=== PATIENT | female | born 1940 | race Caucasian/White ===

== ENCOUNTER → 2023-10-16 14:53 | Outpatient (REF) | payer MEDICARE, OTHER, SELFPAY | LOC: RAD 14:53 | PROVIDERS: ATTENDING PHYSICIAN Physician Assistant | DX: M54.2 Cervicalgia (principal); M54.6 Pain in thoracic spine | CPT/HCPCS: 72052; 72072 ==

== ENCOUNTER → 2024-01-09 15:39 | Outpatient (REF) | payer MEDICARE, OTHER, SELFPAY | LOC: RCS 15:39 | PROVIDERS: ATTENDING PHYSICIAN Internal Medicine Cardiovascular Disease; FAMILY PHYSICIAN Physician Assistant | DX: I31.39 Other pericardial effusion (noninflammatory) (principal) | CPT/HCPCS: 93306 ==

== ENCOUNTER → 2024-01-16 13:01 | Outpatient (REF) | payer MEDICARE, OTHER, SELFPAY | LOC: RAD 13:01 | PROVIDERS: ATTENDING PHYSICIAN Nurse Practitioner Family; FAMILY PHYSICIAN Physician Assistant | DX: J84.9 Interstitial pulmonary disease, unspecified (principal) | CPT/HCPCS: 71250 ==

== ENCOUNTER → 2024-04-15 12:44 | Outpatient (REF) | payer MEDICARE, OTHER, SELFPAY | LOC: RAD 12:44 | PROVIDERS: ATTENDING PHYSICIAN Physician Assistant | DX: M54.6 Pain in thoracic spine (principal); M81.0 Age-related osteoporosis without current pathological fracture; J84.9 Interstitial pulmonary disease, unspecified; J44.9 Chronic obstructive pulmonary disease, unspecified | CPT/HCPCS: 71046; 72072 ==

== ENCOUNTER → 2024-08-26 11:00 | Outpatient (REF) | payer MEDICARE, OTHER, SELFPAY ==
[2024-08-26 16:41] LABS: ALT (SGPT) 30 U/L (0-35); AST (SGOT) 35 U/L (14-36); Albumin 3.8 g/dl (3.5-5.0); Alkaline Phosphatase 77 U/L (38-126); Blood Urea Nitrogen 17 mg/dl (7-17); Carbon Dioxide 32 mmol/L (22-30); Chloride 90 mmol/L (98-107); Glucose 90 mg/dl (70-99); Potassium 4.8 mmol/L (3.5-5.1); Sodium 130 mmol/L (135-145); Total Bilirubin 0.6 mg/dl (0.2-1.3); Total Protein 8.1 g/dl (6.3-8.2); eGFR > 60.00
[2024-08-26 16:50] LABS: NT-proBNP 6380 pg/ml
== END ==
LOC: CLAB 11:00
PROVIDERS: ATTENDING PHYSICIAN Physician Assistant
DX: I50.812 Chronic right heart failure (principal)
CPT/HCPCS: 36415; 80053; 83880

== ENCOUNTER 2024-08-27 10:03 | Emergency (ER) | payer MEDICARE, SELFPAY ==
[2024-08-27 10:17] VITALS: BP 124/82
--- NOTE | 2024-08-27 11:17 | EDRN ---
Brant SPARKS currently at the pts bedside
[2024-08-27 11:25] VITALS: BMI 17.6
--- NOTE | 2024-08-27 11:37 | ED.GENMED ---
History of Present Illness
General
Chief Complaint: Abnormal Lab Value
Time Seen by Provider: 08/27/24 11:11
History of Present Illness
History of Present Illness:
84-year-old female with history of interstitial lung disease on chronic supplemental oxygen presents to the emergency department due to abnormal outpatient labs. Had visiting nurses draw labs yesterday and was called this morning to be told to go
to the ER. She is not certain what the labs are but thinks 'my sodium was not right'. She denies any acute complaints. She has chronic lower extremity edema despite use of furosemide every other day. Denies any dose changes to furosemide
recently. Denies any acute dyspnea but is noted to be tachypneic.
Review of Systems
Review of Systems
Allergies reviewed?: Yes
All Other Systems: ROS reviewed and negative except as documented in HPI and ROS
Phy Exam
Physical Exam
Physical Exam:
GEN: Well appearing, NAD, WDWN
HEENT: Oral mucosa moist, no scleral icterus
Cardiac: Regular rate
Lung: No respiratory distress, mildly tachypneic, diffuse interstitial crackles
MSK: No gross deformity or injuries, +1 pitting edema bilateral lower extremities
Skin: Good color, no pallor or jaundice, no rashes
Neuro: AO x3, moves all extremities freely
Psych: Calm, cooperative
Course
Orders/Labs/Results
Orders:
Orders
08/27/24 10:48
Add On- LAB Urgent
Tests Added?: pro-BNP
08/27/24 11:32
Basic Metabolic Panel Urgent
NT-proBNP Urgent
Serum Osmolality Urgent
Comment: ADD ON
08/27/24 12:06
Add On- LAB Urgent
Tests Added?: serum osmolality
08/27/24 13:04
Osmolality, Random Urine Urgent
Date Specimen was Collected: 08/27/24
Time Specimen was Collected: 12:21
Urinalysis Reflex To Culture Urgent
Date Specimen was Collected: 08/27/24
Time Specimen was Collected: 12:21
Urine Sodium Urgent
Date Specimen was Collected: 08/27/24
Time Specimen was Collected: :21
Abnormal Lab Results
08/27/24 08/27/24
11:32 13:04
Sodium 129 L mmol/L
(135-145)
Chloride 90 L mmol/L
(98-107)
Carbon Dioxide 32 H mmol/L
(22-30)
Glucose 100 H mg/dl
(70-99)
Urine Ketones Trace A
(Negative)
Urine Sodium 14 L mmol/L
(30-90)
08/27/24 13:09
08/27/24 11:32
Vital Signs
Initial and Last Documented VS:
Initial Vital Signs
Temp Pulse Resp BP Pulse Ox
97.3 F 79 24 124/82 97
08/27/24 10:17 08/27/24 10:17 08/27/24 10:17 08/27/24 10:17 08/27/24 10:17
Last Documented Vital Signs
Temp Pulse Resp BP Pulse Ox
97.3 F 83 22 110/81 100
08/27/24 10:17 08/27/24 13:06 08/27/24 13:06 08/27/24 14:00 08/27/24 14:01
MDM/Problems Addressed
MDM/Problems Addressed:
Patient is mildly hyponatremic, remainder of workup unremarkable. She appears euvolemic/questionably hypervolemic on exam, urine sodium is low. We will treat the patient with increased dose of furosemide, instead of every other day she will take
every day until follow-up later this week for repeat sodium levels. No indication for admission
*Critical Care Note
Total Time (30-74mins, 75-104mins- exclusive of procedures): Not Applicable
ED Attending Note
-
Portions of this chart may have been created with voice recognition software.� Occasional wrong word or��sound alike� substitutions may have occurred due to the inherent limitations of voice recognition software.
Discharge Plan
Departure
Patient Disposition: Home (Routine Discharge)
Date of Disposition: 08/27/24
Time of Disposition: 14:07
Patient with high blood pressure during this ER visit?: No
Discharge Problem:
Acute hyponatremia
Instructions: Hyponatremia
Prescriptions:
No Action
acetaminophen [Tylenol Extra Strength] 500 mg Tablet
1,000 mg PO Q6H PRN (Reason: mild pain)
ascorbic acid (vitamin C) [Vitamin C] 500 mg Tablet
500 mg PO QPM
vitamin E 268 mg (400 unit) Capsule
268 mg PO DAILY
coenzyme Q10 [CoQ-10] 100 mg Capsule
100 mg PO QPM
cholecalciferol (vitamin D3) 25 mcg (1,000 unit) Tablet
25 mcg PO DAILY
Visbiome 112.5 billion cell Capsule
1 cap PO QPM
Eye Vitamin
1 tab PO DAILY
Rx Instructions:
Vision essentials Ultra
furosemide 40 mg Tablet
40 mg PO DAILY 30 Days Qty: 30 0RF
Referrals:
Birdie Araiza PA [Family Provider] -
Activity Restrictions/Additional Instructions:
Increase your lasix to once per day instead of every other day
Have your sodium rechecked on Monday
Interventions
Interventions:
*Risk Screen - Suicide Last Done: 08/27/24 10:17
*General Assessment Last Done: 08/27/24 10:17
*Neglect/Abuse Screening Last Done: 08/27/24 10:17
ED- Fall Risk Assessment Last Done: 08/27/24 11:25
*ED COVID-19 Vaccine History Last Done: 08/27/24 10:17
*Nursing Disposition Last Done: 08/27/24 14:11
Discharge Date and Time
Discharge Date/Time: 08/27/24 14:19
Print Language: ERITREAN
[2024-08-27 12:00] VITALS: BP 126/106
[2024-08-27 12:02] LABS: Blood Urea Nitrogen 16 mg/dl (7-17); Calcium 9.4 mg/dl (8.4-10.2); Carbon Dioxide 32 mmol/L (22-30); Chloride 90 mmol/L (98-107); Estimated Creatinine Clearance 45 ml/min; Glucose 100 mg/dl (70-99); Sodium 129 mmol/L (135-145); eGFR > 60.00
[2024-08-27 12:04] LABS: NT-proBNP 6000 pg/ml
--- NOTE | 2024-08-27 12:41 | EDRN ---
the pt was notified that a urine sample needed to be collected, this RN provided the pt with water per the provider Brant SPARKS's request, the pt is drinking water and was educated on the use of the call alicea when she needs to use the bathroom, will
continue to monitor the pt closely
[2024-08-27 13:06] VITALS: BP 123/106
--- NOTE | 2024-08-27 13:06 | EDRN ---
the pts pressed the call ailcea and this RN entered the pts room, the pt stated that she needed to use the bathroom, the pt was able to ambulate to the bathroom independently with no issues and was able to provide a urine sample, urine was sent to the
lab, the pt was able to ambulate back to the stretcher with no issues, Sp02 100% on 4L NC, the pt is resting in stretcher in the lowest position, side rails up x2, call alicea within reach, HOB elevated, will continue to monitor the pt closely
[2024-08-27 13:31] LABS: Osmolality Serum 276 mOsm/kg (275-300)
[2024-08-27 13:35] LABS: Urine Albumin Trace (Neg - Trace); Urine Bilirubin Negative (Negative); Urine Character Clear (Clear); Urine Color Yellow; Urine Glucose Negative (Negative); Urine Ketone Trace (Negative); Urine Leukocyte Negative (Negative); Urine Nitrite Negative (Negative); Urine Occult Blood Negative (Negative); Urine Specific Gravity 1.025 (<1.030); Urine Urobilinogen Negative (Neg - 1+)
[2024-08-27 13:39] LABS: Osmolality Urine 554 mOsm/kg (300-900)
[2024-08-27 14:00] VITALS: BP 110/81
[2024-08-27 14:05] LABS: Urine Sodium 14 mmol/L (30-90)
--- NOTE | 2024-08-27 14:27 | EDRN ---
the pt is going home to get the pts home oxygen and coming back to pick the pt up
== END 2024-08-27 14:19 | disposition home or self-care (01) ==
LOC: EMR 10:03
PROVIDERS: Physician Assistant; EMERGENCY PHYSICIAN Emergency Medicine; FAMILY PHYSICIAN Physician Assistant
DX: E87.1 Hypo-osmolality and hyponatremia (principal); J84.9 Interstitial pulmonary disease, unspecified; Z99.81 Dependence on supplemental oxygen
CPT/HCPCS: 99283; 80048; 81003; 83880; 83930; 83935; 84300

== ENCOUNTER → 2024-09-05 11:06 | Outpatient (REF) | payer MEDICARE, OTHER, SELFPAY ==
[2024-09-05 15:59] LABS: Blood Urea Nitrogen 24 mg/dl (7-17); Calcium 9.3 mg/dl (8.4-10.2); Carbon Dioxide 34 mmol/L (22-30); Chloride 94 mmol/L (98-107); Glucose 119 mg/dl (70-99); Potassium 4.4 mmol/L (3.5-5.1); Sodium 135 mmol/L (135-145); eGFR > 60.00
== END ==
LOC: CLAB 11:06
PROVIDERS: ATTENDING PHYSICIAN Physician Assistant
DX: E87.1 Hypo-osmolality and hyponatremia (principal)
CPT/HCPCS: 80048

== ENCOUNTER 2024-09-06 19:26 | Inpatient (IN) | payer MEDICARE, OTHER, SELFPAY ==
[2024-09-06] VITALS (9 sets, daily range): BP systolic 104–119; BP diastolic 72–89; BMI 19.0; BMI 17.7
[2024-09-06 15:49] LABS: % Basophils 1.2 % (0-2); % Eosinophils 1.2 % (0-6); % Immature Granulocytes 0.2 % (0-0.5); % Lymphocytes 17.9 % (20.5-51.1); % Monocytes 14.3 % (1.7-9.3); % Neutrophils 65.2 % (42.2-75.2); Absolute Basophils 0.1 10^3/uL (0-0.2); Absolute Eosinophils 0.1 10^3/uL (0-0.7); Absolute Lymphocytes 0.9 10^3/uL (1.2-3.4); Absolute Monocytes 0.7 10^3/uL (0.1-0.6); Absolute Neutrophils 3.2 10^3/uL (1.4-6.5); Hematocrit 38.3 % (37.0-47.0); Hemoglobin 12.8 g/dL (12.0-16.0); Mean Corp Hgb Conc. 33.4 g/dL (33.0-37.0); Mean Corpuscular Hgb 30.7 pg (27.0-31.0); Mean Corpuscular Volume 91.8 fL (81.0-99.0); Mean Platelet Volume 9.4 fL (7.4-10.4); Nucleated Red Blood Cells % 0 %; Platelet Count 313 10^3/uL (130-400); Red Blood Cell Count 4.17 10^6/uL (4.20-5.40); Red Cell Dist. Width 15.8 % (11.5-14.5)
[2024-09-06 16:01] LABS: ALT (SGPT) 39 U/L (0-35); AST (SGOT) 44 U/L (14-36); Albumin 3.8 g/dl (3.5-5.0); Alkaline Phosphatase 83 U/L (38-126); Blood Urea Nitrogen 26 mg/dl (7-17); Calcium 9.2 mg/dl (8.4-10.2); Carbon Dioxide 36 mmol/L (22-30); Chloride 93 mmol/L (98-107); Glucose 97 mg/dl (70-99); Potassium 4.3 mmol/L (3.5-5.1); Sodium 135 mmol/L (135-145); Total Bilirubin 0.5 mg/dl (0.2-1.3); Total Protein 7.9 g/dl (6.3-8.2); eGFR > 60.00
[2024-09-06 16:05] LABS: COVID-19 Antigen Negative (Negative)
[2024-09-06 16:11] LABS: NT-proBNP 13700 pg/ml; Troponin I 0.026 ng/ml
--- NOTE | 2024-09-06 18:00 | ED.GENMED ---
History of Present Illness
General
Chief Complaint: Breathing Problem
Source: patient and spouse
Exam Limitations: none
Time Seen by Provider: 09/06/24 16:54
Nursing documentation reviewed up to this point in time: agreed with
History of Present Illness
History of Present Illness:
The patient is a pleasant 84-year-old female with a past medical history of interstitial lung disease and CHF, who is oxygen dependent generally on 3 to 4 L of nasal oxygen, who reports 2 weeks of gradual onset of worsening shortness of breath,
early fullness with eating, as well as bilateral leg edema. Patient denies fever and productive cough. She denies a history of PE and DVT. Patient reports that just standing and brushing her teeth is extremely difficult because she cannot breathe
it. Patient reports that her home pulse ox has been in the 70s to 80s when they are generally in the low 90s.
Past History
Past History
ED Past Medical History: CHF and Other (Interstitial lung disease, chronic bronchiectasis)
ED Past Surgical History: Other (D&C)
Social History
Tobacco: Non-smoker
Alcohol: None
Drug: None
Personal:
Living: with family
Employment: Other
Family History
Family History: Other
Review of Systems
Review of Systems
Allergies reviewed?: Yes
All Other Systems: ROS reviewed and negative except as documented in HPI and ROS
Constitutional: Reports no symptoms
EENT: Reports no symptoms
Respiratory: Reports trouble breathing
Cardiac: Reports no symptoms
ABD/GI: Reports anorexia
: Reports no symptoms
Musculoskeletal: Reports edema
Skin: Reports no symptoms
Neurological: Reports no symptoms
Endocrine: Reports no symptoms
Hematologic/Lymphatic: Reports no symptoms
Psychiatric: Reports no symptoms
Phy Exam
Physical Exam
Physical Exam:
Physical Exam
General: Patient appears cachectic and chronically ill but is able to speak in full sentences
Neck: supple. no meningeal signs. normal psoterior pharynx
Heart: s1/s2 regular rate and rhythm,
Lungs: Mild tachypnea with speaking. Bilateral crackles and decreased breath sounds bilaterally
Abdomen: normal bowel sounds. not tender. no CVAT
Neuro: alert and oriented. no focal neurological deficits
Skin: no rash
Psychiatric: well kept. interactive and cooperative
Extremities: 2+ pitting edema in bilateral lower extremities. Negative Homans' sign
Scores
Heart Failure Risk
Heart Failure Risk Score: Not Applicable
Course
Orders/Labs/Results
Orders:
Orders
09/06/24 15:17
ECG [Electrocardiogram (*1)] Urgent
Reason for Study: Shortness of Breath
CR Chest - 2 Views Urgent
Comment:
Reason For Exam: SOB
09/06/24 15:18
EKG- Treatment ONCE
09/06/24 15:34
COVID-19 Antigen Urgent
Source: Nasal Swab
Complete Blood Count/With Diff Urgent
Comprehensive Metabolic Panel Urgent
NT-proBNP Urgent
Troponin I Urgent
Influenza A+B Rapid Molecular Urgent
COLETTE Source: Nasal Swab
Specimen Description:
Abnormal Lab Results
09/06/24
15:34
RBC 4.17 L 10^6/uL
(4.20-5.40)
RDW 15.8 H %
(11.5-14.5)
Absolute Lymphs (auto) 0.9 L 10^3/uL
(1.2-3.4)
Absolute Monos (auto) 0.7 H 10^3/uL
(0.1-0.6)
Lymphocytes % 17.9 L %
(20.5-51.1)
Monocytes % 14.3 H %
(1.7-9.3)
Chloride 93 L mmol/L
(98-107)
Carbon Dioxide 36 H mmol/L
(22-30)
BUN 26 H mg/dl
(7-17)
AST 44 H U/L
(14-36)
ALT 39 H U/L
(0-35)
09/06/24 15:34
09/06/24 15:34
Vital Signs
Initial and Last Documented VS:
Initial Vital Signs
Temp Pulse Resp BP Pulse Ox
98.2 F 83 26 115/77 88
09/06/24 15:14 09/06/24 15:14 09/06/24 15:14 09/06/24 15:14 09/06/24 15:14
Last Documented Vital Signs
Temp Pulse Resp BP Pulse Ox
98.2 F 80 31 112/84 98
09/06/24 15:14 09/06/24 16:45 09/06/24 16:45 09/06/24 16:44 09/06/24 16:45
*Radiology
Radiology exam reviewed: preliminary read by ED provider (Thickened lung markings bilaterally. Chest x-ray reviewed by me) and radiology read reviewed
*Pulse Oximetry
Patient hypoxic: no
Comment: Patient with sats of 95% on 4.5 L of nasal oxygen
*EKG
Interpretation: abnormal
Comparison EKG: changes noted
Rate: normal
Rhythm: sinus
[place]: right axis deviation
Interval: normal interval
QRS Pattern: normal QRS
Ischemia: T-wave inversion
*Sidehand Interpretation
Rate: normal
Interpretation: normal
Rhythm: sinus
*Critical Care Note
Total Time (30-74mins, 75-104mins- exclusive of procedures): Not Applicable
Data Reviewed
Review of Other/Old Records Reveals: Testing (Cardiac echo 01/2024 shows an EF of 62%)
Source: patient and spouse
Patient Management
Social determinants of health affecting care: Living situation and Strong social support
Escalation/DeEscalation of care consider admission/obs:
Patient with worsening hypoxia and shortness of breath on simple exertion. Patient has no increased cough or fever to suggest pneumonia
ED Attending Note
-
Portions of this chart may have been created with voice recognition software.� Occasional wrong word or��sound alike� substitutions may have occurred due to the inherent limitations of voice recognition software.
Discharge Plan
Departure
Patient Disposition: Admit
Date of Disposition: 09/06/24
Time of Disposition: 17:53
Admit to: Telemetry
Presentation/result/management discussed w/ accepting MD/DO: Hospitalist
Patient with high blood pressure during this ER visit?: Yes
Condition: Fair
Covid-19: Negative COVID-19
Discharge Problem:
Acute exacerbation of chronic heart failure
Prescriptions:
No Action
acetaminophen [Tylenol Extra Strength] 500 mg Tablet
1,000 mg PO Q6HPRN PRN (Reason: mild pain)
ascorbic acid (vitamin C) [Vitamin C] 500 mg Tablet
500 mg PO QPM
vitamin E 268 mg (400 unit) Capsule
268 mg PO DAILY
coenzyme Q10 [CoQ-10] 100 mg Capsule
100 mg PO QPM
cholecalciferol (vitamin D3) 25 mcg (1,000 unit) Tablet
25 mcg PO DAILY
Visbiome 112.5 billion cell Capsule
1 cap PO QPM
furosemide 40 mg Tablet
40 mg PO DAILY 30 Days Qty: 30 0RF
budesonide 0.5 mg/2 mL Suspension For Nebulization
0.5 mg INHALATION R TID
Referrals:
Birdie Araiza PA [Family Provider] -
Interventions
Interventions:
*Risk Screen - Suicide Last Done: 09/06/24 16:47
*General Assessment Last Done: 09/06/24 15:14
*Neglect/Abuse Screening Last Done: 09/06/24 16:47
ED- Fall Risk Assessment Last Done: 09/06/24 16:47
*ED COVID-19 Vaccine History Last Done: 09/06/24 16:46
ED- Cardiac Assessment Last Done: 09/06/24 16:48
ED- Pulmonary Assessment Last Done: 09/06/24 16:48
Discharge Date and Time
Print Language: TANZANIAN
--- NOTE | 2024-09-06 18:02 | HPS.HSE ---
Family Physician
-
Family Physician: BRIDGER Caballero
Chief Complaint
-
sob
LE edema
History of Present Illness
84-year-old female with a past medical history of interstitial lung disease and CHF, who is oxygen dependent generally on 4 of nasal oxygen, who reports 2 weeks of gradual onset of worsening shortness of breath, early fullness with eating, as well
as bilateral leg edema. Patient denies fever and productive cough, congestion. denied BENNETT, dizzy or syncope. denied abdominal pain,n,vd. denied dysuria or hematuria. She denies a history of PE and DVT. Patient reports that her home pulse ox has
been in the 70s to 80s.
upon arrival noted in CHF.admitting for further management.
Medical History
Past Medical History
Past Medical History: Reports Other
Additional Past Medical History:
COPD
Heart failure
Macular degeneration
Interstitial lung disease
Bronchiectasis
Past Surgical History: Reports Other
Additional Past Surgical History:
D&C
Social History
Tobacco: Non-smoker
Alcohol: None
Drug: None
Personal:
Living: With Family
Family History
Family History: Not pertinent
Allergies / Home Medications
Allergies reflects when Allergies were last updated in [facility].
Home Medications with original date entered in [facility]
Allergy/Medication List:
Allergies
Allergy/AdvReac Type Severity Reaction Status Date / Time
adhesive Allergy Unknown Verified 09/06/24 15:14
Sulfa (Sulfonamide Allergy Unknown Verified 09/06/24 15:14
Antibiotics)
dust Allergy nasal Uncoded 09/06/24 15:14
symptoms
Home Medications
Lactobac no.2-Bifidobac no.1-S. thermo 112.5 billion cell capsule (Visbiome) 1 cap PO QPM probiotic 07/10/23
acetaminophen 500 mg tablet (Tylenol Extra Strength) 1,000 mg PO Q6HPRN PRN mild pain 07/10/23
ascorbic acid (vitamin C) 500 mg tablet (Vitamin C) 500 mg PO QPM Supplement 07/10/23
cholecalciferol (vitamin D3) 25 mcg (1,000 unit) tablet 25 mcg PO DAILY Supplement 07/10/23
coenzyme Q10 100 mg capsule (CoQ-10) 100 mg PO QPM Supplement 07/10/23
vitamin E 268 mg (400 unit) capsule 268 mg PO DAILY Supplement 07/10/23
furosemide 40 mg tablet 40 mg PO DAILY Fluid retention/Swelling 30 days #30 tabs 07/14/23
budesonide 0.5 mg/2 mL suspension for nebulization 0.5 mg inhalation R TID 09/06/24
Review of Systems
-
Constitutional: Reports No Symptoms
EENT: Reports No Symptoms
Respiratory: Reports Trouble Breathing
Cardiac: Reports No Symptoms
Abdomen/GI: Reports No Symptoms
: Reports No Symptoms
Musculoskeletal: Reports Edema (LE edema)
Skin: Reports No Symptoms
Neurological: Reports No Symptoms
Endocrine: Reports No Symptoms
Hematologic/Lymphatic: Reports No Symptoms
Psych: Reports No Symptoms
Physical Exam
Vital Signs
Vital Signs
Temp Pulse Resp BP Pulse Ox
98.2 F 80 31 112/84 98
09/06/24 15:14 09/06/24 16:45 09/06/24 16:45 09/06/24 16:44 09/06/24 16:45
Physical Exam
General: Well Developed, Well Nourished and No Apparent Distress
HEENT: NormoCephalic, Moist mucous membranes and Atraumatic
Respiratory: Rhonchi and Crackles
Cardiac: S1/S2 and Regular Rhythm; No Murmur or Rub
GI: Soft, Non Tender, Non Distended and Normal Bowel Sounds; No Organomegaly
Rectal: Deferred by Provider
Musculoskeletal: No Clubbing, No Cyanosis and Other (LE edema)
Skin: No Rash
Neuro: AO x 3 and Nonfocal/grossly intact
Psych: Calm
Laboratory Results
-
09/06/24 15:34
09/06/24:
Laboratory Results
Total Bilirubin 0.5 mg/dl (0.2-1.3) 09/06/24:34
AST 44 U/L (14-36) H 09/06/24:
ALT 39 U/L (0-35) H 09/06/24:34
Alkaline Phosphatase 83 U/L (38-126) 09/06/24:
Troponin I 0.026 ng/ml 09/06/24:34
Data Reviewed
-
Diagnostic Radiology: Report Reviewed by me
Lab Data: Labs Reviewed by me
Impression/Plan
-
# Short of breath/lower extremities edema likely CHF exacerbation secondary to pulmonary hypertension
#chronic hypoxic respiratory failure
#patient uses baseline 4l
-BNP 137 100
-Trend Trope
-COVID and pleural-negative
-Chest x-ray with impression of SEVERE CHRONIC INFLAMMATORY INTERSTITIAL PNEUMONITIS involving the periphery of the right lung more than the left lung. Severe varicoid bronchiectasis in the peripheral right lung.
2. Moderate right lung volume loss with elevation of the right hemidiaphragm and left to right mediastinal shift.
3. Central pulmonary arterial distention consistent with pulmonary arterial hypertension.
4. Moderate cardiomegaly.
5. Multilevel chronic vertebral body endplate osteoporotic insufficiency fractures with complete collapse of the T4 and T10 vertebral bodies.
-Strict CASA, daily weight, fluid restriction
-Lasix 40 IV bid
-Cardiology consulted
-Obtain echo
# Hepatic congestion
-AST 44, ALT 39
-Patient denied abdominal pain
-Trend LFTs
#ILD and COPD
-nebs from home continued
#Osteoporosis Hx
cont� vitamin D supplement, vitamin C
#Underweight/Severe protein calorie malnutrition of chronic illness
- consult nutrition
#Macular degeneration
-Cont OP POM vitamin
DVT prophylaxis
lovenox
Full code
--- NOTE | 2024-09-06 18:32 | CON.CAR ---
Consultation
Consultation Request
Date/Time Consultation Requested: September 06, 2024
Date/Time Consultation Performed: September 06, 2024
Requesting Provider: Hospitalist
Performing Provider: Dr Rakesh Taylor
Reason for Consultation: Shortness of breath, suspected heart failure
Medical History
-
Chief Complaint: Progressive shortness of breath
History of Present Illness:
She presents to the hospital with progressive shortness of breath over several days and is found to be in congestive heart failure. She has a complex medical history which includes interstitial lung disease, she is oxygen dependent at home on 4 L
nasal cannula. Over the past 2 weeks she has noticed worsening shortness of breath and increasing lower extremity edema as well as early satiety.
She has been compliant with medications.
No fevers chills night sweats. No nausea vomiting or diarrhea.
Chest x-ray shows severe chronic inflammatory interstitial pneumonitis, severe bronchiectasis. There is elevation of the right hemidiaphragm and a left to right mediastinal shift. There is central pulmonary arterial distention consistent with
pulmonary hypertension. Moderate cardiomegaly.
Presenting EKG is sinus rhythm at 86 bpm and inferior and lateral T wave abnormalities without significant change from prior EKG.
White blood cell count is 5, hemoglobin and hematocrit are 12.8 and 38.3
proBNP is 13,700, troponin is 0.026.
Mildly elevated transaminases with AST 44 and ALT 39
Sodium 153, BUN and creatinine of 26 and 0.8 with potassium of 4.3.
Echocardiogram from January 09, 2024 finds LVEF 62%, mild to moderate tricuspid regurgitation, pulmonary hypertension with estimated pulmonary artery pressure 58 mmHg.
Past medical history is notable fo:
Interstitial lung disease with Severe pulmonary hypertension
COPD
bronchiectasis
heart failure with preserved ejection fraction
h/o elevated NOE with high titer 05/11/23
h/o elevated gamma chains on protein electrophoresis also with faint Lambda chains 03/06/23
h/o thoracic compression fracture
Social History
Tobacco: Non-Smoker
Alcohol: None
Drug: None
Personal:
Employment: Not Employed
Family History
Family History: Reviewed & Not Pertinent
Allergies / Home Medications
Allergy/AdvReac Type Severity Reaction Status Date / Time
adhesive Allergy Unknown Verified 09/06/24 15:14
house dust Allergy NASAL Verified 09/06/24 18:25
SYMPTOMS
Sulfa (Sulfonamide Allergy Unknown Verified 09/06/24 15:14
Antibiotics)
�Medication �Instructions �Recorded �Confirmed �Type
Lactobac no.2-Bifidobac no.1-S. 1 cap PO QPM probiotic 07/10/23 09/06/24 History
thermo 112.5 billion cell capsule
(Visbiome)
acetaminophen 500 mg tablet 1,000 mg PO Q6HPRN PRN mild pain 07/10/23 09/06/24 History
(Tylenol Extra Strength)
ascorbic acid (vitamin C) 500 mg 500 mg PO QPM Supplement 07/10/23 09/06/24 History
tablet (Vitamin C)
cholecalciferol (vitamin D3) 25 25 mcg PO DAILY Supplement 07/10/23 09/06/24 History
mcg (1,000 unit) tablet
coenzyme Q10 100 mg capsule 100 mg PO QPM Supplement 07/10/23 09/06/24 History
(CoQ-10)
vitamin E 268 mg (400 unit) capsule 268 mg PO DAILY Supplement 07/10/23 09/06/24 History
furosemide 40 mg tablet 40 mg PO DAILY Fluid 07/14/23 09/06/24 Rx
retention/Swelling 30 days #30 tabs
budesonide 0.5 mg/2 mL suspension 0.5 mg inhalation R TID 09/06/24 09/06/24 History
for nebulization
Physical Exam
Vital Signs
Temp Pulse Resp BP Pulse Ox
98.2 F 80 31 112/84 98
09/06/24 15:14 09/06/24 16:45 09/06/24 16:45 09/06/24 16:44 09/06/24 16:45
Lab Results
09/06/24 15:34
09/06/24 15:34
Troponin I 0.026 ng/ml 09/06/24 15:34
Nda-I-P[place] Pept 97750 pg/ml 09/06/24 15:34
Physical Exam
General: Well Developed and No Apparent Distress
HEENT: Normocephalic, Anicteric and Moist Mucous Membranes
Respiratory: Other (Coarse breath sounds with crackles bilaterally)
Cardiac: S1/S2, Regular Rhythm and Murmur (2/6 systolic murmur lower left sternal border, there is no S3, there is an S4 there are no rubs, RV heave)
Breast: Deferred by me
GI: Soft, Non Tender, Non Distended and Normal Bowel Sounds
Rectal: Deferred by Provider
Musculoskeletal: No Clubbing, No Cyanosis and Edema (There is +2 pretibial edema, pitting, bilaterally)
Skin: Warm and Dry
Neuro: Awake, Oriented and AO x 3
Psych: Calm
Impression / Plan
-
Assessment:
Acute and progressive decompensated congestive heart failure, heart failure with preserved ejection fraction
Exacerbation/progression of symptomatic interstitial lung disease with Severe pulmonary hypertension
Elevated LFTs likely represent hepatic congestion
COPD
bronchiectasis
heart failure with preserved ejection fraction
h/o elevated NOE with high titer 05/11/23
h/o elevated gamma chains on protein electrophoresis also with faint Lambda chains 03/06/23
h/o thoracic compression fracture
Echocardiogram from January 09, 2024 finds LVEF 62%, mild to moderate tricuspid regurgitation, pulmonary hypertension with estimated pulmonary artery pressure 58 mmHg.
Recommendations:
She presents with acute and progressive decompensated heart failure with preserved ejection fraction as well as likely progression of her severe interstitial lung disease
-IV Lasix diuresis, agree with Lasix 40 mg IV twice daily and follow clinically (avoid overdiuresis as she is likely at least somewhat preload dependent although normal LV size and function noted on most recent echo)
Follow renal function closely
Keep potassium between 4 and 5 and magnesium between 2 and 3
-Can consider echocardiogram on Monday
Discussed with emergency department nursing as well as the patient and her who is at bedside. All of their questions answered.
Total time spent today was 78 minutes in preparing to see the patient, seeing the patient and coordination of care. This included review of recent laboratory evaluations, cardiact testing, imaging studies, primary care rtecords, specialty
consultations, hospital records, as well as personally interviewing and examining the patient, which included discussion of their tests, review/ordering medications, and communicating with other healthcare professionals and also treatment planning
as well as counseling.
Data Reviewed
-
EKG: Tracing Personally Visualized and interpreted
Radiology: Image Personally Visualized and interpreted and Report Reviewed by me
Medical Tests (Nuc Med, Echo etc): Report Reviewed by me
Labs: Labs Reviewed by me, Discussed with Patient and Discussed with Family
Old Records: Reviewed
Total Time Spent with Patient (in minutes): 78
[2024-09-06] MEDS: LASIX 40 MG IV (18:44)
--- NOTE | 2024-09-06 18:54 | EDRN ---
Dr. Blair Hernandez in room w/pt at this time.
--- NOTE | 2024-09-06 19:02 | W.PN.UPDATE ---
Update Note
Progress Note Update
This note serves as an addendum to the H&P by shrimper AZAEL
Stella KEATON
HPI
84F HX Home 4L O2 need chronic ILDx CHF, HX Chr HFpEF, sen at ER;
- 2 weeks of gradual worsening shortness of breath, early fullness with eating, as well as bilateral leg edema.
- reports that her home pulse ox has been in the 70s to 80s.
- No prior HX PE and DVT.
ROS:
denies fever and productive cough, congestion.
denied BENNETT, dizzy or syncope.
denied abdominal pain,n,vd.
denied dysuria or hematuria.
PHX; as above
Reviewed VS: unremarkable
General: cachectic, no acute distress
Neck : prominent EJD
Cor: S1-S2 RRR
Abdomen: benign exam
Extremities: b/l 1 plus lower extremity edema
Neuro: awake alert and oriented
Psych: pleasant
Abnormal Lab Results
09/06/24
15:34
RBC 4.17 L
RDW 15.8 H
Absolute Lymphs (auto) 0.9 L
Absolute Monos (auto) 0.7 H
Lymphocytes % 17.9 L
Monocytes % 14.3 H
Chloride 93 L
Carbon Dioxide 36 H
BUN 26 H
AST 44 H
ALT 39 H
CXR
1. SEVERE CHRONIC INFLAMMATORY INTERSTITIAL PNEUMONITIS involving the periphery of the right lung more than the left lung. Severe varicoid bronchiectasis in the peripheral right lung.
2. Moderate right lung volume loss with elevation of the right hemidiaphragm and left to right mediastinal shift.
3. Central pulmonary arterial distention consistent with pulmonary arterial hypertension.
4. Moderate cardiomegaly.
5. Multilevel chronic vertebral body endplate osteoporotic insufficiency fractures with complete collapse of the T4 and T10 vertebral bodies.
01/09/24 ECHO
1. Small left ventricle with preserved systolic function, EF 62%
2. Mitral annular calcification with trace mitral regurgitation and normal
left atrium
3. Trace-mild aortic regurgitation with mild aortic sclerosis
4. Normal right heart with moderate to severe pulmonary hypertension, 58 mmHg
systolic.
ASSESSMENT & PLAN
Acute on chr HFpEF/ acute RHF
Associated Acute hypoxia
HX home O2 dependent hr Hypoxic RF
- IV Lasix 40 BID
- Daily Wt and IOs
- daily BMP
- f/u POx - wean O2 to baseline as tolerated
- DCA Card consult
HX chr ILD and COPD
- Cont. Home nebs
Abnormal borderline transaminitis due to chronic hepatic congestion due to chr HFpEF/ RHF
-Patient denied abdominal pain
-Trend LFTs
Osteoporosis Hx
- cont vitamin D supplement, vitamin C
BMI 19
Underweight
Severe protein calorie malnutrition of chronic illness
Pul cachexia
- Consult Labor Arbitrator Hearing Office
HX Macular degeneration
- Cont OP POM vitamin
DVT Px: LMWH
Full code
IP TLM
--- NOTE | 2024-09-06 19:26 | EDRN ---
Pt placed on a purewyck post administration of Lasix as very SOB w/ sl ambulation.
[2024-09-06] MEDS: PULMICORT INH (21:19)
[2024-09-06 22:18] LABS: Troponin I 0.028 ng/ml
[2024-09-07] VITALS (8 sets, daily range): BP systolic 84–110; BP diastolic 55–78; O2SAT 89; BMI 17.7
[2024-09-07 04:59] LABS: Troponin I 0.027 ng/ml
[2024-09-07 07:18] LABS: ALT (SGPT) 36 U/L (0-35); AST (SGOT) 40 U/L (14-36); Albumin 3.4 g/dl (3.5-5.0); Alkaline Phosphatase 71 U/L (38-126); Blood Urea Nitrogen 24 mg/dl (7-17); Calcium 8.6 mg/dl (8.4-10.2); Carbon Dioxide 39 mmol/L (22-30); Chloride 94 mmol/L (98-107); Estimated Creatinine Clearance 34 ml/min; Glucose 84 mg/dl (70-99); HDL Cholesterol 77 mg/dl; LDL Cholesterol, Calculated 54 mg/dl; Magnesium 1.9 mg/dl (1.6-2.3); Potassium 4.2 mmol/L (3.5-5.1); Sodium 137 mmol/L (135-145); Total Bilirubin 0.6 mg/dl (0.2-1.3); Total Cholesterol 148 mg/dl (50-199); Total Protein 7.2 g/dl (6.3-8.2); Triglyceride 87 mg/dl (10-149); Very Low Density Lipoprotein 17 mg/dl (0-30); eGFR > 60.00
[2024-09-07 07:41] LABS: TSH Reflex To Free T4 4.16 uIU/ml (0.47-4.68)
[2024-09-07] MEDS: VITAMIN E 400 UNITS PO (08:29)
[2024-09-07] MEDS: VITAMIN D3 (cholecalciferol) 25 MCG PO (08:29)
[2024-09-07] MEDS: LASIX 40 MG IV ×2 (08:30→15:26)
[2024-09-07] MEDS: PULMICORT 0.5 MG INH ×3 (08:45→19:32)
--- NOTE | 2024-09-07 10:36 | PTOTSP ---
Speech Therapy Evaluation:
Pt exhibits grossly functional oropharyngeal swallow at bedside, however presents with acute on chronic risk factors of dysphagia. Chronic risk factors include COPD, interstitial lung disease, and chronic respiratory insufficiency with O2 dependence
at baseline. Acute risk factors include current respiratory demand. Pt also presents with early satiety, indicating potential esophageal involvement. No s/sx of aspiration observed at bedside across PO trials. SOFTWARE RELEASE MANAGER attempted 3oz swallow screen,
however not successfully completed as pt took brief pauses between sips. Despite this, no s/sx of aspiration observed following consumption of 3oz of water.
Recommend:
1. Continue IDDSI Level 7 (regular) solids and thin liquids
2. Medications whole with water
3. General aspiration and reflux precautions
4. Monitor respiratory status
5. SOFTWARE RELEASE MANAGER to follow - likely brief
--- NOTE | 2024-09-07 11:44 | W.PN.CARDCBS ---
Addendum entered and electronically signed by Hai Villanueva MD 09/07/24 13:03:
I saw and examined the patient.
The FRONT END SOFTWARE DEVELOPER or PA's note was reviewed and I agree with the note.
Comment: General: Well developed, well nourished in NAD.
Neck: Supple, no JVD, HJR, carotids +2 B/L, no bruits bilaterally.
Heart: Non displaced PMI, RRR, no murmurs, No S3, S4, no rubs.
Lungs: Scattered rhonchi
Abdomen: Normal bowel sounds, soft, non-tender, non-distended.
Extremities: No clubbing, cyanosis or edema bilaterally.
Neuro: Grossly nonfocal, awake, alert and oriented x3.
Continue to treat for CHF with IV Lasix. Consider pulmonary evaluation.
Original Note:
Today's Communication / Plan
-
continue IV lasix
consider pulm evaluation
wean supp O2 as able
Impression / Plan
-
Assessment:
Acute and progressive decompensated congestive heart failure, heart failure with preserved ejection fraction
Exacerbation/progression of symptomatic interstitial lung disease with Severe pulmonary hypertension
Elevated LFTs likely represent hepatic congestion
COPD
bronchiectasis
heart failure with preserved ejection fraction
h/o elevated NOE with high titer 05/11/23
h/o elevated gamma chains on protein electrophoresis also with faint Lambda chains 03/06/23
h/o thoracic compression fracture
Echocardiogram from January 09, 2024 finds LVEF 62%, mild to moderate tricuspid regurgitation, pulmonary hypertension with estimated pulmonary artery pressure 58 mmHg.
Recommendations:
-she presented with worsening SOB, likely multifactorial
-reports improvement overnight with IV lasix 40mg BID, continue. states has had good urine output. Cr stable. as OP was on po lasix 40mg daily.
-follow LFTs, mildly elevated, could be secondary to passive congestion
-wean supp O2 as able, currently 99% on 3.5L NC
-CXR read as severe pneumonitis. would consider pulmonary evaluation, follows with Dr. Ramirez as OP
-consider repeat echo Monday
-consider addition of SGLT2 inhibitor
-d/w patient and at bedside
Progress Note - Streetcar Repairer Helper
Subjective
Date of Service: September 07, 2024
reports breathing improving
Objective
Labs:
09/06/24 15:34
09/07/24 06:25
Labs
Hgb 12.8 g/dL (12.0-16.0) 09/06/24 15:34
Hct 38.3 % (37.0-47.0) 09/06/24 15:34
Plt Count 313 10^3/uL (130-400) 09/06/24 15:34
Sodium 137 mmol/L (135-145) 09/07/24 06:25
Potassium 4.2 mmol/L (3.5-5.1) 09/07/24 06:25
BUN 24 mg/dl (7-17) H 09/07/24 06:25
Creatinine 0.8 mg/dL (0.6-1.0) 09/07/24 06:25
Glucose 84 mg/dl (70-99) 09/07/24 06:25
Troponins
09/06/24 09/06/24 09/07/24
15:34 21:46 03:53
Troponin I 0.026 0.028 0.027
Vital Signs and I&O:
Vital Signs
Temp Pulse Resp BP Pulse Ox
97.7 F 88 16 110/77 94
09/07/24 07:10 09/07/24 08:49 09/07/24 08:49 09/07/24 07:10 09/07/24 08:49
Vital Signs
Temp Pulse Resp BP Pulse Ox
97.7 F 88 16 110/77 94
09/07/24 07:10 09/07/24 08:49 09/07/24 08:49 09/07/24 07:10 09/07/24 08:49
Intake & Output
09/05/24 09/06/24 09/07/24 09/08/24
07:59 07:59 07:59 07:59
Intake Total 0 / 0 180 / 180
Output Total 300 / 300
Balance -300 / -300 180 / 180
Physical Exam
Physical Exam
GEN: No distress, awake, alert, oriented x3. frail. on supp O2
HEENT: supple, anicteric, mmm, eomi
LUNGS: Diffuse crackles B/L, no wheezes
CV: Reg, S1/S2, no murmur
ABD: soft, BS+, NT/ND
EXT: No cyanosis, clubbing. trace edema of B/L LE
NEURO: Gross non-focal
SKIN: Warm, pink, dry. No rash
[2024-09-07] MEDS: MUCINEX 600 MG PO ×2 (12:20→19:59)
--- NOTE | 2024-09-07 13:36 | CM ---
Addendum entered by Ava Lee 09/07/24 13:46:
Alejandra is independent with ADLS, lives with her in a [address] [facility].
Original Note:
CM met with the patient and her spouse Ras to discuss d/c needs.
Alejandra was admitted with LE Edema and shortness of breath. She has been taking 'water pills' which did not work per pt report. She has home O2 through [facility].
She is known to [facility] and agreeable to services at discharge if she is able to return directly home. SNF is recommended by therapy based on assessment done today. CM will discuss SNF options closer to discharge.
IMM was reviewed and copy provided; original document placed in patient chart
PCP: BRIDGER Caballero
Pharm: [facility] in [place]
[2024-09-07] MEDS: VITAMIN C 500 MG PO (17:51)
[2024-09-07] MEDS: LOVENOX 40 MG SC (17:51)
[2024-09-07] MEDS: VISBIOME 1 CAP PO (17:51)
--- NOTE | 2024-09-07 17:52 | W.PN.HOSP.TC ---
Today's Communication/Plan
-
add AB
Lasix
Acapella
Assessment / Plan
Assessment / Plan
84-year-old female presented with shortness of breath for the past several days
Echo January 09, 2024-EF 62%, mild to moderate TR, pulmonary hypertension w 58 mmHg
Chest t-[id number]-[id number] pneumonitis severe bronchiectasis. Moderate right lung volume loss secondary to elevation of the right hemidiaphragm, central pulmonary arterial distention consistent with pulmonary mention, cardiomegaly, multiple chronic
vertebral body endplate compression fractures
EKG with anteroinferior ischemia
CVS: S1-S2 normal
Chest: B/L Rales
Abdomen: Soft, NT / Bowel sounds present
Extremities: No edema, normal pulses
# Shortness of breath
Acute on chronic HFpEF
On Lasix 40 mg daily as outpatient
IV Lasix ordered
# Elevated AST and ALT-likely secondary to hepatic congestion-follow
# COPD/bronchiectasis
witha flare
Chronic respiratory failure on 4 L O2
On budesonide inhaler
Rocephin and Doxy
# History of pericardial effusion July 2023
# Interstitial lung disease with severe pulmonary hypertension
# Thoracic spine compression fractures with complete collapse of T4 and T10 vertebral bodies
# Underweight
# Osteoporosis Hx- Cont� vitamin D supplement
# DVT prophylaxis-Lovenox
# Full code
D/W at bed side
Anticipated Discharge: Within 24 hours
Subjective/Interval History
-
Date of Service: September 07, 2024
Objective Data
-
Labs:
Laboratory Results
09/07/24
06:25
Sodium 137
Potassium 4.2
Chloride 94 L
Carbon Dioxide 39 H
BUN 24 H
Creatinine 0.8
Glucose 84
Calcium 8.6
Total Bilirubin 0.6
AST 40 H
ALT 36 H
Alkaline Phosphatase 71
Vital Signs:
Vital Signs
Temp Pulse Resp BP Pulse Ox
98 F 90 20 106/75 99
09/07/24 15:20 09/07/24 15:30 09/07/24 15:20 09/07/24 15:30 09/07/24 15:20
I&O
09/06/24 09/07/24 09/08/24
06:59 06:59 06:59
Intake Total 0 / 0 180 / 180
Output Total 300 / 300 490 / 490
Balance -300 / -300 -310 / -310
[2024-09-07] MEDS: ROCEPHIN 1000 MG IV (18:03)
[2024-09-07] MEDS: STERILE WATER FOR INJECTION 10 ML IV (18:04)
[2024-09-07] MEDS: VIBRAMYCIN 260 MG IV (18:06)
[2024-09-08 03:35] VITALS: BP 103/72
[2024-09-08] MEDS: VIBRAMYCIN 260 MG IV ×2 (04:59→17:11)
[2024-09-08 07:20] VITALS: BP 108/74
[2024-09-08] MEDS: PULMICORT 0.5 MG INH ×3 (08:38→19:37)
[2024-09-08 08:52] LABS: Blood Urea Nitrogen 30 mg/dl (7-17); Calcium 8.3 mg/dl (8.4-10.2); Carbon Dioxide 38 mmol/L (22-30); Chloride 94 mmol/L (98-107); Estimated Creatinine Clearance 39 ml/min; Glucose 77 mg/dl (70-99); Potassium 3.6 mmol/L (3.5-5.1); Sodium 136 mmol/L (135-145); eGFR > 60.00
[2024-09-08] MEDS: VITAMIN E 400 UNITS PO (09:09)
[2024-09-08] MEDS: LASIX 40 MG IV ×2 (09:09→16:28)
[2024-09-08] MEDS: VITAMIN D3 (cholecalciferol) 25 MCG PO (09:09)
[2024-09-08] MEDS: MUCINEX 600 MG PO ×2 (09:09→19:24)
--- NOTE | 2024-09-08 09:30 | W.PN.CARDCBS ---
Today's Communication / Plan
-
Continue IV Lasix
Is on stable outpatient 4 L of oxygen
Difficult volume status but antibiotics have been added for possible lung component as well
Impression / Plan
-
Assessment:
Acute and progressive decompensated congestive heart failure, heart failure with preserved ejection fraction
Exacerbation/progression of symptomatic interstitial lung disease with Severe pulmonary hypertension
Elevated LFTs likely represent hepatic congestion
COPD
bronchiectasis
heart failure with preserved ejection fraction
h/o elevated NOE with high titer 05/11/23
h/o elevated gamma chains on protein electrophoresis also with faint Lambda chains 03/06/23
h/o thoracic compression fracture
Echocardiogram from January 09, 2024 finds LVEF 62%, mild to moderate tricuspid regurgitation, pulmonary hypertension with estimated pulmonary artery pressure 58 mmHg.
Recommendations:
Very difficult volume status and is chronically on 4 L due to lung disease
Continue IV Lasix
Antibiotics have been added
Progress Note - Nursing Program Coordinator
Subjective
Date of Service: September 08, 2024
No complaints
Objective
Labs:
09/06/24 15:34
09/08/24 06:43
Labs
Hgb 12.8 g/dL (12.0-16.0) 09/06/24 15:34
Hct 38.3 % (37.0-47.0) 09/06/24 15:34
Plt Count 313 10^3/uL (130-400) 09/06/24 15:34
Sodium 136 mmol/L (135-145) 09/08/24 06:43
Potassium 3.6 mmol/L (3.5-5.1) 09/08/24 06:43
BUN 30 mg/dl (7-17) H 09/08/24 06:43
Creatinine 0.7 mg/dL (0.6-1.0) 09/08/24 06:43
Glucose 77 mg/dl (70-99) 09/08/24 06:43
Troponins
09/06/24 09/06/24 09/07/24
15:34 21:46 03:53
Troponin I 0.026 0.028 0.027
Vital Signs and I&O:
Vital Signs
Temp Pulse Resp BP Pulse Ox
97.4 F 75 16 108/74 96
09/08/24 07:20 09/08/24 08:39 09/08/24 08:39 09/08/24 07:20 09/08/24 08:39
Vital Signs
Temp Pulse Resp BP Pulse Ox
97.4 F 75 16 108/74 96
09/08/24 07:20 09/08/24 08:39 09/08/24 08:39 09/08/24 07:20 09/08/24 08:39
Intake & Output
09/06/24 09/07/24 09/08/24 09/09/24
06:59 06:59 06:59 06:59
Intake Total 0 / 0 440 / 440
Output Total 300 / 300 490 / 490
Balance -300 / -300 -50 / -50
Physical Exam
Physical Exam
General: Well developed, well nourished in NAD.
Neck: Supple, no JVD, HJR, carotids +2 B/L, no bruits bilaterally.
Heart: Non displaced PMI, RRR, no murmurs, No S3, S4, no rubs.
Lungs: Scattered rhonchi
Extremities: No clubbing, cyanosis or edema bilaterally.
Neuro: Grossly nonfocal, awake, alert and oriented x3.
[2024-09-08 09:34] VITALS: BMI 17.6
[2024-09-08 11:18] VITALS: BP 110/75
--- NOTE | 2024-09-08 14:14 | CM ---
CM spoke with Alejandra's regarding SNF recommendation at discharge; Alejandra has not been to SNF previously. Referrals sent to [facility] for consideration.
Plan: CM will need to follow up with in AM to identify SNF options, as discharge is anticipated tomorrow.
[2024-09-08 15:15] VITALS: BP 112/79
--- NOTE | 2024-09-08 16:13 | W.PN.HOSP.TC ---
Today's Communication/Plan
-
lasix
Assessment / Plan
Assessment / Plan
84-year-old female presented with shortness of breath for the past several days
Echo January 09, 2024-EF 62%, mild to moderate TR, pulmonary hypertension w 58 mmHg
Chest v-ays-kqlbfsbiixce pneumonitis severe bronchiectasis. Moderate right lung volume loss secondary to elevation of the right hemidiaphragm, central pulmonary arterial distention consistent with pulmonary mention, cardiomegaly, multiple chronic
vertebral body endplate compression fractures
EKG with anteroinferior ischemia
CVS: S1-S2 normal
Chest: B/L Rales
Abdomen: Soft, NT / Bowel sounds present
Extremities: No edema, normal pulses
# Shortness of breath
Acute on chronic HFpEF
On Lasix 40 mg daily as outpatient
IV Lasix ordered
# Elevated AST and ALT-likely secondary to hepatic congestion-follow
# COPD/bronchiectasis
witha flare
Chronic respiratory failure on 4 L O2
On budesonide inhaler
Rocephin and Doxy
# History of pericardial effusion July 2023
# Interstitial lung disease with severe pulmonary hypertension
# Thoracic spine compression fractures with complete collapse of T4 and T10 vertebral bodies
# Underweight
# Osteoporosis Hx- Cont� vitamin D supplement
# DVT prophylaxis-Lovenox
# Full code
Anticipated Discharge: 24 - 48 hours
Subjective/Interval History
-
Date of Service: September 08, 2024
Objective Data
-
Labs:
Laboratory Results
09/08/24
06:43
Sodium 136
Potassium 3.6
Chloride 94 L
Carbon Dioxide 38 H
BUN 30 H
Creatinine 0.7
Glucose 77
Calcium 8.3 L
Vital Signs:
Vital Signs
Temp Pulse Resp BP Pulse Ox
97.6 F 85 16 110/75 95
09/08/24 11:18 09/08/24 14:54 09/08/24 14:54 09/08/24 11:18 09/08/24 14:54
I&O
09/07/24 09/08/24 09/09/24
06:59 06:59 06:59
Intake Total 0 / 0 440 / 440
Output Total 300 / 300 490 / 490
Balance -300 / -300 -50 / -50
[2024-09-08] MEDS: LOVENOX 40 MG SC (17:10)
[2024-09-08] MEDS: VISBIOME 1 CAP PO (17:10)
[2024-09-08] MEDS: STERILE WATER FOR INJECTION 10 ML IV (17:11)
[2024-09-08] MEDS: ROCEPHIN 1000 MG IV (17:11)
[2024-09-08] MEDS: VITAMIN C 500 MG PO (17:11)
[2024-09-08 19:55] VITALS: BP 102/70
[2024-09-08 23:53] VITALS: BP 107/75
[2024-09-09 03:04] VITALS: BP 117/82
[2024-09-09] MEDS: VIBRAMYCIN 260 MG IV ×2 (04:57→17:57)
[2024-09-09 06:00] VITALS: BMI 17.1
[2024-09-09 07:10] VITALS: BP 115/78
[2024-09-09] MEDS: PULMICORT 0.5 MG INH ×3 (07:22→19:39)
[2024-09-09 08:01] LABS: Blood Urea Nitrogen 35 mg/dl (7-17); Calcium 8.3 mg/dl (8.4-10.2); Chloride 93 mmol/L (98-107); Estimated Creatinine Clearance 37 ml/min; Glucose 78 mg/dl (70-99); Potassium 3.8 mmol/L (3.5-5.1); Sodium 137 mmol/L (135-145); eGFR > 60.00
[2024-09-09 08:11] LABS: Carbon Dioxide 37 mmol/L (22-30)
--- NOTE | 2024-09-09 08:25 | VNURNOTE ---
Chart reviewed. Patient is current with [facility] nursing. Will continue to follow hospital course and DC plans- most recent note stated SNF. [facility] remains available.
[2024-09-09] MEDS: LASIX 40 MG IV (08:53)
[2024-09-09] MEDS: VITAMIN D3 (cholecalciferol) 25 MCG PO (08:53)
[2024-09-09] MEDS: MUCINEX 600 MG PO ×2 (08:53→20:03)
[2024-09-09] MEDS: VITAMIN E 400 UNITS PO (08:53)
--- NOTE | 2024-09-09 10:19 | PTCARENOTE ---
Addendum entered by Minnie Oliver RN 09/09/24 10:27:
Pt skin intact, sacrum reddened, blanchable, foam dressing applied. Encouraged pt to frequently shift weight.
Original Note:
Received pt this AM at change of shift awake, alert, oriented, without c/o pain. NSR on the monitor with occasional PVCS. Maintaining O2 sats on 4L NC which is baseline for the pt. Pt has episodes of continence and incontinence of urine. Rings
appropriately for assistance. 1 assist oob. Pt currently denies pain. Pt currently resting comfortably in bed. Plan of care updated and reviewed with pt.
--- NOTE | 2024-09-09 10:29 | W.PN.CARDCBS ---
Addendum entered and electronically signed by Hai Villanueva MD 09/09/24 12:09:
I saw and examined the patient.
The SWEEPER OPERATOR HIGHWAYS or PA's note was reviewed and I agree with the note.
Comment: General: Well developed, well nourished in NAD.
Neck: Supple, no JVD, HJR, carotids +2 B/L, no bruits bilaterally.
Heart: Non displaced PMI, RRR, no murmurs, No S3, S4, no rubs.
Lungs: Scattered rhonchi
Extremities: No clubbing, cyanosis or edema bilaterally.
Neuro: Grossly nonfocal, awake, alert and oriented x3.
Difficult examination but likely euvolemic with significant weight loss since admission. Changed to Lasix 40 mg p.o. twice daily. Check echocardiogram and if unchanged sign off. Likely remaining hypoxemia is due to chronic lung disease and is on
her baseline oxygen that she is on at home.
Original Note:
Today's Communication / Plan
-
Appears euvolemic.
Will transition to PO lasix 40mg BID
Continue abx per primary service
Await echo results
Impression / Plan
-
Project Controller: Dr. Herzog
Impression:
Presented with SOB
Acute on chronic HFpEF
Severe pulmonary hypertension
Interstitial lung disease w/ acute exacerbation
Elevated LFTs
COPD
Bronchiectasis
h/o elevated NOE with high titer 05/11/23
h/o elevated gamma chains on protein electrophoresis also with faint Lambda chains 03/06/23
h/o thoracic compression fracture
Echo 01/09/2024: EF 62%, mild to moderate TR, pulmonary hypertension with estimated PAP 58 mmHg.
Echo 09/09/2023: Study pending
Plan:
-Presented with SOB and admitted with acute heart failure exacerbation. Also w/ bronchiectasis/ILD exacerbation.
-Diuresing with IV lasix 40mg BID. As OP was taking lasix PO 40mg daily.
-Creat stable at 0.7. Weight down to 84 lbs 09/09, down 9lbs this admission.
-Appears euvolemic. Will transition to PO lasix 40mg BID.
-Echo pending 09/09. Await results. Prior echo 01/2024 with EF 62% and mild-mod TR.
-Continue abx per primary service
-Currently on 6L NC. On 4L chronically. Wean as able
-Will arrange follow up.
HPI: She presents to the hospital with progressive shortness of breath over several days and is found to be in congestive heart failure. She has a complex medical history which includes interstitial lung disease, she is oxygen dependent at home on
4 L nasal cannula. Over the past 2 weeks she has noticed worsening shortness of breath and increasing lower extremity edema as well as early satiety. She has been compliant with medications. No fevers chills night sweats. No nausea vomiting or
diarrhea.
Progress Note - Project Controller
Subjective
Date of Service: September 09, 2024
Feeling tired and somewhat weak.
Objective
Labs:
09/06/24 15:34
09/09/24 06:04
Labs
Hgb 12.8 g/dL (12.0-16.0) 09/06/24 15:34
Hct 38.3 % (37.0-47.0) 09/06/24 15:34
Plt Count 313 10^3/uL (130-400) 09/06/24 15:34
Sodium 137 mmol/L (135-145) 09/09/24 06:04
Potassium 3.8 mmol/L (3.5-5.1) 09/09/24 06:04
BUN 35 mg/dl (7-17) H 09/09/24 06:04
Creatinine 0.7 mg/dL (0.6-1.0) 09/09/24 06:04
Glucose 78 mg/dl (70-99) 09/09/24 06:04
Troponins
09/06/24 09/06/24 09/07/24
15:34 21:46 03:53
Troponin I 0.026 0.028 0.027
Vital Signs and I&O:
Vital Signs
Temp Pulse Resp BP Pulse Ox
97.6 F 74 20 115/78 97
09/09/24 07:10 09/09/24 08:53 09/09/24 07:27 09/09/24 08:53 09/09/24 07:27
Vital Signs
Temp Pulse Resp BP Pulse Ox
97.6 F 74 20 115/78 97
09/09/24 07:10 09/09/24 08:53 09/09/24 07:27 09/09/24 08:53 09/09/24 07:27
Intake & Output
09/07/24 09/08/24 09/09/24 09/10/24
06:59 06:59 06:59 06:59
Intake Total 0 / 0 440 / 440 860 / 860 180 / 180
Output Total 300 / 300 490 / 490 1300 / 1300
Balance -300 / -300 -50 / -50 -440 / -440 180 / 180
Physical Exam
Physical Exam
GEN: No distress, awake, alert, oriented x3
HEENT: supple, anicteric, mmm
LUNGS: crackles b/l, no wheezes
CV: Reg, S1/S2, no murmur
EXT: No clubbing, cyanosis, or edema
NEURO: Gross non-focal
SKIN: Warm, dry, no rash
--- NOTE | 2024-09-09 11:07 | PTCARENOTE ---
Pt currently off unit for ECHO
--- NOTE | 2024-09-09 11:25 | CM ---
PT indicated SNF.
Spoke with Claudia at [facility] she said to contact her day of dc to check bed availability
TT MD when pt ready for dc to SNF.
[facility]
report [phone]
fax: [phone]
PLAN To [facility] when medically ready
[2024-09-09 11:37] VITALS: BP 108/76
--- NOTE | 2024-09-09 15:00 | W.PN.HOSP.TC ---
Today's Communication/Plan
-
Diuresis
Follow clinically
Assessment / Plan
Assessment / Plan
84-year-old female presented with shortness of breath for the past several days
Echo January 09, 2024-EF 62%, mild to moderate TR, pulmonary hypertension w 58 mmHg
Chest o-pbp-hdueveahzbka pneumonitis severe bronchiectasis. Moderate right lung volume loss secondary to elevation of the right hemidiaphragm, central pulmonary arterial distention consistent with pulmonary mention, cardiomegaly, multiple chronic
vertebral body endplate compression fractures
EKG with anteroinferior ischemia
CVS: S1-S2 normal
Chest: B/L Rales
Abdomen: Soft, NT / Bowel sounds present
Extremities: No edema, normal pulses
# Shortness of breath
Acute on chronic HFpEF
On Lasix 40 mg daily as outpatient
IV Lasix ordered
# Elevated AST and ALT-likely secondary to hepatic congestion-follow
# COPD/bronchiectasis
with a flare
Chronic respiratory failure on 4 L O2
On Budesonide inhaler
Rocephin and Doxy
# History of pericardial effusion July 2023
# Interstitial lung disease with severe pulmonary hypertension
# Thoracic spine compression fractures with complete collapse of T4 and T10 vertebral bodies
# Underweight
# Osteoporosis Hx- Cont� vitamin D supplement
# DVT prophylaxis-Lovenox
# Full code
Discussed with at bedside
Anticipated Discharge: 24 - 48 hours
Subjective/Interval History
-
Date of Service: September 09, 2024
Objective Data
-
Labs:
Laboratory Results
09/09/24
06:04
Sodium 137
Potassium 3.8
Chloride 93 L
Carbon Dioxide 37 H
BUN 35 H
Creatinine 0.7
Glucose 78
Calcium 8.3 L
Vital Signs:
Vital Signs
Temp Pulse Resp BP Pulse Ox
97.4 F 79 18 108/76 100
09/09/24 11:37 09/09/24 11:37 09/09/24 11:37 09/09/24 11:37 09/09/24 11:37
I&O
09/08/24 09/09/24 09/10/24
06:59 06:59 06:59
Intake Total 440 / 440 860 / 860 360 / 360
Output Total 490 / 490 1300 / 1300
Balance -50 / -50 -440 / -440 360 / 360
[2024-09-09 15:13] VITALS: BP 108/75
[2024-09-09] MEDS: LASIX 40 MG PO (15:58)
--- NOTE | 2024-09-09 17:05 | PN.CDI ---
CDI
- -
CDI:
Physician Documentation Request
Admit Date: 09/06/24 19:26
Dear Doctor Elyssa,
H&P states pt is oxygen dependent and used 4 L O2 at baseline /chronic hypoxic respiratory failure.
Per documented vital signs, pt has required 5-6 L at times
Please clarify which of the following accurately represents the respiratory failure:
Acute on Chronic
Chronic only
____ Other
Use of terms such as suspected, likely, concern for, or probable (associated with a specific diagnosis that is being evaluated, monitored, or treated as if it exists) are acceptable and can be coded in the inpatient setting, when documented at the
time of discharge.
Thank you,
Leelee Pabon RN, BSN
CDI Specialist
tiger text
Please use your independent medical judgment in providing your response.
[2024-09-09] MEDS: ROCEPHIN 1000 MG IV (17:56)
[2024-09-09] MEDS: STERILE WATER FOR INJECTION 10 ML IV (17:57)
[2024-09-09] MEDS: VISBIOME 1 CAP PO (17:57)
[2024-09-09] MEDS: VITAMIN C 500 MG PO (17:57)
[2024-09-09] MEDS: LOVENOX 40 MG SC (18:00)
[2024-09-09 19:16] VITALS: BP 102/69
[2024-09-09 23:29] VITALS: BP 110/75
[2024-09-10 03:02] VITALS: BP 110/77
[2024-09-10] MEDS: VIBRAMYCIN 260 MG IV (05:17)
[2024-09-10 06:00] VITALS: BMI 17.0
[2024-09-10 07:10] VITALS: BP 108/70
[2024-09-10 07:26] LABS: ALT (SGPT) 25 U/L (0-35); AST (SGOT) 32 U/L (14-36); Albumin 3.2 g/dl (3.5-5.0); Alkaline Phosphatase 70 U/L (38-126); Blood Urea Nitrogen 35 mg/dl (7-17); Calcium 8.3 mg/dl (8.4-10.2); Carbon Dioxide 35 mmol/L (22-30); Chloride 94 mmol/L (98-107); Estimated Creatinine Clearance 37 ml/min; Glucose 83 mg/dl (70-99); Potassium 3.8 mmol/L (3.5-5.1); Sodium 137 mmol/L (135-145); Total Bilirubin 0.2 mg/dl (0.2-1.3); Total Protein 6.9 g/dl (6.3-8.2); eGFR > 60.00
[2024-09-10] MEDS: PULMICORT 0.5 MG INH ×2 (07:32→19:19)
[2024-09-10] MEDS: LASIX 40 MG PO (08:41)
[2024-09-10] MEDS: MUCINEX 600 MG PO ×2 (08:41→20:39)
[2024-09-10] MEDS: VITAMIN D3 (cholecalciferol) 25 MCG PO (08:41)
[2024-09-10] MEDS: VITAMIN E 400 UNITS PO (08:41)
--- NOTE | 2024-09-10 10:50 | W.PN.HOSP.TC ---
Addendum entered and electronically signed by Ana Luisa Bergeron MD 09/10/24 22:41:
acute on chronic hypoxic resp failure
Original Note:
Today's Communication/Plan
-
Likely she has right-sided volume overload. With further elevation in RV pressure I will get a CT PE study today.
Continue p.o. Lasix for now
Continue antibiotics
Wean oxygen as tolerated
Assessment / Plan
Assessment / Plan
84-year-old female presented with shortness of breath for the past several days
Chest [id number] pneumonitis severe bronchiectasis. Moderate right lung volume loss secondary to elevation of the right hemidiaphragm, central pulmonary arterial distention consistent with pulmonary mention, cardiomegaly, multiple chronic
vertebral body endplate compression fractures
Echo 09/09/2024-small LV size. Normal LV systolic function. RV pressure overload. Stage I diastolic dysfunction. EF 50 to 55%. Trace AI. Mild to moderate TR. Pulmonary artery pressure 88 mmHg. Mildly dilated RA. Severely dilated and
hypokinetic RV. Small pericardial effusion
CVS: S1-S2 normal
Chest: B/L Rales
Abdomen: Soft, NT / Bowel sounds present
Extremities: No edema, normal pulses
# Shortness of breath
Acute on chronic HFpEF
On Lasix 40 mg daily as outpatient
IV Lasix ordered changed to p.o. by cardiology
Echo noted with severe pulmonary hypertension- Chest PE study
# Elevated AST and ALT-likely secondary to hepatic congestion-better now
# COPD/bronchiectasis
with a flare
Chronic respiratory failure on 4 L O2
On Budesonide inhaler
Rocephin and Doxy
# History of pericardial effusion July 2023
# Interstitial lung disease with severe pulmonary hypertension
# Thoracic spine compression fractures with complete collapse of T4 and T10 vertebral bodies
# Underweight
# Osteoporosis Hx- Cont� vitamin D supplement
# DVT prophylaxis-Lovenox
# Full code
Discussed with nursing
Anticipated Discharge: 24 - 48 hours
Subjective/Interval History
-
Date of Service: September 10, 2024
Objective Data
-
Labs:
Laboratory Results
09/10/24
06:31
Sodium 137
Potassium 3.8
Chloride 94 L
Carbon Dioxide 35 H
BUN 35 H
Creatinine 0.7
Glucose 83
Calcium 8.3 L
Total Bilirubin 0.2
AST 32
ALT 25
Alkaline Phosphatase 70
Vital Signs:
Vital Signs
Temp Pulse Resp BP Pulse Ox
97.6 F 64 19 108/70 94
09/10/24 07:10 09/10/24 08:41 09/10/24 07:51 09/10/24 08:41 09/10/24 07:51
I&O
09/09/24 09/10/24 09/11/24
06:59 06:59 06:59
Intake Total 860 / 860 1220 / 1220 180 / 180
Output Total 1300 / 1300
Balance -440 / -440 1220 / 1220 180 / 180
[2024-09-10 11:03] VITALS: BP 102/76
--- NOTE | 2024-09-10 14:47 | W.PN.CARDCBS ---
Addendum entered and electronically signed by Ricardo Siegel MD 09/10/24 17:32:
Attending addendum: Patient seen and examined. PA note reviewed and confirmed by me. I met with and spoke with patient and her . She remains short of breath.
-Agree that we should transition back to IV furosemide.
-Pulmonary hypertension is severe and much worse than when compared to prior study
-Dr. Jenni Ramirez is her regular tail board man and I think she may benefit from Pulmonary evaluation and involvement. Not sure if she had ever been tried on or needed medications for pulmonary hypertension
-Consider right heart catheterization to determine WHO etiology after she is diuresed.
-Spent 35 minutes reviewing old records, echo, and in discussion with patient / family
Original Note:
Today's Communication / Plan
-
wean supp O2. continue abx
consider transitioning back to IV lasix for 24-48 hours based on chest CTA with evidence of R heart dilation and strain, pulm HTN
consider pulm eval
Impression / Plan
-
Pack Worker Supervisor: Dr. Herzog
Impression:
Presented with SOB
Acute on chronic HFpEF
Severe pulmonary hypertension
Interstitial lung disease w/ acute exacerbation
Elevated LFTs
COPD
Bronchiectasis
h/o elevated NOE with high titer 05/11/23
h/o elevated gamma chains on protein electrophoresis also with faint Lambda chains 03/06/23
h/o thoracic compression fractures
Echo 01/09/2024: EF 62%, mild to moderate TR, pulmonary hypertension with estimated PAP 58 mmHg.
Echo 09/09/2023: EF 50 to 55%, stage I diastolic dysfunction, flattened septum consistent with RV pressure overload, mild to moderate TR, PAP 88 mmHg, severely dilated and hypokinetic RV, small pericardial effusion without evidence of hemodynamic
compromise
Plan:
-Presented with SOB and admitted with acute heart failure exacerbation. Also w/ bronchiectasis/ILD exacerbation.
-if weights accurate, diuresed 9 pounds from admission. was transitioned to po lasix 40mg BID 09/09. Cr stable at 0.7. Had been taking p.o. Lasix 40 mg daily prior to admission
-based on echo 09/09 with severely dilated and hypokinetic RV underwent chest CTA negative for PE however with evidence of R heart dilation, right heart strain, pulmonary arterial hypertension and evidence of interstitial lung disease. consider pulm
evaluation and would consider transitioning back to IV lasix for 24-48 hours based on results of recent imaging
-currently back to baseline supp O2, 4L NC. continue to wean as able
-Continue abx per primary service
-in SR with PACs and PVCs upon review of tele. not candidate for BB given lung disease, if needed, could consider low dose CCB
-d/w patient and at bedside
HPI: She presents to the hospital with progressive shortness of breath over several days and is found to be in congestive heart failure. She has a complex medical history which includes interstitial lung disease, she is oxygen dependent at home on
4 L nasal cannula. Over the past 2 weeks she has noticed worsening shortness of breath and increasing lower extremity edema as well as early satiety. She has been compliant with medications. No fevers chills night sweats. No nausea vomiting or
diarrhea.
Progress Note - Pack Worker Supervisor
Subjective
Date of Service: September 10, 2024
patient reports breathing improving from admission
Objective
Labs:
09/06/24 15:34
09/10/24 06:31
Labs
Hgb 12.8 g/dL (12.0-16.0) 09/06/24 15:34
Hct 38.3 % (37.0-47.0) 09/06/24 15:34
Plt Count 313 10^3/uL (130-400) 09/06/24 15:34
Sodium 137 mmol/L (135-145) 09/10/24 06:31
Potassium 3.8 mmol/L (3.5-5.1) 09/10/24 06:31
BUN 35 mg/dl (7-17) H 09/10/24 06:31
Creatinine 0.7 mg/dL (0.6-1.0) 09/10/24 06:31
Glucose 83 mg/dl (70-99) 09/10/24 06:31
Vital Signs and I&O:
Vital Signs
Temp Pulse Resp BP Pulse Ox
97.4 F 79 20 102/76 98
09/10/24 11:03 09/10/24 11:03 09/10/24 11:03 09/10/24 11:03 09/10/24 11:03
Vital Signs
Temp Pulse Resp BP Pulse Ox
97.4 F 79 20 102/76 98
09/10/24 11:03 09/10/24 11:03 09/10/24 11:03 09/10/24 11:03 09/10/24 11:03
Intake & Output
09/08/24 09/09/24 09/10/24 09/11/24
07:59 07:59 07:59 07:59
Intake Total 440 / 440 860 / 860 1220 / 1220 180 / 180
Output Total 490 / 490 1300 / 1300
Balance -50 / -50 -440 / -440 1220 / 1220 180 / 180
Physical Exam
Physical Exam
GEN: No distress, awake, alert, oriented x3. chronically ill appearing. on supp O2
HEENT: supple, anicteric, mmm, eomi
LUNGS: Diminished BS B/L, few wheezes
CV: Reg, S1/S2, no murmur
ABD: soft, BS+, NT/ND
EXT: No cyanosis, clubbing, edema
NEURO: Gross non-focal
SKIN: Warm, pink, dry. No rash
[2024-09-10 15:08] VITALS: BP 110/75
[2024-09-10] MEDS: LASIX 40 MG IV (17:28)
[2024-09-10] MEDS: VITAMIN C 500 MG PO (17:29)
[2024-09-10] MEDS: ROCEPHIN 1000 MG IV (17:29)
[2024-09-10] MEDS: STERILE WATER FOR INJECTION 10 ML IV (17:29)
[2024-09-10] MEDS: LOVENOX 40 MG SC (17:29)
[2024-09-10] MEDS: VISBIOME 1 CAP PO (17:29)
[2024-09-10 19:50] VITALS: BP 124/87
[2024-09-10] MEDS: VIBRAMYCIN 100 MG PO (20:39)
[2024-09-10 23:38] VITALS: BP 114/82
[2024-09-11] VITALS (7 sets, daily range): BP systolic 95–121; BP diastolic 69–85; PULSE 80; O2SAT 97; BMI 17.0
[2024-09-11 07:22] LABS: Hematocrit 36.4 % (37.0-47.0); Hemoglobin 11.7 g/dL (12.0-16.0); Mean Corp Hgb Conc. 32.1 g/dL (33.0-37.0); Mean Corpuscular Hgb 30.3 pg (27.0-31.0); Mean Corpuscular Volume 94.3 fL (81.0-99.0); Mean Platelet Volume 9.6 fL (7.4-10.4); Platelet Count 264 10^3/uL (130-400); Red Blood Cell Count 3.86 10^6/uL (4.20-5.40); Red Cell Dist. Width 15.5 % (11.5-14.5)
[2024-09-11] MEDS: PULMICORT 0.5 MG INH ×2 (07:23→20:00)
[2024-09-11 07:42] LABS: Blood Urea Nitrogen 38 mg/dl (7-17); Calcium 8.5 mg/dl (8.4-10.2); Chloride 92 mmol/L (98-107); Estimated Creatinine Clearance 44 ml/min; Glucose 92 mg/dl (70-99); Potassium 3.8 mmol/L (3.5-5.1); Sodium 138 mmol/L (135-145); eGFR > 60.00
[2024-09-11] MEDS: VITAMIN E 400 UNITS PO (08:02)
[2024-09-11] MEDS: VITAMIN D3 (cholecalciferol) 25 MCG PO (08:02)
[2024-09-11] MEDS: VIBRAMYCIN 100 MG PO ×2 (08:02→20:03)
[2024-09-11] MEDS: LASIX 40 MG IV ×2 (08:02→15:36)
[2024-09-11] MEDS: MUCINEX 600 MG PO ×2 (08:02→20:03)
[2024-09-11 08:06] LABS: Carbon Dioxide 33 mmol/L (22-30)
[2024-09-11] MEDS: OCEAN, SALINE MIST 1 SPRAYS NASAL (09:28)
--- NOTE | 2024-09-11 10:08 | CON.PUL ---
Consultation
Consultation Request
Date/Time Consultation Requested: 09/11/2024-10 AM
Date/Time Consultation Performed: 09/11/2024-10:30 AM
Requesting Provider: Hospitalist
Performing Provider: Dr. Kelly
Reason for Consultation: Shortness of breath
Medical History
-
Chief Complaint: Shortness of breath
History of Present Illness:
84-year-old female non-smoker with a history of interstitial lung disease and bronchiectasis followed by Dr. Ramirez as well as CHF who is oxygen dependent on 4 L who presented with progressive shortness of breath and bilateral leg edema noted to have
CHF as well as significant pulmonary hypertension-pulmonary was consulted for shortness of breath 09/11/2024. Patient admits to some mild chest congestion, nonproductive cough, wheezing, chronic oxygen, and currently no chest pain, pleurisy,
hemoptysis, abdominal pain, or progressive leg weakness.
Past Medical History
Past Medical History: None (ILD. Bronchiectasis. CHF-preserved EF. Elevated ONE. Compression fractures.)
Social History
Tobacco: Non-smoker
Alcohol: None
Drug: None
Personal:
Living: With Family
Occupational Exposures: No known asbestos exposure
Environmental Exposures: No known tuberculosis exposure
Family History
Family History: Reviewed & Not Pertinent
Allergies / Home Medications
Allergies
Allergy/AdvReac Type Severity Reaction Status Date / Time
adhesive Allergy Unknown Verified 09/06/24 15:14
house dust Allergy NASAL Verified 09/06/24 18:25
SYMPTOMS
Sulfa (Sulfonamide Allergy Unknown Verified 09/06/24 15:14
Antibiotics)
Home Medications
�Medication �Instructions �Recorded �Confirmed �Last Taken �Type
Lactobac no.2-Bifidobac no.1-S. 1 cap PO QPM probiotic 07/10/23 09/06/24 07/09/23 History
thermo 112.5 billion cell capsule
(Visbiome)
acetaminophen 500 mg tablet 1,000 mg PO Q6HPRN PRN mild pain 07/10/23 09/06/24 07/09/23 History
(Tylenol Extra Strength)
ascorbic acid (vitamin C) 500 mg 500 mg PO QPM Supplement 07/10/23 09/06/24 07/09/23 History
tablet (Vitamin C)
cholecalciferol (vitamin D3) 25 25 mcg PO DAILY Supplement 07/10/23 09/06/24 07/09/23 History
mcg (1,000 unit) tablet
coenzyme Q10 100 mg capsule 100 mg PO QPM Supplement 07/10/23 09/06/24 07/09/23 History
(CoQ-10)
vitamin E 268 mg (400 unit) capsule 268 mg PO DAILY Supplement 07/10/23 09/06/24 1 Week Ago History
~07/03/23
furosemide 40 mg tablet 40 mg PO DAILY Fluid 07/14/23 09/06/24 Unknown Rx
retention/Swelling 30 days #30 tabs
budesonide 0.5 mg/2 mL suspension 0.5 mg inhalation R TID 09/06/24 09/06/24 Unknown History
for nebulization Lung/Breathing Issues
Review of Systems
-
Unable to Obtain full review of systems at this time due to: Other (Per HPI)
Vitals / Labs / Diagnostic Testing
Vital Signs
Temp Pulse Resp BP Pulse Ox
97.4 F 72 22 114/79 94
09/11/24 07:25 09/11/24 08:02 09/11/24 07:32 09/11/24 08:02 09/11/24 07:32
Lab Data
09/11/24 06:15
09/11/24 06:15
Diagnostic Testing:
Physical Exam
-
Exam:
Well-nourished and well-developed in no apparent distress
HEENT-atraumatic, normocephalic
Neck-supple, no JVD, no bruit
Heart-regular rate and rhythm-no murmurs, rubs or gallops
Chest with diminished breath sounds, few expiratory rhonchi, crackles at the bases
Back without tenderness
Abdomen-soft, nontender, nondistended, no hepatosplenomegaly
Extremities-no cyanosis, clubbing, edema and good peripheral pulses
Integument-intact, no rashes, lesions or ecchymosis
Neurology-alert and oriented, nonfocal motor and sensory exam
Assessment
-
84-year-old female non-smoker with a history of interstitial lung disease and bronchiectasis followed by Dr. Ramirez as well as CHF who is oxygen dependent on 4 L who presented with progressive shortness of breath and bilateral leg edema noted to have
CHF as well as significant pulmonary hypertension-pulmonary was consulted for shortness of breath 09/11/2024.
CHF preserved EF
Pulmonary hypertension
Mild [id number]-[id number] 11.7
Conditions present prior to admission:
ILD-followed by Dr. Ramirez-prednisone weaned off because of pathological fractures, patient was not interested in aggressive workup
Bronchiectasis-traction bronchiectasis noted on CT chest-Without complications, sputum culture normal, AFB negative
CHF-preserved EF.
Elevated NOE.
Compression fractures.
Plan
Acute decompensation on patient with chronic interstitial lung disease with worsening pulmonary hypertension and component of CHF preserved EF
Supplemental oxygen as needed
High flow oxygen if needed
Mucus clearing devices
Incentive spirometry
Flutter
Nebulizers if needed-currently not bronchospastic
Budesonide nebulizers
Consider vest therapy
Mucolytic's
Consideration towards steroids
Diuresis as tolerated
Monitor renal function, electrolytes, intake/output, lower extremity edema and weight
Replace electrolytes as needed
Cardiology following-correspondence reviewed
Right heart catheterization when more euvolemic later this week
Check cultures
Empiric antibiotics-ceftriaxone and doxycycline initiated
DVT prophylaxis-on Lovenox
Nutrition
Early mobilization
Outpatient follow-up with Dr. Ramirez- last seen 07/10/24- Has appointment with PFT 11/12/24 at 2 PM
Diagnostic data:
Chest x-ray 09/06/2024-severe chronic inflammatory interstitial pneumonitis
CT chest 07/10/2023-no pulm embolism, right heart failure, chronic interstitial changes, T10 compression fracture
CT chest 01/16/2024-chronic interstitial lung changes reflecting idiopathic interstitial pneumonia, improvement in mediastinal adenopathy
CT chest 09/10/2024-no pulm embolism, moderate pericardial effusion bowing of the interventricular septum suggesting of right heart strain, interstitial lung disease with superimposed mild pulmonary edema, chronic compression fractures
Echocardiogram 09/09/2024-EF 50-55%, stage I diastolic dysfunction, PA systolic estimated 88, severely dilated and hypokinetic right ventricle
PFT 06/29/23: FVC 0.77/42%, FEV1 0.77/57%, ratio 100%, unable to perform lung volumes or DLCO. Suggestive of severe restrictive pattern.��������
PFT 02/16/23: FEV1 0.98L 72%, FVC 1.13L 60%, ratio 87.� TLC 1.92L 49%, DLCO 16% (severe restriction, severe diffusion impairment)
Data Reviewed
-
PFT: Report reviewed by me
EKG: Report reviewed by me
Radiology: Image personally visualized and interpreted and Report reviewed by me
CT Scan: Image personally visualized and interpreted and Report reviewed by me
Medical Tests (Nuc Med, Echo etc): Report reviewed by me
Labs: Labs reviewed by me
Old Records: Reviewed
Total Time Spent with Patient (in minutes): 65
--- NOTE | 2024-09-11 10:16 | W.PN.CARDCBS ---
Addendum entered and electronically signed by Gordo Carty MD 09/11/24 11:06:
I saw and examined the patient.
The Nursing Assoc's note was reviewed and I agree with the note.
Comment: Briefly, 84-year-old woman past medical history for follow-up of heart failure preserved ejection fraction, interstitial lung disease and pulmonary hypertension who presents in acute decompensated heart failure and found to have worsening
pulmonary hypertension based on transthoracic echocardiogram
Agree with resuming IV Lasix, still appears mildly volume overloaded on exam
Follow Cr/electrolytes and daily weights
On 4L O2 via NC which she tells me is her baseline
Discussed with patient that right heart catheterization would be reasonable when more euvolemic, tentatively later this week, to further evaluate the etiology of her pulmonary hypertension
Rest per Lulu Rodas
Original Note:
Today's Communication / Plan
-
Continue attempts at IV diuresis
Pulmonary consult
Tentatively for right heart cath on Monday
Impression / Plan
-
Top Dyeing Machine Loader: Dr. Herzog
Impression:
Presented with SOB
Acute on chronic HFpEF
Severe pulmonary hypertension
Interstitial lung disease w/ acute exacerbation
Elevated LFTs
COPD
Bronchiectasis
h/o elevated NOE with high titer 05/11/23
h/o elevated gamma chains on protein electrophoresis also with faint Lambda chains 03/06/23
h/o thoracic compression fractures
Echo 01/09/2024: EF 62%, mild to moderate TR, pulmonary hypertension with estimated PAP 58 mmHg.
Echo 09/09/2024: EF 50 to 55%, stage I diastolic dysfunction, flattened septum consistent with RV pressure overload, mild to moderate TR, PAP 88 mmHg, severely dilated and hypokinetic RV, small pericardial effusion without evidence of hemodynamic
compromise
Plan:
-Presented with SOB and admitted with acute heart failure exacerbation. Also w/ bronchiectasis/ILD exacerbation.
-Weight stable overnight if accurate, although overall down 9 pounds from admission. Back on IV Lasix 40 mg twice daily after echo resulted with worsened pulmonary hypertension and chest CTA with evidence of right heart dilation, right heart strain
and PAH. If does not diurese significantly overnight, would consider increasing IV Lasix dose 09/12
-Tentatively planning for right heart cath on Wednesday 09/13. reviewed procedure with patient today
-Pulmonary has been consulted for both bronchiectasis/ILD exacerbation as well as severe pulmonary hypertension, likely felt to be secondary to known lung disease however await data from right heart cath
-Wean supplemental oxygen as able, on baseline 4 L nasal cannula
-Continue abx per primary service
-in SR with PACs and PVCs upon review of tele. not candidate for BB given lung disease. if needed, could consider low dose CCB
-d/w pulmonary. Discussed with hospitalist via [place] text
HPI: She presents to the hospital with progressive shortness of breath over several days and is found to be in congestive heart failure. She has a complex medical history which includes interstitial lung disease, she is oxygen dependent at home on
4 L nasal cannula. Over the past 2 weeks she has noticed worsening shortness of breath and increasing lower extremity edema as well as early satiety. She has been compliant with medications. No fevers chills night sweats. No nausea vomiting or
diarrhea.
Progress Note - Top Dyeing Machine Loader
Subjective
Date of Service: September 11, 2024
Reports feeling okay. States overall breathing improved from admission
Objective
Labs:
09/11/24 06:15
09/11/24 06:15
Labs
Hgb 11.7 g/dL (12.0-16.0) L 09/11/24 06:15
Hct 36.4 % (37.0-47.0) L 09/11/24 06:15
Plt Count 264 10^3/uL (130-400) 09/11/24 06:15
Sodium 138 mmol/L (135-145) 09/11/24 06:15
Potassium 3.8 mmol/L (3.5-5.1) 09/11/24 06:15
BUN 38 mg/dl (7-17) H 09/11/24 06:15
Creatinine 0.6 mg/dL (0.6-1.0) 09/11/24 06:15
Glucose 92 mg/dl (70-99) 09/11/24 06:15
Vital Signs and I&O:
Vital Signs
Temp Pulse Resp BP Pulse Ox
97.4 F 72 22 114/79 94
09/11/24 07:25 09/11/24 08:02 09/11/24 07:32 09/11/24 08:02 09/11/24 07:32
Vital Signs
Temp Pulse Resp BP Pulse Ox
97.4 F 72 22 114/79 94
09/11/24 07:25 09/11/24 08:02 09/11/24 07:32 09/11/24 08:02 09/11/24 07:32
Intake & Output
09/09/24 09/10/24 09/11/24 09/12/24
07:59 07:59 07:59 07:59
Intake Total 860 / 860 1220 / 1220 540 / 540
Output Total 1300 / 1300
Balance -440 / -440 1220 / 1220 540 / 540
Physical Exam
Physical Exam
GEN: No distress, awake, alert, oriented x3. chronically ill appearing. on supp O2
HEENT: supple, anicteric, mmm, eomi
LUNGS: Diminished BS B/L, few wheezes
CV: Reg, S1/S2, no murmur
ABD: soft, BS+, NT/ND
EXT: No cyanosis, clubbing, edema
NEURO: Gross non-focal
SKIN: Warm, pink, dry. No rash
--- NOTE | 2024-09-11 16:13 | W.PN.HOSP.TC ---
Today's Communication/Plan
-
Continue with IV Lasix
Continue empiric antibiotics
consult pulmonary
Assessment / Plan
Assessment / Plan
84-year-old female presented with shortness of breath for the past several days
Chest r-qwh-rdblmmokiakt pneumonitis severe bronchiectasis. Moderate right lung volume loss secondary to elevation of the right hemidiaphragm, central pulmonary arterial distention consistent with pulmonary mention, cardiomegaly, multiple chronic
vertebral body endplate compression fractures
Echo 09/09/2024-small LV size. Normal LV systolic function. RV pressure overload. Stage I diastolic dysfunction. EF 50 to 55%. Trace AI. Mild to moderate TR. Pulmonary artery pressure 88 mmHg. Mildly dilated RA. Severely dilated and
hypokinetic RV. Small pericardial effusion
# Shortness of breath
Acute on chronic HFpEF
On Lasix 40 mg daily as outpatient
cw IV Lasix per cardiology
Echo noted with severe pulmonary hypertension- Chest PE study -neg for PE
# Elevated AST and ALT-likely secondary to hepatic congestion-better now
# ILD/bronchiectasis
with worsening pulmonary hypertension
Chronic respiratory failure on 4 L O2
On Budesonide inhaler
cw emp Rocephin and Doxy
Consult pulmonary
# History of pericardial effusion July 2023
# Interstitial lung disease with severe pulmonary hypertension
# Thoracic spine compression fractures with complete collapse of T4 and T10 vertebral bodies
# Underweight
# Osteoporosis Hx- Cont� vitamin D supplement
# DVT prophylaxis-Lovenox
# Full code
Discussed with nursing
DW Cards today -will get pulm input
Total time spent on today's encounter was 52 minutes which included time spent in counseling the patient/family regarding diagnosis and treatment plan as listed above, goals of care, and symptom management. Case was discussed with nursing staff,
specialists, and care coordinators/case management. All labs and imaging personally reviewed by me. Remainder the time spent in detailed review of previous records, lab data, imaging, and other medical provider documentation.
Anticipated Discharge: > 48 hours
Subjective/Interval History
-
Date of Service: September 11, 2024
Feeling improved. Less lower extremity swelling. Denies shortness of breath at rest. Stable on 4 L of oxygen which is her home requirement.
Denies any chest pain. No nausea vomiting. No fevers.
Objective Data
-
Labs:
Laboratory Results
09/11/24
06:15
WBC 5.0
Hgb 11.7 L
Hct 36.4 L
Plt Count 264
Sodium 138
Potassium 3.8
Chloride 92 L
Carbon Dioxide 33 H
BUN 38 H
Creatinine 0.6
Glucose 92
Calcium 8.5
Vital Signs:
Vital Signs
Temp Pulse Resp BP Pulse Ox
97.7 F 82 18 111/79 98
09/11/24 15:38 09/11/24 15:38 09/11/24 15:38 09/11/24 15:38 09/11/24 15:38
I&O
09/10/24 09/11/24 09/12/24
06:59 06:59 06:59
Intake Total 1220 / 1220 540 / 540
Balance 1220 / 1220 540 / 540
Physical Exam
-
General: Comfortable
HEENT: Moist Mucous Membranes
Respiratory: Crackles (bibasal) and Non Labored Respirations; Negative Wheezes or Accessory Resp Muscle Use
Cardiac: Regular Rhythm and S1/S2
GI: Soft
Musculoskeletal: Edema, Right Lower Extrem and Edema, Left Lower Extrem (1+BL)
Neuro: AO x 3
Data Reviewed
-
Labs: Labs Reviewed by me
[2024-09-11] MEDS: LOVENOX 40 MG SC (17:09)
[2024-09-11] MEDS: VITAMIN C 500 MG PO (17:10)
[2024-09-11] MEDS: ROCEPHIN 1000 MG IV (17:10)
[2024-09-11] MEDS: VISBIOME 1 CAP PO (17:10)
[2024-09-11] MEDS: STERILE WATER FOR INJECTION 10 ML IV (17:10)
[2024-09-12] VITALS (7 sets, daily range): BP systolic 102–119; BP diastolic 69–76; PULSE 80; O2SAT 98; BMI 16.9
[2024-09-12] MEDS: MUCINEX 600 MG PO ×2 (07:46→19:55)
[2024-09-12] MEDS: VITAMIN E 400 UNITS PO (07:46)
[2024-09-12] MEDS: LASIX 40 MG IV ×2 (07:46→15:53)
[2024-09-12] MEDS: VIBRAMYCIN 100 MG PO ×2 (07:46→19:55)
[2024-09-12] MEDS: VITAMIN D3 (cholecalciferol) 25 MCG PO (07:46)
[2024-09-12] MEDS: PULMICORT 0.5 MG INH ×2 (08:18→20:21)
[2024-09-12 10:06] LABS: Blood Urea Nitrogen 34 mg/dl (7-17); Calcium 8.7 mg/dl (8.4-10.2); Chloride 92 mmol/L (98-107); Estimated Creatinine Clearance 43 ml/min; Glucose 84 mg/dl (70-99); Potassium 4.2 mmol/L (3.5-5.1); Sodium 137 mmol/L (135-145); eGFR > 60.00
[2024-09-12 10:49] LABS: Carbon Dioxide 32 mmol/L (22-30)
--- NOTE | 2024-09-12 14:29 | W.PN.PUL.V3 ---
Today's Communication / Plan
-
.
Wean oxygen.
Antibiotics.
Diuresis.
Cardiac catheterization pending
Assessment
-
84-year-old female non-smoker with a history of interstitial lung disease and bronchiectasis followed by Dr. Ramirez as well as CHF who is oxygen dependent on 4 L who presented with progressive shortness of breath and bilateral leg edema noted to have
CHF as well as significant pulmonary hypertension-pulmonary was consulted for shortness of breath 09/11/2024.
CHF preserved EF
Pulmonary hypertension
Mild oxynma-mdlpbpwlhj-gbynompujy 11.7
Conditions present prior to admission:
ILD-followed by Dr. Ramirez-prednisone weaned off because of pathological fractures, patient was not interested in aggressive workup
Bronchiectasis-traction bronchiectasis noted on CT chest-Without complications, sputum culture normal, AFB negative
CHF-preserved EF.
Elevated NOE.
Compression fractures.
Plan
Acute decompensation on patient with chronic interstitial lung disease with worsening pulmonary hypertension and component of CHF preserved EF
Supplemental oxygen as needed-on 4 L-99% saturation
Mucus clearing devices
Incentive spirometry
Flutter
Nebulizers if needed-currently not bronchospastic
Budesonide nebulizers
Consider vest therapy if continues to require mucus clearing
Mucolytic's
Consideration towards steroids-hold off for now
Diuresis continues as tolerated
Monitor renal function, electrolytes, intake/output, lower extremity edema and weight
Replace electrolytes as needed
Cardiology following-correspondence reviewed
Right heart catheterization when more euvolemic-likely 09/13/24
Cultures reviewed..
Influenza negative.
Empiric antibiotics-ceftriaxone and doxycycline initiated-finite course
DVT prophylaxis-on Lovenox
Nutrition
Early mobilization.
Reviewed with nursing
Outpatient follow-up with Dr. Ramirez- last seen 07/10/24- Has appointment with PFT 11/12/24 at 2 PM
Diagnostic data:
Chest x-ray 09/06/2024-severe chronic inflammatory interstitial pneumonitis
CT chest 07/10/2023-no pulm embolism, right heart failure, chronic interstitial changes, T10 compression fracture
CT chest 01/16/2024-chronic interstitial lung changes reflecting idiopathic interstitial pneumonia, improvement in mediastinal adenopathy
CT chest 09/10/2024-no pulm embolism, moderate pericardial effusion bowing of the interventricular septum suggesting of right heart strain, interstitial lung disease with superimposed mild pulmonary edema, chronic compression fractures
Echocardiogram 09/09/2024-EF 50-55%, stage I diastolic dysfunction, PA systolic estimated 88, severely dilated and hypokinetic right ventricle
PFT 06/29/23: FVC 0.77/42%, FEV1 0.77/57%, ratio 100%, unable to perform lung volumes or DLCO. Suggestive of severe restrictive pattern.��������
PFT 02/16/23: FEV1 0.98L 72%, FVC 1.13L 60%, ratio 87.� TLC 1.92L 49%, DLCO 16% (severe restriction, severe diffusion impairment)
Subjective Data
-
Date of Service:
Date of Service: September 12, 2024
Chief Complaint: Pulmonary Follow Up and Dyspnea Follow Up
Subjective:
No complaints of worsening shortness of breath, productive cough, chest pain, now states willing to undergo procedure
Review of Systems
General: Other ( per HPI)
Objective Data
Data Reviewed
Vital Signs / I&O:
Vital Signs
Temp Pulse Resp BP Pulse Ox
97.6 F 79 20 108/73 99
09/12/24 11:21 09/12/24 11:21 09/12/24 11:21 09/12/24 11:21 09/12/24 11:21
Intake and Output
09/11/24 09/12/24 09/13/24
06:59 06:59 06:59
Intake Total 540 / 540 480 / 480 420 / 420
Output Total 300 / 300
Balance 540 / 540 180 / 180 420 / 420
SaO2: 99
Nasal Cannula flow liters per minute: 4
Physical Exam
General: Respiratory Distress (n) and Comfortable
HEENT: Normocephalic and Moist Mucous Membranes
Cardiovascular: Regular Rhythm
Respiratory: Crackles, Rhonchi (n), Non-Labored Respirations, Accessory Resp Muscle Use (n) and Stridor (n)
GI: Soft, Non Distended and Non Tender
Neurology: Awake, Alert and No Motor Deficits
Skin: Warm, Good Color, Cyanosis (n), Jaundice (n) and Rash
Labs/Micro/Reports
Lab Data
09/11/24 06:15
09/12/24 07:50
--- NOTE | 2024-09-12 15:27 | W.PN.CARDCBS ---
Addendum entered and electronically signed by Ricardo Stahl MD 09/12/24 17:28:
89-year-old woman with acute on chronic HFpEF, interstitial lung disease with severe pulmonary hypertension, elevated NOE with light chains, underlying COPD and bronchiectasis
PMH: HFpEF, severe pulmonary hypertension, interstitial lung disease, elevated right hemidiaphragm, elevated NOE, elevated light chains, COPD and bronchiectasis
Current meds: Ceftriaxone, Pulmicort, Xopenex, subcu Lovenox, doxycycline, furosemide 40 mg IV twice daily
109/75, pulse 77, weight is 37.9 kg, down 0.3 kg, very frail, petite, no distress, sitting eating dinner, head neck exam unremarkable, lungs with a few scattered rhonchi, loud P2, soft systolic murmur lower extremity daily to apex, extremities
without much edema
CT of chest: Pulmonary hypertension, no pulmonary embolus
BUN/creatinine 34 and 0.5, potassium 4.2, proBNP was 13,700 on September 06
Impression: See below
Plan:
Continue IV Lasix. Repeat proBNP in AM.
Right heart cath in a.m.
Original Note:
Today's Communication / Plan
-
continue IV diuresis
for RHC in AM
Impression / Plan
-
Stitchdowns Toe Former: Dr. Herzog
Impression:
Presented with SOB
Acute on chronic HFpEF
Severe pulmonary hypertension
Interstitial lung disease w/ acute exacerbation
Elevated LFTs
COPD
Bronchiectasis
h/o elevated NOE with high titer 05/11/23
h/o elevated gamma chains on protein electrophoresis also with faint Lambda chains 03/06/23
h/o thoracic compression fractures
Echo 01/09/2024: EF 62%, mild to moderate TR, pulmonary hypertension with estimated PAP 58 mmHg.
Echo 09/09/2024: EF 50 to 55%, stage I diastolic dysfunction, flattened septum consistent with RV pressure overload, mild to moderate TR, PAP 88 mmHg, severely dilated and hypokinetic RV, small pericardial effusion without evidence of hemodynamic
compromise
Plan:
-Presented with SOB and admitted with acute heart failure exacerbation. Also w/ bronchiectasis/ILD exacerbation.
-continue diuresis with IV lasix 40mg BID. Cr stable
-echo and chest CTA with evidence of worsened pulm HTN, R heart dilation.
-plan for RHC 09/13/24
-Pulmonary has been consulted for both bronchiectasis/ILD exacerbation as well as severe pulmonary hypertension, likely felt to be secondary to known lung disease however await data from right heart cath
-Wean supplemental oxygen as able, on baseline 4 L nasal cannula
-Continue abx per primary service
-in SR with PACs and PVCs upon review of tele. not candidate for BB given lung disease. if needed, could consider low dose CCB
HPI: She presents to the hospital with progressive shortness of breath over several days and is found to be in congestive heart failure. She has a complex medical history which includes interstitial lung disease, she is oxygen dependent at home on
4 L nasal cannula. Over the past 2 weeks she has noticed worsening shortness of breath and increasing lower extremity edema as well as early satiety. She has been compliant with medications. No fevers chills night sweats. No nausea vomiting or
diarrhea.
Progress Note - Stitchdowns Toe Former
Subjective
Date of Service: September 12, 2024
reports good urine output with IV lasix.
Objective
Labs:
09/11/24 06:15
09/12/24 07:50
Labs
Hgb 11.7 g/dL (12.0-16.0) L 09/11/24 06:15
Hct 36.4 % (37.0-47.0) L 09/11/24 06:15
Plt Count 264 10^3/uL (130-400) 09/11/24 06:15
Sodium 137 mmol/L (135-145) 09/12/24 07:50
Potassium 4.2 mmol/L (3.5-5.1) 09/12/24 07:50
BUN 34 mg/dl (7-17) H 09/12/24 07:50
Creatinine 0.5 mg/dL (0.6-1.0) L 09/12/24 07:50
Glucose 84 mg/dl (70-99) 09/12/24 07:50
Vital Signs and I&O:
Vital Signs
Temp Pulse Resp BP Pulse Ox
97.6 F 79 20 108/73 99
09/12/24 11:21 09/12/24 11:21 09/12/24 11:21 09/12/24 11:21 09/12/24 14:29
Vital Signs
Temp Pulse Resp BP Pulse Ox
97.6 F 79 20 108/73 99
09/12/24 11:21 09/12/24 11:21 09/12/24 11:21 09/12/24 11:21 09/12/24 14:29
Intake & Output
09/10/24 09/11/24 09/12/24 09/13/24
07:59 07:59 07:59 07:59
Intake Total 1220 / 1220 540 / 540 480 / 480 420 / 420
Output Total 300 / 300
Balance 1220 / 1220 540 / 540 180 / 180 420 / 420
Physical Exam
Physical Exam
GEN: No distress, awake, alert, oriented x3. chronically ill appearing. on supp O2
HEENT: supple, anicteric, mmm, eomi
LUNGS: Crackles B/L bases
CV: Reg, S1/S2, no murmur
ABD: soft, BS+, NT/ND
EXT: No cyanosis, clubbing, edema
NEURO: Gross non-focal
SKIN: Warm, pink, dry. No rash
--- NOTE | 2024-09-12 15:46 | W.PN.HOSP.TC ---
Today's Communication/Plan
-
CW diuresis
CW ABX
Assessment / Plan
Assessment / Plan
84-year-old female presented with shortness of breath for the past several days
Chest u-jlu-yrwzwgsfyxtx pneumonitis severe bronchiectasis. Moderate right lung volume loss secondary to elevation of the right hemidiaphragm, central pulmonary arterial distention consistent with pulmonary mention, cardiomegaly, multiple chronic
vertebral body endplate compression fractures
Echo 09/09/2024-small LV size. Normal LV systolic function. RV pressure overload. Stage I diastolic dysfunction. EF 50 to 55%. Trace AI. Mild to moderate TR. Pulmonary artery pressure 88 mmHg. Mildly dilated RA. Severely dilated and
hypokinetic RV. Small pericardial effusion
# Shortness of breath
Acute on chronic HFpEF
Improved Wt -lost 10lbs;at baseline O2; LE edema improved
On Lasix 40 mg daily as outpatient
cw IV Lasix per cardiology
Echo noted with severe pulmonary hypertension- Chest PE study -neg for PE
RHC per cards
# Elevated AST and ALT-likely secondary to hepatic congestion-better now
# ILD/bronchiectasis
with worsening pulmonary hypertension
Chronic respiratory failure on 4 L O2
On Budesonide inhaler
cw emp Rocephin and Doxy
pulmonary following
# History of pericardial effusion July 2023
# Interstitial lung disease with severe pulmonary hypertension
# Thoracic spine compression fractures with complete collapse of T4 and T10 vertebral bodies
# Underweight
# Osteoporosis Hx- Cont� vitamin D supplement
# DVT prophylaxis-Lovenox
# Full code
Anticipated Discharge: 24 - 48 hours
Subjective/Interval History
-
Date of Service: September 12, 2024
Feeling improved with the breathing. Weight down.
No chest pain.
Objective Data
-
Labs:
Laboratory Results
09/12/24
07:50
Sodium 137
Potassium 4.2
Chloride 92 L
Carbon Dioxide 32 H
BUN 34 H
Creatinine 0.5 L
Glucose 84
Calcium 8.7
Vital Signs:
Vital Signs
Temp Pulse Resp BP Pulse Ox
97.6 F 79 20 108/73 99
09/12/24 11:21 09/12/24 11:21 09/12/24 11:21 09/12/24 11:21 09/12/24 14:29
I&O
09/11/24 09/12/24 09/13/24
06:59 06:59 06:59
Intake Total 540 / 540 480 / 480 420 / 420
Output Total 300 / 300
Balance 540 / 540 180 / 180 420 / 420
Review of Systems
-
Constitutional: Denies Fever
EENT: Denies Sore Throat
Abdomen/GI: Denies Abdominal Pain, Nausea or Vomiting
Neuro: Denies Dizzy
Physical Exam
-
General: No Apparent Distress
HEENT: Moist Mucous Membranes
Respiratory: Crackles (Coarse BL), Non Labored Respirations and Other (On 4l); Negative Wheezes or Accessory Resp Muscle Use
Cardiac: Regular Rhythm and S1/S2
Psych: Calm; Negative Confused
Data Reviewed
-
Labs: Labs Reviewed by me
[2024-09-12] MEDS: VITAMIN C 500 MG PO (17:14)
[2024-09-12] MEDS: VISBIOME 1 CAP PO (17:14)
[2024-09-12] MEDS: STERILE WATER FOR INJECTION 10 ML IV (17:14)
[2024-09-12] MEDS: LOVENOX 40 MG SC (17:15)
[2024-09-12] MEDS: ROCEPHIN 1000 MG IV (17:15)
[2024-09-13] VITALS (13 sets, daily range): BP systolic 96–142; BP diastolic 65–96; BMI 17.0
[2024-09-13] MEDS: PULMICORT 0.5 MG INH ×2 (07:17→20:43)
[2024-09-13 07:44] LABS: NT-proBNP 4410 pg/ml
[2024-09-13] MEDS: LASIX 40 MG IV ×2 (08:31→15:30)
[2024-09-13] MEDS: VITAMIN E 400 UNITS PO (08:33)
[2024-09-13] MEDS: VIBRAMYCIN 100 MG PO ×2 (08:33→20:12)
[2024-09-13] MEDS: MUCINEX 600 MG PO ×2 (08:33→20:12)
[2024-09-13] MEDS: VITAMIN D3 (cholecalciferol) 25 MCG PO (08:33)
[2024-09-13 08:50] LABS: Blood Urea Nitrogen 35 mg/dl (7-17); Calcium 9.1 mg/dl (8.4-10.2); Chloride 88 mmol/L (98-107); Estimated Creatinine Clearance 33 ml/min; Glucose 91 mg/dl (70-99); Sodium 136 mmol/L (135-145); eGFR > 60.00
[2024-09-13 09:09] LABS: Carbon Dioxide 39 mmol/L (22-30)
--- NOTE | 2024-09-13 10:19 | W.PN.PUL.V3 ---
Today's Communication / Plan
-
.
Wean oxygen.
Right heart catheterization.
Diuresis as tolerated.
Finite course of antibiotics
Assessment
-
84-year-old female non-smoker with a history of interstitial lung disease and bronchiectasis followed by Dr. Ramirez as well as CHF who is oxygen dependent on 4 L who presented with progressive shortness of breath and bilateral leg edema noted to have
CHF as well as significant pulmonary hypertension-pulmonary was consulted for shortness of breath 09/11/2024.
CHF preserved EF
Pulmonary hypertension
Mild fseiib-zbqyahqbuh-yxggdlsloe 11.7
Conditions present prior to admission:
ILD-followed by Dr. Ramirez-prednisone weaned off because of pathological fractures, patient was not interested in aggressive workup
Bronchiectasis-traction bronchiectasis noted on CT chest-Without complications, sputum culture normal, AFB negative
CHF-preserved EF.
Elevated NOE.
Compression fractures.
Plan
Acute decompensation on patient with chronic interstitial lung disease with worsening pulmonary hypertension and component of CHF preserved EF
Supplemental oxygen as needed-on 4 L-99% saturation
Mucus clearing devices
Incentive spirometry
Flutter
Nebulizers if needed-currently not bronchospastic
Budesonide nebulizers
Consider vest therapy if continues to require mucus clearing
Mucolytic's
Consideration towards steroids-hold off for now
Diuresis continues as tolerated
Monitor renal function, electrolytes, intake/output, lower extremity edema and weight
Replace electrolytes as needed
Cardiology following-correspondence reviewed
Right heart catheterization when more euvolemic-09/13/24-pending
Cultures reviewed..
Influenza negative.
Empiric antibiotics-ceftriaxone and doxycycline initiated-finite course
DVT prophylaxis-on Lovenox
Nutrition
Early mobilization.
Reviewed with nursingAs well as at the bedside
Outpatient follow-up with Dr. Ramirez- last seen 07/10/24- Has appointment with PFT 11/12/24 at 2 PM
Diagnostic data:
Chest x-ray 09/06/2024-severe chronic inflammatory interstitial pneumonitis
CT chest 07/10/2023-no pulm embolism, right heart failure, chronic interstitial changes, T10 compression fracture
CT chest 01/16/2024-chronic interstitial lung changes reflecting idiopathic interstitial pneumonia, improvement in mediastinal adenopathy
CT chest 09/10/2024-no pulm embolism, moderate pericardial effusion bowing of the interventricular septum suggesting of right heart strain, interstitial lung disease with superimposed mild pulmonary edema, chronic compression fractures
Echocardiogram 09/09/2024-EF 50-55%, stage I diastolic dysfunction, PA systolic estimated 88, severely dilated and hypokinetic right ventricle
PFT 06/29/23: FVC 0.77/42%, FEV1 0.77/57%, ratio 100%, unable to perform lung volumes or DLCO. Suggestive of severe restrictive pattern.��������
PFT 02/16/23: FEV1 0.98L 72%, FVC 1.13L 60%, ratio 87.� TLC 1.92L 49%, DLCO 16% (severe restriction, severe diffusion impairment)
Subjective Data
-
Date of Service:
Date of Service: September 13, 2024
Chief Complaint: Pulmonary Follow Up and Dyspnea Follow Up
Subjective:
No complaints shortness of breath, chest pain, abdominal pain
Review of Systems
General: Other ( per HPI)
Objective Data
Data Reviewed
Vital Signs / I&O:
Vital Signs
Temp Pulse Resp BP Pulse Ox
97.5 F 71 18 107/72 99
09/13/24 07:30 09/13/24 08:31 09/13/24 07:30 09/13/24 08:31 09/13/24 09:38
Intake and Output
09/12/24 09/13/24 09/14/24
06:59 06:59 06:59
Intake Total 480 / 480 840 / 840
Output Total 300 / 300
Balance 180 / 180 840 / 840
SaO2: 99
Nasal Cannula flow liters per minute: 4
Physical Exam
General: Respiratory Distress (n) and Comfortable
HEENT: Normocephalic and Moist Mucous Membranes
Cardiovascular: Regular Rhythm
Respiratory: Crackles, Rhonchi (n), Non-Labored Respirations, Accessory Resp Muscle Use (n) and Stridor (n)
GI: Soft, Non Distended and Non Tender
Neurology: Awake, Alert and No Motor Deficits
Skin: Warm, Good Color, Cyanosis (n), Jaundice (n) and Rash
Labs/Micro/Reports
Lab Data
09/11/24 06:15
09/13/24 08:07
--- NOTE | 2024-09-13 13:44 | CM ---
PT indicated SNF.
Spoke with Claudia at [facility] she said to contact her day of dc to check bed availability
Pt for heart cath today.
Chavies Joseph
report [phone]
fax: [phone]
PLAN To [facility] when medically ready
--- NOTE | 2024-09-13 16:23 | W.PN.HOSP.TC ---
Today's Communication/Plan
-
RHC today
Assessment / Plan
Assessment / Plan
84-year-old female presented with shortness of breath for the past several days
Chest t-bqi-xzyucpjhkuak pneumonitis severe bronchiectasis. Moderate right lung volume loss secondary to elevation of the right hemidiaphragm, central pulmonary arterial distention consistent with pulmonary mention, cardiomegaly, multiple chronic
vertebral body endplate compression fractures
Echo 09/09/2024-small LV size. Normal LV systolic function. RV pressure overload. Stage I diastolic dysfunction. EF 50 to 55%. Trace AI. Mild to moderate TR. Pulmonary artery pressure 88 mmHg. Mildly dilated RA. Severely dilated and
hypokinetic RV. Small pericardial effusion
# Shortness of breath
Acute on chronic HFpEF
Improved Wt -lost 10lbs;at baseline O2; LE edema improved
On Lasix 40 mg daily as outpatient
cw IV Lasix per cardiology
Echo noted with severe pulmonary hypertension- Chest PE study -neg for PE
RHC today
# Elevated AST and ALT-likely secondary to hepatic congestion-better now
# ILD/bronchiectasis
with worsening pulmonary hypertension
Chronic respiratory failure on 4 L O2
On Budesonide inhaler
cw emp Rocephin and Doxy
pulmonary following
# History of pericardial effusion July 2023
# Interstitial lung disease with severe pulmonary hypertension
# Thoracic spine compression fractures with complete collapse of T4 and T10 vertebral bodies
# Underweight
# Osteoporosis Hx- Cont� vitamin D supplement
# DVT prophylaxis-Lovenox
# Full code
Anticipated Discharge: 24 - 48 hours
Subjective/Interval History
-
Date of Service: September 13, 2024
Await RHC
Denies SOB at rest
No CP
Objective Data
-
Labs:
Laboratory Results
09/13/24 09/13/24
05:53 08:07
Sodium Cancelled 136
Potassium Cancelled 4.0
Chloride Cancelled 88 L
Carbon Dioxide Cancelled 39 H
BUN Cancelled 35 H
Creatinine Cancelled 0.8
Glucose Cancelled 91
Calcium Cancelled 9.1
Vital Signs:
Vital Signs
Temp Pulse Resp BP Pulse Ox
97.9 F 78 18 107/70 97
09/13/24 15:24 09/13/24 15:30 09/13/24 15:24 09/13/24 15:30 09/13/24 15:24
I&O
09/12/24 09/13/24 09/14/24
06:59 06:59 06:59
Intake Total 480 / 480 840 / 840
Output Total 300 / 300
Balance 180 / 180 840 / 840
Review of Systems
-
Constitutional: Denies Fever
EENT: Denies Sore Throat
Respiratory: Denies Trouble Breathing (AT REST)
Cardiac: Denies Chest Pain
Abdomen/GI: Denies Abdominal Pain, Nausea or Vomiting
Neuro: Denies Dizzy
Physical Exam
-
General: No Apparent Distress
HEENT: Moist Mucous Membranes
Respiratory: Crackles and Non Labored Respirations; Negative Wheezes or Accessory Resp Muscle Use
Cardiac: Regular Rhythm and S1/S2
GI: Soft
Neuro: AO x 3
Data Reviewed
-
Labs: Labs Reviewed by me
--- NOTE | 2024-09-13 17:56 | ITS.CL.CATH ---
[facility] - Catheterization
Cardiac Catheterization
Procedure Report:
RIGHT HEART CATHETERIZATION
Date of Procedure: September 13, 2024
Referring: Dr. Ricardo Siegel
INDICATION: Severe pulmonary hypertension
Hemodynamics (mmHg):
RA (m) : 10
RV (s/d,m) : 76/9, 15
PA (s/d, m) : 70/30, 45
PCWP (m) : 12
Cardiac Output : 2.1 L/min and Cardiac Index : 1.6 L/min/m-2
Systemic vascular resistance: 35.2 Wood units or 2816 doenw-cph-sb(-5)
Pulmonary vascular resistance: 15.7 Wood units or 1257 lujsq-jdp-jk(-5)
RADIATION SUMMARY: Fluoro Time (min): 1.5, Dose (mGy): 4.5, DAP (Gy.cm2) : 0.6
CONCLUSION:
1. 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 Pulmonary to evaluate to see if she would be candidate for treatment of pulmonary hypertension
Copy to: Dr. Kathleen Herzog
[2024-09-13] MEDS: STERILE WATER FOR INJECTION 10 ML IV (18:15)
[2024-09-13] MEDS: VISBIOME 1 CAP PO (18:15)
[2024-09-13] MEDS: VITAMIN C 500 MG PO (18:15)
[2024-09-13] MEDS: ROCEPHIN 1000 MG IV (18:15)
[2024-09-13] MEDS: LOVENOX 40 MG SC (18:16)
--- NOTE | 2024-09-13 18:30 | PTCARENOTE ---
pt back from cathlab s/p [facility]. pt is AAO*3, Vss, R radial pulse normal, extremity cool to touch. pt denies any pain or discomfort. call alicea within the reach. plan of care ongoing.
[2024-09-14 01:45] VITALS: BP 99/69
[2024-09-14 03:53] VITALS: BP 102/69
[2024-09-14 06:00] VITALS: BMI 16.8
[2024-09-14 06:32] LABS: Hematocrit 36.6 % (37.0-47.0); Hemoglobin 12.2 g/dL (12.0-16.0); Mean Corp Hgb Conc. 33.3 g/dL (33.0-37.0); Mean Corpuscular Hgb 30.8 pg (27.0-31.0); Mean Corpuscular Volume 92.4 fL (81.0-99.0); Mean Platelet Volume 9.6 fL (7.4-10.4); Platelet Count 241 10^3/uL (130-400); Red Blood Cell Count 3.96 10^6/uL (4.20-5.40); Red Cell Dist. Width 15.3 % (11.5-14.5); White Blood Cell Count 3.8 10^3/uL (4.8-10.8)
[2024-09-14 07:10] VITALS: BP 105/70
[2024-09-14] MEDS: LASIX 40 MG IV (08:26)
[2024-09-14] MEDS: VITAMIN E 400 UNITS PO (08:26)
[2024-09-14] MEDS: VIBRAMYCIN 100 MG PO (08:26)
[2024-09-14] MEDS: MUCINEX 600 MG PO (08:27)
[2024-09-14] MEDS: VITAMIN D3 (cholecalciferol) 25 MCG PO (08:27)
[2024-09-14] MEDS: PULMICORT 0.5 MG INH ×2 (08:35→16:42)
--- NOTE | 2024-09-14 08:55 | W.PN.HOSP.TC ---
Addendum entered and electronically signed by Bernard Correa MD 09/14/24 15:29:
DW cards and pulm this afternoon - ok for dc from their standpoint
PT now recommends home health . CM consulted.
Total time of dc 32 min
Original Note:
Today's Communication/Plan
-
DC planning
Assessment / Plan
Assessment / Plan
84-year-old female presented with shortness of breath for the past several days
Chest m-xko-zlpdotyeblfk pneumonitis severe bronchiectasis. Moderate right lung volume loss secondary to elevation of the right hemidiaphragm, central pulmonary arterial distention consistent with pulmonary mention, cardiomegaly, multiple chronic
vertebral body endplate compression fractures
Echo 09/09/2024-small LV size. Normal LV systolic function. RV pressure overload. Stage I diastolic dysfunction. EF 50 to 55%. Trace AI. Mild to moderate TR. Pulmonary artery pressure 88 mmHg. Mildly dilated RA. Severely dilated and
hypokinetic RV. Small pericardial effusion
# Shortness of breath
Acute on chronic HFpEF
Improved Wt -lost 10lbs;at baseline O2; LE edema improved
On Lasix 40 mg daily as outpatient
cw IV Lasix per cardiology
Echo noted with severe pulmonary hypertension- Chest PE study -neg for PE
RHC shows pulmonary capillary wedge of 12 and precapillary pulmonary hypertension with a mean pressure of 45.
Consider switching Lasix to home dose and pulmonary to evaluate treatments for pulmonary hypertension.
# Elevated AST and ALT-likely secondary to hepatic congestion-better now
# ILD/bronchiectasis
with worsening pulmonary hypertension
Chronic respiratory failure on 4 L O2
On Budesonide inhaler
cw emp Rocephin and Doxy-today is the last day of Rocephin and doxycycline tomorrow
pulmonary following
Await pulmonary recommendations regarding treatments of pulmonary hypertension
# History of pericardial effusion July 2023
# Interstitial lung disease with severe pulmonary hypertension
# Thoracic spine compression fractures with complete collapse of T4 and T10 vertebral bodies
# Underweight
# Osteoporosis Hx- Cont� vitamin D supplement
# DVT prophylaxis-Lovenox
# Full code
Patient states that the moved the bed downstairs.
Will ask PT to evaluate and if she did well,will aim for discharge home today after seen by pulmonary/cardiology.
Anticipated Discharge: Today
Subjective/Interval History
-
Date of Service: September 14, 2024
Denies shortness of breath. No chest pain.
No fever chills.
Tolerating diet.
Objective Data
-
Labs:
Laboratory Results
09/14/24 09/14/24
05:48 07:59
WBC 3.8 L
Hgb 12.2
Hct 36.6 L
Plt Count 241
Sodium Cancelled Pending
Potassium Cancelled Pending
Chloride Cancelled Pending
Carbon Dioxide Cancelled Pending
BUN Cancelled Pending
Creatinine Cancelled Pending
Glucose Cancelled Pending
Calcium Cancelled Pending
Vital Signs:
Vital Signs
Temp Pulse Resp BP Pulse Ox
97.8 F 78 16 105/70 99
09/14/24 07:10 09/14/24 08:39 09/14/24 08:39 09/14/24 08:26 09/14/24 08:39
I&O
09/13/24 09/14/24 09/15/24
06:59 06:59 06:59
Intake Total 840 / 840
Balance 840 / 840
Review of Systems
-
Abdomen/GI: Denies Abdominal Pain, Nausea, Vomiting or Diarrhea
Neuro: Denies Dizzy or Headache
Physical Exam
-
General: No Apparent Distress
HEENT: Moist Mucous Membranes
Respiratory: Crackles (Coarse crackles) and Non Labored Respirations; Negative Wheezes or Accessory Resp Muscle Use
Cardiac: Regular Rhythm and S1/S2
GI: Soft
Musculoskeletal: No Edema
Neuro: AO x 3
Psych: Calm
Data Reviewed
-
Medical Tests (Nuc Med, Echo etc): Report Reviewed by me (Right heart cath)
[2024-09-14 09:19] LABS: Blood Urea Nitrogen 42 mg/dl (7-17); Calcium 8.7 mg/dl (8.4-10.2); Chloride 88 mmol/L (98-107); Estimated Creatinine Clearance 32 ml/min; Glucose 87 mg/dl (70-99); Potassium 3.8 mmol/L (3.5-5.1); Sodium 138 mmol/L (135-145); eGFR > 60.00
[2024-09-14 10:10] LABS: Carbon Dioxide 38 mmol/L (22-30)
[2024-09-14 11:10] VITALS: BP 107/76
--- NOTE | 2024-09-14 12:22 | CM ---
Plan: possible discharge to home today if medically stable and cleared to go by Cardio and Pulmonary
Patient/Spouse do not want SNF; prefer to go home with [facility]; per spouse, patient's bed was moved to first floor of home
Referral sent to [facility] via [facility]
--- NOTE | 2024-09-14 13:46 | W.PN.PUL3 ---
Today's Communication / Plan
-
Chronic SOB is well known to me and she has declined treatment in the past in terms of ILD/inhalers/rehab
She does not require O2 in the past we have had numerous 6MWTs showing this, but she continues to use at home
I am suspicious for dementia/cognitive impairment, she does not recall past discussions
R/LHC not showing volume overload, appreciate cards recs
Has declined rehab though I think it would be beneficial
Agree with discharge planning, can resume OP treatment
Assessment
-
84-year-old female non-smoker with a history of interstitial lung disease and bronchiectasis followed by Dr. Ramirez as well as CHF who is oxygen dependent on 4 L who presented with progressive shortness of breath and bilateral leg edema noted to have
CHF as well as significant pulmonary hypertension-pulmonary was consulted for shortness of breath 09/11/2024.
CHF preserved EF
Pulmonary hypertension
Mild [id number] 11.7
Chronic SOB
Conditions present prior to admission:
ILD-followed by Dr. Ramirez-prednisone weaned off because of pathological fractures, patient was not interested in aggressive workup
Bronchiectasis-traction bronchiectasis noted on CT chest-Without complications, sputum culture normal, AFB negative
CHF-preserved EF.
Elevated NOE.
Compression fractures.
Plan
Chronic SOB, acute on chronic
Multifactorial given her ILD, age/deconditioning/noncompliance
Supplemental oxygen as needed-on 4 L-99% saturation
She has had numerous walk testing as OP demonstrating no need for O2
Can continue nebulizers if needed-currently not bronchospastic-she has declined these in the past
I have had numerous discussions wtih patient about treatment for ILD, inhaler use, she has been resistant to treatment
We discussed her SOB is related to her ILD and lack of exercise, she has declined pulmonary rehab
I suspect cognitive impairment/early dementia
She lacks insight into her condition
Diuresis continues as tolerated
Monitor renal function, electrolytes, intake/output, lower extremity edema and weight
Replace electrolytes as needed
Cardiology following-correspondence reviewed
R/LHC reviewed showing low wedge, moderate PH--reviewed with cards
Cultures reviewed.
Influenza negative.
Empiric antibiotics-ceftriaxone and doxycycline initiated-finite course
DVT prophylaxis-on Lovenox
Nutrition
Early mobilization.
Reviewed with nursing as well as at the bedside
Outpatient follow-up with Dr. Ramirez- last seen 07/10/24- Has appointment with PFT 11/12/24 at 2 PM
Agree with discharge planning
Diagnostic data:
Chest x-ray 09/06/2024-severe chronic inflammatory interstitial pneumonitis
CT chest 07/10/2023-no pulm embolism, right heart failure, chronic interstitial changes, T10 compression fracture
CT chest 01/16/2024-chronic interstitial lung changes reflecting idiopathic interstitial pneumonia, improvement in mediastinal adenopathy
CT chest 09/10/2024-no pulm embolism, moderate pericardial effusion bowing of the interventricular septum suggesting of right heart strain, interstitial lung disease with superimposed mild pulmonary edema, chronic compression fractures
Echocardiogram 09/09/2024-EF 50-55%, stage I diastolic dysfunction, PA systolic estimated 88, severely dilated and hypokinetic right ventricle
PFT 06/29/23: FVC 0.77/42%, FEV1 0.77/57%, ratio 100%, unable to perform lung volumes or DLCO. Suggestive of severe restrictive pattern.��������
PFT 02/16/23: FEV1 0.98L 72%, FVC 1.13L 60%, ratio 87.� TLC 1.92L 49%, DLCO 16% (severe restriction, severe diffusion impairment)
C 09/13/24- Hemodynamics (mmHg): RA (m) : 10; RV (s/d,m) : 76/9, 15; PA (s/d, m) : 70/30, 45; PCWP (m) : 12; Cardiac Output : 2.1 L/min and Cardiac Index : 1.6 L/min/m-2
Systemic vascular resistance: 35.2 Wood units or 2816 [id number](-5); Pulmonary vascular resistance: 15.7 Wood units or 1257 [id number](-5)
CONCLUSION: 1. 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
Subjective Data
-
Date of Service:
Date of Service: September 14, 2024
Chief Complaint: Pulmonary Follow Up and Dyspnea Follow Up
Subjective:
Chronic SOB, she does not recall having conversations in the past about her dyspnea
She is maintained on 4L NC
Objective Data
Data Reviewed
Vital Signs / I&O / Oxygen:
Vital Signs
Temp Pulse Resp BP Pulse Ox
97.8 F 77 18 107/76 98
09/14/24 11:10 09/14/24 11:10 09/14/24 11:10 09/14/24 11:10 09/14/24 12:12
Intake and Output
09/13/24 09/14/24 09/15/24
06:59 06:59 06:59
Intake Total 840 / 840
Balance 840 / 840
SaO2 98
Nasal Cannula flow liters per 4
minute
Physical Exam
General: Respiratory Distress (n) and Comfortable
HEENT: Normocephalic and Moist Mucous Membranes
Cardiovascular: Regular Rhythm
Respiratory: Crackles, Rhonchi (n), Non-Labored Respirations, Accessory Resp Muscle Use (n) and Stridor (n)
GI: Soft, Non Distended and Non Tender
Neurology: Awake, Alert and No Motor Deficits
Skin: Warm, Good Color, Cyanosis (n), Jaundice (n) and Rash
Labs/Micro/Reports
Lab Data
09/14/24 05:48
09/14/24 07:59
[2024-09-14 13:50] VITALS: BP 101/70; PULSE 85; O2SAT 97
[2024-09-14 15:10] VITALS: BP 107/73
--- NOTE | 2024-09-14 15:25 | W.PN.CARDCBS ---
Today's Communication / Plan
-
Okay for discharge
See recommendations below
Impression / Plan
-
Signal Circuit Designer: Dr. Herzog
Impression:
Presented with SOB
Acute on chronic HFpEF
Severe pulmonary hypertension
Interstitial lung disease w/ acute exacerbation
Elevated LFTs
COPD
Bronchiectasis
h/o elevated NOE with high titer 05/11/23
h/o elevated gamma chains on protein electrophoresis also with faint Lambda chains 03/06/23
h/o thoracic compression fractures
Echo 01/09/2024: EF 62%, mild to moderate TR, pulmonary hypertension with estimated PAP 58 mmHg.
Echo 09/09/2024: EF 50 to 55%, stage I diastolic dysfunction, flattened septum consistent with RV pressure overload, mild to moderate TR, PAP 88 mmHg, severely dilated and hypokinetic RV, small pericardial effusion without evidence of hemodynamic
compromise
Plan:
She is probably as close to optimize as we could expect given her severe pulmonary hypertension.
Okay for discharge from cardiac standpoint.
Recommended cardiac meds at discharge:
Furosemide 40 mg by mouth twice daily (double admission dose)
I encouraged her to listen to Dr. Ramirez and take any medications that she would recommend.
BMP in 1 week
We will arrange for cardiac follow-up -September 30 at 2:30 PM with Nicole Peter
HPI: She presents to the hospital with progressive shortness of breath over several days and is found to be in congestive heart failure. She has a complex medical history which includes interstitial lung disease, she is oxygen dependent at home on
4 L nasal cannula. Over the past 2 weeks she has noticed worsening shortness of breath and increasing lower extremity edema as well as early satiety. She has been compliant with medications. No fevers chills night sweats. No nausea vomiting or
diarrhea.
Progress Note - Signal Circuit Designer
Subjective
Date of Service: September 14, 2024:
107/76, pulse 77, weight is 37.7 kg, down 0.5 kg frail,, crackles in lungs, neck veins okay, regular rate and rhythm, soft systolic murmur, no edema, abdomen benign
Labs as below
Objective
Labs:
09/14/24 05:48
09/14/24 07:59
Labs
Hgb 12.2 g/dL (12.0-16.0) 09/14/24 05:48
Hct 36.6 % (37.0-47.0) L 09/14/24 05:48
Plt Count 241 10^3/uL (130-400) 09/14/24 05:48
Sodium 138 mmol/L (135-145) 09/14/24 07:59
Potassium 3.8 mmol/L (3.5-5.1) 09/14/24 07:59
BUN 42 mg/dl (7-17) H 09/14/24 07:59
Creatinine 0.8 mg/dL (0.6-1.0) 09/14/24 07:59
Glucose 87 mg/dl (70-99) 09/14/24 07:59
Vital Signs and I&O:
Vital Signs
Temp Pulse Resp BP Pulse Ox
36.6 C 77 18 107/76 98
09/14/24 11:10 09/14/24 11:10 09/14/24 11:10 09/14/24 11:10 09/14/24 12:12
Vital Signs
Temp Pulse Resp BP Pulse Ox
36.6 C 77 18 107/76 98
09/14/24 11:10 09/14/24 11:10 09/14/24 11:10 09/14/24 11:10 09/14/24 12:12
Intake & Output
09/12/24 09/13/24 09/14/24 09/15/24
07:59 07:59 07:59 07:59
Intake Total 480 / 480 840 / 840
Output Total 300 / 300
Balance 180 / 180 840 / 840
Physical Exam
Physical Exam
See above
--- NOTE | 2024-09-14 17:36 | W.DCSUMMARY ---
Discharge Summary
Discharge Data
Date of Admission: 09/06/24
Date of Discharge: 09/14/24
-
Pending Results: No
Hospital Course
Primary diagnosis:
Acute on chronic heart failure with preserved EF
Precapillary pulmonary hypertension
Transaminitis suspected secondary hepatic congestion
Secondary diagnosis:
Interstitial lung disease
Bronchiectasis
Hospital course:
Patient with end-stage testicular lung disease and bronchiectasis on home O2 4 L presented with increasing shortness of breath. Was found to be in acute heart failure on top of chronic heart failure. She was 93 pounds and she lost 10 pounds. Her
lower extremity edema got better. She was at her baseline O2 and once when she reached that euvolemic state clinically he had a right heart catheterization which showed wedge pressure of 12 but had pulmonary systolic pressures of 45 suggestive of
precapillary pulmonary hypertension. She was then switched from IV Lasix to p.o. Lasix 40 mg twice a day instead of once a day which is her home dose.
Pulmonary were consulted and she is well-known to them. She had declined treatments in the terms of ILD/inhaler/rehab. She will follow-up with them as outpatient to see if she is amenable to more pulmonary hypertension treatments as outpatient.
Consultants on board:
Pulmonary Jenni Gupta
Cardiology Hai Wang
Discharge Plan
-
Patient Disposition: Home with Home Care
Discharge Diagnosis/Procedures: Acute on chronic diastolic CHF .S/P Right cardiac catheterization. Precapillary pulmonary HTN, ILD
Diet: 2 Gram Sodium
Activity: As tolerated
Driving Restrictions: No driving
Bathing Restrictions: None
Blood Work: BMP in 1 week
Other Services: VN and PT
Specialty Instructions: Weigh Daily- Call MD for wt gain/loss 3 lbs overnight/5 lbs in 1 week
Instructions: *DCA Heart Failure Instructions
Stand Alone Forms: DC Instructions- Cath/EP Lab
Referrals:
Anastacio,Jenni Ramirez, DO [Active] - in one month
Birdie Araiza PA [Family Provider] - in less than 1 week
Nicole Peter CRNP [Specified Professional Personl] - 09/30/24 2:20 pm (You have a follow up visit with Dr. Herzog's BANQUET SERVER ON CALL, Nicole Peter, at the [place] office. Please call with questions. )
Prescriptions:
New
Saline Nasal 0.65 % Aerosol,[place]
1 spray intranasal QIDPRN PRN (Reason: dry nose) Qty: 44 0RF
guaifenesin 600 mg Tablet Extended Release 12hr
600 mg PO Q12 Qty: 14 0RF
Continued
acetaminophen [Tylenol Extra Strength] 500 mg Tablet
1,000 mg PO Q6HPRN PRN (Reason: mild pain)
ascorbic acid (vitamin C) [Vitamin C] 500 mg Tablet
500 mg PO QPM
vitamin E 268 mg (400 unit) Capsule
268 mg PO DAILY
coenzyme Q10 [CoQ-10] 100 mg Capsule
100 mg PO QPM
cholecalciferol (vitamin D3) 25 mcg (1,000 unit) Tablet
25 mcg PO DAILY
Visbiome 112.5 billion cell Capsule
1 cap PO QPM
budesonide 0.5 mg/2 mL Suspension For Nebulization
0.5 mg INHALATION R TID
Changed
furosemide 40 mg Tablet
40 mg PO BID 30 Days Qty: 30 0RF
Rx Instructions:
Dose increased on this admission
Discharge Orders:
Discharge Patient (As Directed); Ordered 09/14/24
Ordered By: Bernard Correa
Discharge Date and Time
Discharge Date/Time: 09/14/24 17:17
Print Language: MOZAMBICAN
== END 2024-09-14 17:17 | disposition home health service (06) | DRG 286 ==
LOC: 4 EAST ACU 19:26
PROVIDERS: Hospitalist; Internal Medicine Cardiovascular Disease; Internal Medicine Interventional Cardiology; Physician Assistant; Registered Nurse; ADMITTING PHYSICIAN Internal Medicine; ATTENDING PHYSICIAN Internal Medicine; CONSULT PHYSICIAN Internal Medicine Critical Care Medicine; EMERGENCY PHYSICIAN Emergency Medicine; FAMILY PHYSICIAN Physician Assistant; OTHER PHYSICIAN Internal Medicine Cardiovascular Disease
PROC: 4A023N6 Measurement of Cardiac Sampling and Pressure, Right Heart, Percutaneous Approach (ICD-10-PCS; 2024-09-13)
DX: I50.33 Acute on chronic diastolic (congestive) heart failure (principal); E43 Unspecified severe protein-calorie malnutrition; J96.21 Acute and chronic respiratory failure with hypoxia; M80.08XA Age-related osteoporosis with current pathological fracture, vertebra(e), initial encounter for fracture; Z68.1 Body mass index [BMI] 19.9 or less, adult; R64 Cachexia; J84.89 Other specified interstitial pulmonary diseases; J47.9 Bronchiectasis, uncomplicated; R68.81 Early satiety; I07.1 Rheumatic tricuspid insufficiency; J30.89 Other allergic rhinitis; D64.9 Anemia, unspecified; H35.30 Unspecified macular degeneration; F03.90 Unspecified dementia, unspecified severity, without behavioral disturbance, psychotic disturbance, mood disturbance, and anxiety; K76.1 Chronic passive congestion of liver; R93.89 Abnormal findings on diagnostic imaging of other specified body structures; I27.21 Secondary pulmonary arterial hypertension; Z99.81 Dependence on supplemental oxygen; Z88.2 Allergy status to sulfonamides; Z91.048 Other nonmedicinal substance allergy status; Z11.52 Encounter for screening for COVID-19; Z79.51 Long term (current) use of inhaled steroids
CPT/HCPCS: 71046; 71275; 80048; 80053; 80061; 82248; 83735; 83880; 84443; 84484; 85025; 85027; 87502; 87811; 92526; 92610; 93005; 93306; 93451; 94640; 97116; 97162; 99285; C1894; Q9967

== ENCOUNTER → 2024-09-20 17:46 | Outpatient (REF) | payer MEDICARE, OTHER, SELFPAY ==
[2024-09-20 18:32] LABS: Blood Urea Nitrogen 39 mg/dl (7-17); Calcium 9.1 mg/dl (8.4-10.2); Chloride 90 mmol/L (98-107); Glucose 97 mg/dl (70-99); Potassium 4.3 mmol/L (3.5-5.1); Sodium 136 mmol/L (135-145); eGFR > 60.00
[2024-09-20 18:46] LABS: Carbon Dioxide 34 mmol/L (22-30)
== END ==
LOC: CLAB 17:46
PROVIDERS: ATTENDING PHYSICIAN Internal Medicine Cardiovascular Disease; FAMILY PHYSICIAN Physician Assistant
DX: I50.812 Chronic right heart failure (principal)
CPT/HCPCS: 36415; 80048

== ENCOUNTER 2024-11-11 15:31 | Inpatient (IN) | payer MEDICARE, OTHER, SELFPAY ==
[2024-11-11] VITALS (11 sets, daily range): BP systolic 97–120; BP diastolic 65–98; BMI 18.5; BMI 18.3
--- NOTE | 2024-11-11 11:32 | ED.GENMED ---
History of Present Illness
General
Chief Complaint: Breathing Problem
Source: patient
Exam Limitations: none
Time Seen by Provider: 11/11/24 11:27
History of Present Illness
History of Present Illness:
See MDM
Past History
Past History
ED Past Medical History: CHF, COPD and Other (Interstitial lung disease, chronic bronchiectasis)
ED Past Surgical History: Other (D&C)
Social History
Tobacco: Non-smoker
Alcohol: None
Drug: None
Personal:
Living: with family
Employment: Other
Family History
Family History: Other
Phy Exam
Physical Exam
Physical Exam:
See MDM
Scores
Heart Failure Risk
Heart Failure Risk Score: Yes
History of Stroke or TIA: No
History of intubation for respiratory distress: No
Heart rate on ED arrival >/= 110: No
SaO2 <90% on arrival on room air: Yes
HR >/=110 during 3min walk test (or too ill to perform test): Yes
ECG has acute ischemic changes: Yes
Urea >/=12mmol/L (BUN 33.6mg/dL): No
Serum CO2>/=35mmol/L: Yes
Troponin I or T elevated to MS Level (0.4mg/dL): No
NT-proBNP >/=5,000ng/L (5,000pg/ml): Yes
HF Risk Score: 8
Admission Status: VERY HIGH RISK 81.2% Consider admission to hospital
Course
Orders/Labs/Results
Orders:
Orders
11/11/24 11:17
Electrocardiogram (*1) Urgent
Reason for Study: Shortness of Breath
11/11/24 11:18
EKG- Treatment ONCE
11/11/24 11:21
COVID-19 Antigen Urgent
Source: Nasal Swab
Complete Blood Count/With Diff Urgent
Influenza A+B Rapid Molecular Urgent
[place] Source: Nasal Swab
Specimen Description:
11/11/24 11:30
CR Chest Portable - 1 View Urgent
Comment:
Reason For Exam: SOB, hypoxic
Reason Study Needs to be Portable: Patient Unstable
11/11/24 13:12
NT-proBNP Urgent
Troponin I Urgent
11/11/24 13:37
Comprehensive Metabolic Panel Urgent
Comment: 3
11/11/24 14:16
Aspirin Chewable [Low Strength Aspirin] 324 mg PO NOW STA
Furosemide [Lasix] 40 mg IV NOW STA
11/11/24 14:20
Vancomycin 1 Gram/200 ml [Vancocin] 1 gram in 200 ml IV NOW
11/11/24 14:21
Piperacillin/Tazo 3.375 Gram [Zosyn] 3.375 gram in 50 ml IV NOW
Abnormal Lab Results
11/11/24 11/11/24 11/11/24
11:21 13:12 13:37
MCH 31.9 H pg
(27.0-31.0)
RDW 17.9 H %
(11.5-14.5)
Absolute Lymphs (auto) 1.1 L 10^3/uL
(1.2-3.4)
Lymphocytes % 19.5 L %
(20.5-51.1)
Monocytes % 10.8 H %
(1.7-9.3)
Sodium 133 L mmol/L
(135-145)
Chloride 90 L mmol/L
(98-107)
Carbon Dioxide 37 H mmol/L
(22-30)
BUN 32 H mg/dl
(7-17)
Glucose 100 H mg/dl
(70-99)
AST 47 H U/L
(14-36)
ALT 41 H U/L
(0-35)
Troponin I 0.049 H* ng/ml
11/11/24 11:21
11/11/24 13:37
Vital Signs
Initial and Last Documented VS:
Initial Vital Signs
Pulse Resp Pulse Ox
65 20 77
11/11/24 11:05 11/11/24 11:05 11/11/24 11:05
Last Documented Vital Signs
Pulse Resp BP Pulse Ox
77 24 106/87 100
11/11/24 14:00 11/11/24 14:00 11/11/24 14:00 11/11/24 14:00
MDM/Problems Addressed
Differential Diagnosis Includes:
HPI and MDM Narrative:
84-year-old female presenting for evaluation of shortness of breath. Patient states this has been ongoing for the past several days. Patient does have a history of interstitial lung disease, CHF and COPD. She is on 4 L nasal cannula chronically.
On arrival, patient requiring a nonrebreather. After the addition of supplemental oxygen, patient states she started to feel better. She does have evidence CHF exacerbation. Both legs are edematous. Patient states this does feel like a prior
episode of CHF exacerbation. Will obtain chest x-ray, basic blood work and troponin and BNP
Physical exam
General: Frail
HEENT: protecting airway
Neck: appears supple
CV: No evidence of cyanosis. Regular rate and rhythm
Resp: No accessory muscle use. Crackles at bases
Abd: Non-distended
Extremities: +2 pitting edema bilateral lower extremities
Neuro: alert
Psych: Normal affect
Skin: Intact
Problems Addressed including Acute and Chronic Conditions affecting care:
1. Shortness of breath
Acuity: acute
Prognosis: unstable
Details: Will obtain chest x-ray and BNP with concern for CHF exacerbation
2. Hypoxia
Acuity: acute
Prognosis: unstable
Details: Patient currently on nonrebreather. Will try to wean down to 6 L nasal cannula
Updates
Chest x-ray concerning for interstitial lung disease with superimposed pneumonia. Will start IV antibiotics. Given the shortness of breath with increased leg swelling, will give dose of Lasix as well. BNP and troponin are elevated. Will give
dose of aspirin
Differential Diagnosis (but not limited to): COPD, pneumonia, CHF exacerbation
Testing considered: D-dimer
Drug therapy (if applicable): OTC meds, please see d/c instruction regarding Rx drugs
Amount and/or Complexity of Data Reviewed
Clinical info obtained from: Patient
External data reviewed: N/A
Labs I independently reviewed (but not limited to): Elevated troponin and BNP
Radiology: X-ray independently reviewed: Concerning for right-sided pneumonia
Pulse Ox: hypoxic
EKG independently reviewed: Sinus rhythm, right axis, no STEMI
Diving Coach: Sinus rhythm
Critical Care: The high probability of a clinically significant, sudden or life threatening deterioration of the cardiopulmonary system(s) required my full and direct attention, intervention and personal management. The aggregate critical care time
was 33 minutes. This time is in addition to time spent performing reported procedures but includes the following:
[x] Data Review and interpretation
[x] Patient assessment and monitoring of vital signs
[x] Documentation
[x] Medication orders and management
Risk of Complication:
Social Determinants of health: Good social support
Discussed with other providers: Hospitalist
Escalation of Care includes Admit/Obs: Given the hypoxia and concern for pneumonia, will admit
Occasional wrong word or 'sound a like' substitutions may have occurred due to the inherent limitations of voice recognition software. Read the chart carefully and recognize, using context, where substitutions have occurred.
*Critical Care Note
Total Time (30-74mins, 75-104mins- exclusive of procedures): 33 min
ED Attending Note
-
Portions of this chart may have been created with voice recognition software.� Occasional wrong word or��sound alike� substitutions may have occurred due to the inherent limitations of voice recognition software.
Discharge Plan
Departure
Patient Disposition: Admit
Date of Disposition: 11/11/24
Time of Disposition: 14:27
Admit to: Telemetry
Presentation/result/management discussed w/ accepting MD/DO: Hospitalist
Discharge Problem:
PNA (pneumonia), Hypoxia
Prescriptions:
No Action
acetaminophen [Tylenol Extra Strength] 500 mg Tablet
1,000 mg PO Q6HPRN PRN (Reason: mild pain)
ascorbic acid (vitamin C) [Vitamin C] 500 mg Tablet
500 mg PO QPM
vitamin E 268 mg (400 unit) Capsule
268 mg PO DAILY
coenzyme Q10 [CoQ-10] 100 mg Capsule
100 mg PO QPM
cholecalciferol (vitamin D3) 25 mcg (1,000 unit) Tablet
25 mcg PO DAILY
Visbiome 112.5 billion cell Capsule
1 cap PO QPM
budesonide 0.5 mg/2 mL Suspension For Nebulization
0.5 mg INHALATION R TID
Saline Nasal 0.65 % Aerosol,[place]
1 spray intranasal QIDPRN PRN (Reason: dry nose) Qty: 44 0RF
guaifenesin 600 mg Tablet Extended Release 12hr
600 mg PO Q12 Qty: 14 0RF
furosemide 40 mg Tablet
40 mg PO BID 30 Days Qty: 30 0RF
Rx Instructions:
Dose increased on this admission
Referrals:
Birdie Araiza PA [Family Provider] -
Interventions
Interventions:
*Risk Screen - Suicide Last Done: 11/11/24 11:05
*General Assessment Last Done: 11/11/24 11:05
*Neglect/Abuse Screening Last Done: 11/11/24 11:05
*ED- Fall Risk Assessment Last Done: 11/11/24 11:25
*ED COVID-19 Vaccine History Last Done: 11/11/24 11:25
ED- Cardiac Assessment Last Done: 11/11/24 11:25
ED- Pulmonary Assessment Last Done: 11/11/24 11:25
Discharge Date and Time
Print Language: OCCITAN
[2024-11-11 11:35] LABS: % Basophils 0.9 % (0-2); % Eosinophils 0.7 % (0-6); % Immature Granulocytes 0.4 % (0-0.5); % Lymphocytes 19.5 % (20.5-51.1); % Monocytes 10.8 % (1.7-9.3); % Neutrophils 67.7 % (42.2-75.2); Absolute Basophils 0.1 10^3/uL (0-0.2); Absolute Lymphocytes 1.1 10^3/uL (1.2-3.4); Absolute Monocytes 0.6 10^3/uL (0.1-0.6); Absolute Neutrophils 3.8 10^3/uL (1.4-6.5); Hematocrit 43.8 % (37.0-47.0); Hemoglobin 14.6 g/dL (12.0-16.0); Mean Corp Hgb Conc. 33.3 g/dL (33.0-37.0); Mean Corpuscular Hgb 31.9 pg (27.0-31.0); Mean Corpuscular Volume 95.6 fL (81.0-99.0); Mean Platelet Volume 9.1 fL (7.4-10.4); Nucleated Red Blood Cells % 0 %; Platelet Count 276 10^3/uL (130-400); Red Blood Cell Count 4.58 10^6/uL (4.20-5.40); Red Cell Dist. Width 17.9 % (11.5-14.5); White Blood Cell Count 5.5 10^3/uL (4.8-10.8)
[2024-11-11 11:52] LABS: COVID-19 Antigen Negative (Negative)
[2024-11-11 13:58] LABS: NT-proBNP 12400 pg/ml; Troponin I 0.049 ng/ml
[2024-11-11 14:00] LABS: ALT (SGPT) 41 U/L (0-35); AST (SGOT) 47 U/L (14-36); Albumin 3.7 g/dl (3.5-5.0); Alkaline Phosphatase 83 U/L (38-126); Blood Urea Nitrogen 32 mg/dl (7-17); Calcium 9.1 mg/dl (8.4-10.2); Carbon Dioxide 37 mmol/L (22-30); Chloride 90 mmol/L (98-107); Estimated Creatinine Clearance 41 ml/min; Glucose 100 mg/dl (70-99); Potassium 3.9 mmol/L (3.5-5.1); Sodium 133 mmol/L (135-145); Total Protein 7.5 g/dl (6.3-8.2); eGFR > 60.00
--- NOTE | 2024-11-11 14:25 | HPS.HSE ---
Family Physician
-
Family Physician: BRIDGER Caballero
Chief Complaint
-
shortness of breath
History of Present Illness
Patient is a 84-year-old female with past medical history significant for HFpEF, COPD, interstitial lung disease and pulmonary hypertension who presented to [facility] ED for evaluation of increased shortness of breath at rest. Chronic
oxygen use at 4L at home. Patient reports increased difficulty breathing over the past week and last night was unable to get comfortable enough to sleep related to shortness of breath. She reports she was short of breath laying down and sitting up.
She reports a pound and a half weight gain this week. Chart indicates patient has a 4kg weight gain since last discharge 2 months ago. Patient denies any fever, chills, cough, chest pain, nausea, vomiting, constipation, diarrhea or urinary symtpoms.
Medical History
Past Medical History
Past Medical History: Reports Other
Additional Past Medical History:
HFpEF
COPD
interstitial lung disease
pulmonary hypertension
macular degeneration
Past Surgical History: Reports Other
Additional Past Surgical History:
D&C
Social History
Tobacco: Non-smoker
Alcohol: None
Drug: None
Personal:
Living: With Family
Employment: Retired
Family History
Family History: Other (Mom: CAD; Dad: PR; Sister: HF and CAD )
Allergies / Home Medications
Allergies reflects when Allergies were last updated in [employer].
Home Medications with original date entered in [employer]
Allergy/Medication List:
Allergies
Allergy/AdvReac Type Severity Reaction Status Date / Time
adhesive Allergy Unknown Verified 11/11/24 11:08
house dust Allergy NASAL Verified 11/11/24 11:08
SYMPTOMS
Sulfa (Sulfonamide Allergy Unknown Verified 11/11/24 11:08
Antibiotics)
Home Medications
Lactobac no.2-Bifidobac no.1-S. thermo 112.5 billion cell capsule (Visbiome) 1 cap PO QPM probiotic 07/10/23
ascorbic acid (vitamin C) 500 mg tablet (Vitamin C) 500 mg PO QPM Supplement 07/10/23
cholecalciferol (vitamin D3) 25 mcg (1,000 unit) tablet 25 mcg PO DAILY Supplement 07/10/23
coenzyme Q10 100 mg capsule (CoQ-10) 100 mg PO QPM Supplement 07/10/23
vitamin E 268 mg (400 unit) capsule 268 mg PO DAILY Supplement 07/10/23
furosemide 40 mg tablet 40 mg PO BID Fluid retention/Swelling 30 days #30 tabs 09/14/24
sodium chloride 0.65 % nasal spray aerosol (Saline Nasal) 1 spray intranasal QIDPRN PRN dry nose #44 mL 09/14/24
guaifenesin 600 mg tablet, extended release 12 hr 600 mg PO HS 11/11/24
levalbuterol HCl 1.25 mg/3 mL solution for nebulization 1.25 mg inhalation R BID 11/11/24
vitamins A,C,Q-ubik-mwktjg 4,296 mcg-226 mg-90 mg capsule 1 cap PO DAILY 11/11/24
Review of Systems
-
History Source: Patient
Constitutional: Reports No Symptoms
EENT: Reports No Symptoms
Respiratory: Reports Trouble Breathing
Cardiac: Reports No Symptoms
Abdomen/GI: Reports No Symptoms
: Reports No Symptoms
Musculoskeletal: Reports No Symptoms
Skin: Reports No Symptoms
Neurological: Reports No Symptoms
Endocrine: Reports No Symptoms
Hematologic/Lymphatic: Reports No Symptoms
Psych: Reports No Symptoms
Physical Exam
Vital Signs
Vital Signs
Pulse Resp BP Pulse Ox
77 24 106/87 100
11/11/24 14:00 11/11/24 14:00 11/11/24 14:00 11/11/24 14:00
Physical Exam
General: Well Developed, No Apparent Distress, Comfortable and Conversant
HEENT: NormoCephalic, Moist mucous membranes, Atraumatic, [place] Conjunctivae, Nose Appears Normal, Ears Appear Normal and Hearing Impaired
Respiratory: Clear and Decreased Breath Sounds
Cardiac: S1/S2 and Regular Rhythm; No Murmur, Rub or Gallop
Breast: Deferred by me
GI: Soft, Non Tender, Non Distended and Normal Bowel Sounds; No Organomegaly
Rectal: Deferred by Provider
Genito-urinary: Deferred by me
Musculoskeletal: No Clubbing, No Cyanosis, Edema, Left Lower Extremity (+3 pitting ) and Edema, Right Lower Extremity (+3 pitting )
Skin: No Rash
Neuro: Awake, Alert, AO x 3 and Nonfocal/grossly intact
Psych: Calm and Intact Judgment/Insight
Laboratory Results
-
11/11/24 11:21
11/11/24 13:37
Laboratory Results
Total Bilirubin 1.0 mg/dl (0.2-1.3) 11/11/24 13:37
AST 47 U/L (14-36) H 11/11/24 13:37
ALT 41 U/L (0-35) H 11/11/24 13:37
Alkaline Phosphatase 83 U/L (38-126) 11/11/24 13:37
Troponin I 0.049 ng/ml H* 11/11/24 13:12
Data Reviewed
-
Diagnostic Radiology: Report Reviewed by me (CXR: 1. Reticular interstitial thickening within the right mid and upper lung zone, similar compared to prior chest x-ray and also seen on prior CT dated 09/10/2024. 2. Differential diagnosis includes
pneumonia superimposed on interstitial lung disease, interstitial pneumonitis, and chronic interstiti)
Medical Tests (Nuc Med, Echo, EKG etc): Report Reviewed by me (EKG: SINUS RHYTHM WITH PREMATURE SUPRAVENTRICULAR COMPLEXES RIGHT VENTRICULAR HYPERTROPHY T WAVE ABNORMALITY, CONSIDER INFEROLATERAL ISCHEMIA PROLONGED QT)
Lab Data: Labs Reviewed by me (AST 47, ALT 41, trop 0.049, BNP 99982)
Impression/Plan
-
IMPRESSION/PLAN:
#acute on chronic heart failure
#acute hypoxic respiratory failure
#chronic HFpEF
trop 0.049, BNP 13954
CXR: 1. Reticular interstitial thickening within the right mid and upper lung zone, similar compared to prior chest x-ray and also seen on prior CT dated 09/10/2024.
2. Differential diagnosis includes pneumonia superimposed on interstitial lung disease, interstitial pneumonitis, and chronic interstitial fibrosis.
EKG: SINUS RHYTHM WITH PREMATURE SUPRAVENTRICULAR COMPLEXES
RIGHT VENTRICULAR HYPERTROPHY
T WAVE ABNORMALITY, CONSIDER INFEROLATERAL ISCHEMIA
PROLONGED QT
ECHO (09/09/24): EF 50 to 55%, stage I diastolic dysfunction, flattened septum consistent with RV pressure overload, mild to moderate TR, PAP 88 mmHg, severely dilated and hypokinetic RV, small pericardial effusion without
evidence of hemodynamic compromise
Covid: negative
Influenza: negative
- Admit to telemetry
- Consult cardiology
- IV Lasix 40mg BID
- daily weights and I&Os
- trend troponin
- clinically does not appear to have superimposed PNA, stop further antibiotics
#Transaminitis suspected secondary hepatic congestion
AST 47, ALT 41
- patient denies any abdominal pain
- trend LFTs
#COPD
#interstitial lung disease
#Bronchiectasis
on chronic home oxygen @ 4L
- continue home nebulizer regimen with Xopenex
- continue guaifenesin
#macular degeneration
- continue Icaps
#pulmonary hypertension
Code status: full code
DVT prophylaxis: Lovenox sq
[2024-11-11] MEDS: LOW STRENGTH ASPIRIN 324 MG PO (14:32)
[2024-11-11] MEDS: ZOSYN 50 IV (14:33)
[2024-11-11] MEDS: LASIX 40 MG IV ×2 (14:34→18:35)
--- NOTE | 2024-11-11 14:53 | W.PN.UPDATE ---
Update Note
Progress Note Update
This is an addendum to H&P written by Sima Lopez on 11/11/2024.� Patient seen and examined independently with [facility] [employer].
84-year-old female past medical history of ILD/bronchiectasis, chronic hypoxemic respiratory failure on 4 L oxygen, chronic HFpEF, severe pulmonary hypertension, cardial effusion, thoracic spine compression fractures, osteoporosis, presenting for
shortness of breath and increased oxygen requirement.� Required nonrebreather but now back to 4 L.� She has�stable�leg swelling. No weight gain.�
Labs show cardiac BNP of 12,000.� Troponin 0.049.� Mild transaminitis.� EKG shows sinus rhythm with premature supraventricular complexes, RVH.� Nonspecific T wave inversions.
Chest x-ray shows reticular interstitial thickening within the right mid and upper lung zones similar to previous could be a pneumonia superimposed on interstitial lung disease/interstitial pneumonitis or interstitial fibrosis.� COVID and influenza
negative.
Concern for acute on chronic CHF exacerbation.
Patient given aspirin, 40 IV Lasix and vancomycin/Zosyn.� Doubt that she has superimposed pneumonia clinically.� Continue IV Lasix, cardiology consulted.�Stop further antibiotics.
--- NOTE | 2024-11-11 16:14 | CON.CAR ---
Addendum entered and electronically signed by Jovanny Kimble DO 11/11/24 17:07:
I saw and examined the patient.
The Head [employer]'s note was reviewed and I agree with the note.
Comment:
Plan:
-Presented 11/11/2024 with SOB, weight gain, edema. Recent d/c Sep 2024 with HF and severe PHTN, ILD.
-Acute on chronic HFpEF, proBNP 12,400. This is higher than prior proBNP which was 4410 and patient is also up 8 pounds compared to discharge weight in September 2024.
-Patient was given 40 mg IV Lasix in emergency department.
-Increase lasix to 40 mg IV BID.
-Cont medical therapy of non-TX troponin, 0.049, likely secondary to heart failure. Trend troponin until peaks.
-Check echo to reevaluate pericardial effusion. Patient has known preserved EF and severe pulmonary hypertension.
-Trend LFTs. Mildly elevated LFTs likely secondary to acute volume overload/hepatic congestion
-Continue pulmonary toilet. Patient with increased O2 requirements. Takes 4 L at home.
-Continue broad-spectrum antibiotics for concern for pneumonia as per primary service.
Discussed with at bedside.
Original Note:
Consultation
Consultation Request
Date/Time Consultation Requested: 11/11/2024
Date/Time Consultation Performed: 11/11/2024
Requesting Provider: RADHA Diamond
Performing Provider: Shahrzad Berger PA-C for Dr. Jovanny Kimble
Reason for Consultation: shortness of breath
Medical History
-
Chief Complaint: Progressive shortness of breath
History of Present Illness:
Alejandra has PMH of chronic heart failure with preserved ejection fraction, severe pulmonary hypertension, pericardial effusion, interstitial lung disease, COPD, chronic home oxygen therapy 4 L via nasal cannula, tricuspid regurgitation, presents to
emergency department 11/11/2024 with progressive shortness of breath, lower extremity edema and weight gain over several days. She reports she has been compliant with medications. proBNP found to be elevated at 12,400, chest x-ray shows mild
cardiomegaly with mild reticular interstitial thickening within mid right and upper lung zones which could represent pneumonia superimposed on interstitial lung disease/interstitial pneumonitis. There is no pneumothorax or pleural effusions. EKG is
sinus rhythm with occasional PACs and nonspecific T wave abnormality in inferior and lateral leads without significant change from prior EKG. troponin 0.049. Patient's weight is up 8 pounds since discharge weight of September 2024. She currently is
on 5 L of oxygen sating 91 to 100%. Mildly elevated transaminases with AST 47 and ALT 41
Sodium 133, BUN and creatinine of 22 and 0.7 with potassium of 3.9. COVID-negative. Patient was provided 40 mg IV Lasix and Vanco/Zosyn.
Per review of outpatient records patient's primary care physician has encouraged patient to see palliative care but this has not been arranged. Patient was also supposed to follow-up with pulmonary with office visit 11/12/2024 which has been
canceled due to her coming to the hospital.
Past medical history:
Interstitial lung disease with Severe pulmonary hypertension
COPD
bronchiectasis
On chronic home oxygen therapy at 4 Lpm
Small pericardial effusion
Chronic heart failure with preserved ejection fraction
Tricuspid regurgitation
Osteoporosis
h/o elevated NOE with high titer 05/11/23
h/o elevated gamma chains on protein electrophoresis also with faint Lambda chains 03/06/23
h/o thoracic compression fracture
Past Medical History
Past Medical History: Other (See HPI)
Past Surgical History: Gynecological (D&C)
Social History
Tobacco: Non-Smoker
Alcohol: None
Drug: None
Personal:
Employment: Not Employed
Family History
Family History: CAD (Mother, father, sister)
Allergies / Home Medications
Allergy/AdvReac Type Severity Reaction Status Date / Time
adhesive Allergy Unknown Verified 11/11/24 11:08
house dust Allergy NASAL Verified 11/11/24 11:08
SYMPTOMS
Sulfa (Sulfonamide Allergy Unknown Verified 11/11/24 11:08
Antibiotics)
�Medication �Instructions �Recorded �Confirmed �Type
Lactobac no.2-Bifidobac no.1-S. 1 cap PO QPM probiotic 07/10/23 11/11/24 History
thermo 112.5 billion cell capsule
(Visbiome)
ascorbic acid (vitamin C) 500 mg 500 mg PO QPM Supplement 07/10/23 11/11/24 History
tablet (Vitamin C)
cholecalciferol (vitamin D3) 25 25 mcg PO DAILY Supplement 07/10/23 11/11/24 History
mcg (1,000 unit) tablet
coenzyme Q10 100 mg capsule 100 mg PO QPM Supplement 07/10/23 11/11/24 History
(CoQ-10)
vitamin E 268 mg (400 unit) capsule 268 mg PO DAILY Supplement 07/10/23 11/11/24 History
furosemide 40 mg tablet 40 mg PO BID Fluid 09/14/24 11/11/24 Rx
retention/Swelling 30 days #30 tabs
sodium chloride 0.65 % nasal spray 1 spray intranasal QIDPRN PRN dry 09/14/24 11/11/24 Rx
aerosol (Saline Nasal) nose #44 mL
guaifenesin 600 mg tablet, 600 mg PO HS 11/11/24 11/11/24 History
extended release 12 hr
levalbuterol HCl 1.25 mg/3 mL 1.25 mg inhalation R BID 11/11/24 11/11/24 History
solution for nebulization
vitamins A,C,N-lcbm-eheyfm 4,296 1 cap PO DAILY 11/11/24 11/11/24 History
mcg-226 mg-90 mg capsule
Review of Systems
-
History Source: Patient
All other systems: Negative unless noted
Physical Exam
Vital Signs
Pulse Resp BP Pulse Ox
77 30 114/80 91
11/11/24 15:00 11/11/24 15:00 11/11/24 15:00 11/11/24 15:00
GEN: No distress, awake, Ox3, lying in bed on oxygen
HEENT: supple, anicteric, mmm
LUNGS: Crackles at bilateral bases also crackles right middle lobe, no wheezes, 5 l of oxygen via nasal cannula
CV: Reg, S1/S2, 1/6 syst LSB, no murmur
ABD: soft, BS+, NT/ND
EXT: +1-2 bilateral lower extremity edema, no clubbing or cyanosis
NEURO: Gross non-focal
SKIN: No rash, warm, dry, pink
Lab Results
11/11/24 11:21
11/11/24 13:37
Troponin I 0.049 ng/ml H* 11/11/24 13:12
Wfa-L-Hagaydakkbb Pept 24201 pg/ml 11/11/24 13:12
Impression / Plan
-
Family Physician: Birdie Araiza PA-C
Residential Treatment Counselor: Dr. Herzog
Impression:
Presented 11/11/2024 with SOB, weight gain, edema
Acute on chronic HFpEF, proBNP 12,400
Acute on chronic hypoxic respiratory insufficiency on chronic oxygen 4 L/min nasal cannula at home
Abnormal troponin
Mildly elevated LFTs
Interstitial lung disease with Severe pulmonary hypertension
COPD
bronchiectasis
On chronic home oxygen therapy at 4 Lpm
Small pericardial effusion on echo September 2024
Chronic heart failure with preserved ejection fraction
Tricuspid regurgitation
Osteoporosis
h/o elevated NOE with high titer 05/11/23
h/o elevated gamma chains on protein electrophoresis also with faint Lambda chains 03/06/23
h/o thoracic compression fracture
Echo 01/09/2024: EF 62%, mild to moderate TR, pulmonary hypertension with estimated PAP 58 mmHg.
Echo 09/09/2024: EF 50 to 55%, stage I diastolic dysfunction, flattened septum consistent with RV pressure overload, mild to moderate TR, PAP 88 mmHg, severely dilated and hypokinetic RV, small pericardial effusion without evidence of hemodynamic
compromise
Right heart catheterization 09/13/2024: Hemodynamics (mmHg): RA (m) : 10; RV (s/d,m) : 76/9, 15; PA (s/d, m) : 70/30, 45; PCWP (m) : 12
Cardiac Output : 2.1 L/min and Cardiac Index : 1.6 L/min/m-2
Systemic vascular resistance: 35.2 Wood units or 2816 vhpiq-tnr-ye(-5)
Pulmonary vascular resistance: 15.7 Wood units or 1257 igpgc-mch-nz(-5)
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
Plan:
-Presented 11/11/2024 with SOB, weight gain, edema
-Acute on chronic HFpEF, proBNP 12,400. This is higher than prior proBNP which was 4410 and patient is also up 8 pounds compared to discharge weight in September 2024.
-Patient was given 40 mg IV Lasix in emergency department. Continue to monitor and assess response. Will likely need 40 mg IV twice daily
-Monitor renal function and electrolytes
-Abnormal troponin, initial 0.049. Patient denies chest pain. EKG shows inferior and lateral T wave abnormality unchanged from prior tracings. Suspect nonischemic myocardial injury secondary to acute heart failure exacerbation. Monitor and trend
to peak.
-Mildly elevated LFTs likely secondary to acute volume overload/hepatic congestion
-Patient was noted to have small pericardial effusion on echo in September 2024. Would repeat echo
-Acute on chronic hypoxic respiratory insufficiency on chronic oxygen 4 L/min nasal cannula at home. Currently requiring 5 L. Wean oxygen as able. Continue nebulizers.
-Concern for pneumonia on chest x-ray. Clinically patient does not appear to have a pneumonia. She was provided a dose of IV vancomycin and Zosyn in emergency department. Additional management per primary service
HPI 11/11/2024:
Alejandra has PMH of chronic heart failure with preserved ejection fraction, severe pulmonary hypertension, pericardial effusion, interstitial lung disease, COPD, chronic home oxygen therapy 4 L via nasal cannula, tricuspid regurgitation, presents to
emergency department 11/11/2024 with progressive shortness of breath, lower extremity edema and weight gain over several days. She reports she has been compliant with medications. proBNP found to be elevated at 12,400, chest x-ray shows mild
cardiomegaly with mild reticular interstitial thickening within mid right and upper lung zones which could represent pneumonia superimposed on interstitial lung disease/interstitial pneumonitis. There is no pneumothorax or pleural effusions. EKG is
sinus rhythm with occasional PACs and nonspecific T wave abnormality in inferior and lateral leads without significant change from prior EKG. troponin 0.049. Patient's weight is up 8 pounds since discharge weight of September 2024. She currently is
on 5 L of oxygen sating 91 to 100%. Mildly elevated transaminases with AST 47 and ALT 41
Sodium 133, BUN and creatinine of 22 and 0.7 with potassium of 3.9. COVID-negative. Patient was provided 40 mg IV Lasix and Vanco/Zosyn.
Per review of outpatient records patient's primary care physician has encouraged patient to see palliative care but this has not been arranged. Patient was also supposed to follow-up with pulmonary with office visit 11/12/2024 which has been
canceled due to her coming to the hospital.
Data Reviewed
-
EKG: Report Reviewed by me, Discussed with Physician, Discussed with Patient and Discussed with Family
Radiology: Report Reviewed by me, Discussed with Physician, Discussed with Patient and Discussed with Family
Labs: Labs Reviewed by me, Discussed with Physician, Discussed with Patient and Discussed with Family
Old Records: Reviewed
[2024-11-11] MEDS: VANCOCIN 200 IV (16:18)
[2024-11-11] MEDS: LOVENOX 40 MG SC (18:35)
[2024-11-11] MEDS: VISBIOME 1 CAP PO (18:36)
[2024-11-11] MEDS: VITAMIN C 500 MG PO (18:36)
--- NOTE | 2024-11-11 19:06 | PTCARENOTE ---
Pt received as admit from ED. AAOx3. NSR on tele, HRs 80s. SpO2 96% on 4L nasal cannula. Stage 2 pressure injury on sacrum, foam dressing applied. EKG obtained. Troponin collected and sent. IV Lasix 40mg given. Pt with PureWick in place. Assessment
documented. Pt resting in bed, call alicea in reach. at bedside.
[2024-11-11] MEDS: XOPENEX 1.25 MG INHALANT SOLUTION INH (19:29)
[2024-11-11] MEDS: MUCINEX 600 MG PO (21:00)
[2024-11-12] VITALS (8 sets, daily range): BP systolic 96–118; BP diastolic 57–85; PULSE 84; O2SAT 96; BMI 17.7
[2024-11-12 04:07] LABS: ALT (SGPT) 35 U/L (0-35); AST (SGOT) 45 U/L (14-36); Albumin 3.5 g/dl (3.5-5.0); Alkaline Phosphatase 68 U/L (38-126); Blood Urea Nitrogen 40 mg/dl (7-17); Calcium 8.7 mg/dl (8.4-10.2); Carbon Dioxide 33 mmol/L (22-30); Chloride 93 mmol/L (98-107); Estimated Creatinine Clearance 31 ml/min; Glucose 92 mg/dl (70-99); Potassium 4.7 mmol/L (3.5-5.1); Sodium 131 mmol/L (135-145); Total Protein 7.1 g/dl (6.3-8.2); Troponin I 0.049 ng/ml; eGFR > 60.00
[2024-11-12] MEDS: XOPENEX 1.25 MG INHALANT SOLUTION INH ×2 (07:16→19:22)
[2024-11-12] MEDS: VITAMIN D3 (cholecalciferol) 25 MCG PO (08:39)
[2024-11-12] MEDS: OCUVITE SOFTGEL 1 CAP PO (08:39)
[2024-11-12] MEDS: VITAMIN E 400 UNITS PO (08:39)
[2024-11-12] MEDS: LASIX 40 MG IV ×2 (08:40→17:22)
--- NOTE | 2024-11-12 10:39 | W.PN.CARDCBS ---
Today's Communication / Plan
-
Continue IV Lasix and monitor renal function closely
Repeat echo
Impression / Plan
-
Family Physician: Birdie Araiza PA-C
[employer]: Dr. Herzog
Impression:
Presented 11/11/2024 with SOB, weight gain, edema
Acute on chronic HFpEF, proBNP 12,400
Acute on chronic hypoxic respiratory insufficiency on chronic oxygen 4 L/min nasal cannula at home
Abnormal troponin
Mildly elevated LFTs
Interstitial lung disease with Severe pulmonary hypertension
COPD
bronchiectasis
On chronic home oxygen therapy at 4 Lpm
Small pericardial effusion on echo September 2024
Chronic heart failure with preserved ejection fraction
Tricuspid regurgitation
Osteoporosis
h/o elevated NOE with high titer 05/11/23
h/o elevated gamma chains on protein electrophoresis also with faint Lambda chains 03/06/23
h/o thoracic compression fracture
Echo 01/09/2024: EF 62%, mild to moderate TR, pulmonary hypertension with estimated PAP 58 mmHg.
Echo 09/09/2024: EF 50 to 55%, stage I diastolic dysfunction, flattened septum consistent with RV pressure overload, mild to moderate TR, PAP 88 mmHg, severely dilated and hypokinetic RV, small pericardial effusion without evidence of hemodynamic
compromise
Right heart catheterization 09/13/2024: Hemodynamics (mmHg): RA (m) : 10; RV (s/d,m) : 76/9, 15; PA (s/d, m) : 70/30, 45; PCWP (m) : 12
Cardiac Output : 2.1 L/min and Cardiac Index : 1.6 L/min/m-2
Systemic vascular resistance: 35.2 Wood units or 2816 byxho-rct-tb(-5)
Pulmonary vascular resistance: 15.7 Wood units or 1257 isfyw-wmf-sy(-5)
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
Plan:
-Presented 11/11/2024 with SOB, weight gain, edema
-Acute on chronic HFpEF, proBNP 12,400. This is higher than prior proBNP which was 4410 and patient is also up 8 pounds compared to discharge weight in September 2024.
-Cont 40 mg IV lasix twice daily
-Monitor renal function and electrolytes
-Daily weights via standing scale
-Patient was noted to have small pericardial effusion on echo in September 2024. Repeat study pending.
-Abnormal troponin, initial 0.049 and peaked at 0.050. Not reporting any chest discomfort. This is likely nonischemic myocardial injury troponin elevation due to acute heart failure.
-Acute on chronic hypoxic respiratory insufficiency on chronic oxygen 4 L/min nasal cannula at home. Wean oxygen as able.
-Concern for pneumonia on chest x-ray. She was provided a dose of IV vancomycin and Zosyn in emergency department. Additional management per primary service
HPI 11/11/2024:
Alejandra has PMH of chronic heart failure with preserved ejection fraction, severe pulmonary hypertension, pericardial effusion, interstitial lung disease, COPD, chronic home oxygen therapy 4 L via nasal cannula, tricuspid regurgitation, presents to
emergency department 11/11/2024 with progressive shortness of breath, lower extremity edema and weight gain over several days. She reports she has been compliant with medications. proBNP found to be elevated at 12,400, chest x-ray shows mild
cardiomegaly with mild reticular interstitial thickening within mid right and upper lung zones which could represent pneumonia superimposed on interstitial lung disease/interstitial pneumonitis. There is no pneumothorax or pleural effusions. EKG is
sinus rhythm with occasional PACs and nonspecific T wave abnormality in inferior and lateral leads without significant change from prior EKG. troponin 0.049. Patient's weight is up 8 pounds since discharge weight of September 2024. She currently is
on 5 L of oxygen sating 91 to 100%. Mildly elevated transaminases with AST 47 and ALT 41
Sodium 133, BUN and creatinine of 22 and 0.7 with potassium of 3.9. COVID-negative. Patient was provided 40 mg IV Lasix and Vanco/Zosyn.
Per review of outpatient records patient's primary care physician has encouraged patient to see palliative care but this has not been arranged. Patient was also supposed to follow-up with pulmonary with office visit 11/12/2024 which has been
canceled due to her coming to the hospital.
Progress Note - [employer]
Subjective
Date of Service: November 12, 2024
NAOE. Resting comfortably in bed this AM. Tells me breathing is improved overnight, but still with LE edema.
Objective
Labs:
11/11/24 11:21
11/12/24 03:33
Labs
Hgb 14.6 g/dL (12.0-16.0) 11/11/24 11:21
Hct 43.8 % (37.0-47.0) 11/11/24 11:21
Plt Count 276 10^3/uL (130-400) 11/11/24 11:21
Sodium 131 mmol/L (135-145) L 11/12/24 03:33
Potassium 4.7 mmol/L (3.5-5.1) 11/12/24 03:33
BUN 40 mg/dl (7-17) H 11/12/24 03:33
Creatinine 0.9 mg/dL (0.6-1.0) 11/12/24 03:33
Glucose 92 mg/dl (70-99) 11/12/24 03:33
Troponins
11/11/24 11/11/24 11/11/24
11:21 13:12 18:34
Troponin I Cancelled 0.049 H* 0.050 H*
11/11/24 11/12/24
20:45 03:33
Troponin I 0.050 H* 0.049 H*
Vital Signs and I&O:
Vital Signs
Temp Pulse Resp BP Pulse Ox
97.8 F 79 20 118/85 99
11/12/24 07:55 11/12/24 08:40 11/12/24 07:55 11/12/24 08:40 11/12/24 08:55
Vital Signs
Temp Pulse Resp BP Pulse Ox
97.8 F 79 20 118/85 99
11/12/24 07:55 11/12/24 08:40 11/12/24 07:55 11/12/24 08:40 11/12/24 08:55
Intake & Output
11/10/24 11/11/24 11/12/24 11/13/24
06:59 06:59 06:59 06:59
Intake Total 240 / 240
Output Total 125 / 125
Balance 115 / 115
Physical Exam
Physical Exam
Gen: NAD, AA, frail appearing
HEENT: NC/AT, sclera anicteric
Neck: No JVD
CV: RRR, NL s1/s2
Lungs: No increased WOB on 4L NC
Abd: S/ND
Ext: 1+ LE edema
Skin: Warm, dry
Neuro: Non-focal
[2024-11-12 11:00] LABS: Procalcitonin < 0.05 ng/ml (0.0-0.25)
--- NOTE | 2024-11-12 12:16 | W.PN.HOSP.TC ---
Today's Communication/Plan
-
Monitor vital signs see plan
Echo
Continue with IV diuresis
PT/OT
Assessment / Plan
Assessment / Plan
General: Well Developed, No Apparent Distress, Comfortable and Conversant
HEENT: NormoCephalic, Moist mucous membranes, Atraumatic, [place] Conjunctivae, Nose Appears Normal, Ears Appear Normal and Hearing Impaired
Respiratory: Clear and Decreased Breath Sounds
Cardiac: S1/S2 and Regular Rhythm; No Murmur, Rub or Gallop
GI: Soft, Non Tender, Non Distended and Normal Bowel Sounds
Musculoskeletal:+ edema
Skin: No Rash
Neuro: Awake, Alert, AO x 3 and Nonfocal/grossly intact
Psych: Calm and Intact Judgment/Insight
acute on chronic heart failure with preserved EF
#acute on chronic hypoxic respiratory failure 2/2 above; on baseline 4L home o2
Elevated BNP
CXR: 1. Reticular interstitial thickening within the right mid and upper lung zone, similar compared to prior chest x-ray and also seen on prior CT dated 09/10/2024.
2. Differential diagnosis includes pneumonia superimposed on interstitial lung disease, interstitial pneumonitis, and chronic interstitial fibrosis.
EKG: SINUS RHYTHM WITH PREMATURE SUPRAVENTRICULAR COMPLEXES
RIGHT VENTRICULAR HYPERTROPHY
T WAVE ABNORMALITY, CONSIDER INFEROLATERAL ISCHEMIA
PROLONGED QT
ECHO (09/09/24): EF 50 to 55%, stage I diastolic dysfunction, flattened septum consistent with RV pressure overload, mild to moderate TR, PAP 88 mmHg, severely dilated and hypokinetic RV, small pericardial effusion without
evidence of hemodynamic compromise
Covid: negative
Influenza: negative
-Cardiology follow
- Continue with IV diuresis
- daily weights and I&Os
- trend troponin
- clinically does not appear to have superimposed PNA, stop further antibiotics. procal neg
Echo
Elevated troponin, likely secondary to nonischemic myocardial injury
Monitor
Transaminitis suspected secondary hepatic congestion
- patient denies any abdominal pain
- trend LFTs
COPD
interstitial lung disease
Bronchiectasis
on chronic home oxygen @ 4L
- continue home nebulizer regimen with Xopenex
- continue guaifenesin
Hyponatremia
Monitor
macular degeneration
- continue Icaps
pulmonary hypertension
Code status: full code
DVT prophylaxis: Lovenox sq
I spent a total of 52 minutes with the patient or on the floor. More than 50% of this time involved counseling and coordination of care.
Anticipated Discharge: > 48 hours
Subjective/Interval History
-
Date of Service: November 12, 2024
Denies chest pain
Objective Data
-
Labs:
Laboratory Results
11/12/24
03:33
Sodium 131 L
Potassium 4.7
Chloride 93 L
Carbon Dioxide 33 H
BUN 40 H
Creatinine 0.9
Glucose 92
Calcium 8.7
Total Bilirubin 1.0
AST 45 H
ALT 35
Alkaline Phosphatase 68
Vital Signs:
Vital Signs
Temp Pulse Resp BP Pulse Ox
97.3 F 79 20 100/70 97
11/12/24 11:55 11/12/24 11:55 11/12/24 11:55 11/12/24 11:55 11/12/24 11:55
I&O
11/11/24 11/12/24 11/13/24
06:59 06:59 06:59
Intake Total 240 / 240
Output Total 125 / 125
Balance 115 / 115
--- NOTE | 2024-11-12 13:13 | PN.CDI ---
CDI
- -
CDI:
Physician Documentation Request
Admit Date: 11/11/24 15:31
Dear Doctor Lyndon,
Patient admitted with acute on chronic diastolic CHF.
11/11 Nursing skin assessment, 'Stage 2 sacral pressure injury, POA.'
Physician documentation of the type and location of wounds is required for compliant documentation. Based on the above clinical findings and your assessment, please provide the following in your progress note:
Type (etiology) of ulcer/wound:
- Pressure (decubitus) ulcer
- Other
- Unable to determine
For a pressure ulcer, please also include the stage* of the ulcer:
- Stage 1 - Skin intact, non-blanchable redness
- Stage 2 - Partial thickness loss of dermis, includes intact or open blister
- Stage 3 - Full thickness tissue not including bone, tendon or muscle
- Stage 4 - Full thickness tissue loss, including exposed bone, tendon or muscle
- Unstageable - Full thickness loss in which the base of the ulcer is covered by slough (yellow, kowalski, reece, green or brown) and/or eschar (kowalski, brown or black) in the wound bed.
- Unable to determine
Use of terms such as suspected, likely, concern for, or probable (associated with a specific diagnosis that is being evaluated, monitored, or treated as if it exists) are acceptable and can be coded in the inpatient setting, when documented at the
time of discharge.
Thank you,
Veronica KNIGHT,RN,CCDS
CDI Specialist
Available via [place] text
Please use your independent medical judgment in providing your response.
*Source: National Pressure Ulcer Advisory Panel (NPUAP)
--- NOTE | 2024-11-12 13:18 | PN.CDI ---
CDI
- -
CDI:
Physician Documentation Request
Admit Date: 11/11/24 15:31
Dear Doctor Lyndon,
Patient admitted with acute on chronic diastolic CHF.
Please review the following and provide your response in the progress notes.
Clinical Indicators:
Height: 4' 11'
Weight: 87 lb 6 oz
BMI: 17.7
Please provide an associated diagnosis related to the abnormal BMI, such as:
Underweight
Cachectic
Anorexia
BMI is not significant
Other
BMI < or = to 19
Underweight
Weight Loss
Cachectic
Anorexia
Use of terms such as suspected, likely, concern for, or probable (associated with a specific diagnosis that is being evaluated, monitored, or treated as if it exists) are acceptable and can be coded in the inpatient setting, when documented at the
time of discharge.
Thank you,
Veronica KNIGHT,RN,CCDS
CDI Specialist
Available via [place] text
Please use your independent medical judgment in providing your response.
--- NOTE | 2024-11-12 16:24 | CM ---
Alert awake oriented patient who lives with her Ras in a 2 story home with 2 step to enter and bed bath room on first floor.
She is assisted in all activities of daily living.Offered VN she [facility] Hyatt Liaison TT referral .
Home oxygen ? DME walker
VN hx / No SNF hx
Pharmacy [facility]
PCP Dr Frandy Raya
PLAN Home with [facility]
[2024-11-12] MEDS: LOVENOX 40 MG SC (17:21)
[2024-11-12] MEDS: VITAMIN C 500 MG PO (17:22)
[2024-11-12] MEDS: VISBIOME 1 CAP PO (17:22)
[2024-11-12] MEDS: OCEAN, SALINE MIST 2 SPRAYS NASAL (20:58)
[2024-11-12] MEDS: MUCINEX 600 MG PO (20:58)
[2024-11-13] VITALS (7 sets, daily range): BP systolic 97–128; BP diastolic 66–91; PULSE 81; O2SAT 92; BMI 17.6
[2024-11-13 06:21] LABS: % Basophils 1.5 % (0-2); % Immature Granulocytes 0.2 % (0-0.5); % Lymphocytes 20.2 % (20.5-51.1); % Monocytes 15.9 % (1.7-9.3); % Neutrophils 59.2 % (42.2-75.2); Absolute Basophils 0.1 10^3/uL (0-0.2); Absolute Eosinophils 0.1 10^3/uL (0-0.7); Absolute Lymphocytes 0.9 10^3/uL (1.2-3.4); Absolute Monocytes 0.7 10^3/uL (0.1-0.6); Absolute Neutrophils 2.7 10^3/uL (1.4-6.5); Hematocrit 36.3 % (37.0-47.0); Hemoglobin 12.2 g/dL (12.0-16.0); Mean Corp Hgb Conc. 33.6 g/dL (33.0-37.0); Mean Corpuscular Hgb 31.8 pg (27.0-31.0); Mean Corpuscular Volume 94.5 fL (81.0-99.0); Mean Platelet Volume 9.7 fL (7.4-10.4); Nucleated Red Blood Cells % 0 %; Platelet Count 227 10^3/uL (130-400); Red Blood Cell Count 3.84 10^6/uL (4.20-5.40); Red Cell Dist. Width 17.5 % (11.5-14.5); White Blood Cell Count 4.6 10^3/uL (4.8-10.8)
[2024-11-13 06:52] LABS: ALT (SGPT) 38 U/L (0-35); AST (SGOT) 48 U/L (14-36); Albumin 3.1 g/dl (3.5-5.0); Alkaline Phosphatase 61 U/L (38-126); Blood Urea Nitrogen 34 mg/dl (7-17); Calcium 8.6 mg/dl (8.4-10.2); Carbon Dioxide 35 mmol/L (22-30); Chloride 98 mmol/L (98-107); Estimated Creatinine Clearance 39 ml/min; Glucose 89 mg/dl (70-99); Potassium 4.2 mmol/L (3.5-5.1); Sodium 135 mmol/L (135-145); Total Bilirubin 0.6 mg/dl (0.2-1.3); Total Protein 6.6 g/dl (6.3-8.2); eGFR > 60.00
[2024-11-13] MEDS: XOPENEX 1.25 MG INHALANT SOLUTION INH ×2 (07:03→19:05)
[2024-11-13] MEDS: VITAMIN D3 (cholecalciferol) 25 MCG PO (09:23)
[2024-11-13] MEDS: VITAMIN E 400 UNITS PO (09:23)
[2024-11-13] MEDS: LASIX 40 MG IV ×2 (09:24→17:00)
[2024-11-13] MEDS: OCUVITE SOFTGEL 1 CAP PO (09:24)
--- NOTE | 2024-11-13 10:01 | VNURNOTE ---
Home Health Liaison met with patient's spouse Ras to discuss [facility] nurse/therapy, visits, schedule and homebound status. Patient and spouse are familiar w/ [facility]. He is agreeable and understands that visits at home will be 2-3 x per week to
assess and teach medical management.
He is aware that [facility] will contact them for start of care in 1-2 days after discharge from . [facility] referral completed in [facility].
[2024-11-13] MEDS: DECADRON 4 MG IV ×2 (10:08→17:00)
--- NOTE | 2024-11-13 11:11 | W.PN.CARDCBS ---
Addendum entered and electronically signed by Gordo Carty MD 11/13/24 15:44:
I saw and examined the patient.
The Curtain Fitter's note was reviewed and I agree with the note.
Comment: Briefly, 84-year-old woman past medical history of heart failure with preserved ejection fraction, chronic respiratory insufficiency on 4 L home O2 and severe pulmonary hypertension who presents with worsening dyspnea, weight gain and edema
concerning for acute on chronic heart failure.
Has received IV Lasix but is still reporting worsened dyspnea
Volume status is improved today however she is still up several pounds from her dry weight which is likely 83-84 pounds
Renal function is at baseline
Continue IV Lasix twice daily which will hopefully improve her symptoms
Agree that palliative care assessment would be appropriate given her frailty and frequent hospitalizations
Rest per Lulu Rodas
Original Note:
Today's Communication / Plan
-
Continue IV Lasix. consider transition to torsemide upon discharge
Consider addition of SGLT2 inhibitor if no contraindications
Home O2 eval
Follow-up pericardial effusion through serial echo as outpatient
would consider palliative care eval
Impression / Plan
-
Family Physician: Birdie Araiza PA-C
Analytical Chemist: Dr. Herzog
Impression:
Presented 11/11/2024 with SOB, weight gain, edema
Acute on chronic HFpEF, proBNP 12,400
Acute on chronic hypoxic respiratory insufficiency on chronic oxygen 4 L/min nasal cannula at home
Abnormal troponin, suspected nonischemic myocardial injury
Mildly elevated LFTs
Interstitial lung disease with Severe pulmonary hypertension
COPD
bronchiectasis
On chronic home oxygen therapy at 4 Lpm
Small pericardial effusion on echo September 2024
Chronic heart failure with preserved ejection fraction
Tricuspid regurgitation
Osteoporosis
h/o elevated NOE with high titer 05/11/23
h/o elevated gamma chains on protein electrophoresis also with faint Lambda chains 03/06/23
h/o thoracic compression fracture
Echo 01/09/2024: EF 62%, mild to moderate TR, pulmonary hypertension with estimated PAP 58 mmHg.
Echo 09/09/2024: EF 50 to 55%, stage I diastolic dysfunction, flattened septum consistent with RV pressure overload, mild to moderate TR, PAP 88 mmHg, severely dilated and hypokinetic RV, small pericardial effusion without evidence of hemodynamic
compromise
Echo 11/12/24: EF 50 to 55%, flattened septum in systole and diastole consistent with RV pressure and volume overload, severely dilated RA, moderate to severe TR, PAP 75 to 80 mmHg, trace CT, small to moderate pericardial effusion with no evidence
for hemodynamic compromise, IVC dilated and does not collapse
Right heart catheterization 09/13/2024: Hemodynamics (mmHg): RA (m) : 10; RV (s/d,m) : 76/9, 15; PA (s/d, m) : 70/30, 45; PCWP (m) : 12
Cardiac Output : 2.1 L/min and Cardiac Index : 1.6 L/min/m-2
Systemic vascular resistance: 35.2 Wood units or 2816 [id number](-5)
Pulmonary vascular resistance: 15.7 Wood units or 1257 [id number](-5)
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
Plan:
-Presented 11/11/2024 with SOB, weight gain, edema. proBNP 12,400 on arrival. Dry weight last admission was 83 to 84 pounds. She reports she feels as though oral diuretics did not work sufficiently. She was on Lasix 40 mg twice daily prior to
admission. Consider transition to torsemide upon discharge.
-Continue IV Lasix today. Creatinine stable at 0.7
-She is chronically on 4 L nasal cannula as outpatient. Continue to wean oxygen as able. Home O2 eval prior to discharge
-Repeat echo overall stable with preserved EF, pulmonary hypertension. With small to moderate pericardial effusion with no evidence for hemodynamic compromise. Will need continued follow-up echoes as outpatient.
-Abnormal troponin, initial 0.049 and peaked at 0.050. Not reporting any chest discomfort. This is likely nonischemic myocardial injury troponin elevation due to acute heart failure.
-In sinus rhythm on review of telemetry overnight, several brief episodes with frequent PACs in pattern of bigeminy. Not on beta-duke given known lung disease
-If no history of urinary issues, could consider addition of SGLT2 inhibitor
-She is currently on IV steroids. She may need daily maintenance steroids, however would defer need for that to primary service/pulmonary. During last admission primary notes that patient refused treatment for ILD/inhalers
-Began to broach goals of care conversations with patient. She is very frail. Transition to palliative approach would not be unreasonable, consider palliative care evaluation
-Discussed with patient and at bedside
HPI 11/11/2024:
Alejandra has PMH of chronic heart failure with preserved ejection fraction, severe pulmonary hypertension, pericardial effusion, interstitial lung disease, COPD, chronic home oxygen therapy 4 L via nasal cannula, tricuspid regurgitation, presents to
emergency department 11/11/2024 with progressive shortness of breath, lower extremity edema and weight gain over several days. She reports she has been compliant with medications. proBNP found to be elevated at 12,400, chest x-ray shows mild
cardiomegaly with mild reticular interstitial thickening within mid right and upper lung zones which could represent pneumonia superimposed on interstitial lung disease/interstitial pneumonitis. There is no pneumothorax or pleural effusions. EKG is
sinus rhythm with occasional PACs and nonspecific T wave abnormality in inferior and lateral leads without significant change from prior EKG. troponin 0.049. Patient's weight is up 8 pounds since discharge weight of September 2024. She currently is
on 5 L of oxygen sating 91 to 100%. Mildly elevated transaminases with AST 47 and ALT 41
Sodium 133, BUN and creatinine of 22 and 0.7 with potassium of 3.9. COVID-negative. Patient was provided 40 mg IV Lasix and Vanco/Zosyn.
Per review of outpatient records patient's primary care physician has encouraged patient to see palliative care but this has not been arranged. Patient was also supposed to follow-up with pulmonary with office visit 11/12/2024 which has been
canceled due to her coming to the hospital.
Progress Note - Analytical Chemist
Subjective
Date of Service: November 13, 2024
Reports breathing improving from admission. No chest pain. With some congestion
Objective
Labs:
11/13/24 05:37
11/13/24 05:37
Labs
Hgb 12.2 g/dL (12.0-16.0) 11/13/24 05:37
Hct 36.3 % (37.0-47.0) L 11/13/24 05:37
Plt Count 227 10^3/uL (130-400) 11/13/24 05:37
Sodium 135 mmol/L (135-145) 11/13/24 05:37
Potassium 4.2 mmol/L (3.5-5.1) 11/13/24 05:37
BUN 34 mg/dl (7-17) H 11/13/24 05:37
Creatinine 0.7 mg/dL (0.6-1.0) 11/13/24 05:37
Glucose 89 mg/dl (70-99) 11/13/24 05:37
Troponins
11/11/24 11/11/24 11/11/24
11:21 13:12 18:34
Troponin I Cancelled 0.049 H* 0.050 H*
11/11/24 11/12/24
20:45 03:33
Troponin I 0.050 H* 0.049 H*
Vital Signs and I&O:
Vital Signs
Temp Pulse Resp BP Pulse Ox
97.9 F 78 20 128/91 95
11/13/24 07:59 11/13/24 09:24 11/13/24 07:59 11/13/24 09:24 11/13/24 10:00
Vital Signs
Temp Pulse Resp BP Pulse Ox
97.9 F 78 20 128/91 95
11/13/24 07:59 11/13/24 09:24 11/13/24 07:59 11/13/24 09:24 11/13/24 10:00
Intake & Output
11/11/24 11/12/24 11/13/24 11/14/24
07:59 07:59 07:59 07:59
Intake Total 240 / 240 1170 / 1170
Output Total 125 / 125 475 / 475
Balance 115 / 115 695 / 695
Physical Exam
Physical Exam
GEN: No distress, awake, oriented x3. Cachectic, frail appearing. On supplemental oxygen
HEENT: supple, anicteric, mmm, EOMI
LUNGS: Few expiratory wheezes bilaterally
CV: Reg, S1/S2, 1/6 syst LSB
ABD: soft, BS+, NT/ND
EXT: No cyanosis, clubbing.trace edema of left lower extremity
NEURO: Gross non-focal
SKIN: Warm, pink, dry. No rash
[2024-11-13] MEDS: OCEAN, SALINE MIST 2 SPRAYS NASAL ×2 (11:49→19:32)
--- NOTE | 2024-11-13 12:19 | W.PN.HOSP.TC ---
Today's Communication/Plan
-
Monitor vital signs see plan
Continue with IV diuresis
Start Decadron
Pulmonary evaluation
Cardiology following
PT/OT
Assessment / Plan
Assessment / Plan
General: Well Developed, No Apparent Distress, Comfortable and Conversant
HEENT: NormoCephalic, Moist mucous membranes, Atraumatic, [place] Conjunctivae, Nose Appears Normal, Ears Appear Normal and Hearing Impaired
Respiratory: Clear and Decreased Breath Sounds
Cardiac: S1/S2 and Regular Rhythm; No Murmur, Rub or Gallop
GI: Soft, Non Tender, Non Distended and Normal Bowel Sounds
Musculoskeletal:+ edema
Skin: No Rash
Neuro: Awake, Alert, AO x 3 and Nonfocal/grossly intact
Psych: Calm and Intact Judgment/Insight
acute on chronic heart failure with preserved EF
#acute on chronic hypoxic respiratory failure 2/2 above; on baseline 4L home o2
Elevated BNP
CXR: 1. Reticular interstitial thickening within the right mid and upper lung zone, similar compared to prior chest x-ray and also seen on prior CT dated 09/10/2024.
2. Differential diagnosis includes pneumonia superimposed on interstitial lung disease, interstitial pneumonitis, and chronic interstitial fibrosis.
Echo with preserved EF, with fluid overload
Covid: negative
Influenza: negative
-Cardiology follow
- Continue with IV diuresis
- daily weights and I&Os
- trend troponin
- clinically does not appear to have superimposed PNA, stop further antibiotics. procal neg
Echo with preserved EF, fluid overload
Shortness of breath suspect multifactorial secondary to CHF and ILD, bronchiectasis and COPD
Consult pulmonary
Start Decadron
Pulmicort
Patient has been noncompliant previously with inhalers
Elevated troponin, likely secondary to nonischemic myocardial injury
Monitor
Transaminitis suspected secondary hepatic congestion
- patient denies any abdominal pain
- trend LFTs
COPD
interstitial lung disease
Bronchiectasis
on chronic home oxygen @ 4L
- continue home nebulizer regimen with Xopenex
- continue guaifenesin
Hyponatremia
Monitor
macular degeneration
- continue Icaps
pulmonary hypertension
Underweight
Stage 2 sacral pressure injury, POA
Code status: full code
DVT prophylaxis: Lovenox sq
I spent a total of 51 minutes with the patient or on the floor. More than 50% of this time involved counseling and coordination of care.
Anticipated Discharge: > 48 hours
Subjective/Interval History
-
Date of Service: November 13, 2024
short of breath
Objective Data
-
Labs:
Laboratory Results
11/13/24
05:37
WBC 4.6 L
Hgb 12.2
Hct 36.3 L
Plt Count 227
Sodium 135
Potassium 4.2
Chloride 98
Carbon Dioxide 35 H
BUN 34 H
Creatinine 0.7
Glucose 89
Calcium 8.6
Total Bilirubin 0.6
AST 48 H
ALT 38 H
Alkaline Phosphatase 61
Vital Signs:
Vital Signs
Temp Pulse Resp BP Pulse Ox
97.7 F 84 22 112/80 97
11/13/24 11:42 11/13/24 11:42 11/13/24 11:42 11/13/24 11:42 11/13/24 11:42
I&O
11/12/24 11/13/24 11/14/24
06:59 06:59 06:59
Intake Total 240 / 240 1170 / 1170
Output Total 125 / 125 475 / 475
Balance 115 / 115 695 / 695
[2024-11-13] MEDS: PULMICORT INH (13:59)
[2024-11-13] MEDS: VITAMIN C 500 MG PO (17:00)
[2024-11-13] MEDS: VISBIOME 1 CAP PO (17:03)
[2024-11-13] MEDS: VITAMIN C PO (17:03)
[2024-11-13] MEDS: LOVENOX 40 MG SC (17:03)
[2024-11-13] MEDS: PULMICORT 0.5 MG INH (19:05)
--- NOTE | 2024-11-13 20:00 | PTCARENOTE ---
pt with increased work of breathing. placed pt in high palacio's, administered saline nasal spray, encouraged deep breaths, breathing treatments administered shortly after by respiratory. pt RR initially at 36 per min, after these interventions, pt
RR now at 24. pulse ox 94% on 4L. will continue to monitor closely.
[2024-11-13] MEDS: MUCINEX 600 MG PO (20:32)
[2024-11-14] VITALS (8 sets, daily range): BP systolic 109–114; BP diastolic 72–77; O2SAT 97; BMI 17.4
[2024-11-14] MEDS: DECADRON 4 MG IV ×3 (01:00→18:25)
[2024-11-14] MEDS: XOPENEX 1.25 MG INHALANT SOLUTION INH ×2 (05:37→19:36)
[2024-11-14] MEDS: PULMICORT 0.5 MG INH ×2 (05:37→19:36)
[2024-11-14] MEDS: LASIX 40 MG IV ×2 (05:42→16:11)
--- NOTE | 2024-11-14 06:01 | PTCARENOTE ---
pt with increased work of breathing while sitting in bed. all VSS- 96% on 4L, RR 22. crackles auscultated throughout. BELT CLEANER made aware- verbal orders to give 0800 dose of Lasix now- BP 116/84, HR 73. RT administered scheduled 0800 pulmicort and
budesonide. will continue to monitor closely.
[2024-11-14 06:37] LABS: % Basophils 0.3 % (0-2); % Immature Granulocytes 0.6 % (0-0.5); % Lymphocytes 8.3 % (20.5-51.1); % Monocytes 3.2 % (1.7-9.3); % Neutrophils 87.6 % (42.2-75.2); Absolute Lymphocytes 0.3 10^3/uL (1.2-3.4); Absolute Monocytes 0.1 10^3/uL (0.1-0.6); Absolute Neutrophils 2.8 10^3/uL (1.4-6.5); Hematocrit 37.7 % (37.0-47.0); Hemoglobin 12.6 g/dL (12.0-16.0); Mean Corp Hgb Conc. 33.4 g/dL (33.0-37.0); Mean Corpuscular Hgb 31.8 pg (27.0-31.0); Mean Corpuscular Volume 95.2 fL (81.0-99.0); Mean Platelet Volume 9.7 fL (7.4-10.4); Nucleated Red Blood Cells % 0 %; Platelet Count 241 10^3/uL (130-400); Red Blood Cell Count 3.96 10^6/uL (4.20-5.40); Red Cell Dist. Width 17.3 % (11.5-14.5); White Blood Cell Count 3.1 10^3/uL (4.8-10.8)
[2024-11-14 06:54] LABS: ALT (SGPT) 34 U/L (0-35); AST (SGOT) 38 U/L (14-36); Albumin 3.5 g/dl (3.5-5.0); Alkaline Phosphatase 68 U/L (38-126); Blood Urea Nitrogen 32 mg/dl (7-17); Calcium 9.1 mg/dl (8.4-10.2); Carbon Dioxide 34 mmol/L (22-30); Chloride 97 mmol/L (98-107); Estimated Creatinine Clearance 38 ml/min; Glucose 124 mg/dl (70-99); Potassium 4.3 mmol/L (3.5-5.1); Sodium 136 mmol/L (135-145); Total Bilirubin 0.8 mg/dl (0.2-1.3); Total Protein 7.1 g/dl (6.3-8.2); eGFR > 60.00
[2024-11-14] MEDS: VITAMIN D3 (cholecalciferol) 25 MCG PO (08:06)
[2024-11-14] MEDS: OCUVITE SOFTGEL 1 CAP PO (08:06)
[2024-11-14] MEDS: VITAMIN E 400 UNITS PO (08:06)
--- NOTE | 2024-11-14 09:18 | CON.PUL ---
Consultation
Consultation Request
Date/Time Consultation Requested: 11/14/2024-8 AM
Date/Time Consultation Performed: 11/14/2024-8:30 AM
Requesting Provider: hospitalist
Performing Provider: Dr. Kelly
Reason for Consultation: Shortness of breath
Medical History
-
Chief Complaint: SOB
History of Present Illness:
84-year-old female non-smoker with a history of interstitial lung disease and bronchiectasis followed by Dr. Ramirez as well as CHF who is oxygen dependent on 4 L who presented with progressive shortness of breath and bilateral leg edema noted to have
CHF as well as significant pulmonary hypertension-pulmonary was consulted for shortness of breath 09/11/2024-subsequently discharged on 09/14/2024 and readmitted 11/11/2024 with increasing shortness of breath found to have acute on top of chronic heart
failure and pulmonary consulted for potential interstitial lung disease component 11/14/2024.. The patient states that she has shortness of breath at rest as well as with exertion but overall slightly improved. She denies any chest pain, chest
tightness or chest congestion. She does not have a productive cough, pleurisy, abdominal pain, nausea, focal weakness or increase in her lower extremity swelling which is actually improved.
Past Medical History
Past Medical History: None (ILD. Pulmonary hypertension. Macular degeneration. Heart failure preserved EF. D and C.)
Social History
Tobacco: Non-smoker
Alcohol: None
Drug: None
Personal:
Living: With Family
Occupational Exposures: No known asbestos exposure
Environmental Exposures: No known tuberculosis exposure
Family History
Family History: Reviewed & Not Pertinent (Mother-CAD. Father-CAD. Sister-heart failure and CAD.)
Allergies / Home Medications
Allergies
Allergy/AdvReac Type Severity Reaction Status Date / Time
adhesive Allergy Unknown Verified 11/11/24 11:08
house dust Allergy NASAL Verified 11/11/24 11:08
SYMPTOMS
Sulfa (Sulfonamide Allergy Unknown Verified 11/11/24 11:08
Antibiotics)
Home Medications
�Medication �Instructions �Recorded �Confirmed �Last Taken �Type
Lactobac no.2-Bifidobac no.1-S. 1 cap PO QPM probiotic 07/10/23 11/11/24 07/09/23 History
thermo 112.5 billion cell capsule
(Visbiome)
ascorbic acid (vitamin C) 500 mg 500 mg PO QPM Supplement 07/10/23 11/11/24 07/09/23 History
tablet (Vitamin C)
cholecalciferol (vitamin D3) 25 25 mcg PO DAILY Supplement 07/10/23 11/11/24 07/09/23 History
mcg (1,000 unit) tablet
coenzyme Q10 100 mg capsule 100 mg PO QPM Supplement 07/10/23 11/11/24 07/09/23 History
(CoQ-10)
vitamin E 268 mg (400 unit) capsule 268 mg PO DAILY Supplement 07/10/23 11/11/24 1 Week Ago History
~07/03/23
furosemide 40 mg tablet 40 mg PO BID Fluid 09/14/24 11/11/24 11/10/24 Rx
retention/Swelling 30 days #30 tabs
sodium chloride 0.65 % nasal spray 1 spray intranasal QIDPRN PRN dry 09/14/24 11/11/24 Unknown Rx
aerosol (Saline Nasal) nose #44 mL
guaifenesin 600 mg tablet, 600 mg PO HS 11/11/24 11/11/24 Unknown History
extended release 12 hr
levalbuterol HCl 1.25 mg/3 mL 1.25 mg inhalation R BID 11/11/24 11/11/24 11/11/24 History
solution for nebulization
vitamins A,C,Q-erax-ttpvij 4,296 1 cap PO DAILY 11/11/24 11/11/24 Unknown History
mcg-226 mg-90 mg capsule
Review of Systems
-
Unable to Obtain full review of systems at this time due to: Other (Per HPI)
Vitals / Labs / Diagnostic Testing
Vital Signs
Temp Pulse Resp BP Pulse Ox
97.7 F 82 22 110/76 97
11/14/24 08:00 11/14/24 08:00 11/14/24 08:00 11/14/24 08:00 11/14/24 08:00
Lab Data
11/14/24 05:43
11/14/24 05:43
Microbiology
11/11/24 11:21 Nasal Swab Influenza Types A & B (LEONARD) - Final
Negative for Influenza A & B, NAAT
Negative results must be combined with clinical observations
and patient history.
Nucleic Acid Amplification test (NAAT)performed on the
[email or web address] platform.
Diagnostic Testing:
Physical Exam
-
Exam:
Well-nourished and well-developed in no apparent distress
HEENT-atraumatic, normocephalic
Neck-supple, no JVD, no bruit
Heart-regular rate and rhythm-no murmurs, rubs or gallops
Chest with diminished breath sounds, mild kyphoscoliosis, rare crackles at the bases, no wheezes
Back without tenderness
Abdomen-soft, nontender, nondistended, no hepatosplenomegaly
Extremities-no cyanosis, clubbing, edema and good peripheral pulses
Integument-intact, no rashes, lesions or ecchymosis
Neurology-alert and oriented, nonfocal motor and sensory exam
Assessment
-
84-year-old female non-smoker with a history of interstitial lung disease and bronchiectasis followed by Dr. Ramirez as well as CHF who is oxygen dependent on 4 L who presented with progressive shortness of breath and bilateral leg edema noted to have
CHF as well as significant pulmonary hypertension-pulmonary was consulted for shortness of breath 09/11/2024-subsequently discharged on 09/14/2024 and readmitted 11/11/2024 with increasing shortness of breath found to have acute on top of chronic heart
failure and pulmonary consulted for potential interstitial lung disease component 11/14/2024..
Heart failure preserved EF
Interstitial lung disease
Bronchiectasis
Hyponatremia
Elevated troponin
Transaminitis
Leukopenia
Hyperglycemia
Conditions present prior to admission:
ILD-followed by Dr. Ramirez-prednisone weaned off because of pathological fractures, patient was not interested in aggressive workup
Bronchiectasis-traction bronchiectasis noted on CT chest-Without complications, sputum culture normal, AFB negative
Pulmonary hypertension-severe
Macular degeneration.
Heart failure preserved EF.
DNC.
Plan
Subacute respiratory decompensation likely a combination of heart failure as well as underlying interstitial lung disease
Supplemental oxygen as needed
Assess discharge supplemental oxygen needs prior to discharge-has home oxygen
Nebulizers as needed-on Xopenex as well as budesonide
Decadron initiated 4 mg IV every 8 hours-no change
Mucolytic's
Aspiration precautions
Mucus clearing devices
Diuresis as tolerated
Monitor renal function, electrolytes, intake/output, lower extremity edema and weight
Replace electrolytes as needed
Cardiology following-correspondence reviewed
Follow-up liver functions
Monitor blood sugar
Insulin supplementation as needed
DVT prophylaxis-on Lovenox
Nutrition
Early mobilization/physical therapy
Palliative care assessment
Last seen in the office by Dr. Ramirez 07/10/2024 and next appointment with PFT is 01/03/2025
Diagnostic data:
Chest x-ray 09/06/2024-severe chronic inflammatory interstitial pneumonitis
Chest x-ray 11/11/2024-reticular interstitial thickening within right mid and upper lung zones similar to prior, possible pneumonia on top of interstitial lung disease
CT chest 07/10/2023-no pulm embolism, right heart failure, chronic interstitial changes, T10 compression fracture
CT chest 01/16/2024-chronic interstitial lung changes reflecting idiopathic interstitial pneumonia, improvement in mediastinal adenopathy
CT chest 09/10/2024-no pulm embolism, moderate pericardial effusion bowing of the interventricular septum suggesting of right heart strain, interstitial lung disease with superimposed mild pulmonary edema, chronic compression fractures
Echocardiogram 09/09/2024-EF 50-55%, stage I diastolic dysfunction, PA systolic estimated 88, severely dilated and hypokinetic right ventricle
Echocardiogram 11/12/2024-EF 50-55%, severely dilated right atrium, severe tricuspid regurgitation, PA systolic 75-80
Cardiac catheterization 09/13/2024-precapillary pulmonary hypertension WHO classification 1 3 or 4, RA 10, RV 76/9, PA 70/30, PCWP-12, cardiac index 1.6
PFT 06/29/23: FVC 0.77/42%, FEV1 0.77/57%, ratio 100%, unable to perform lung volumes or DLCO. Suggestive of severe restrictive pattern.��������
PFT 02/16/23: FEV1 0.98L 72%, FVC 1.13L 60%, ratio 87.� TLC 1.92L 49%, DLCO 16% (severe restriction, severe diffusion impairment)
Data Reviewed
-
PFT: Report reviewed by me
EKG: Report reviewed by me
Radiology: Image personally visualized and interpreted and Report reviewed by me
CT Scan: Image personally visualized and interpreted and Report reviewed by me
Medical Tests (Nuc Med, Echo etc): Report reviewed by me
Old Records: Reviewed
Total Time Spent with Patient (in minutes): 65
--- NOTE | 2024-11-14 11:40 | W.PN.HOSP.TC ---
Today's Communication/Plan
-
Monitor vital signs
see plan
Still gets short of breath
Continue with IV diuresis, Decadron
Discussed goals of care, patient and spouse will talk amongst themselves and will let us know
Assessment / Plan
Assessment / Plan
General: Well Developed, No Apparent Distress, Comfortable and Conversant
HEENT: NormoCephalic, Moist mucous membranes, Atraumatic, Hearing Impaired
Respiratory: Clear and Decreased Breath Sounds
Cardiac: S1/S2 and Regular Rhythm; No Murmur
GI: Soft, Non Tender, Non Distended and Normal Bowel Sounds
Musculoskeletal:+ edema
Neuro: Awake, Alert, AO x 3 and Nonfocal/grossly intact
Psych: Calm and Intact Judgment/Insight
acute on chronic heart failure with preserved EF
#acute on chronic hypoxic respiratory failure 2/2 above; on baseline 4L home o2
Elevated BNP
CXR: 1. Reticular interstitial thickening within the right mid and upper lung zone, similar compared to prior chest x-ray and also seen on prior CT dated 09/10/2024.
2. Differential diagnosis includes pneumonia superimposed on interstitial lung disease, interstitial pneumonitis, and chronic interstitial fibrosis.
Echo with preserved EF, with fluid overload
Covid: negative
Influenza: negative
-Cardiology following
- Continue with IV diuresis
- daily weights and I&Os
- clinically does not appear to have superimposed PNA, stop further antibiotics. procal neg
Echo with preserved EF, fluid overload
Shortness of breath suspect multifactorial secondary to CHF and ILD, bronchiectasis and COPD
Pulmonary following
Started Decadron
Pulmicort
Patient has been noncompliant previously with inhalers
Discussed palliative care with patient and her spouse at bedside. Also addressed CODE STATUS. They will talk amongst themselves and will let us know
Elevated troponin, likely secondary to nonischemic myocardial injury
Monitor
Transaminitis suspected secondary hepatic congestion
- patient denies any abdominal pain
- trend LFTs
COPD
interstitial lung disease
Bronchiectasis
on chronic home oxygen @ 4L
- continue home nebulizer regimen with Xopenex
- continue guaifenesin
Hyponatremia
Monitor
macular degeneration
- continue Icaps
pulmonary hypertension
Underweight
Stage 2 sacral pressure injury, POA
Code status: full code
DVT prophylaxis: Lovenox sq
Discussed palliative care with patient and her spouse at bedside. Also addressed CODE STATUS. They will talk amongst themselves and will let us know
I spent a total of 52 minutes with the patient or on the floor. More than 50% of this time involved counseling and coordination of care.
Anticipated Discharge: 24 - 48 hours
Subjective/Interval History
-
Date of Service: November 14, 2024
Still gets short of breath at times
Objective Data
-
Labs:
Laboratory Results
11/14/24
05:43
WBC 3.1 L
Hgb 12.6
Hct 37.7
Plt Count 241
Sodium 136
Potassium 4.3
Chloride 97 L
Carbon Dioxide 34 H
BUN 32 H
Creatinine 0.7
Glucose 124 H
Calcium 9.1
Total Bilirubin 0.8
AST 38 H
ALT 34
Alkaline Phosphatase 68
Vital Signs:
Vital Signs
Temp Pulse Resp BP Pulse Ox
97.9 F 78 20 114/77 97
11/14/24 11:16 11/14/24 11:16 11/14/24 11:16 11/14/24 11:16 11/14/24 11:16
I&O
11/13/24 11/14/24 11/15/24
06:59 06:59 06:59
Intake Total 1170 / 1170 240 / 240
Output Total 475 / 475 300 / 300
Balance 695 / 695 -60 / -60
--- NOTE | 2024-11-14 14:08 | W.PN.CARDCBS ---
Addendum entered and electronically signed by Kathleen Herzog DO 11/14/24 17:32:
I saw and examined the patient.
The Fulfillment Coordinator's note was reviewed and I agree with the note.
Comment: Patient was seen and examined with cardiac PA. She continues to complain of shortness of breath and fatigue with O2 levels back at baseline, 4 L nasal cannula
GEN: Elderly 84-year-old female on nasal cannula O2
LUNGS: Bronchovesicular breath sounds decreased bilaterally. mild kyphoscoliosis,
CV: Reg, S1/S2, / syst LSB
ABD: soft, BS+, NT/ND
EXT: Trace left ankle edema
Plan:
84-year-old female with acute on chronic hypoxic shortness of breath with underlying interstitial lung disease/bronchiectasis who is oxygen dependent on 4 L nasal cannula at baseline presents with acute hypoxic respiratory insufficiency
multifactorial with a component of heart failure preserved ejection fraction
-Initial proBNP 12,400
-Abnormal troponin, initial 0.049 and peaked at 0.050; nonischemic myocardial injury troponin elevation due to acute heart failure.
-Continue IV Lasix today. Creatinine stable at 0.7.
-Pulmonary consult and recommendations reviewed: Recommend palliative care assessment
-Could consider SGLT2 inhibitor however will wait palliative care evaluation
-will avoid use of beta-duke given underlying pulmonary disease
-Continue supplemental oxygen and pulmonary toilet
-Repeat echo overall stable with preserved EF, pulmonary hypertension. With small to moderate pericardial effusion with no evidence for hemodynamic compromise.
Original Note:
Today's Communication / Plan
-
palliative care eval
PT/OT
IV lasix
Impression / Plan
-
Family Physician: Birdie Araiza PA-C
Registered Nurse Behavioral Health: Dr. Herzog
Impression:
Presented 11/11/2024 with SOB, weight gain, edema
Acute on chronic HFpEF, proBNP 12,400
Acute on chronic hypoxic respiratory insufficiency on chronic oxygen 4 L/min nasal cannula at home
Abnormal troponin, suspected nonischemic myocardial injury
Mildly elevated LFTs
Interstitial lung disease with Severe pulmonary hypertension
COPD
bronchiectasis
On chronic home oxygen therapy at 4 Lpm
Small pericardial effusion on echo September 2024
Chronic heart failure with preserved ejection fraction
Tricuspid regurgitation
Osteoporosis
h/o elevated NOE with high titer 05/11/23
h/o elevated gamma chains on protein electrophoresis also with faint Lambda chains 03/06/23
h/o thoracic compression fracture
Echo 01/09/2024: EF 62%, mild to moderate TR, pulmonary hypertension with estimated PAP 58 mmHg.
Echo 09/09/2024: EF 50 to 55%, stage I diastolic dysfunction, flattened septum consistent with RV pressure overload, mild to moderate TR, PAP 88 mmHg, severely dilated and hypokinetic RV, small pericardial effusion without evidence of hemodynamic
compromise
Echo 11/12/24: EF 50 to 55%, flattened septum in systole and diastole consistent with RV pressure and volume overload, severely dilated RA, moderate to severe TR, PAP 75 to 80 mmHg, trace ME, small to moderate pericardial effusion with no evidence
for hemodynamic compromise, IVC dilated and does not collapse
Right heart catheterization 09/13/2024: Hemodynamics (mmHg): RA (m) : 10; RV (s/d,m) : 76/9, 15; PA (s/d, m) : 70/30, 45; PCWP (m) : 12
Cardiac Output : 2.1 L/min and Cardiac Index : 1.6 L/min/m-2
Systemic vascular resistance: 35.2 Wood units or 2816 [id number](-5)
Pulmonary vascular resistance: 15.7 Wood units or 1257 [id number](-5)
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
Plan:
-Presented 11/11/2024 with SOB, weight gain, edema. proBNP 12,400 on arrival. Weight if accurate down to 86 pounds. Dry weight last admission was 83 to 84 pounds. She reports she feels as though oral diuretics did not work sufficiently. She was
on Lasix 40 mg twice daily prior to admission. Consider transition to torsemide upon discharge.
-Continue IV Lasix today. Creatinine stable at 0.7
-She is back down to baseline 4 L nasal cannula
-Repeat echo overall stable with preserved EF, pulmonary hypertension. With small to moderate pericardial effusion with no evidence for hemodynamic compromise. Will need continued follow-up echoes as outpatient.
-Abnormal troponin, initial 0.049 and peaked at 0.050. Not reporting any chest discomfort. This is likely nonischemic myocardial injury troponin elevation due to acute heart failure.
-In sinus rhythm on review of telemetry overnight, 1 brief episode of suspected atach. Not on beta-duke given known lung disease
-If no history of urinary issues, could consider addition of SGLT2 inhibitor
-She is currently on IV steroids. She may need daily maintenance steroids, however would defer need for that to primary service/pulmonary. During last admission primary notes that patient refused treatment for ILD/inhalers
-We again discussed her multifactorial dyspnea. We discussed deconditioning also contributing. Given comorbidities, we discussed transitioning goals of care from aggressive measures and procedures to more quality of life and comfort based measures.
discussed palliative care evaluation and they were agreeable.
-PT/OT evals. may need SNF upon DC
-Discussed with nursing
-Discussed with patient and at bedside
HPI 11/11/2024:
Alejandra has PMH of chronic heart failure with preserved ejection fraction, severe pulmonary hypertension, pericardial effusion, interstitial lung disease, COPD, chronic home oxygen therapy 4 L via nasal cannula, tricuspid regurgitation, presents to
emergency department 11/11/2024 with progressive shortness of breath, lower extremity edema and weight gain over several days. She reports she has been compliant with medications. proBNP found to be elevated at 12,400, chest x-ray shows mild
cardiomegaly with mild reticular interstitial thickening within mid right and upper lung zones which could represent pneumonia superimposed on interstitial lung disease/interstitial pneumonitis. There is no pneumothorax or pleural effusions. EKG is
sinus rhythm with occasional PACs and nonspecific T wave abnormality in inferior and lateral leads without significant change from prior EKG. troponin 0.049. Patient's weight is up 8 pounds since discharge weight of September 2024. She currently is
on 5 L of oxygen sating 91 to 100%. Mildly elevated transaminases with AST 47 and ALT 41
Sodium 133, BUN and creatinine of 22 and 0.7 with potassium of 3.9. COVID-negative. Patient was provided 40 mg IV Lasix and Vanco/Zosyn.
Per review of outpatient records patient's primary care physician has encouraged patient to see palliative care but this has not been arranged. Patient was also supposed to follow-up with pulmonary with office visit 11/12/2024 which has been
canceled due to her coming to the hospital.
Progress Note - Registered Nurse Behavioral Health
Subjective
Date of Service: November 14, 2024
reports breathing a little better today
Objective
Labs:
11/14/24 05:43
11/14/24 05:43
Labs
Hgb 12.6 g/dL (12.0-16.0) 11/14/24 05:43
Hct 37.7 % (37.0-47.0) 11/14/24 05:43
Plt Count 241 10^3/uL (130-400) 11/14/24 05:43
Sodium 136 mmol/L (135-145) 11/14/24 05:43
Potassium 4.3 mmol/L (3.5-5.1) 11/14/24 05:43
BUN 32 mg/dl (7-17) H 11/14/24 05:43
Creatinine 0.7 mg/dL (0.6-1.0) 11/14/24 05:43
Glucose 124 mg/dl (70-99) H 11/14/24 05:43
Troponins
11/11/24 11/11/24 11/12/24
18:34 20:45 03:33
Troponin I 0.050 H* 0.050 H* 0.049 H*
Vital Signs and I&O:
Vital Signs
Temp Pulse Resp BP Pulse Ox
97.9 F 78 20 114/77 97
11/14/24 11:16 11/14/24 11:16 11/14/24 11:16 11/14/24 11:16 11/14/24 11:16
Vital Signs
Temp Pulse Resp BP Pulse Ox
97.9 F 78 20 114/77 97
11/14/24 11:16 11/14/24 11:16 11/14/24 11:16 11/14/24 11:16 11/14/24 11:16
Intake & Output
11/12/24 11/13/24 11/14/24 11/15/24
07:59 07:59 07:59 07:59
Intake Total 240 / 240 1170 / 1170 240 / 240
Output Total 125 / 125 475 / 475 300 / 300 500 / 500
Balance 115 / 115 695 / 695 -60 / -60 -500 / -500
Physical Exam
Physical Exam
GEN: No distress, awake, oriented x3. Cachectic, frail appearing. On supplemental oxygen
HEENT: supple, anicteric, mmm, EOMI
LUNGS: Poor air movement
CV: Reg, S1/S2, 1/6 syst LSB
ABD: soft, BS+, NT/ND
EXT: No cyanosis, clubbing. trace edema of left lower extremity
NEURO: Gross non-focal
SKIN: Warm, pink, dry. No rash
--- NOTE | 2024-11-14 15:37 | CM ---
Met with patient and family at bedside to discuss discharge plan; explained that PT recommended SNF; patient is agreeable
SNF options identified; preferences are 1. [facility]; 2. [facility]. Referrals sent via [facility]
Plan: Discharge to SNF when medically stable pending bed availability
[2024-11-14] MEDS: LOVENOX 40 MG SC (18:24)
[2024-11-14] MEDS: VISBIOME 1 CAP PO (18:25)
[2024-11-14] MEDS: VITAMIN C 500 MG PO (18:25)
[2024-11-14] MEDS: MUCINEX 600 MG PO (22:18)
[2024-11-15] MEDS: DECADRON 4 MG IV ×3 (02:12→17:38)
[2024-11-15 03:21] VITALS: BP 130/91
[2024-11-15 05:48] VITALS: BMI 17.6
[2024-11-15 06:41] LABS: % Basophils 0.2 % (0-2); % Immature Granulocytes 0.4 % (0-0.5); % Lymphocytes 5.3 % (20.5-51.1); % Monocytes 4.9 % (1.7-9.3); % Neutrophils 89.2 % (42.2-75.2); Absolute Lymphocytes 0.3 10^3/uL (1.2-3.4); Absolute Monocytes 0.2 10^3/uL (0.1-0.6); Absolute Neutrophils 4.2 10^3/uL (1.4-6.5); Hematocrit 36.1 % (37.0-47.0); Hemoglobin 12.3 g/dL (12.0-16.0); Mean Corp Hgb Conc. 34.1 g/dL (33.0-37.0); Mean Corpuscular Hgb 32.3 pg (27.0-31.0); Mean Corpuscular Volume 94.8 fL (81.0-99.0); Mean Platelet Volume 9.7 fL (7.4-10.4); Nucleated Red Blood Cells % 0 %; Platelet Count 219 10^3/uL (130-400); Red Blood Cell Count 3.81 10^6/uL (4.20-5.40); Red Cell Dist. Width 17.4 % (11.5-14.5); White Blood Cell Count 4.7 10^3/uL (4.8-10.8)
[2024-11-15] MEDS: XOPENEX 1.25 MG INHALANT SOLUTION INH ×2 (07:01→19:37)
[2024-11-15] MEDS: PULMICORT 0.5 MG INH ×2 (07:01→19:37)
[2024-11-15 07:11] LABS: ALT (SGPT) 43 U/L (0-35); AST (SGOT) 54 U/L (14-36); Albumin 3.5 g/dl (3.5-5.0); Alkaline Phosphatase 59 U/L (38-126); Blood Urea Nitrogen 42 mg/dl (7-17); Calcium 8.9 mg/dl (8.4-10.2); Carbon Dioxide 34 mmol/L (22-30); Chloride 93 mmol/L (98-107); Estimated Creatinine Clearance 39 ml/min; Glucose 117 mg/dl (70-99); Potassium 4.7 mmol/L (3.5-5.1); Sodium 136 mmol/L (135-145); Total Bilirubin 0.7 mg/dl (0.2-1.3); Total Protein 7.1 g/dl (6.3-8.2); eGFR > 60.00
[2024-11-15 07:25] VITALS: BP 124/80
[2024-11-15] MEDS: AYR SALINE NASAL GEL 1 APPLIC NASAL (08:20)
[2024-11-15] MEDS: OCEAN, SALINE MIST 1 SPRAYS NASAL ×2 (08:20→22:11)
[2024-11-15] MEDS: VITAMIN D3 (cholecalciferol) 25 MCG PO (08:23)
[2024-11-15] MEDS: OCUVITE SOFTGEL 1 CAP PO (08:23)
[2024-11-15] MEDS: VITAMIN E 400 UNITS PO (08:23)
[2024-11-15] MEDS: LASIX 40 MG IV (08:23)
--- NOTE | 2024-11-15 09:25 | W.PN.PUL.V3 ---
Today's Communication / Plan
-
Wean oxygen
Diuresis as tolerated
No change in Decadron
Monitor nosebleeds
Palliative care assessment
Assessment
-
84-year-old female non-smoker with a history of interstitial lung disease and bronchiectasis followed by Dr. Ramirez as well as CHF who is oxygen dependent on 4 L who presented with progressive shortness of breath and bilateral leg edema noted to have
CHF as well as significant pulmonary hypertension-pulmonary was consulted for shortness of breath 09/11/2024-subsequently discharged on 09/14/2024 and readmitted 11/11/2024 with increasing shortness of breath found to have acute on top of chronic heart
failure and pulmonary consulted for potential interstitial lung disease component 11/14/2024..
Heart failure preserved EF
Interstitial lung disease
Bronchiectasis
Hyponatremia
Elevated troponin
Transaminitis
Leukopenia
Hyperglycemia
Conditions present prior to admission:
ILD-followed by Dr. Ramirez-prednisone weaned off because of pathological fractures, patient was not interested in aggressive workup
Bronchiectasis-traction bronchiectasis noted on CT chest-Without complications, sputum culture normal, AFB negative
Pulmonary hypertension-severe
Macular degeneration.
Heart failure preserved EF.
DNC.
Plan
Subacute respiratory decompensation likely a combination of heart failure as well as underlying interstitial lung disease
Supplemental oxygen as needed-on 4 L - 97% saturation
Assess discharge supplemental oxygen needs prior to discharge-has home oxygen
Nebulizers as needed-on Xopenex as well as budesonide
Decadron initiated 4 mg IV every 8 hours-no change
Mucolytic's
Aspiration precautions
Mucus clearing devices
Diuresis continues as tolerated
Monitor renal function, electrolytes, intake/output, lower extremity edema and weight
Replace electrolytes as needed
Cardiology following-correspondence reviewed
Follow-up liver functions
Monitor nosebleeds
ENT evaluation if recurrent and difficult to stop
Monitor blood sugar
Insulin supplementation as needed
DVT prophylaxis-on Lovenox
Nutrition
Early mobilization/physical therapy
Palliative care assessment ongoing
Last seen in the office by Dr. Ramirez 07/10/2024 and next appointment with PFT is 01/03/2025
Diagnostic data:
Chest x-ray 09/06/2024-severe chronic inflammatory interstitial pneumonitis
Chest x-ray 11/11/2024-reticular interstitial thickening within right mid and upper lung zones similar to prior, possible pneumonia on top of interstitial lung disease
CT chest 07/10/2023-no pulm embolism, right heart failure, chronic interstitial changes, T10 compression fracture
CT chest 01/16/2024-chronic interstitial lung changes reflecting idiopathic interstitial pneumonia, improvement in mediastinal adenopathy
CT chest 09/10/2024-no pulm embolism, moderate pericardial effusion bowing of the interventricular septum suggesting of right heart strain, interstitial lung disease with superimposed mild pulmonary edema, chronic compression fractures
Echocardiogram 09/09/2024-EF 50-55%, stage I diastolic dysfunction, PA systolic estimated 88, severely dilated and hypokinetic right ventricle
Echocardiogram 11/12/2024-EF 50-55%, severely dilated right atrium, severe tricuspid regurgitation, PA systolic 75-80
Cardiac catheterization 09/13/2024-precapillary pulmonary hypertension WHO classification 1 3 or 4, RA 10, RV 76/9, PA 70/30, PCWP-12, cardiac index 1.6
PFT 06/29/23: FVC 0.77/42%, FEV1 0.77/57%, ratio 100%, unable to perform lung volumes or DLCO. Suggestive of severe restrictive pattern.��������
PFT 02/16/23: FEV1 0.98L 72%, FVC 1.13L 60%, ratio 87.� TLC 1.92L 49%, DLCO 16% (severe restriction, severe diffusion impairment)
Subjective Data
-
Date of Service:
Date of Service: November 15, 2024
Chief Complaint: Pulmonary Follow Up and Dyspnea Follow Up
Subjective:
Complaining of a nosebleed this morning, no increase shortness of breath, chest pain, chest tightness, productive cough or abdominal pain
Review of Systems
General: Other (Per HPI)
Objective Data
Data Reviewed
Vital Signs / I&O:
Vital Signs
Temp Pulse Resp BP Pulse Ox
97.6 F 78 16 124/80 99
11/15/24 07:25 11/15/24 08:23 11/15/24 07:25 11/15/24 08:23 11/15/24 07:25
Intake and Output
11/14/24 11/15/24 11/16/24
06:59 06:59 06:59
Intake Total 240 / 240 720 / 720
Output Total 300 / 300 500 / 500
Balance -60 / -60 220 / 220
SaO2: 99
Nasal Cannula flow liters per minute: 4
Physical Exam
General: Respiratory Distress (n) and Comfortable
HEENT: Normocephalic, Anicteric and Moist Mucous Membranes
Cardiovascular: Regular Rhythm and Murmur
Respiratory: Wheeze (n), Crackles ( basilar), Rhonchi (n), Non-Labored Respirations, Accessory Resp Muscle Use (n) and Stridor (n)
GI: Soft, Non Distended and Non Tender
Neurology: Awake, Alert and No Motor Deficits
Skin: Warm, Good Color, Cyanosis (n) and Jaundice (n)
Labs/Micro/Reports
Lab Data
11/15/24 05:45
11/15/24 05:45
[2024-11-15 11:30] VITALS: BP 104/70
--- NOTE | 2024-11-15 12:55 | W.PN.CARDCBS ---
Addendum entered and electronically signed by Kathleen Herzog DO 11/15/24 17:55:
I saw and examined the patient.
The Jackaroo's note was reviewed and I agree with the note.
Comment: Patient was seen and examined with cardiac PA. Overall reports improved shortness of breath at rest and offers no complaints.
GEN: Cachectic, frail appearing. On supplemental oxygen.
LUNGS: Bronchovesicular breath sounds decreased with fine crackles right base. No wheezes
CV: Regular. Positive S1-S2. 10/10 SM
ext: Trace edema
Plan:
84-year-old female with acute on chronic hypoxic shortness of breath with underlying interstitial lung disease/bronchiectasis who is oxygen dependent on 4 L nasal cannula at baseline presents with acute hypoxic respiratory insufficiency
multifactorial with a component of heart failure preserved ejection fraction
-Initial proBNP 12,400
-Abnormal troponin, initial 0.049 and peaked at 0.050; nonischemic myocardial injury troponin elevation due to acute heart failure.
-Remains volume overloaded; increase IV Lasix
-Monitor renal function, electrolytes
-Pulmonary consult and recommendations reviewed: Recommend palliative care assessment
-will avoid use of beta-duke given underlying pulmonary disease
-Continue supplemental oxygen and pulmonary toilet
-Repeat echo overall stable with preserved EF, pulmonary hypertension. With small to moderate pericardial effusion with no evidence for hemodynamic compromise.
-Palliative care consult regarding goals of care. For now patient is full code
-Overall prognosis poor with high risk for rehospitalization
Original Note:
Today's Communication / Plan
-
attempt trial of increased IV lasix
goal of care discussions ongoing. prognosis poor
high risk for recurrent hospitalization
Impression / Plan
-
Family Physician: Birdie Araiza PA-C
Industrial Engineering Analyst: Dr. Herzog
Impression:
Presented 11/11/2024 with SOB, weight gain, edema
Acute on chronic HFpEF, proBNP 12,400
Acute on chronic hypoxic respiratory insufficiency on chronic oxygen 4 L/min nasal cannula at home
Abnormal troponin, suspected nonischemic myocardial injury
Mildly elevated LFTs
Interstitial lung disease with Severe pulmonary hypertension
COPD
bronchiectasis
On chronic home oxygen therapy at 4 Lpm
Small pericardial effusion on echo September 2024
Chronic heart failure with preserved ejection fraction
Tricuspid regurgitation
Osteoporosis
h/o elevated NOE with high titer 05/11/23
h/o elevated gamma chains on protein electrophoresis also with faint Lambda chains 03/06/23
h/o thoracic compression fracture
Echo 01/09/2024: EF 62%, mild to moderate TR, pulmonary hypertension with estimated PAP 58 mmHg.
Echo 09/09/2024: EF 50 to 55%, stage I diastolic dysfunction, flattened septum consistent with RV pressure overload, mild to moderate TR, PAP 88 mmHg, severely dilated and hypokinetic RV, small pericardial effusion without evidence of hemodynamic
compromise
Echo 11/12/24: EF 50 to 55%, flattened septum in systole and diastole consistent with RV pressure and volume overload, severely dilated RA, moderate to severe TR, PAP 75 to 80 mmHg, trace SD, small to moderate pericardial effusion with no evidence
for hemodynamic compromise, IVC dilated and does not collapse
Right heart catheterization 09/13/2024: Hemodynamics (mmHg): RA (m) : 10; RV (s/d,m) : 76/9, 15; PA (s/d, m) : 70/30, 45; PCWP (m) : 12
Cardiac Output : 2.1 L/min and Cardiac Index : 1.6 L/min/m-2
Systemic vascular resistance: 35.2 Wood units or 2816 [id number](-5)
Pulmonary vascular resistance: 15.7 Wood units or 1257 [id number](-5)
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
Plan:
-SOB multifactorial with unclear endpoint. appreciate pulm input. During last admission primary notes that patient refused treatment for ILD/inhalers. transitioning goals of care from aggressive measures and procedures to more quality of life and
comfort based measures appears appropriate. she remains a full code and has declined palliative/hospice care at this time. plan for SNF upon DC. prognosis poor
-consider trial of increasing lasix to 60mg BID. Cr stable. dry weight upon DC last admission was 83-84 pounds, today 87 pounds if accurate. consider transition to torsemide upon DC.
-She is back down to baseline 4 L nasal cannula
-Repeat echo overall stable with preserved EF, pulmonary hypertension. With small to moderate pericardial effusion with no evidence for hemodynamic compromise. Will need continued follow-up echoes as outpatient.
-Abnormal troponin, initial 0.049 and peaked at 0.050. Not reporting any chest discomfort. This is likely nonischemic myocardial injury troponin elevation due to acute heart failure.
-In sinus rhythm on review of telemetry. Not on beta-duke given known lung disease
-If no history of urinary issues, consider addition of SGLT2 inhibitor
-Discussed with nursing. Discussed with hospitalist via TT
HPI 11/11/2024:
Alejandra has PMH of chronic heart failure with preserved ejection fraction, severe pulmonary hypertension, pericardial effusion, interstitial lung disease, COPD, chronic home oxygen therapy 4 L via nasal cannula, tricuspid regurgitation, presents to
emergency department 11/11/2024 with progressive shortness of breath, lower extremity edema and weight gain over several days. She reports she has been compliant with medications. proBNP found to be elevated at 12,400, chest x-ray shows mild
cardiomegaly with mild reticular interstitial thickening within mid right and upper lung zones which could represent pneumonia superimposed on interstitial lung disease/interstitial pneumonitis. There is no pneumothorax or pleural effusions. EKG is
sinus rhythm with occasional PACs and nonspecific T wave abnormality in inferior and lateral leads without significant change from prior EKG. troponin 0.049. Patient's weight is up 8 pounds since discharge weight of September 2024. She currently is
on 5 L of oxygen sating 91 to 100%. Mildly elevated transaminases with AST 47 and ALT 41
Sodium 133, BUN and creatinine of 22 and 0.7 with potassium of 3.9. COVID-negative. Patient was provided 40 mg IV Lasix and Vanco/Zosyn.
Per review of outpatient records patient's primary care physician has encouraged patient to see palliative care but this has not been arranged. Patient was also supposed to follow-up with pulmonary with office visit 11/12/2024 which has been
canceled due to her coming to the hospital.
Progress Note - Industrial Engineering Analyst
Subjective
Date of Service: November 15, 2024
resting comfortably
Objective
Labs:
11/15/24 05:45
11/15/24 05:45
Labs
Hgb 12.3 g/dL (12.0-16.0) 11/15/24 05:45
Hct 36.1 % (37.0-47.0) L 11/15/24 05:45
Plt Count 219 10^3/uL (130-400) 11/15/24 05:45
Sodium 136 mmol/L (135-145) 11/15/24 05:45
Potassium 4.7 mmol/L (3.5-5.1) 11/15/24 05:45
BUN 42 mg/dl (7-17) H 11/15/24 05:45
Creatinine 0.7 mg/dL (0.6-1.0) 11/15/24 05:45
Glucose 117 mg/dl (70-99) H 11/15/24 05:45
Vital Signs and I&O:
Vital Signs
Temp Pulse Resp BP Pulse Ox
97.6 F 83 16 104/70 95
11/15/24 11:30 11/15/24 11:30 11/15/24 11:30 11/15/24 11:30 11/15/24 11:30
Vital Signs
Temp Pulse Resp BP Pulse Ox
97.6 F 83 16 104/70 95
11/15/24 11:30 11/15/24 11:30 11/15/24 11:30 11/15/24 11:30 11/15/24 11:30
Intake & Output
11/13/24 11/14/24 11/15/24 11/16/24
07:59 07:59 07:59 07:59
Intake Total 1170 / 1170 240 / 240 720 / 720
Output Total 475 / 475 300 / 300 500 / 500
Balance 695 / 695 -60 / -60 220 / 220
Physical Exam
Physical Exam
GEN: Cachectic, frail appearing. On supplemental oxygen. no distress
LUNGS: no audible wheezes
CV: Reg on tele
SKIN: Warm, pink, dry. No rash
--- NOTE | 2024-11-15 13:14 | W.PN.HOSP.TC ---
Today's Communication/Plan
-
Monitor vitals
See plan
Continue with IV steroids
Diuresis
Discussed palliative care, patient wants to follow-up outpatient
PT/OT, patient is interested in SNF
Assessment / Plan
Assessment / Plan
General: Well Developed, No Apparent Distress, Comfortable and Conversant
HEENT: NormoCephalic, Moist mucous membranes, Atraumatic, Hearing Impaired
Respiratory: Clear and Decreased Breath Sounds
Cardiac: S1/S2 and Regular Rhythm; No Murmur
GI: Soft, Non Tender, Non Distended and Normal Bowel Sounds
Musculoskeletal:+ edema
Neuro: Awake, Alert, AO x 3 and Nonfocal/grossly intact
Psych: Calm and Intact Judgment/Insight
acute on chronic heart failure with preserved EF
#acute on chronic hypoxic respiratory failure 2/2 above; on baseline 4L home o2
Elevated BNP
CXR: 1. Reticular interstitial thickening within the right mid and upper lung zone, similar compared to prior chest x-ray and also seen on prior CT dated 09/10/2024.
2. Differential diagnosis includes pneumonia superimposed on interstitial lung disease, interstitial pneumonitis, and chronic interstitial fibrosis.
Echo with preserved EF, with fluid overload
Covid: negative
Influenza: negative
-Cardiology following
- Continue with IV diuresis
- daily weights and I&Os
- clinically does not appear to have superimposed PNA, stop further antibiotics. procal neg
Echo with preserved EF, fluid overload
Shortness of breath suspect multifactorial secondary to CHF and ILD, bronchiectasis and COPD
Pulmonary following
Started Decadron
Pulmicort
Patient has been noncompliant previously with inhalers
Discussed palliative care with patient and her spouse at bedside. Also addressed CODE STATUS. They will talk amongst themselves and will let us know. At this time they want to go to rehab and follow-up outpatient
Elevated troponin, likely secondary to nonischemic myocardial injury
Monitor
Transaminitis suspected secondary hepatic congestion
- patient denies any abdominal pain
- trend LFTs
COPD
interstitial lung disease
Bronchiectasis
on chronic home oxygen @ 4L
- continue home nebulizer regimen with Xopenex
- continue guaifenesin
Hyponatremia
Monitor
macular degeneration
- continue Icaps
pulmonary hypertension
Underweight
Stage 2 sacral pressure injury, POA
Code status: full code
DVT prophylaxis: Lovenox sq
Discussed palliative care with patient and her spouse at bedside. Also addressed CODE STATUS. They will talk amongst themselves and will let us know
I spent a total of 51 minutes with the patient or on the floor. More than 50% of this time involved counseling and coordination of care.
Anticipated Discharge: 24 - 48 hours
Subjective/Interval History
-
Date of Service: November 15, 2024
denies pain
Objective Data
-
Labs:
Laboratory Results
11/15/24
05:45
WBC 4.7 L
Hgb 12.3
Hct 36.1 L
Plt Count 219
Sodium 136
Potassium 4.7
Chloride 93 L
Carbon Dioxide 34 H
BUN 42 H
Creatinine 0.7
Glucose 117 H
Calcium 8.9
Total Bilirubin 0.7
AST 54 H
ALT 43 H
Alkaline Phosphatase 59
Vital Signs:
Vital Signs
Temp Pulse Resp BP Pulse Ox
97.6 F 83 16 104/70 95
11/15/24 11:30 11/15/24 11:30 11/15/24 11:30 11/15/24 11:30 11/15/24 11:30
I&O
11/14/24 11/15/24 11/16/24
06:59 06:59 06:59
Intake Total 240 / 240 720 / 720
Output Total 300 / 300 500 / 500
Balance -60 / -60 220 / 220
[2024-11-15 15:24] VITALS: BP 112/76
[2024-11-15] MEDS: LASIX 60 MG IV (16:30)
[2024-11-15] MEDS: VISBIOME 1 CAP PO (17:37)
[2024-11-15] MEDS: VITAMIN C 500 MG PO (17:37)
[2024-11-15] MEDS: LOVENOX SC (17:38)
--- NOTE | 2024-11-15 18:16 | PTCARENOTE ---
Received patient this am AAOx3. Pt forgetful. 02 saturation 95-99 % on 4 Liters of O2 vis nasal cannula. Pt JURADO and intermittently SOB at rest. Pt has nose bleed this am. Dr. Haney made aware. Pt refused Lovenox this evening secondary to two nose
bleeds in [address] Haney made aware. Made patient comfortable. Cont to assess patient status.
[2024-11-15 19:23] VITALS: BP 108/73
[2024-11-15] MEDS: MUCINEX 600 MG PO (21:28)
[2024-11-15] MEDS: ROBITUSSIN DM 5 ML PO (22:18)
[2024-11-15 23:42] VITALS: BP 123/84
[2024-11-16] VITALS (7 sets, daily range): BP systolic 102–131; BP diastolic 71–92; BMI 17.0
[2024-11-16] MEDS: DECADRON 4 MG IV ×3 (01:21→18:35)
[2024-11-16 02:41] LABS: Hematocrit 35.4 % (37.0-47.0); Hemoglobin 11.9 g/dL (12.0-16.0)
[2024-11-16 03:13] LABS: INR 1.04; PT 13.9 Sec (11.4-14.6)
[2024-11-16 03:14] LABS: APTT 23.4 Sec (23.4-35.0)
[2024-11-16] MEDS: AFRIN NASAL SPRAY 30 SPRAYS NASAL (04:20)
--- NOTE | 2024-11-16 05:31 | W.PN.UPDATE ---
Update Note
Progress Note Update
-Reported by the nursing staff that the patient is coughing bright blood including some clots.
-No wounds or ulcers noted in the patient`s mouth during the exam. [place] was noted at bedside table with dressing that includes bright blood and some blood clots.
-Vital signs is stable and within limits.
-Stat h&h and chest ct ordered.
- hgb is 11.9 will continue monitor h&h with recurrent episodes.
Chest CT shows
Chronic interstitial lung disease. Overall, interval improvement compared to prior CT examination. No definite superimposed acute consolidation/pneumonia. No pneumothorax. Stable chronic pleural thickening versus trace pleural effusions. No
significant change in moderate pericardial effusion. Stable cardiomegaly.
--- NOTE | 2024-11-16 05:48 | PTCARENOTE ---
Pt had episodes of coughing a small amount of blood. A one point she started coughing a large amount of blood with clots. ULTRASONIC CLEANER made aware and came to see the pt. Order of H&H, and coagulation studies given, drawn and sent to Lab. VSS (T=97.5, HR=94,
RR=24-30, ST=329/92, SpO2=96% on 4L NC). CT stat ordered. Before going to CT, pt started to have an excessive nose bleed from the left nose. Left nose packed and Ice pack on the pt. The bleeding stopped and pt was taken to CT. [address],
pt had a nose bleed again. Afrin spray given and the bleeding successfully stopped for now. Will follow.
[2024-11-16] MEDS: PULMICORT 0.5 MG INH ×2 (07:45→19:40)
[2024-11-16] MEDS: XOPENEX 1.25 MG INHALANT SOLUTION INH ×2 (07:45→19:40)
[2024-11-16] MEDS: OCUVITE SOFTGEL 1 CAP PO (08:27)
[2024-11-16] MEDS: VITAMIN E 400 UNITS PO (08:27)
[2024-11-16] MEDS: ROBITUSSIN DM 5 ML PO ×3 (08:27→21:25)
[2024-11-16] MEDS: OCEAN, SALINE MIST 1 SPRAYS NASAL (08:27)
[2024-11-16] MEDS: VITAMIN D3 (cholecalciferol) 25 MCG PO (08:27)
[2024-11-16] MEDS: FLUSH (NSS) 1 FLUSH IV (08:28)
[2024-11-16 08:38] LABS: % Immature Granulocytes 0.5 % (0-0.5); % Lymphocytes 4.4 % (20.5-51.1); % Monocytes 8.5 % (1.7-9.3); % Neutrophils 86.6 % (42.2-75.2); Absolute Lymphocytes 0.3 10^3/uL (1.2-3.4); Absolute Monocytes 0.5 10^3/uL (0.1-0.6); Absolute Neutrophils 4.9 10^3/uL (1.4-6.5); Hematocrit 33.9 % (37.0-47.0); Mean Corp Hgb Conc. 32.4 g/dL (33.0-37.0); Mean Corpuscular Hgb 31.5 pg (27.0-31.0); Mean Corpuscular Volume 97.1 fL (81.0-99.0); Mean Platelet Volume 9.6 fL (7.4-10.4); Nucleated Red Blood Cells % 0 %; Platelet Count 234 10^3/uL (130-400); Red Blood Cell Count 3.49 10^6/uL (4.20-5.40); Red Cell Dist. Width 17.7 % (11.5-14.5); White Blood Cell Count 5.7 10^3/uL (4.8-10.8)
--- NOTE | 2024-11-16 09:07 | W.PN.CARDCBS ---
Today's Communication / Plan
-
Continue IV Lasix today
Impression / Plan
-
Family Physician: Birdie Araiza PA-C
Novelty Dipper: Dr. Herzog
Impression:
Presented 11/11/2024 with SOB, weight gain, edema
Acute on chronic HFpEF, proBNP 12,400
Acute on chronic hypoxic respiratory insufficiency on chronic oxygen 4 L/min nasal cannula at home
Abnormal troponin, suspected nonischemic myocardial injury
Mildly elevated LFTs
This hospital stay on November 16, 2024 hemoptysis was noted.
Interstitial lung disease with Severe pulmonary hypertension
COPD
bronchiectasis
On chronic home oxygen therapy at 4 Lpm
Small pericardial effusion on echo September 2024
Chronic heart failure with preserved ejection fraction
Tricuspid regurgitation
Osteoporosis
h/o elevated NOE with high titer 05/11/23
h/o elevated gamma chains on protein electrophoresis also with faint Lambda chains 03/06/23
h/o thoracic compression fracture
Echo 01/09/2024: EF 62%, mild to moderate TR, pulmonary hypertension with estimated PAP 58 mmHg.
Echo 09/09/2024: EF 50 to 55%, stage I diastolic dysfunction, flattened septum consistent with RV pressure overload, mild to moderate TR, PAP 88 mmHg, severely dilated and hypokinetic RV, small pericardial effusion without evidence of hemodynamic
compromise
Echo 11/12/24: EF 50 to 55%, flattened septum in systole and diastole consistent with RV pressure and volume overload, severely dilated RA, moderate to severe TR, PAP 75 to 80 mmHg, trace OH, small to moderate pericardial effusion with no evidence
for hemodynamic compromise, IVC dilated and does not collapse
Right heart catheterization 09/13/2024: Hemodynamics (mmHg): RA (m) : 10; RV (s/d,m) : 76/9, 15; PA (s/d, m) : 70/30, 45; PCWP (m) : 12
Cardiac Output : 2.1 L/min and Cardiac Index : 1.6 L/min/m-2
Systemic vascular resistance: 35.2 Wood units or 2816 [id number](-5)
Pulmonary vascular resistance: 15.7 Wood units or 1257 [id number](-5)
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
Plan:
Overall poor prognosis with high risk of rehospitalization.
SOB multifactorial with unclear endpoint.
Clinical situation now complicated by development of hemoptysis this morning November 16, 2024.
On November 15, 2024 Lasix increased from 40 to 60 mg IV twice daily
Weight is down 3 pounds, now at 84.5 pounds. Of note last admission dry weight was thought to be 83 to 84 pounds.
A.m. labs are pending, follow renal function closely. Keep potassium between 4 and 5 and magnesium between 2 and 3
Continue IV Lasix today
Consideration for addition of SGLT2 inhibitor
Abnormal troponin, initial 0.049 and peaked at 0.050. Not reporting any chest discomfort. This is likely nonischemic myocardial injury troponin elevation due to acute heart failure.
Repeat echo 11/12/24 overall stable with no WMA, preserved EF, pulmonary hypertension. With small to moderate pericardial effusion with no evidence for hemodynamic compromise.
Not planning ischemic evaluation.
Overall prognosis remains poor. Agree that palliative care discussions would be appropriate.
Total time spent today was 50 minutes in preparing to see the patient, seeing the patient and coordination of care. This included review of recent laboratory evaluations, cardiact testing, imaging studies, primary care rtecords, specialty
consultations, hospital records, as well as personally interviewing and examining the patient, which included discussion of their tests, review/ordering medications, and communicating with other healthcare professionals and also treatment planning
as well as counseling.
HPI 11/11/2024:
Alejandra has PMH of chronic heart failure with preserved ejection fraction, severe pulmonary hypertension, pericardial effusion, interstitial lung disease, COPD, chronic home oxygen therapy 4 L via nasal cannula, tricuspid regurgitation, presents to
emergency department 11/11/2024 with progressive shortness of breath, lower extremity edema and weight gain over several days. She reports she has been compliant with medications. proBNP found to be elevated at 12,400, chest x-ray shows mild
cardiomegaly with mild reticular interstitial thickening within mid right and upper lung zones which could represent pneumonia superimposed on interstitial lung disease/interstitial pneumonitis. There is no pneumothorax or pleural effusions. EKG is
sinus rhythm with occasional PACs and nonspecific T wave abnormality in inferior and lateral leads without significant change from prior EKG. troponin 0.049. Patient's weight is up 8 pounds since discharge weight of September 2024. She currently is
on 5 L of oxygen sating 91 to 100%. Mildly elevated transaminases with AST 47 and ALT 41
Sodium 133, BUN and creatinine of 22 and 0.7 with potassium of 3.9. COVID-negative. Patient was provided 40 mg IV Lasix and Vanco/Zosyn.
Per review of outpatient records patient's primary care physician has encouraged patient to see palliative care but this has not been arranged. Patient was also supposed to follow-up with pulmonary with office visit 11/12/2024 which has been
canceled due to her coming to the hospital.
Progress Note - Novelty Dipper
Subjective
Date of Service: November 16, 2024
tells me overall more comfortable today, but notes thicker sputum, some blood tinged
Objective
Labs:
Labs
Hgb 11.0 g/dL (12.0-16.0) L 11/16/24 08:18
Hct 33.9 % (37.0-47.0) L 11/16/24 08:18
Plt Count 234 10^3/uL (130-400) 11/16/24 08:18
PT 13.9 Sec (11.4-14.6) 11/16/24 02:25
INR 1.04 11/16/24 02:25
APTT 23.4 Sec (23.4-35.0) 11/16/24 02:25
Sodium 136 mmol/L (135-145) 11/15/24 05:45
Potassium 4.7 mmol/L (3.5-5.1) 11/15/24 05:45
BUN 42 mg/dl (7-17) H 11/15/24 05:45
Creatinine 0.7 mg/dL (0.6-1.0) 11/15/24 05:45
Glucose 117 mg/dl (70-99) H 11/15/24 05:45
Vital Signs and I&O:
Vital Signs
Temp Pulse Resp BP Pulse Ox
97.5 F 80 16 120/81 95
11/16/24 07:25 11/16/24 07:48 11/16/24 07:48 11/16/24 07:25 11/16/24 07:48
Vital Signs
Temp Pulse Resp BP Pulse Ox
97.5 F 80 16 120/81 95
11/16/24 07:25 11/16/24 07:48 11/16/24 07:48 11/16/24 07:25 11/16/24 07:48
Intake & Output
11/14/24 11/15/24 11/16/24 11/17/24
06:59 06:59 06:59 06:59
Intake Total 240 / 240 720 / 720 360 / 360
Output Total 300 / 300 500 / 500 1250 / 1250
Balance -60 / -60 220 / 220 -890 / -890
Physical Exam
Physical Exam
GEN: Cachectic, frail appearing. On supplemental oxygen. no distress
LUNGS: no audible wheezes
CV: RRR, Nl S1 and S2, 2/6 JUANA LLSB
SKIN: Warm, pink, dry. No rash
[2024-11-16 09:16] LABS: ALT (SGPT) 56 U/L (0-35); AST (SGOT) 54 U/L (14-36); Albumin 3.7 g/dl (3.5-5.0); Alkaline Phosphatase 57 U/L (38-126); Blood Urea Nitrogen 72 mg/dl (7-17); Calcium 8.9 mg/dl (8.4-10.2); Carbon Dioxide 38 mmol/L (22-30); Chloride 90 mmol/L (98-107); Estimated Creatinine Clearance 37 ml/min; Glucose 121 mg/dl (70-99); Potassium 4.7 mmol/L (3.5-5.1); Sodium 135 mmol/L (135-145); Total Bilirubin 0.7 mg/dl (0.2-1.3); eGFR > 60.00
[2024-11-16] MEDS: LASIX 60 MG IV ×2 (10:48→16:05)
--- NOTE | 2024-11-16 13:40 | W.PN.HOSP.TC ---
Today's Communication/Plan
-
Monitor vital signs see plan
afrin
quantify hemoptysis
prognosis poor; spouse and patient aware
cw IV diuresis
monitor hgb
Assessment / Plan
Assessment / Plan
General: Well Developed, No Apparent Distress, Comfortable and Conversant
HEENT: NormoCephalic, Moist mucous membranes, Atraumatic, Hearing Impaired
Respiratory: Clear and Decreased Breath Sounds
Cardiac: S1/S2 and Regular Rhythm; No Murmur
GI: Soft, Non Tender, Non Distended and Normal Bowel Sounds
Musculoskeletal:+ edema
Neuro: Awake, Alert, AO x 3 and Nonfocal/grossly intact
Psych: Calm and Intact Judgment/Insight
acute on chronic heart failure with preserved EF
#acute on chronic hypoxic respiratory failure 2/2 above; on baseline 4L home o2
Elevated BNP
CXR: 1. Reticular interstitial thickening within the right mid and upper lung zone, similar compared to prior chest x-ray and also seen on prior CT dated 09/10/2024.
2. Differential diagnosis includes pneumonia superimposed on interstitial lung disease, interstitial pneumonitis, and chronic interstitial fibrosis.
Echo with preserved EF, with fluid overload
Covid: negative
Influenza: negative
-Cardiology following
- Continue with IV diuresis
- daily weights and I&Os
- clinically does not appear to have superimposed PNA, stop further antibiotics. procal neg
Echo with preserved EF, fluid overload
Shortness of breath suspect multifactorial secondary to CHF and ILD, bronchiectasis and COPD
Pulmonary following
Started Decadron
Pulmicort
Patient has been noncompliant previously with inhalers
Discussed palliative care with patient and her spouse at bedside. Also addressed CODE STATUS. They will talk amongst themselves and will let us know. prognosis guarded.
Elevated troponin, likely secondary to nonischemic myocardial injury
Monitor
hemoptysis likely 2/[address] chest without pneumonia
Quantify hemoptysis
If gets nose bleed again and wont stop then might need ENT evaluation
Transaminitis suspected secondary hepatic congestion
- patient denies any abdominal pain
- trend LFTs
COPD
interstitial lung disease
Bronchiectasis
on chronic home oxygen @ 4L
- continue home nebulizer regimen with Xopenex
- continue guaifenesin
Hyponatremia
Monitor
macular degeneration
- continue Icaps
pulmonary hypertension
Underweight
Stage 2 sacral pressure injury, POA
Code status: full code
DVT prophylaxis: Lovenox sq
Discussed palliative care with patient and her spouse at bedside. Also addressed CODE STATUS. They will talk amongst themselves and will let us know
I spent a total of 52 minutes with the patient or on the floor. More than 50% of this time involved counseling and coordination of care.
Anticipated Discharge: > 48 hours
Subjective/Interval History
-
Date of Service: November 16, 2024
Had hemoptysis overnight
Objective Data
-
Labs:
Laboratory Results
11/16/24 11/16/24 11/16/24
01:57 02:25 08:00
WBC
Hgb 11.9 L Cancelled
Hct 35.4 L Cancelled
Plt Count
PT 13.9
INR 1.04
APTT Cancelled 23.4
Sodium
Potassium
Chloride
Carbon Dioxide
BUN
Creatinine
Glucose
Calcium
Total Bilirubin
AST
ALT
Alkaline Phosphatase
11/16/24 11/16/24 11/16/24
08:18 14:00 20:00
WBC 5.7
Hgb 11.0 L Pending Pending
Hct 33.9 L Pending Pending
Plt Count 234
PT
INR
APTT
Sodium 135
Potassium 4.7
Chloride 90 L
Carbon Dioxide 38 H
BUN 72 H
Creatinine 0.7
Glucose 121 H
Calcium 8.9
Total Bilirubin 0.7
AST 54 H
ALT 56 H
Alkaline Phosphatase 57
Vital Signs:
Vital Signs
Temp Pulse Resp BP Pulse Ox
97.6 F 89 20 125/85 95
11/16/24 11:15 11/16/24 11:15 11/16/24 12:51 11/16/24 11:15 11/16/24 11:15
I&O
11/15/24 11/16/24 11/17/24
06:59 06:59 06:59
Intake Total 720 / 720 360 / 360
Output Total 500 / 500 1250 / 1250
Balance 220 / 220 -890 / -890
[2024-11-16] MEDS: AFRIN NASAL SPRAY 1 SPRAYS NASAL ×2 (14:19→21:17)
[2024-11-16 14:24] LABS: Hematocrit 35.6 % (37.0-47.0); Hemoglobin 11.7 g/dL (12.0-16.0)
--- NOTE | 2024-11-16 14:45 | PTCARENOTE ---
Pt is up to come off telemetry per protocol. Questioned Dr. Haney if he wants the pt to continue or if he is ok to take telemetry off. Dr. Haney wants telemetry to continue.
--- NOTE | 2024-11-16 16:00 | PTCARENOTE ---
Pt's SOB improved from this am, not as dyspneic, RR 20. SPO2 99% on 4L of O2 via NC. No further nose bleeds or hemoptysis. Pt wanted purewick this am stating that it is too difficult for her to get OOB to the [facility] with the IV Lasix and with her
breathing.
--- NOTE | 2024-11-16 16:40 | W.PN.PUL3 ---
Today's Communication / Plan
-
Wean oxygen as tolerated
Diuresis as tolerated
Start weaning Decadron tomorrow to 4 mg IV q12hr
Monitor nosebleeds, continue Afrin BID and hold chemical prophylaxis
Palliative care assessment
Assessment
-
84-year-old female non-smoker with a history of interstitial lung disease and bronchiectasis followed by Dr. Ramirez as well as CHF who is oxygen dependent on 4 L who presented with progressive shortness of breath and bilateral leg edema noted to have
CHF as well as significant pulmonary hypertension-pulmonary was consulted for shortness of breath 09/11/2024-subsequently discharged on 09/14/2024 and readmitted 11/11/2024 with increasing shortness of breath found to have acute on top of chronic heart
failure and pulmonary consulted for potential interstitial lung disease component 11/14/2024..
Heart failure preserved EF
Interstitial lung disease
Bronchiectasis
Hyponatremia - resolved
Elevated troponin � peaked at 0.05 on 11/11/2024
Transaminitis
Leukopenia
Hyperglycemia now improved
Conditions present prior to admission:
ILD-followed by Dr. Ramirez-prednisone weaned off because of pathological fractures, patient was not interested in aggressive workup
Bronchiectasis-traction bronchiectasis noted on CT chest-Without complications, sputum culture normal, AFB negative
Pulmonary hypertension-severe
Macular degeneration.
Heart failure preserved EF.
DNC.
Plan
Subacute respiratory decompensation likely a combination of heart failure as well as underlying interstitial lung disease
Supplemental oxygen as needed-on 4 L - 98% saturation
Assess discharge supplemental oxygen needs prior to discharge-has home oxygen
Nebulizers as needed-on Xopenex as well as budesonide
Decadron initiated 4 mg IV every 8 hours-can start weaning tomorrow to 4mg IV q12hr
Mucolytics
Aspiration precautions
Mucus clearing devices
Diuresis continues as tolerated - currently on Lasix 60 mg IV BID
Monitor renal function, electrolytes, intake/output, lower extremity edema and weight
Replace electrolytes as needed
Cardiology following-correspondence reviewed
Trend LFTs
Monitor nosebleeds
ENT evaluation if recurrent and difficult to stop
Would use Afrin nasal spray BID for now
Monitor blood sugar with goal >100 and <180
Insulin supplementation as needed
DVT prophylaxis-SCDs for now given worsening epistaxis overnight
Nutrition
Early mobilization/physical therapy
Palliative care assessment ongoing
Last seen in the office by Dr. Ramirez 07/10/2024 and next appointment with PFT is 01/03/2025
Pulmonary service will continue to follow along
Diagnostic data:
Chest x-ray 09/06/2024-severe chronic inflammatory interstitial pneumonitis
Chest x-ray 11/11/2024-reticular interstitial thickening within right mid and upper lung zones similar to prior, possible pneumonia on top of interstitial lung disease
CT chest 07/10/2023-no pulm embolism, right heart failure, chronic interstitial changes, T10 compression fracture
CT chest 01/16/2024-chronic interstitial lung changes reflecting idiopathic interstitial pneumonia, improvement in mediastinal adenopathy
CT chest 09/10/2024-no pulm embolism, moderate pericardial effusion bowing of the interventricular septum suggesting of right heart strain, interstitial lung disease with superimposed mild pulmonary edema, chronic compression fractures
Echocardiogram 09/09/2024-EF 50-55%, stage I diastolic dysfunction, PA systolic estimated 88, severely dilated and hypokinetic right ventricle
Echocardiogram 11/12/2024-EF 50-55%, severely dilated right atrium, severe tricuspid regurgitation, PA systolic 75-80
Cardiac catheterization 09/13/2024-precapillary pulmonary hypertension WHO classification 1 3 or 4, RA 10, RV 76/9, PA 70/30, PCWP-12, cardiac index 1.6
PFT 06/29/23: FVC 0.77/42%, FEV1 0.77/57%, ratio 100%, unable to perform lung volumes or DLCO. Suggestive of severe restrictive pattern.��������
PFT 02/16/23: FEV1 0.98L 72%, FVC 1.13L 60%, ratio 87.� TLC 1.92L 49%, DLCO 16% (severe restriction, severe diffusion impairment)
Total time spent today was 36 minutes for this encounter. Time includes reviewing laboratory test/imaging results, reviewing pertinent medical records, obtaining and reviewing medical history, performing an appropriate exam, ordering medications,
tests and procedures. Time also includes documentation of this encounter, coordinating patient care and communicating with other healthcare professionals. Total time does not include separately billed tests performed on this date of service.
Subjective Data
-
Date of Service:
Date of Service: November 16, 2024
Chief Complaint: Pulmonary Follow Up and Dyspnea Follow Up
Subjective:
Patient was seen and evaluated this morning (late note entry). Overnight patient was coughing up bright red blood with clots with subsequent CT chest showing no acute consolidation or pneumonia. She says she had a nosebleed overnight and was
choking on her blood. She feels much better now. Currently on 4 L/min nasal cannula breathing comfortably. Saturating 98%. Currently denies chest pain, BENNETT, nausea, fevers or chills. No additional nosebleeds today.
Review of Systems
General: Other (Negative unless mentioned above)
Objective Data
Data Reviewed
Vital Signs / I&O / Oxygen:
Vital Signs
Temp Pulse Resp BP Pulse Ox
97.5 F 80 16 120/81 95
11/16/24 07:25 11/16/24 07:48 11/16/24 07:48 11/16/24 07:25 11/16/24 07:48
Intake and Output
11/15/24 11/16/24 11/17/24
06:59 06:59 06:59
Intake Total 720 / 720 360 / 360
Output Total 500 / 500 1250 / 1250
Balance 220 / 220 -890 / -890
SaO2 95
Nasal Cannula flow liters per 4
minute
Physical Exam
General: Respiratory Distress (n) and Comfortable
HEENT: Normocephalic, Anicteric and Moist Mucous Membranes
Cardiovascular: Regular Rhythm and Peripheral Edema (n)
Respiratory: Wheeze (n), Crackles (Bilateral), Rhonchi (n), Non-Labored Respirations, Accessory Resp Muscle Use (n) and Stridor (n)
GI: Soft, Non Distended, Non Tender and Normal Bowel Sounds
Neurology: Awake, Alert and Tremors (n)
Skin: Warm, Dry, Cyanosis (n) and Jaundice (n)
Labs/Micro/Reports
Lab Data
11/16/24 08:18
Laboratory Results
11/16/24 11/16/24
01:57 02:25
PT 13.9
INR 1.04
APTT Cancelled 23.4
[2024-11-16] MEDS: VITAMIN C 500 MG PO (18:35)
[2024-11-16] MEDS: VISBIOME 1 CAP PO (18:35)
[2024-11-16] MEDS: MUCINEX 600 MG PO (21:17)
[2024-11-17] VITALS (7 sets, daily range): BP systolic 98–119; BP diastolic 68–76; PULSE 83; O2SAT 100; BMI 16.2
[2024-11-17] MEDS: DECADRON 4 MG IV ×3 (00:59→18:27)
--- NOTE | 2024-11-17 01:22 | PTCARENOTE ---
Pt refused Lab draw of H&H that was due at 1999 last evening. Pt states that she will accept Lab work in the morning.
[2024-11-17 07:44] LABS: % Immature Granulocytes 0.5 % (0-0.5); % Lymphocytes 5.9 % (20.5-51.1); % Monocytes 9.3 % (1.7-9.3); % Neutrophils 84.3 % (42.2-75.2); Absolute Lymphocytes 0.3 10^3/uL (1.2-3.4); Absolute Monocytes 0.4 10^3/uL (0.1-0.6); Absolute Neutrophils 3.7 10^3/uL (1.4-6.5); Hematocrit 30.9 % (37.0-47.0); Hemoglobin 10.1 g/dL (12.0-16.0); Mean Corp Hgb Conc. 32.7 g/dL (33.0-37.0); Mean Corpuscular Hgb 31.7 pg (27.0-31.0); Mean Corpuscular Volume 96.9 fL (81.0-99.0); Mean Platelet Volume 9.7 fL (7.4-10.4); Nucleated Red Blood Cells % 0 %; Platelet Count 195 10^3/uL (130-400); Red Blood Cell Count 3.19 10^6/uL (4.20-5.40); Red Cell Dist. Width 17.8 % (11.5-14.5); White Blood Cell Count 4.4 10^3/uL (4.8-10.8)
[2024-11-17 08:09] LABS: ALT (SGPT) 46 U/L (0-35); AST (SGOT) 46 U/L (14-36); Albumin 3.3 g/dl (3.5-5.0); Alkaline Phosphatase 54 U/L (38-126); Blood Urea Nitrogen 57 mg/dl (7-17); Calcium 8.8 mg/dl (8.4-10.2); Chloride 89 mmol/L (98-107); Estimated Creatinine Clearance 42 ml/min; Glucose 120 mg/dl (70-99); Potassium 4.3 mmol/L (3.5-5.1); Sodium 138 mmol/L (135-145); Total Bilirubin 0.5 mg/dl (0.2-1.3); Total Protein 6.5 g/dl (6.3-8.2); eGFR > 60.00
[2024-11-17] MEDS: PULMICORT 0.5 MG INH ×2 (08:09→20:23)
[2024-11-17] MEDS: XOPENEX 1.25 MG INHALANT SOLUTION INH ×2 (08:09→20:23)
[2024-11-17 08:30] LABS: Carbon Dioxide 40 mmol/L (22-30)
[2024-11-17] MEDS: AFRIN NASAL SPRAY 1 SPRAYS NASAL ×2 (08:55→21:29)
[2024-11-17] MEDS: LASIX 60 MG IV ×2 (08:55→18:25)
[2024-11-17] MEDS: OCUVITE SOFTGEL 1 CAP PO (08:57)
[2024-11-17] MEDS: VITAMIN D3 (cholecalciferol) 25 MCG PO (08:57)
[2024-11-17] MEDS: FLUSH (NSS) 2 FLUSH IV (08:57)
[2024-11-17] MEDS: VITAMIN E 400 UNITS PO (08:57)
--- NOTE | 2024-11-17 11:11 | W.PN.HOSP.TC ---
Today's Communication/Plan
-
Monitor vital signs see plan
Continue Afrin
Continue with Decadron
Continue IV diuresis
Reports feeling a little better today, continue to monitor
PT/OT
Assessment / Plan
Assessment / Plan
General: Well Developed, No Apparent Distress, Comfortable and Conversant
HEENT: NormoCephalic, Moist mucous membranes, Atraumatic, Hearing Impaired
Respiratory: Clear and Decreased Breath Sounds
Cardiac: S1/S2 and Regular Rhythm; No Murmur
GI: Soft, Non Tender, Non Distended and Normal Bowel Sounds
Musculoskeletal:+ edema
Neuro: Awake, Alert, AO x 3 and Nonfocal/grossly intact
Psych: Calm and Intact Judgment/Insight
acute on chronic heart failure with preserved EF
#acute on chronic hypoxic respiratory failure 2/2 above; on baseline 4L home o2
Elevated BNP
CXR: 1. Reticular interstitial thickening within the right mid and upper lung zone, similar compared to prior chest x-ray and also seen on prior CT dated 09/10/2024.
2. Differential diagnosis includes pneumonia superimposed on interstitial lung disease, interstitial pneumonitis, and chronic interstitial fibrosis.
Echo with preserved EF, with fluid overload
Covid: negative
Influenza: negative
-Cardiology following
- Continue with IV diuresis
- daily weights and I&Os
- clinically does not appear to have superimposed PNA, stop further antibiotics. procal neg
Echo with preserved EF, fluid overload
Shortness of breath suspect multifactorial secondary to CHF and ILD, bronchiectasis and COPD
Pulmonary following
Continue Decadron
Pulmicort
Patient has been noncompliant previously with inhalers
Discussed palliative care with patient and her spouse at bedside. Also addressed CODE STATUS. They will talk amongst themselves and will let us know. prognosis guarded.
Elevated troponin, likely secondary to nonischemic myocardial injury
Monitor
hemoptysis likely 2/[address] chest without pneumonia
Quantify hemoptysis
If gets nose bleed again and wont stop then might need ENT evaluation
Transaminitis suspected secondary hepatic congestion
- patient denies any abdominal pain
- trend LFTs
COPD
interstitial lung disease
Bronchiectasis
on chronic home oxygen @ 4L
- continue home nebulizer regimen with Xopenex
- continue guaifenesin
Hyponatremia
Monitor
macular degeneration
- continue Icaps
pulmonary hypertension
Underweight
Stage 2 sacral pressure injury, POA
Code status: full code
DVT prophylaxis: Lovenox sq
Discussed palliative care with patient and her spouse at bedside. Also addressed CODE STATUS. They will talk amongst themselves and will let us know
I spent a total of 51 minutes with the patient or on the floor. More than 50% of this time involved counseling and coordination of care.
Anticipated Discharge: 24 - 48 hours
Subjective/Interval History
-
Date of Service: November 17, 2024
denies pain
Objective Data
-
Labs:
Laboratory Results
11/17/24 11/17/24
01:00 07:20
WBC 4.4 L
Hgb Cancelled 10.1 L
Hct Cancelled 30.9 L
Plt Count 195
Sodium 138
Potassium 4.3
Chloride 89 L
Carbon Dioxide 40 H
BUN 57 H
Creatinine 0.6
Glucose 120 H
Calcium 8.8
Total Bilirubin 0.5
AST 46 H
ALT 46 H
Alkaline Phosphatase 54
Vital Signs:
Vital Signs
Temp Pulse Resp BP Pulse Ox
97.5 F 76 16 112/76 99
11/17/24 07:20 11/17/24 08:13 11/17/24 08:13 11/17/24 07:20 11/17/24 08:13
I&O
11/16/24 11/17/24 11/18/24
06:59 06:59 06:59
Intake Total 360 / 360 960 / 960
Output Total 1250 / 1250
Balance -890 / -890 960 / 960
--- NOTE | 2024-11-17 12:11 | W.PN.CARDCBS ---
Today's Communication / Plan
-
Continue current diuretic regimen today, can probably switch to orals in the next 24 hours
Impression / Plan
-
Family Physician: Birdie Araiza PA-C
Mixing Machine Operator: Dr. Herzog
Impression:
Presented 11/11/2024 with SOB, weight gain, edema
Acute on chronic HFpEF, proBNP 12,400
Acute on chronic hypoxic respiratory insufficiency on chronic oxygen 4 L/min nasal cannula at home
Abnormal troponin, suspected nonischemic myocardial injury
Mildly elevated LFTs
This hospital stay on November 16, 2024 hemoptysis was noted.
Interstitial lung disease with Severe pulmonary hypertension
COPD
bronchiectasis
On chronic home oxygen therapy at 4 Lpm
Small pericardial effusion on echo September 2024
Chronic heart failure with preserved ejection fraction
Tricuspid regurgitation
Osteoporosis
h/o elevated NOE with high titer 05/11/23
h/o elevated gamma chains on protein electrophoresis also with faint Lambda chains 03/06/23
h/o thoracic compression fracture
Echo 01/09/2024: EF 62%, mild to moderate TR, pulmonary hypertension with estimated PAP 58 mmHg.
Echo 09/09/2024: EF 50 to 55%, stage I diastolic dysfunction, flattened septum consistent with RV pressure overload, mild to moderate TR, PAP 88 mmHg, severely dilated and hypokinetic RV, small pericardial effusion without evidence of hemodynamic
compromise
Echo 11/12/24: EF 50 to 55%, flattened septum in systole and diastole consistent with RV pressure and volume overload, severely dilated RA, moderate to severe TR, PAP 75 to 80 mmHg, trace IL, small to moderate pericardial effusion with no evidence
for hemodynamic compromise, IVC dilated and does not collapse
Right heart catheterization 09/13/2024: Hemodynamics (mmHg): RA (m) : 10; RV (s/d,m) : 76/9, 15; PA (s/d, m) : 70/30, 45; PCWP (m) : 12
Cardiac Output : 2.1 L/min and Cardiac Index : 1.6 L/min/m-2
Systemic vascular resistance: 35.2 Wood units or 2816 [id number](-5)
Pulmonary vascular resistance: 15.7 Wood units or 1257 [id number](-5)
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
Plan:
Overall poor prognosis with high risk of rehospitalization.
SOB multifactorial (HFpEF, Lung Dz) with unclear long term endpoint.
BNP on admission November 11 was 12,400
on November 15, 2024 Lasix increased from 40 to 60 mg IV twice daily
Weight is down 10 pounds from adm, now at 80 pounds. Of note last admission dry weight was thought to be 83 to 84 pounds.
BUN and Creat are elevated at 57 and 0.6, potassium 4.3 follow renal function closely. Keep potassium between 4 and 5 and magnesium between 2 and 3
While weight is down significantly and BUN and creatinine have risen somewhat, she is symptomatically improved with aggressive diuresis and still has bibasilar crackles (some of which are likely related to ILD)
Continue IV Lasix today
Consideration for addition of SGLT2 inhibitor
Pulmonary is weaning Decadron
Abnormal troponin, initial 0.049 and peaked at 0.050. Not reporting any chest discomfort. This is likely nonischemic myocardial injury troponin elevation due to acute heart failure.
Repeat echo 11/12/24 overall stable with no WMA, preserved EF, pulmonary hypertension. With small to moderate pericardial effusion with no evidence for hemodynamic compromise.
Not planning ischemic evaluation.
Overall prognosis remains poor. Agree that palliative care discussions would be appropriate.
Discussed with the patient and her who is at bedside. All of their questions have been answered
Total time spent today was 50 minutes in preparing to see the patient, seeing the patient and coordination of care. This included review of recent laboratory evaluations, cardiact testing, imaging studies, primary care rtecords, specialty
consultations, hospital records, as well as personally interviewing and examining the patient, which included discussion of their tests, review/ordering medications, and communicating with other healthcare professionals and also treatment planning
as well as counseling.
HPI 11/11/2024:
Alejandra has PMH of chronic heart failure with preserved ejection fraction, severe pulmonary hypertension, pericardial effusion, interstitial lung disease, COPD, chronic home oxygen therapy 4 L via nasal cannula, tricuspid regurgitation, presents to
emergency department 11/11/2024 with progressive shortness of breath, lower extremity edema and weight gain over several days. She reports she has been compliant with medications. proBNP found to be elevated at 12,400, chest x-ray shows mild
cardiomegaly with mild reticular interstitial thickening within mid right and upper lung zones which could represent pneumonia superimposed on interstitial lung disease/interstitial pneumonitis. There is no pneumothorax or pleural effusions. EKG is
sinus rhythm with occasional PACs and nonspecific T wave abnormality in inferior and lateral leads without significant change from prior EKG. troponin 0.049. Patient's weight is up 8 pounds since discharge weight of September 2024. She currently is
on 5 L of oxygen sating 91 to 100%. Mildly elevated transaminases with AST 47 and ALT 41
Sodium 133, BUN and creatinine of 22 and 0.7 with potassium of 3.9. COVID-negative. Patient was provided 40 mg IV Lasix and Vanco/Zosyn.
Per review of outpatient records patient's primary care physician has encouraged patient to see palliative care but this has not been arranged. Patient was also supposed to follow-up with pulmonary with office visit 11/12/2024 which has been
canceled due to her coming to the hospital.
Progress Note - Mixing Machine Operator
Subjective
Date of Service: November 17, 2024
She reports that her breathing is easier for her today. No chest pain.
Objective
Labs:
11/17/24 07:20
11/17/24 07:20
Labs
Hgb 10.1 g/dL (12.0-16.0) L 11/17/24 07:20
Hct 30.9 % (37.0-47.0) L 11/17/24 07:20
Plt Count 195 10^3/uL (130-400) 11/17/24 07:20
PT 13.9 Sec (11.4-14.6) 11/16/24 02:25
INR 1.04 11/16/24 02:25
APTT 23.4 Sec (23.4-35.0) 11/16/24 02:25
Sodium 138 mmol/L (135-145) 11/17/24 07:20
Potassium 4.3 mmol/L (3.5-5.1) 11/17/24 07:20
BUN 57 mg/dl (7-17) H 11/17/24 07:20
Creatinine 0.6 mg/dL (0.6-1.0) 11/17/24 07:20
Glucose 120 mg/dl (70-99) H 11/17/24 07:20
Vital Signs and I&O:
Vital Signs
Temp Pulse Resp BP Pulse Ox
97.5 F 76 16 112/76 99
11/17/24 07:20 11/17/24 08:13 11/17/24 08:13 11/17/24 07:20 11/17/24 08:13
Vital Signs
Temp Pulse Resp BP Pulse Ox
97.5 F 76 16 112/76 99
11/17/24 07:20 11/17/24 08:13 11/17/24 08:13 11/17/24 07:20 11/17/24 08:13
Intake & Output
11/15/24 11/16/24 11/17/24 11/18/24
06:59 06:59 06:59 06:59
Intake Total 720 / 720 360 / 360 960 / 960
Output Total 500 / 500 1250 / 1250
Balance 220 / 220 -890 / -890 960 / 960
Physical Exam
Physical Exam
Frail elderly woman not in acute distress and appears comfortable today
Regular rate and rhythm with normal S1 and S2, no S3 no S4 is a grade 1/6 apical holosystolic murmur no rub
Lungs demonstrate bibasilar and midlung crackles without wheezes
Abdomen soft nontender nondistended with normoactive bowel sound
Extremities are thin with trace pretibial edema bilateral
--- NOTE | 2024-11-17 16:25 | W.PN.PUL3 ---
Today's Communication / Plan
-
Wean oxygen as tolerated
Diuresis as tolerated
Start weaning Decadron tonight to 4 mg IV q12hr
Monitor nosebleeds, continue Afrin BID and hold chemical prophylaxis
Palliative care assessment
Assessment
-
84-year-old female non-smoker with a history of interstitial lung disease and bronchiectasis followed by Dr. Ramirez as well as CHF who is oxygen dependent on 4 L who presented with progressive shortness of breath and bilateral leg edema noted to have
CHF as well as significant pulmonary hypertension-pulmonary was consulted for shortness of breath 09/11/2024-subsequently discharged on 09/14/2024 and readmitted 11/11/2024 with increasing shortness of breath found to have acute on top of chronic heart
failure and pulmonary consulted for potential interstitial lung disease component 11/14/2024..
Impression:
Heart failure preserved EF
Interstitial lung disease
Bronchiectasis
Hyponatremia - resolved
Epistaxis with hemoptysis from aspirated blood (occurred on evening of 11/15 - 11/16/2024)
Elevated troponin � peaked at 0.05 on 11/11/2024
Transaminitis
Leukopenia
Hyperglycemia now improved
Conditions present prior to admission:
ILD-followed by Dr. Ramirez-prednisone weaned off because of pathological fractures, patient was not interested in aggressive workup
Bronchiectasis-traction bronchiectasis noted on CT chest-Without complications, sputum culture normal, AFB negative
Pulmonary hypertension-severe
Macular degeneration.
Heart failure preserved EF.
DNC.
Plan
Subacute respiratory decompensation likely a combination of heart failure as well as underlying interstitial lung disease
Supplemental oxygen as needed-on 4 L - 99% saturation
Assess discharge supplemental oxygen needs prior to discharge-has home oxygen
Nebulizers as needed-on Xopenex as well as budesonide
Decadron initiated 4 mg IV every 8 hours-can start weaning today to 4mg IV q12hr
Mucolytics
Aspiration precautions
Mucus clearing devices
Diuresis continues as tolerated - currently on Lasix 60 mg IV BID
Monitor renal function, electrolytes, intake/output, lower extremity edema and weight
Replace electrolytes as needed
Cardiology following-correspondence reviewed
Trend LFTs
Monitor nosebleeds
ENT evaluation if recurrent and difficult to stop
Would continue Afrin nasal spray BID for now
Monitor blood sugar with goal >100 and <180
Insulin supplementation as needed
DVT prophylaxis-SCDs for now given worsening epistaxis on 11/15 - 11/16
Nutrition
Early mobilization/physical therapy
Palliative care assessment ongoing
Last seen in the office by Dr. Ramirez 07/10/2024 and next appointment with PFT is 01/03/2025
Pulmonary service will continue to follow along
Diagnostic data:
Chest x-ray 09/06/2024-severe chronic inflammatory interstitial pneumonitis
Chest x-ray 11/11/2024-reticular interstitial thickening within right mid and upper lung zones similar to prior, possible pneumonia on top of interstitial lung disease
CT chest 07/10/2023-no pulm embolism, right heart failure, chronic interstitial changes, T10 compression fracture
CT chest 01/16/2024-chronic interstitial lung changes reflecting idiopathic interstitial pneumonia, improvement in mediastinal adenopathy
CT chest 09/10/2024-no pulm embolism, moderate pericardial effusion bowing of the interventricular septum suggesting of right heart strain, interstitial lung disease with superimposed mild pulmonary edema, chronic compression fractures
Echocardiogram 09/09/2024-EF 50-55%, stage I diastolic dysfunction, PA systolic estimated 88, severely dilated and hypokinetic right ventricle
Echocardiogram 11/12/2024-EF 50-55%, severely dilated right atrium, severe tricuspid regurgitation, PA systolic 75-80
Cardiac catheterization 09/13/2024-precapillary pulmonary hypertension WHO classification 1 3 or 4, RA 10, RV 76/9, PA 70/30, PCWP-12, cardiac index 1.6
PFT 06/29/23: FVC 0.77/42%, FEV1 0.77/57%, ratio 100%, unable to perform lung volumes or DLCO. Suggestive of severe restrictive pattern.��������
PFT 02/16/23: FEV1 0.98L 72%, FVC 1.13L 60%, ratio 87.� TLC 1.92L 49%, DLCO 16% (severe restriction, severe diffusion impairment)
Total time spent today was 38 minutes for this encounter. Time includes reviewing laboratory test/imaging results, reviewing pertinent medical records, obtaining and reviewing medical history, performing an appropriate exam, ordering medications,
tests and procedures. Time also includes documentation of this encounter, coordinating patient care and communicating with other healthcare professionals. Total time does not include separately billed tests performed on this date of service.
Subjective Data
-
Date of Service:
Date of Service: November 17, 2024
Chief Complaint: Pulmonary Follow Up and Dyspnea Follow Up
Subjective:
Patient was seen and evaluated this morning (late note entry). No nosebleeds overnight. She feels well currently, a lot better than yesterday. Currently on 4 L/min nasal cannula. She denies chest pain, BENNETT, fevers or chills.
Review of Systems
General: Other (Negative unless mentioned above)
Objective Data
Data Reviewed
Vital Signs / I&O / Oxygen:
Vital Signs
Temp Pulse Resp BP Pulse Ox
97.5 F 76 16 112/76 99
11/17/24 07:20 11/17/24 08:13 11/17/24 08:13 11/17/24 07:20 11/17/24 08:13
Intake and Output
11/16/24 11/17/24 11/18/24
06:59 06:59 06:59
Intake Total 360 / 360 960 / 960
Output Total 1250 / 1250
Balance -890 / -890 960 / 960
SaO2 99
Nasal Cannula flow liters per 3
minute
Physical Exam
General: Respiratory Distress (n) and Comfortable
HEENT: Normocephalic, Anicteric and Moist Mucous Membranes
Cardiovascular: Regular Rhythm and Peripheral Edema (n)
Respiratory: Wheeze (n), Crackles (Bilateral), Rhonchi (n), Non-Labored Respirations, Accessory Resp Muscle Use (n) and Stridor (n)
GI: Soft, Non Distended, Non Tender and Normal Bowel Sounds
Neurology: Awake, Alert and Tremors (n)
Skin: Warm, Dry, Cyanosis (n) and Jaundice (n)
Labs/Micro/Reports
Lab Data
11/17/24 07:20
11/17/24 07:20
[2024-11-17] MEDS: VISBIOME 1 CAP PO (18:28)
[2024-11-17] MEDS: VITAMIN C 500 MG PO (18:28)
[2024-11-17] MEDS: MUCINEX 600 MG PO (21:29)
[2024-11-17] MEDS: ROBITUSSIN DM 5 ML PO (21:33)
[2024-11-17] MEDS: OCEAN, SALINE MIST 1 SPRAYS NASAL (23:53)
[2024-11-18] VITALS (8 sets, daily range): BP systolic 96–111; BP diastolic 63–76; PULSE 76–94; O2SAT 100; BMI 15.8
[2024-11-18] MEDS: XOPENEX 1.25 MG INHALANT SOLUTION INH ×2 (07:27→19:18)
[2024-11-18] MEDS: PULMICORT 0.5 MG INH ×2 (07:27→19:18)
[2024-11-18 08:29] LABS: % Basophils 0.1 % (0-2); % Eosinophils 0.1 % (0-6); % Immature Granulocytes 0.4 % (0-0.5); % Lymphocytes 4.6 % (20.5-51.1); % Monocytes 13.1 % (1.7-9.3); % Neutrophils 81.7 % (42.2-75.2); Absolute Lymphocytes 0.4 10^3/uL (1.2-3.4); Absolute Monocytes 1.1 10^3/uL (0.1-0.6); Absolute Neutrophils 6.5 10^3/uL (1.4-6.5); Hemoglobin 9.6 g/dL (12.0-16.0); Mean Corpuscular Hgb 31.8 pg (27.0-31.0); Mean Corpuscular Volume 99.3 fL (81.0-99.0); Mean Platelet Volume 9.4 fL (7.4-10.4); Nucleated Red Blood Cells % 0 %; Platelet Count 206 10^3/uL (130-400); Red Blood Cell Count 3.02 10^6/uL (4.20-5.40); Red Cell Dist. Width 17.7 % (11.5-14.5)
[2024-11-18 08:57] LABS: ALT (SGPT) 47 U/L (0-35); AST (SGOT) 39 U/L (14-36); Albumin 3.3 g/dl (3.5-5.0); Alkaline Phosphatase 57 U/L (38-126); Blood Urea Nitrogen 44 mg/dl (7-17); Calcium 8.8 mg/dl (8.4-10.2); Chloride 89 mmol/L (98-107); Estimated Creatinine Clearance 35 ml/min; Glucose 89 mg/dl (70-99); Magnesium 2.3 mg/dl (1.6-2.3); Potassium 4.1 mmol/L (3.5-5.1); Sodium 139 mmol/L (135-145); Total Bilirubin 0.3 mg/dl (0.2-1.3); Total Protein 6.5 g/dl (6.3-8.2); eGFR > 60.00
[2024-11-18] MEDS: FLUSH (NSS) 2 FLUSH IV ×2 (09:00→17:51)
[2024-11-18] MEDS: DECADRON 4 MG IV (09:00)
[2024-11-18] MEDS: AFRIN NASAL SPRAY 1 SPRAYS NASAL (09:00)
[2024-11-18] MEDS: OCUVITE SOFTGEL 1 CAP PO (09:01)
[2024-11-18] MEDS: VITAMIN D3 (cholecalciferol) 25 MCG PO (09:01)
[2024-11-18] MEDS: VITAMIN E 400 UNITS PO (09:01)
[2024-11-18] MEDS: LASIX 60 MG IV ×2 (09:01→17:50)
--- NOTE | 2024-11-18 12:02 | W.PN.HOSP.TC ---
Today's Communication/Plan
-
monitor vitals
see plan
cw steroids
cw diuresis
feeling better; on 4L
pt/ot
needs SNF; DC planning
Assessment / Plan
Assessment / Plan
General: Well Developed, No Apparent Distress, Comfortable and Conversant
HEENT: NormoCephalic, Moist mucous membranes, Atraumatic, Hearing Impaired
Respiratory: Clear and Decreased Breath Sounds
Cardiac: S1/S2 and Regular Rhythm; No Murmur
GI: Soft, Non Tender, Non Distended and Normal Bowel Sounds
Musculoskeletal:+ edema
Neuro: Awake, Alert, AO x 3 and Nonfocal/grossly intact
Psych: Calm and Intact Judgment/Insight
acute on chronic heart failure with preserved EF
#acute on chronic hypoxic respiratory failure 2/2 above; on baseline 4L home o2
Elevated BNP
CXR: 1. Reticular interstitial thickening within the right mid and upper lung zone, similar compared to prior chest x-ray and also seen on prior CT dated 09/10/2024.
2. Differential diagnosis includes pneumonia superimposed on interstitial lung disease, interstitial pneumonitis, and chronic interstitial fibrosis.
Echo with preserved EF, with fluid overload
Covid: negative
Influenza: negative
-Cardiology following
- Continue with IV diuresis
- daily weights and I&Os
- clinically does not appear to have superimposed PNA, stop further antibiotics. procal neg
Echo with preserved EF, fluid overload
Shortness of breath suspect multifactorial secondary to CHF and ILD, bronchiectasis and COPD
Pulmonary following
Continue Decadron; cw wean
Pulmicort
Patient has been noncompliant previously with inhalers
Discussed palliative care with patient and her spouse at bedside. Also addressed CODE STATUS. They will talk amongst themselves and will let us know. prognosis guarded.
Elevated troponin, likely secondary to nonischemic myocardial injury
Monitor
hemoptysis likely 2/[address] chest without pneumonia
Quantify hemoptysis; no further episodes
If gets nose bleed again and wont stop then might need ENT evaluation
Transaminitis suspected secondary hepatic congestion
- patient denies any abdominal pain
- trend LFTs
COPD
interstitial lung disease
Bronchiectasis
on chronic home oxygen @ 4L
- continue home nebulizer regimen with Xopenex
- continue guaifenesin
Hyponatremia
Monitor
macular degeneration
- continue Icaps
pulmonary hypertension
Underweight
Stage 2 sacral pressure injury, POA
Code status: full code
DVT prophylaxis: Lovenox sq
Discussed palliative care with patient and her spouse at bedside. Also addressed CODE STATUS. They will talk amongst themselves and will let us know
I spent a total of 52 minutes with the patient or on the floor. More than 50% of this time involved counseling and coordination of care.
Anticipated Discharge: Within 24 hours
Subjective/Interval History
-
Date of Service: November 18, 2024
Feeling little better
Objective Data
-
Labs:
Laboratory Results
11/18/24
07:56
WBC 8.0
Hgb 9.6 L
Hct 30.0 L
Plt Count 206
Sodium 139
Potassium 4.1
Chloride 89 L
Carbon Dioxide Pending
BUN 44 H
Creatinine 0.7
Glucose 89
Calcium 8.8
Total Bilirubin 0.3
AST 39 H
ALT 47 H
Alkaline Phosphatase 57
Vital Signs:
Vital Signs
Temp Pulse Resp BP Pulse Ox
97.6 F 76 116 108/71 99
11/18/24 07:15 11/18/24 07:29 11/18/24 07:29 11/18/24 07:15 11/18/24 07:29
I&O
11/17/24 11/18/24 11/19/24
06:59 06:59 06:59
Intake Total 960 / 960 720 / 720
Balance 960 / 960 720 / 720
--- NOTE | 2024-11-18 12:25 | W.PN.CARDCBS ---
Addendum entered and electronically signed by Kathleen Herzog DO 11/18/24 16:43:
I saw and examined the patient.
The Multigrapher's note was reviewed and I agree with the note.
Comment: Patient seen and examined with at bedside. Overall states that she is feeling better with improved shortness of breath.
GEN: Cachectic, frail appearing. On supplemental oxygen.
LUNGS: Bronchovesicular breath sounds decreased with fine crackles right base. No wheezes
CV: Regular. Positive S1-S2. 10/10 SM
ext: no significant edema
Plan:
84-year-old female with acute on chronic hypoxic shortness of breath with underlying interstitial lung disease/bronchiectasis who is oxygen dependent on 4 L nasal cannula at baseline presents with acute hypoxic respiratory insufficiency
multifactorial with a component of heart failure preserved ejection fraction with improved volume status
-Initial proBNP 12,400
-Abnormal troponin, initial 0.049 and peaked at 0.050; nonischemic myocardial injury troponin elevation due to acute heart failure.
-weight down 13 lbs since admit, now 78 lbs.
-Transition from IV to oral Lasix 60 mg p.o. twice daily starting tomorrow.
-Monitor renal function, electrolytes, LFTs
-Pulmonary consult and recommendations reviewed: Recommend palliative care assessment
-will avoid use of beta-duke given underlying pulmonary disease
-Continue supplemental oxygen and pulmonary toilet
-Repeat echo overall stable with preserved EF, pulmonary hypertension. With small to moderate pericardial effusion with no evidence for hemodynamic compromise.
-Palliative care consult regarding goals of care. Now DNR.
-Outpatient cardiac follow-up to be arranged
-PT/OT, plan for [facility] at time of discharge.
-Will sign off, recall if needed.
Original Note:
Today's Communication / Plan
-
PT/OT
pt and considering palliative care
Impression / Plan
-
Family Physician: Birdie Araiza PA-C
Steel Pickler: Dr. Herzog
Impression:
Presented 11/11/2024 with SOB, weight gain, edema
Acute on chronic HFpEF, proBNP 12,400
Acute on chronic hypoxic respiratory insufficiency on chronic oxygen 4 L/min nasal cannula at home
Abnormal troponin, suspected nonischemic myocardial injury
Mildly elevated LFTs
This hospital stay on November 16, 2024 hemoptysis was noted.
Interstitial lung disease with Severe pulmonary hypertension
COPD
bronchiectasis
On chronic home oxygen therapy at 4 Lpm
Small pericardial effusion on echo September 2024
Chronic heart failure with preserved ejection fraction
Tricuspid regurgitation
Osteoporosis
h/o elevated NOE with high titer 05/11/23
h/o elevated gamma chains on protein electrophoresis also with faint Lambda chains 03/06/23
h/o thoracic compression fracture
Echo 01/09/2024: EF 62%, mild to moderate TR, pulmonary hypertension with estimated PAP 58 mmHg.
Echo 09/09/2024: EF 50 to 55%, stage I diastolic dysfunction, flattened septum consistent with RV pressure overload, mild to moderate TR, PAP 88 mmHg, severely dilated and hypokinetic RV, small pericardial effusion without evidence of hemodynamic
compromise
Echo 11/12/24: EF 50 to 55%, flattened septum in systole and diastole consistent with RV pressure and volume overload, severely dilated RA, moderate to severe TR, PAP 75 to 80 mmHg, trace OR, small to moderate pericardial effusion with no evidence
for hemodynamic compromise, IVC dilated and does not collapse
Right heart catheterization 09/13/2024: Hemodynamics (mmHg): RA (m) : 10; RV (s/d,m) : 76/9, 15; PA (s/d, m) : 70/30, 45; PCWP (m) : 12
Cardiac Output : 2.1 L/min and Cardiac Index : 1.6 L/min/m-2
Systemic vascular resistance: 35.2 Wood units or 2816 [id number](-5)
Pulmonary vascular resistance: 15.7 Wood units or 1257 [id number](-5)
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
Plan:
Overall poor prognosis with high risk of rehospitalization.
SOB multifactorial (HFpEF, Lung Dz) with unclear residential endpoint.
BNP on admission November 11 was 12,400
on November 15, 2024 Lasix increased from 40 to 60 mg IV twice daily
Weight is down 13 pounds from admission 1 week ago on 11/11/2024 , now at 78 pounds. Of note last admission dry weight was thought to be 83 to 84 pounds.
BUN and Creat are elevated at 57 and 0.6, potassium 4.3 follow renal function closely. Keep potassium between 4 and 5 and magnesium between 2 and 3
While weight is down significantly and BUN and creatinine have risen somewhat, she is symptomatically improved with aggressive diuresis and still has crackles (some of which are likely related to ILD)
consider transitioning to oral diuretics
there was consideration for addition of SGLT2 inhibitor but would hold off until decision made about palliative care
Pulmonary is weaning Decadron and transitioned to oral prednisone today 11/18/2024
Abnormal troponin, initial 0.049 and peaked at 0.050. Not reporting any chest discomfort. This is likely nonischemic myocardial injury troponin elevation due to acute heart failure.
Repeat echo 11/12/24 overall stable with no WMA, preserved EF, pulmonary hypertension. With small to moderate pericardial effusion with no evidence for hemodynamic compromise.
Not planning ischemic evaluation.
increase mobilization- she is being seen by PT/OT. Reviewed note - skilled rehab has been advised upon discharge
Overall prognosis remains poor. Palliative care discussion was discussed by primary team. Pulmonary discussed CODE status today- she does not want extreme measures e.g. intubation, CPR.
Discussed with the patient and her who is at bedside.
HPI 11/11/2024:
Alejandra has PMH of chronic heart failure with preserved ejection fraction, severe pulmonary hypertension, pericardial effusion, interstitial lung disease, COPD, chronic home oxygen therapy 4 L via nasal cannula, tricuspid regurgitation, presents to
emergency department 11/11/2024 with progressive shortness of breath, lower extremity edema and weight gain over several days. She reports she has been compliant with medications. proBNP found to be elevated at 12,400, chest x-ray shows mild
cardiomegaly with mild reticular interstitial thickening within mid right and upper lung zones which could represent pneumonia superimposed on interstitial lung disease/interstitial pneumonitis. There is no pneumothorax or pleural effusions. EKG is
sinus rhythm with occasional PACs and nonspecific T wave abnormality in inferior and lateral leads without significant change from prior EKG. troponin 0.049. Patient's weight is up 8 pounds since discharge weight of September 2024. She currently is
on 5 L of oxygen sating 91 to 100%. Mildly elevated transaminases with AST 47 and ALT 41
Sodium 133, BUN and creatinine of 22 and 0.7 with potassium of 3.9. COVID-negative. Patient was provided 40 mg IV Lasix and Vanco/Zosyn.
Per review of outpatient records patient's primary care physician has encouraged patient to see palliative care but this has not been arranged. Patient was also supposed to follow-up with pulmonary with office visit 11/12/2024 which has been
canceled due to her coming to the hospital.
Progress Note - Steel Pickler
Subjective
Date of Service: November 18, 2024
weight down 13 lbs since admit, now 78 lbs.
reports trouble sleeping due to being worried about her condition
Objective
Labs:
11/18/24 07:56
11/18/24 07:56
Labs
Hgb 9.6 g/dL (12.0-16.0) L 11/18/24 07:56
Hct 30.0 % (37.0-47.0) L 11/18/24 07:56
Plt Count 206 10^3/uL (130-400) 11/18/24 07:56
PT 13.9 Sec (11.4-14.6) 11/16/24 02:25
INR 1.04 11/16/24 02:25
APTT 23.4 Sec (23.4-35.0) 11/16/24 02:25
Sodium 139 mmol/L (135-145) 11/18/24 07:56
Potassium 4.1 mmol/L (3.5-5.1) 11/18/24 07:56
BUN 44 mg/dl (7-17) H 11/18/24 07:56
Creatinine 0.7 mg/dL (0.6-1.0) 11/18/24 07:56
Glucose 89 mg/dl (70-99) 11/18/24 07:56
Vital Signs and I&O:
Vital Signs
Temp Pulse Resp BP Pulse Ox
97.6 F 76 116 108/71 99
11/18/24 07:15 11/18/24 07:29 11/18/24 07:29 11/18/24 07:15 11/18/24 07:29
Vital Signs
Temp Pulse Resp BP Pulse Ox
97.6 F 76 116 108/71 99
11/18/24 07:15 11/18/24 07:29 11/18/24 07:29 11/18/24 07:15 11/18/24 07:29
Intake & Output
11/16/24 11/17/24 11/18/24 11/19/24
06:59 06:59 06:59 06:59
Intake Total 360 / 360 960 / 960 720 / 720
Output Total 1250 / 1250
Balance -890 / -890 960 / 960 720 / 720
Physical Exam
Physical Exam
GEN: No distress, awake, Ox3
HEENT: supple, anicteric, mmm
LUNGS: rales B/L
CV: Reg, S1/S2, 1/6 syst LSB
ABD: soft, BS+, NT/ND
EXT: No edema
NEURO: Gross non-focal
SKIN: No rash
[2024-11-18 12:36] LABS: Carbon Dioxide 43 mmol/L (22-30)
--- NOTE | 2024-11-18 12:51 | W.PN.PUL3 ---
Today's Communication / Plan
-
Transition to oral prednisone
Lovenox continues for prophylaxis, no further epistaxis
PT/OT, possible rehabilitation
CODE STATUS addressed
Disposition efforts
Assessment
-
84-year-old female non-smoker with a history of interstitial lung disease and bronchiectasis followed by Dr. Ramirez as well as CHF who is oxygen dependent on 4 L who presented with progressive shortness of breath and bilateral leg edema noted to have
CHF as well as significant pulmonary hypertension-pulmonary was consulted for shortness of breath 09/11/2024-subsequently discharged on 09/14/2024 and readmitted 11/11/2024 with increasing shortness of breath found to have acute on top of chronic heart
failure and pulmonary consulted for potential interstitial lung disease component 11/14/2024..
Impression:
Heart failure preserved EF
Interstitial lung disease
Bronchiectasis
Hyponatremia - resolved
Epistaxis with hemoptysis from aspirated blood (occurred on evening of 11/15 - 11/16/2024)
Elevated troponin � peaked at 0.05 on 11/11/2024
Transaminitis
Leukopenia
Hyperglycemia now improved
Conditions present prior to admission:
ILD-followed by Dr. Ramirez-prednisone weaned off because of pathological fractures, patient was not interested in aggressive workup
Bronchiectasis-traction bronchiectasis noted on CT chest-Without complications, sputum culture normal, AFB negative
Pulmonary hypertension-severe
Macular degeneration.
Heart failure preserved EF.
DNC.
Plan/recommendations
Overall, patient appears to be comfortable
Chest exam with bilateral crackles, basilar predominant
98% on 4 L
Subacute respiratory decompensation likely a combination of heart failure as well as underlying interstitial lung disease
Moving forward
Reviewed at length chronic pulmonary process with patient and at bedside
Continue oxygen therapy, wean as able. Patient has oxygen at home
Nebulizers as needed-on Xopenex as well as budesonide, on Xopenex as outpatient
Transition to oral prednisone today
Mucolytics
Aspiration precautions
Mucus clearing devices
Diuresis continues, per primary service, cardiology
Cardiology following-correspondence reviewed
DVT prophylaxis-SCDs for now given worsening epistaxis on 11/15 - 11/16. Lovenox now resumed
Nutrition
Early mobilization/physical therapy
Clarified CODE STATUS. Both and confirmed that patient does not want extreme measures such as intubation, CPR
We will review with primary service and change CODE STATUS as appropriate
Last seen in the office by Dr. Ramirez 07/10/2024 and next appointment with PFT is 01/03/2025
Disposition efforts
Diagnostic data:
Chest x-ray 09/06/2024-severe chronic inflammatory interstitial pneumonitis
Chest x-ray 11/11/2024-reticular interstitial thickening within right mid and upper lung zones similar to prior, possible pneumonia on top of interstitial lung disease
CT chest 07/10/2023-no pulm embolism, right heart failure, chronic interstitial changes, T10 compression fracture
CT chest 01/16/2024-chronic interstitial lung changes reflecting idiopathic interstitial pneumonia, improvement in mediastinal adenopathy
CT chest 09/10/2024-no pulm embolism, moderate pericardial effusion bowing of the interventricular septum suggesting of right heart strain, interstitial lung disease with superimposed mild pulmonary edema, chronic compression fractures
Echocardiogram 09/09/2024-EF 50-55%, stage I diastolic dysfunction, PA systolic estimated 88, severely dilated and hypokinetic right ventricle
Echocardiogram 11/12/2024-EF 50-55%, severely dilated right atrium, severe tricuspid regurgitation, PA systolic 75-80
Cardiac catheterization 09/13/2024-precapillary pulmonary hypertension WHO classification 1 3 or 4, RA 10, RV 76/9, PA 70/30, PCWP-12, cardiac index 1.6
PFT 06/29/23: FVC 0.77/42%, FEV1 0.77/57%, ratio 100%, unable to perform lung volumes or DLCO. Suggestive of severe restrictive pattern.��������
PFT 02/16/23: FEV1 0.98L 72%, FVC 1.13L 60%, ratio 87.� TLC 1.92L 49%, DLCO 16% (severe restriction, severe diffusion impairment)
Total time spent today was 38 minutes for this encounter. Time includes reviewing laboratory test/imaging results, reviewing pertinent medical records, obtaining and reviewing medical history, performing an appropriate exam, ordering medications,
tests and procedures. Time also includes documentation of this encounter, coordinating patient care and communicating with other healthcare professionals. Total time does not include separately billed tests performed on this date of service.
Subjective Data
-
Date of Service:
Date of Service: November 18, 2024
Chief Complaint: Pulmonary Follow Up and Dyspnea Follow Up
Subjective:
Patient is without complaints. at bedside. Has mild dry cough, denies chest pain, nausea, abdominal pain. Remains on nasal cannula oxygen.
Objective Data
Data Reviewed
Vital Signs / I&O / Oxygen:
Vital Signs
Temp Pulse Resp BP Pulse Ox
97.6 F 76 116 108/71 99
11/18/24 07:15 11/18/24 07:29 11/18/24 07:29 11/18/24 07:15 11/18/24 07:29
Intake and Output
11/17/24 11/18/24 11/19/24
06:59 06:59 06:59
Intake Total 960 / 960 720 / 720
Balance 960 / 960 720 / 720
SaO2 99
Nasal Cannula flow liters per 4
minute
Physical Exam
General: Comfortable (Cachectic)
HEENT: Normocephalic, Anicteric and Moist Mucous Membranes
Cardiovascular: S1-S2, Regular Rhythm, Murmur (n), Rub (n), Peripheral Edema (n) and Calf Tenderness (n)
Respiratory: Wheeze (n), Crackles (Bilateral), Rhonchi (n), Non-Labored Respirations and Stridor (n)
GI: Soft, Non Distended, Non Tender and Normal Bowel Sounds
Neurology: Awake, Alert and No Motor Deficits (Moves all extremities, generally weak)
Skin: Warm, Dry, Cyanosis (n) and Jaundice (n)
Labs/Micro/Reports
Lab Data
11/18/24 07:56
11/18/24 07:56
--- NOTE | 2024-11-18 16:34 | CM ---
[place] need [place] [place] with [facility] tomorrow for bed availability.
PLAN [facility] [place]
[2024-11-18] MEDS: VISBIOME 1 CAP PO (17:48)
[2024-11-18] MEDS: VITAMIN C 500 MG PO (17:48)
[2024-11-18] MEDS: MUCINEX 600 MG PO (21:04)
[2024-11-19 03:39] VITALS: BP 98/60
[2024-11-19 06:00] VITALS: BMI 15.4
[2024-11-19 07:15] VITALS: BP 102/68
[2024-11-19] MEDS: XOPENEX 1.25 MG INHALANT SOLUTION INH (07:25)
[2024-11-19] MEDS: PULMICORT 0.5 MG INH (07:25)
[2024-11-19] MEDS: VITAMIN E 400 UNITS PO (08:03)
[2024-11-19] MEDS: DELTASONE 20 MG PO (08:03)
[2024-11-19] MEDS: LASIX 60 MG PO (08:03)
[2024-11-19] MEDS: VITAMIN D3 (cholecalciferol) 25 MCG PO (08:03)
[2024-11-19] MEDS: OCUVITE SOFTGEL 1 CAP PO (08:03)
[2024-11-19 08:12] LABS: % Eosinophils 3.3 % (0-6); % Immature Granulocytes 0.3 % (0-0.5); % Lymphocytes 6.4 % (20.5-51.1); % Monocytes 11.3 % (1.7-9.3); % Neutrophils 78.7 % (42.2-75.2); Absolute Eosinophils 0.4 10^3/uL (0-0.7); Absolute Lymphocytes 0.7 10^3/uL (1.2-3.4); Absolute Monocytes 1.2 10^3/uL (0.1-0.6); Absolute Neutrophils 8.5 10^3/uL (1.4-6.5); Hematocrit 32.5 % (37.0-47.0); Hemoglobin 10.5 g/dL (12.0-16.0); Mean Corp Hgb Conc. 32.3 g/dL (33.0-37.0); Mean Corpuscular Hgb 31.7 pg (27.0-31.0); Mean Corpuscular Volume 98.2 fL (81.0-99.0); Mean Platelet Volume 9.6 fL (7.4-10.4); Nucleated Red Blood Cells % 0 %; Platelet Count 240 10^3/uL (130-400); Red Blood Cell Count 3.31 10^6/uL (4.20-5.40); Red Cell Dist. Width 17.4 % (11.5-14.5); White Blood Cell Count 10.8 10^3/uL (4.8-10.8)
--- NOTE | 2024-11-19 08:26 | W.PN.PUL3 ---
Today's Communication / Plan
-
Transition to prednisone 20 mg a day, wean as below
PT/OT
Remains on DVT prophylaxis
Disposition efforts
Pulmonary follow-up information left in chart
We will sign off. Please call with questions
Assessment
-
84-year-old female non-smoker with a history of interstitial lung disease and bronchiectasis followed by Dr. Ramirez as well as CHF who is oxygen dependent on 4 L who presented with progressive shortness of breath and bilateral leg edema noted to have
CHF as well as significant pulmonary hypertension-pulmonary was consulted for shortness of breath 09/11/2024-subsequently discharged on 09/14/2024 and readmitted 11/11/2024 with increasing shortness of breath found to have acute on top of chronic heart
failure and pulmonary consulted for potential interstitial lung disease component 11/14/2024..
Impression:
Heart failure preserved EF
Interstitial lung disease
Bronchiectasis
Hyponatremia - resolved
Epistaxis with hemoptysis from aspirated blood (occurred on evening of 11/15 - 11/16/2024)
Elevated troponin � peaked at 0.05 on 11/11/2024
Transaminitis
Leukopenia
Hyperglycemia now improved
Conditions present prior to admission:
ILD-followed by Dr. Ramirez-prednisone weaned off because of pathological fractures, patient was not interested in aggressive workup
Bronchiectasis-traction bronchiectasis noted on CT chest-Without complications, sputum culture normal, AFB negative
Pulmonary hypertension-severe
Macular degeneration.
Heart failure preserved EF.
DNC.
Plan/recommendations
Overall, patient appears to be comfortable, she states she is subjectively improved
Chest exam with bilateral crackles, basilar predominant
98% on 4 L
Subacute respiratory decompensation likely a combination of heart failure as well as underlying interstitial lung disease
Moving forward
Reviewed at length chronic pulmonary process with patient and at bedside on 11/18
Continue oxygen therapy, wean as able. Patient has oxygen at home
To maintain saturation greater than 90%
Nebulizers as needed-on Xopenex as well as budesonide, on Xopenex as outpatient
Transitioned to oral prednisone today, 20 mg. Continue 20 mg for 3 days, 10 mg for 3 days then off
Mucolytics
Aspiration precautions
Mucus clearing devices
Diuresis continues, per primary service, cardiology
Cardiology following-correspondence reviewed
DVT prophylaxis-SCDs for now given worsening epistaxis on 11/15 - 11/16. Lovenox now resumed
Nutrition
Early mobilization/physical therapy
Based on discussion 11/18 with patient and at bedside, patient is DNR
Last seen in the office by Dr. Ramirez 07/10/2024 and next appointment with PFT is 01/03/2025
Disposition efforts, Rehab
We will sign off. Please call with questions
Diagnostic data:
Chest x-ray 09/06/2024-severe chronic inflammatory interstitial pneumonitis
Chest x-ray 11/11/2024-reticular interstitial thickening within right mid and upper lung zones similar to prior, possible pneumonia on top of interstitial lung disease
CT chest 07/10/2023-no pulm embolism, right heart failure, chronic interstitial changes, T10 compression fracture
CT chest 01/16/2024-chronic interstitial lung changes reflecting idiopathic interstitial pneumonia, improvement in mediastinal adenopathy
CT chest 09/10/2024-no pulm embolism, moderate pericardial effusion bowing of the interventricular septum suggesting of right heart strain, interstitial lung disease with superimposed mild pulmonary edema, chronic compression fractures
Echocardiogram 09/09/2024-EF 50-55%, stage I diastolic dysfunction, PA systolic estimated 88, severely dilated and hypokinetic right ventricle
Echocardiogram 11/12/2024-EF 50-55%, severely dilated right atrium, severe tricuspid regurgitation, PA systolic 75-80
Cardiac catheterization 09/13/2024-precapillary pulmonary hypertension WHO classification 1 3 or 4, RA 10, RV 76/9, PA 70/30, PCWP-12, cardiac index 1.6
PFT 06/29/23: FVC 0.77/42%, FEV1 0.77/57%, ratio 100%, unable to perform lung volumes or DLCO. Suggestive of severe restrictive pattern.��������
PFT 02/16/23: FEV1 0.98L 72%, FVC 1.13L 60%, ratio 87.� TLC 1.92L 49%, DLCO 16% (severe restriction, severe diffusion impairment)
Total time spent today was 38 minutes for this encounter. Time includes reviewing laboratory test/imaging results, reviewing pertinent medical records, obtaining and reviewing medical history, performing an appropriate exam, ordering medications,
tests and procedures. Time also includes documentation of this encounter, coordinating patient care and communicating with other healthcare professionals. Total time does not include separately billed tests performed on this date of service.
Subjective Data
-
Date of Service:
Date of Service: November 19, 2024
Chief Complaint: Pulmonary Follow Up and Dyspnea Follow Up
Subjective:
Patient states she is subjectively improved, less short of breath. She is profoundly deconditioned. She denies chest pain, cough, abdominal pain, nausea
Objective Data
Data Reviewed
Vital Signs / I&O / Oxygen:
Vital Signs
Temp Pulse Resp BP Pulse Ox
97.6 F 75 18 102/68 98
11/19/24 07:15 11/19/24 07:27 11/19/24 07:27 11/19/24 08:03 11/19/24 07:27
Intake and Output
11/18/24 11/19/24 11/20/24
06:59 06:59 06:59
Intake Total 720 / 720 90 / 90
Balance 720 / 720 90 / 90
SaO2 98
Nasal Cannula flow liters per 4
minute
Physical Exam
General: Comfortable (Cachectic) and Other (Cachectic)
HEENT: Normocephalic, Anicteric and Moist Mucous Membranes
Cardiovascular: S1-S2, Regular Rhythm, Murmur (n), Rub (n), Peripheral Edema (n) and Calf Tenderness (n)
Respiratory: Wheeze (n), Crackles (Bilateral), Rhonchi (n), Non-Labored Respirations and Stridor (n)
GI: Soft, Non Distended, Non Tender and Normal Bowel Sounds
Neurology: Awake, Alert and No Motor Deficits (Moves all extremities, generally weak)
Skin: Warm, Dry, Cyanosis (n) and Jaundice (n)
Labs/Micro/Reports
Lab Data
11/19/24 07:05
[2024-11-19 09:33] LABS: ALT (SGPT) 45 U/L (0-35); AST (SGOT) 40 U/L (14-36); Albumin 3.4 g/dl (3.5-5.0); Alkaline Phosphatase 60 U/L (38-126); Blood Urea Nitrogen 48 mg/dl (7-17); Calcium 8.7 mg/dl (8.4-10.2); Chloride 88 mmol/L (98-107); Estimated Creatinine Clearance 39 ml/min; Glucose 92 mg/dl (70-99); Potassium 4.1 mmol/L (3.5-5.1); Sodium 137 mmol/L (135-145); Total Bilirubin 0.4 mg/dl (0.2-1.3); Total Protein 6.8 g/dl (6.3-8.2); eGFR > 60.00
[2024-11-19 09:43] LABS: Carbon Dioxide 46 mmol/L (22-30)
--- NOTE | 2024-11-19 11:10 | W.PN.HOSP.TC ---
Addendum entered and electronically signed by Eulalio Haney MD 11/19/24 13:38:
Time of discharge 38 minutes
Original Note:
Today's Communication/Plan
-
monitor vitals
see plan
dc to SNF today
PO lasix
Po prednisone with taper
f/u palliative outpatient
Assessment / Plan
Assessment / Plan
General: Well Developed, No Apparent Distress, Comfortable and Conversant
HEENT: NormoCephalic, Moist mucous membranes, Atraumatic, Hearing Impaired
Respiratory: Clear and Decreased Breath Sounds
Cardiac: S1/S2 and Regular Rhythm; No Murmur
GI: Soft, Non Tender, Non Distended and Normal Bowel Sounds
Musculoskeletal:+ edema
Neuro: Awake, Alert, AO x 3 and Nonfocal/grossly intact
Psych: Calm and Intact Judgment/Insight
acute on chronic heart failure with preserved EF
#acute on chronic hypoxic respiratory failure 2/2 above; on baseline 4L home o2
Elevated BNP
CXR: 1. Reticular interstitial thickening within the right mid and upper lung zone, similar compared to prior chest x-ray and also seen on prior CT dated 09/10/2024.
2. Differential diagnosis includes pneumonia superimposed on interstitial lung disease, interstitial pneumonitis, and chronic interstitial fibrosis.
Echo with preserved EF, with fluid overload
Covid: negative
Influenza: negative
-Cardiology following
- Now on Increased dose of p.o. lasix
- daily weights and I&Os
- clinically does not appear to have superimposed PNA, stop further antibiotics. procal neg
Echo with preserved EF, fluid overload
Shortness of breath suspect multifactorial secondary to CHF and ILD, bronchiectasis and COPD
Pulmonary following
on prednisone; cw wean Continue 20 mg for 3 days, 10 mg for 3 days then off
Pulmicort
Patient has been noncompliant previously with inhalers; will dc on pulmicort
Elevated troponin, likely secondary to nonischemic myocardial injury
Monitor
should f/u with palliative
hemoptysis likely 2/2 nose bleed
no need for more afrin
epistaxis resolved
CT chest without pneumonia
Quantify hemoptysis; no further episodes
If gets nose bleed again and wont stop then might need ENT evaluation
Transaminitis suspected secondary hepatic congestion
- patient denies any abdominal pain
- trend LFTs
COPD
interstitial lung disease
Bronchiectasis
on chronic home oxygen @ 4L
- continue home nebulizer regimen with Xopenex
- continue guaifenesin
Hyponatremia
Monitor
macular degeneration
- continue Icaps
pulmonary hypertension
Underweight
Stage 2 sacral pressure injury, POA
Code status: DNR
DVT prophylaxis: Lovenox sq
Anticipated Discharge: Today
Subjective/Interval History
-
Date of Service: November 19, 2024
denies pain
Objective Data
-
Labs:
Laboratory Results
11/19/24
07:05
WBC 10.8
Hgb 10.5 L
Hct 32.5 L
Plt Count 240
Sodium 137
Potassium 4.1
Chloride 88 L
Carbon Dioxide 46 H
BUN 48 H
Creatinine 0.6
Glucose 92
Calcium 8.7
Total Bilirubin 0.4
AST 40 H
ALT 45 H
Alkaline Phosphatase 60
Vital Signs:
Vital Signs
Temp Pulse Resp BP Pulse Ox
97.6 F 75 18 102/68 97
11/19/24 07:15 11/19/24 07:27 11/19/24 07:27 11/19/24 08:03 11/19/24 08:00
I&O
11/18/24 11/19/24 11/20/24
06:59 06:59 06:59
Intake Total 720 / 720 90 / 90
Balance 720 / 720 90 / 90
[2024-11-19 11:15] VITALS: BP 103/70
--- NOTE | 2024-11-19 11:16 | W.DCSUMMARY ---
Discharge Summary
Discharge Data
Date of Admission: 11/11/24
Date of Discharge: 11/19/24
-
Pending Results: No
Hospital Course
84-year-old female with past medical history of CHF, interstitial lung disease, bronchiectasis, COPD, macular degeneration, pulmonary hypertension came to the hospital with shortness of breath which was likely thought was multifactorial secondary to
acute on chronic congestive heart failure exacerbation and worsening interstitial lung disease, bronchiectasis and COPD. Patient was seen by cardiology and pulmonary throughout hospitalization. For congestive heart failure exacerbation patient was
initially started on IV Lasix which was later transitioned to p.o. Lasix prior to discharge. Echocardiogram showed preserved ejection fraction. For her ILD, she was initially started on Decadron which was later transitioned to prednisone with
taper. On this hospitalization patient also developed epistaxis which over time continue to improve with Afrin. Due to patient declining congestive heart failure and ILD we recommended palliative care however patient chose to follow-up with them
outpatient. She was evaluated by physical therapy recommended SNF. Once her symptoms continue to improve she was then discharged to rehab with instructions to follow-up with all her physicians outpatient.
Discharge Plan
-
Patient Disposition: Senior Living/SNF
Discharge Diagnosis/Procedures: Acute on chronic heart failure with preserved EF
Acute on chronic hypoxic respiratory failure
Shortness of breath suspect multifactorial secondary to CHF and ILD, bronchiectasis and COPD
Epistaxis
Diet: As tolerated and 2 Gram Sodium
Activity: With assistance and As tolerated
Driving Restrictions: Not until seen by your Dr
Bathing Restrictions: None
Blood Work: CBC and CMP in rehab
Activity Restrictions/Additional Instructions:
Continue 20 mg prednisone for 3 days, 10 mg for 3 days then off
Instructions: *[facility] Heart Failure Instructions
Referrals:
Jenni Chaves, [Active] - (As scheduled in January)
Frandy-Birdie Raya PA [Family Provider] - in less than 1 week
Scheiring,Kathleen, DO [Active] - in one week
Prescriptions:
New
levalbuterol HCl 1.25 mg/3 mL Solution For Nebulization
1.25 mg inhalation R Q6HPRN PRN (Reason: sob or wheezing) Qty: 0 0RF
prednisone 20 mg Tablet
20 mg PO DAILY Qty: 0 0RF
dextromethorphan-guaifenesin 10-100 mg/5 mL Syrup
5 ml PO Q4HPRN PRN (Reason: cough) Qty: 0 0RF
budesonide 0.5 mg/2 mL Suspension For Nebulization
0.5 mg inhalation R BID Qty: 0 0RF
furosemide 20 mg Tablet
60 mg PO BID AT 0800,1600 Qty: 0 0RF
Continued
ascorbic acid (vitamin C) [Vitamin C] 500 mg Tablet
500 mg PO QPM
vitamin E 268 mg (400 unit) Capsule
268 mg PO DAILY
coenzyme Q10 [CoQ-10] 100 mg Capsule
100 mg PO QPM
cholecalciferol (vitamin D3) 25 mcg (1,000 unit) Tablet
25 mcg PO DAILY
Visbiome 112.5 billion cell Capsule
1 cap PO QPM
Saline Nasal 0.65 % Aerosol,Edgecomb
1 spray intranasal QIDPRN PRN (Reason: dry nose) Qty: 44 0RF
levalbuterol HCl 1.25 mg/3 mL Solution For Nebulization
1.25 mg INHALATION R BID
guaifenesin 600 mg tablet extended release 12hr
600 mg PO HS
vitamins A,C,O-hbqg-emtkmk 4,296 mcg-226 mg-90 mg Capsule
1 cap PO DAILY
Discontinued
furosemide 40 mg Tablet
40 mg PO BID 30 Days Qty: 30 0RF
Discharge Orders:
Discharge Patient (As Directed); Ordered 11/19/24
Ordered By: Eulalio Haney
Discharge Date and Time
Print Language: CROATIAN
--- NOTE | 2024-11-19 11:29 | CM ---
CM reviewed pt with Dr Haney- ready for dc
Bedside meeting with pt and spouse and 1st choice is [facility]
Bed confirmed with Claudia/admissions
Pt does not qualify for BLS as she is on 4L baseline, portable device in spouse's car
Plan for [employer] van $90- in agreement with fees
Discharge Disposition- [facility] via WC van (1600 pickup)
Phone- [phone] Fax- [phone]
--- NOTE | 2024-11-20 08:57 | W.HF.CON ---
Heart Failure
- LV Function
Left ventricular function study result: LV Ejection fraction >/= 50%
Ejection Fraction Percentage: 50-55
- ARNI
Patient already on ARNI: No
Heart Failure ARNI Not Indicated: LV Ejection Fraction >/= 40%
- ACEI/ARB
Patient already on ACEI/ARB: No
Heart Failure ACEI/ARB Not Indicated: LV Ejection Fraction > 40%
- Beta Desmond
Patient already on Evidence Based Beta Desmond: No
Heart Failure Evidence Based Beta Desmond Not Indicated: LV Ejection Fraction > 40%
- Mineralocorticord Receptor Antagonist
Patient already on MRA: No
Heart Failure MRA Not Indicated: LV Ejection Fraction > 40%
- SGLT-2 Inhibitor
Patient already on SGLT-2 Inhibitor: No
Heart Failure SGLT-2 Inhibitor Not Indicated: LV Ejection Fraction >40%
- NYHA CHF Classification
NYHA CHF Classification Level: Class III - Symptoms w/ min exertion, interferes w/ nml daily activity (pulmonary HTN, ILD, on home oxygen)
- ACC/AHA Stage
ACC/AHA Stage: Stage C: Symptomatic Heart Failure
== END 2024-11-19 15:52 | DRG 291 ==
LOC: 4 EAST ACU 15:31
PROVIDERS: Nurse Practitioner Family; ADMITTING PHYSICIAN Hospitalist; ATTENDING PHYSICIAN Internal Medicine; CONSULT PHYSICIAN Internal Medicine Critical Care Medicine; CONSULT PHYSICIAN Nuclear Medicine Nuclear Cardiology; EMERGENCY PHYSICIAN Student in an Organized Health Care Education/Training Program; FAMILY PHYSICIAN Physician Assistant
DX: I50.33 Acute on chronic diastolic (congestive) heart failure (principal); J96.21 Acute and chronic respiratory failure with hypoxia; J47.0 Bronchiectasis with acute lower respiratory infection; J84.9 Interstitial pulmonary disease, unspecified; J44.0 Chronic obstructive pulmonary disease with (acute) lower respiratory infection; I31.39 Other pericardial effusion (noninflammatory); I5A Non-ischemic myocardial injury (non-traumatic); E87.1 Hypo-osmolality and hyponatremia; Z68.1 Body mass index [BMI] 19.9 or less, adult; R64 Cachexia; R04.2 Hemoptysis; M81.0 Age-related osteoporosis without current pathological fracture; K76.1 Chronic passive congestion of liver; I07.1 Rheumatic tricuspid insufficiency; D72.819 Decreased white blood cell count, unspecified; R73.9 Hyperglycemia, unspecified; J84.10 Pulmonary fibrosis, unspecified; J84.111 Idiopathic interstitial pneumonia, not otherwise specified; L89.152 Pressure ulcer of sacral region, stage 2; R59.0 Localized enlarged lymph nodes; R63.6 Underweight; R04.0 Epistaxis; J30.89 Other allergic rhinitis; M41.80 Other forms of scoliosis, site unspecified; I27.20 Pulmonary hypertension, unspecified; H35.30 Unspecified macular degeneration; Z99.81 Dependence on supplemental oxygen; Z82.49 Family history of ischemic heart disease and other diseases of the circulatory system; Z88.2 Allergy status to sulfonamides; Z91.048 Other nonmedicinal substance allergy status; Z11.52 Encounter for screening for COVID-19; Z91.148 Patient's other noncompliance with medication regimen for other reason; Z87.311 Personal history of (healed) other pathological fracture
CPT/HCPCS: 93308; 71045; 71250; 80053; 83735; 83880; 84145; 84484; 85014; 85018; 85025; 85610; 85730; 87502; 87811; 93005; 93321; 93325; 94640; 96365; 96375; 97162; 97166; 97530; 97535; 99291

== ENCOUNTER → 2024-11-22 10:21 | Outpatient (REF) | payer OTHER, MEDICARE, SELFPAY ==
[2024-11-22 11:11] LABS: % Basophils 0.1 % (0-2); % Eosinophils 2.1 % (0-6); % Immature Granulocytes 0.4 % (0-0.5); % Lymphocytes 12.8 % (20.5-51.1); % Monocytes 16.6 % (1.7-9.3); Absolute Eosinophils 0.2 10^3/uL (0-0.7); Absolute Lymphocytes 1.1 10^3/uL (1.2-3.4); Absolute Monocytes 1.4 10^3/uL (0.1-0.6); Absolute Neutrophils 5.8 10^3/uL (1.4-6.5); Hematocrit 29.9 % (37.0-47.0); Hemoglobin 9.9 g/dL (12.0-16.0); Mean Corp Hgb Conc. 33.1 g/dL (33.0-37.0); Mean Corpuscular Hgb 31.8 pg (27.0-31.0); Mean Corpuscular Volume 96.1 fL (81.0-99.0); Mean Platelet Volume 9.8 fL (7.4-10.4); Nucleated Red Blood Cells % 0 %; Platelet Count 303 10^3/uL (130-400); Red Blood Cell Count 3.11 10^6/uL (4.20-5.40); Red Cell Dist. Width 17.6 % (11.5-14.5); White Blood Cell Count 8.5 10^3/uL (4.8-10.8)
== END ==
LOC: OLABP 10:21
PROVIDERS: ATTENDING PHYSICIAN Family Medicine
DX: J96.21 Acute and chronic respiratory failure with hypoxia (principal); I50.33 Acute on chronic diastolic (congestive) heart failure; J84.9 Interstitial pulmonary disease, unspecified; J44.9 Chronic obstructive pulmonary disease, unspecified; R04.0 Epistaxis; L89.152 Pressure ulcer of sacral region, stage 2
CPT/HCPCS: 36415; 85025

== ENCOUNTER → 2024-11-25 09:39 | Outpatient (REF) | payer OTHER, MEDICARE, SELFPAY ==
[2024-11-25 10:08] LABS: % Basophils 0.3 % (0-2); % Eosinophils 2.3 % (0-6); % Immature Granulocytes 0.4 % (0-0.5); % Lymphocytes 11.4 % (20.5-51.1); % Neutrophils 71.6 % (42.2-75.2); Absolute Eosinophils 0.2 10^3/uL (0-0.7); Absolute Lymphocytes 0.9 10^3/uL (1.2-3.4); Absolute Monocytes 1.1 10^3/uL (0.1-0.6); Absolute Neutrophils 5.6 10^3/uL (1.4-6.5); Mean Corp Hgb Conc. 32.3 g/dL (33.0-37.0); Mean Corpuscular Hgb 31.5 pg (27.0-31.0); Mean Corpuscular Volume 97.8 fL (81.0-99.0); Mean Platelet Volume 11.2 fL (7.4-10.4); Nucleated Red Blood Cells % 0 %; Platelet Count 283 10^3/uL (130-400); Red Blood Cell Count 3.17 10^6/uL (4.20-5.40); White Blood Cell Count 7.8 10^3/uL (4.8-10.8)
[2024-11-25 13:13] LABS: Blood Urea Nitrogen 30 mg/dl (7-17); Calcium 8.5 mg/dl (8.4-10.2); Chloride 93 mmol/L (98-107); Glucose 84 mg/dl (70-99); Potassium 4.3 mmol/L (3.5-5.1); Sodium 139 mmol/L (135-145); eGFR > 60.00
[2024-11-25 13:41] LABS: Carbon Dioxide 44 mmol/L (22-30)
== END ==
LOC: OLABP 09:39
PROVIDERS: ATTENDING PHYSICIAN Family Medicine
DX: J96.21 Acute and chronic respiratory failure with hypoxia (principal); I50.33 Acute on chronic diastolic (congestive) heart failure; J84.9 Interstitial pulmonary disease, unspecified; J44.9 Chronic obstructive pulmonary disease, unspecified; E43 Unspecified severe protein-calorie malnutrition; R04.0 Epistaxis; L89.152 Pressure ulcer of sacral region, stage 2
CPT/HCPCS: 36415; 80048; 85025

== ENCOUNTER 2025-02-11 04:21 | Inpatient (IN) | payer MEDICARE, OTHER, SELFPAY ==
[2025-02-10 22:28] VITALS: BP 126/50
[2025-02-10 22:32] VITALS: BP 126/90
[2025-02-10 22:46] VITALS: BMI 18.2
[2025-02-10 23:01] VITALS: BP 97/75
[2025-02-10 23:13] LABS: B.E. 19.1 mmol/L; O2 Saturation % 94.5 % (94-98); PCO2 63 mmHg (32-35); PO2 66 mmHg (83-108); pH 7.47 (7.35-7.45)
[2025-02-10 23:24] LABS: HCO3 45.9 mmol/L (21-28); O2 Therapy %Oxygen/Room Air 86
--- NOTE | 2025-02-10 23:29 | ED.GENMED ---
History of Present Illness
General
Chief Complaint: Breathing Problem
Source: patient
Exam Limitations: none
Time Seen by Provider: 02/10/25 22:53
Nursing documentation reviewed up to this point in time: agreed with
History of Present Illness
History of Present Illness:
Patient with history of oxygen dependent COPD (4 L o2 via NC) and congestive heart failure on Lasix, presents to ED secondary to worsening shortness of breath this evening. Denies fever or chills. Denies coughing. Denies nausea, vomiting, or
diarrhea. Denies chest pain. Denies back pain. Denies leg pain. Denies increased leg swelling. Per paramedics, patient was found to be hypoxic with pulse ox 86% on 4 L of oxygen, with respiratory distress at home.
Past History
Past History
ED Past Medical History: CHF, COPD and Other (Interstitial lung disease, chronic bronchiectasis)
ED Past Surgical History: Other (D&C)
Social History
Tobacco: Non-smoker
Alcohol: None
Drug: None
Personal:
Living: with family
Employment: Other
Family History
Family History: Other
Review of Systems
Review of Systems
Allergies reviewed?: Yes
All Other Systems: ROS reviewed and negative except as documented in HPI and ROS
Constitutional: Reports no symptoms; Denies fever
Respiratory: Reports trouble breathing; Denies cough
Cardiac: Reports no symptoms; Denies chest pain or syncope
ABD/GI: Reports no symptoms; Denies vomiting or diarrhea
Musculoskeletal: Reports no symptoms
Skin: Reports no symptoms
Neurological: Reports no symptoms
Phy Exam
Physical Exam
Physical Exam:
Physical Exam
General: moderate respiratory distress, acutely ill. afebrile
Head: nc/at. eomi
Neck: supple. normal range of motion. jvd noted
Heart: s1/s2 regular rate and rhythm
Lungs: moderate respiratory distress. crackles bilaterally
Abdomen: normal bowel sounds. not tender.
Neuro: alert and oriented x 3. no focal neurological deficits
Skin: no rash
Psychiatric: well kept. interactive and cooperative
Extremities: LE b/l, nonpitting edema. no calf tenderness.
Scores
Heart Failure Risk
Heart Failure Risk Score: Yes
History of Stroke or TIA: No
History of intubation for respiratory distress: No
Heart rate on ED arrival >/= 110: No
SaO2 <90% on arrival on room air: Yes
HR >/=110 during 3min walk test (or too ill to perform test): No
ECG has acute ischemic changes: No
Urea >/=12mmol/L (BUN 33.6mg/dL): Yes
Serum CO2>/=35mmol/L: Yes
Troponin I or T elevated to MO Level (0.4mg/dL): No
NT-proBNP >/=5,000ng/L (5,000pg/ml): Yes
HF Risk Score: 5
Admission Status: VERY HIGH RISK 39.8% Consider admission to hospital
Course
Orders/Labs/Results
Orders:
Orders
02/10/25 22:47
Electrocardiogram (*1) Urgent
Reason for Study: Other
Other Reason for Exam: Respiratory Distress
Cardiac Monitoring- Treatment ONCE
EKG- Treatment ONCE
IV Insert/Care/Rem.- Treatment PRN
CR Chest - 2 Views Urgent
Comment:
Reason For Exam: respiratory distress
Pulse Ox/cont/shift [RESP] Urgent
Quantity: 1
Special Instructions: continuous pulse ox
02/10/25 23:09
Arterial Blood Gas Urgent
%Oxygen/Room Air: 86
02/10/25 23:56
Basic Metabolic Panel Urgent
Comment: NO K
COVID-19 Antigen Urgent
Source: Nasal Swab
Complete Blood Count/With Diff Urgent
NT-proBNP Urgent
Troponin I Urgent
02/11/25 00:32
Furosemide [Lasix] 40 mg IV NOW STA
02/11/25 03:00
Flush (0.9% Sodium Chloride) [Flush (Nss)] See Dose Instructions IV PER PROTOCOL
02/11/25 03:14
Admit/Transfer Patient As Directed
Co-Sign Provider:
Level of Care: Inpatient admission
Assign to:: IMU- Intermediate Care
Physician / Group: Effie
Diagnosis: CHF exacerbation
Reason for Hospitalization: Hypoxic respiratory failure
Expected length of stay greater than two midnights?: Yes
ELOS- Estimated Length of Stay in days: 2
I certify the patient meets the requirements for IP care: Yes
PRN Pain Medication Management As Directed
May give lesser potent ordered pain med per pt: Yes
preference::
Protocol:: Medication orders for pain may be administered in a
manner that supports deferring to patient preference
when the pt is:
- Requesting an ordered lesser potent pain medication.
Least to most potent pain medications are defined
as: acetaminophen < NSAID < tramadol < opioids
(morphine, oxycodone, hydromorphone).
- Requesting a lesser dose of the same medication IF
ORDERED.
- Requesting a less intrusive route of administration
if both routes are prescribed by the provider (PO <
IV).
02/11/25 03:15
Code Status As Directed
Resuscitation Status: Limited DNR
Limited DNR: -No intubation
02/11/25 05:51
Sodium Chloride [[place], Saline Mist] 1 sprays NASAL QIDPRN PRN dry nose
02/11/25 05:51
CARDIOLOGY CONSULT Routine
Consulting Provider: Rakesh Taylor
Was physician already notified: No
Reason for consult: pulmonary fibrosis, worsening CHF with hypoxic resp failure
Consult Notification Routine
Specialty to Notify: Cardiology
Date consulting provider notified: 02/11/25
Time consulting provider notified: :
Notified:: Provider
Consult Notification Routine
Specialty to Notify: Pulmonary
Date consulting provider notified: 02/11/25
Time consulting provider notified: 07:25
Notified:: Provider
HF DIETARY CONSULT Routine
HF EDUCATOR CONSULT Routine
Comment:
PULMONARY CONSULT Routine
Consulting Provider: Saúl Ronquillo
Was physician already notified: No
Reason for consult: Pulm fibrosis, CHF exacerbation, acute on chronic resp failure
Activity As Directed
Activity Level: With Assistance
Patient Education As Directed
Type: CHF folder
Comment: give on admission. Document in Interdisciplinary Education record
Sleep Apnea Assessment by RN As Directed
Comment:
Physician Instructions:
O2 Therapy [RESP] Routine
High Flow Nasal Cannula FIO2%: 60
High Flow Nasal Cannula Liter Flow: 40
Titrate/Wean O2 to maintain O2 sat greater than (%): 95
Wean Oxygen to Pre Admission Baseline Therapy-if applicable: Yes
Special Instructions: Do not wean overnight.
Pulse Ox/cont/shift [RESP] Routine
Quantity: 1
Special Instructions: Daily pulse oximetry at rest. If greater than 92% at rest also obtain pulse oximetry
while ambulating as tolerated.
DX Deep Vein Thrombosis Video Routine
02/11/25 Breakfast
Cholesterol Lowering
At Your Request: Full Participation
Cholesterol Lowering: Sodium, 2 Gram
02/11/25 06:45
Procalcitonin IN AM
If negative, will antibiotics be d/c'd or not started: Yes
Does the patient have renal or hepatic impairment?: No
Any recent (w/in 48 hrs) physiologic stress (CPR, rhabdo): No
Troponin I Q6H
Comment: at admission & every 6 hours x 2 (3 total), ECG to be done with each level
Venous Blood Gas IN AM
%Oxygen/Room Air: 60
02/11/25 08:00
Budesonide [Pulmicort] 0.5 mg INH R BID
Furosemide [Lasix] 80 mg IV BID AT 0800,1600
Metolazone [Zaroxolyn] 2.5 mg PO DAILY
02/11/25 16:08
Troponin I Q6H
Comment: at admission & every 6 hours x 2 (3 total), ECG to be done with each level
02/11/25 18:00
Ascorbic Acid [Vitamin C] 500 mg PO QPM
Enoxaparin Sodium [Lovenox] 40 mg SC QPM
02/11/25 22:00
Guaifenesin [Mucinex] 600 mg PO HS
02/12/25 04:11
Basic Metabolic Panel IN AM
Abnormal Lab Results
02/10/25 02/10/25
23:09 23:56
WBC 4.5 L 10^3/uL
(4.8-10.8)
RBC 4.16 L 10^6/uL
(4.20-5.40)
MCHC 31.8 L g/dL
(33.0-37.0)
RDW 19.9 H %
(11.5-14.5)
Absolute Lymphs (auto) 0.5 L 10^3/uL
(1.2-3.4)
Neutrophils % 75.9 H %
(42.2-75.2)
Lymphocytes % 10.6 L %
(20.5-51.1)
Monocytes % 10.2 H %
(1.7-9.3)
pH 7.47 H
(7.35-7.45)
pCO2 63 H mmHg
(32-35)
pO2 66 L mmHg
(83-108)
HCO3 45.9 H* mmol/L
(21-28)
Chloride 94 L mmol/L
(98-107)
Carbon Dioxide 40 H mmol/L
(22-30)
BUN 34 H mg/dl
(7-17)
Glucose 147 H mg/dl
(70-99)
Troponin I 0.059 H* ng/ml
02/10/25 23:56
02/10/25 23:56
Vital Signs
Initial and Last Documented VS:
Initial Vital Signs
Pulse Resp BP Pulse Ox
82 37 126/50 88
02/10/25 22:28 02/10/25 22:28 02/10/25 22:28 02/10/25 22:28
Last Documented Vital Signs
Temp Pulse Resp BP Pulse Ox
97.6 F 79 36 82/72 94
02/12/25 11:05 02/12/25 12:25 02/12/25 12:25 02/12/25 12:25 02/12/25 12:25
MDM/Problems Addressed
MDM/Problems Addressed:
History, exam, and chest x-ray consistent with hypoxia, secondary to volume overload. Patient reports improvement after being placed on mid flow oxygen, although she remains tachypneic with shallow breathing. Patient will be admitted for further
evaluation and treatment, include IV diuresis.
*EKG
Interpreted by ED Provider?: Yes
EKG Intrepretation Date: 02/10/25
Heart Rate: 83
Rate: normal
Rhythm: sinus
Moore: right axis deviation
Ischemia: T-wave inversion (unchanged from 11/26)
*Critical Care Note
Total Time (30-74mins, 75-104mins- exclusive of procedures): Not Applicable
ED Attending Note
-
Portions of this chart may have been created with voice recognition software.� Occasional wrong word or��sound alike� substitutions may have occurred due to the inherent limitations of voice recognition software.
Discharge Plan
Departure
Patient Disposition: Admit
Date of Disposition: 02/11/25
Time of Disposition: 02:37
Admit to: Telemetry
Presentation/result/management discussed w/ accepting MD/DO: Hospitalist
Discharge Problem:
Hypoxia, Fluid overload
Interventions
Interventions:
*Risk Screen - Suicide Last Done: 02/11/25 06:08
*General Assessment Last Done: 02/10/25 22:28
*Neglect/Abuse Screening Last Done: 02/10/25 22:28
*ED- Fall Risk Assessment Last Done: 02/11/25 01:33
*ED COVID-19 Vaccine History Last Done: 02/11/25 01:33
*Nursing Disposition Last Done: 02/11/25 05:55
ED- Cardiac Assessment Last Done: 02/11/25 01:38
ED- Pulmonary Assessment Last Done: 02/11/25 01:38
Discharge Date and Time
Discharge Date/Time: 02/11/25 06:00
[2025-02-11] VITALS (17 sets, daily range): BP systolic 78–117; BP diastolic 64–85; BMI 19.0
[2025-02-11 00:04] LABS: % Basophils 1.1 % (0-2); % Eosinophils 1.8 % (0-6); % Immature Granulocytes 0.4 % (0-0.5); % Lymphocytes 10.6 % (20.5-51.1); % Monocytes 10.2 % (1.7-9.3); % Neutrophils 75.9 % (42.2-75.2); Absolute Basophils 0.1 10^3/uL (0-0.2); Absolute Eosinophils 0.1 10^3/uL (0-0.7); Absolute Lymphocytes 0.5 10^3/uL (1.2-3.4); Absolute Monocytes 0.5 10^3/uL (0.1-0.6); Absolute Neutrophils 3.4 10^3/uL (1.4-6.5); Hematocrit 38.1 % (37.0-47.0); Hemoglobin 12.1 g/dL (12.0-16.0); Mean Corp Hgb Conc. 31.8 g/dL (33.0-37.0); Mean Corpuscular Hgb 29.1 pg (27.0-31.0); Mean Corpuscular Volume 91.6 fL (81.0-99.0); Mean Platelet Volume 10.2 fL (7.4-10.4); Nucleated Red Blood Cells % 0 %; Platelet Count 237 10^3/uL (130-400); Red Blood Cell Count 4.16 10^6/uL (4.20-5.40); Red Cell Dist. Width 19.9 % (11.5-14.5); White Blood Cell Count 4.5 10^3/uL (4.8-10.8)
[2025-02-11 00:29] LABS: Blood Urea Nitrogen 34 mg/dl (7-17); Calcium 8.8 mg/dl (8.4-10.2); Carbon Dioxide 40 mmol/L (22-30); Chloride 94 mmol/L (98-107); Estimated Creatinine Clearance 39 ml/min; Glucose 147 mg/dl (70-99); Sodium 138 mmol/L (135-145); eGFR > 60.00
[2025-02-11 00:35] LABS: COVID-19 Antigen Negative (Negative)
[2025-02-11 00:43] LABS: NT-proBNP 13800 pg/ml; Troponin I 0.059 ng/ml
[2025-02-11] MEDS: LASIX 40 MG IV (01:56)
--- NOTE | 2025-02-11 02:59 | HPS.HSE ---
Family Physician
-
Family Physician: BRIDGER Caballero
Chief Complaint
-
Shortness of breath
History of Present Illness
This is a 84-year-old female with past medical history significant for chronic interstitial lung disease with chronic respiratory failure on 4 L home O2, congestive heart failure with preserved EF, precapillary pulmonary hypertension presenting to
the emergency department with acute worsening of shortness of breath.
Patient had no antecedent events. According to patient and spouse after dinner up patient used a nebulizer before trying to lay down. When she laid down and turned to her side she complained that she could not catch her breath. Spouse thought
that she might have kinked her oxygen supply. However she became more pale and diaphoretic. She did not lose consciousness according to spouse. When EMS arrived they found her hypoxic to the low 80s on 4 L. She was placed on 100% nonrebreather
with increasing saturation to around the mid 90s. Patient does self denies any recent cough. She denies any cold or flulike symptoms. She denies any sick contacts. They denied any acute weight gain over the last week. They have been compliant
with Lasix 60 mg twice daily. Weights been steady at around 85 pounds. They denied any dietary nonprescription. They did note increased puffiness in bilateral lower extremities. Patient denies having any chest pain or palpitations. She denies
any new rash.
In the emergency department she was afebrile, currently satting 96% on 10 L midflow. RR 20 - 30. BP 99/77. Chest x-ray shows increasing interstitial pattern most notable on the right middle and upper lungs. But also present on the left. Appears
worse compared to prior x-ray on November 2024. ECG shows a normal sinus rhythm without any acute ST or T wave changes. There was right axis deviation with RV hypertrophy. Troponin was 0.06. BNP was 13,800.
Blood gas was 7.4 7/63/45.9.
CBC was complete unremarkable without leukocytosis with normal hemoglobin and platelets. Electrolytes were mostly normal with a bicarb of 40. BUN and creatinine were 30 and 0.7 respectively. Glucose was normal.
Medical History
Past Medical History
Past Medical History: Reports Other
Additional Past Medical History:
HFpEF
COPD
interstitial lung disease
pulmonary hypertension
macular degeneration
Past Surgical History: Reports Other
Additional Past Surgical History:
D&C
Social History
Tobacco: Non-smoker
Alcohol: None
Drug: None
Personal:
Living: With Family
Employment: Retired
Family History
Family History: Not pertinent and Other (Mom: CAD; Dad: [place]; Sister: HF and CAD )
Allergies / Home Medications
Allergies reflects when Allergies were last updated in [employer].
Home Medications with original date entered in [employer]
Allergy/Medication List:
Allergies
Allergy/AdvReac Type Severity Reaction Status Date / Time
adhesive Allergy Unknown Verified 11/11/24 11:08
house dust Allergy NASAL Verified 11/11/24 11:08
SYMPTOMS
Sulfa (Sulfonamide Allergy Unknown Verified 11/11/24 11:08
Antibiotics)
Home Medications
ascorbic acid (vitamin C) 500 mg tablet (Vitamin C) 500 mg PO QPM Supplement 07/10/23
cholecalciferol (vitamin D3) 25 mcg (1,000 unit) tablet 25 mcg PO DAILY Supplement 07/10/23
coenzyme Q10 100 mg capsule (CoQ-10) 100 mg PO QPM Supplement 07/10/23
vitamin E 268 mg (400 unit) capsule 268 mg PO DAILY Supplement 07/10/23
sodium chloride 0.65 % nasal spray aerosol (Saline Nasal) 1 spray intranasal QIDPRN PRN dry nose #44 mL 09/14/24
guaifenesin 600 mg tablet, extended release 12 hr 600 mg PO HS 11/11/24
levalbuterol HCl 1.25 mg/3 mL solution for nebulization 1.25 mg inhalation R BID 11/11/24
levalbuterol HCl 1.25 mg/3 mL solution for nebulization 1.25 mg (3 mL) inhalation R Q6HPRN PRN sob or wheezing #0 mL 11/18/24
budesonide 0.5 mg/2 mL suspension for nebulization 0.5 mg (2 mL) inhalation R BID #0 mL 11/19/24
furosemide 20 mg tablet 60 mg (3 x 20 mg) PO BID AT 0800,1600 #0 tabs 11/19/24
Review of Systems
-
History Source: Patient
Constitutional: Reports No Symptoms
EENT: Reports No Symptoms
Respiratory: Reports Trouble Breathing
Cardiac: Reports No Symptoms
Abdomen/GI: Reports No Symptoms
: Reports No Symptoms
Musculoskeletal: Reports No Symptoms
Skin: Reports No Symptoms
Neurological: Reports No Symptoms
Endocrine: Reports No Symptoms
Hematologic/Lymphatic: Reports No Symptoms
Psych: Reports No Symptoms
Physical Exam
Vital Signs
Vital Signs
Pulse Resp BP Pulse Ox
83 20 99/77 99
02/11/25 01:56 02/11/25 01:36 02/11/25 01:56 02/11/25 01:38
Physical Exam
General: Respiratory Distress and Appears Chronically Ill
HEENT: NormoCephalic, Anicteric, Moist mucous membranes, Atraumatic, PERRLA and Oxygen
Respiratory: Rales and Crackles
Cardiac: S1/S2 and Regular Rhythm
Breast: Deferred by me
GI: Soft, Non Tender, Non Distended and Normal Bowel Sounds
Rectal: Deferred by Provider
Genito-urinary: Deferred by me
Musculoskeletal: No Clubbing, No Cyanosis, Edema, Left Lower Extremity (1+) and Edema, Right Lower Extremity (1+)
Skin: Warm and Dry; No Rash
Neuro: AO x 3 and Nonfocal/grossly intact
Hematologic/Lymphatic: No Lymphadenopathy
Psych: Calm
Laboratory Results
-
02/10/25 23:56
02/10/25 23:56
Laboratory Results
pH 7.47 (7.35-7.45) H 02/10/25 23:09
pCO2 63 mmHg (32-35) H 02/10/25 23:09
pO2 66 mmHg (83-108) L 02/10/25 23:09
HCO3 45.9 mmol/L (21-28) H* 02/10/25 23:09
Total Bilirubin Cancelled 02/10/25 23:56
AST Cancelled 02/10/25 23:56
ALT Cancelled 02/10/25 23:56
Alkaline Phosphatase Cancelled 02/10/25 23:56
Troponin I 0.059 ng/ml H* 02/10/25 23:56
Data Reviewed
-
Diagnostic Radiology: Image Personally Visualized and interpreted
Medical Tests (Nuc Med, Echo, EKG etc): Image Personally Visualized and interpreted
Lab Data: Labs Reviewed by me
Old Records: Reviewed
Impression/Plan
-
IMPRESSION:
Is a 74-year-old with chronic interstitial lung disease and chronic hypoxic respiratory failure secondary to interstitial lung disease and congestive heart failure with preserved EF, pulmonary hypertension and right-sided failure presenting to the
emergency department with acute worsening of her baseline shortness of breath. She has no signs of acute infection. Troponin is elevated at 0.05 likely secondary to hypoxia. ECG is nonischemic and shows right axis deviation with RV hypertrophy.
Chest x-ray shows increased interstitial opacities similar to prior but worsened suggestive of edema or superimposed on underlying interstitial fibrosis. There is no pleural effusion. Exam revealed generalized scattered crackles and rails. There
was no wheezing. He has markedly elevated JVD. She has 1-2+ edema in the feet bilaterally.
PLAN:
CHF exacerbation with acute exacerbation of chronic hypoxic respiratory failure.
-Admit to IMU
-Patient currently on mid flow satting 96% but with respiratory rate in the mid to high 20s.
-ABG shows chronic respiratory acidosis with metabolic alkalosis likely in setting of diuresis
- Continue with Hi Phong for reduced wob
- continue with lasix 80 iv q 12 with daily metolazone 2.5
- patient decline steroids at this time, she has declined nebs/steroids in the past, may be required if no improvement with diuresis
- No signs of acute infection, will check procal but unlikely pneumonia
- no wheezing to suggest reactive airways. Will give prn nebs
- pulmonary consultation,
CHF
-Salt restriction
-Daily weights and i/os
-diuresis as above
-echo
- cardiology consultation
Trop elevation - NIMI suspected due to global hypoxia. Chronically elevated but now higher than previous
- trend trops for now
- no indication for asa or heparin gtt
- eval for wall motion anomally on echo
DVT PPX - Lovenox sq
Code status - DNI, CPR ok, explained challenges and they understand.
--- NOTE | 2025-02-11 06:35 | PTCARENOTE ---
rec'd pt from ER as IMU overflow. pt oriented x3, denies pain/CP. SR on monitor. +3 b/l pitting pedal edema. on 10L midflow, transitioned to HFNC 50% 40L. diminished breath sounds with L posterior crackles. labored breathing noted w/ increased RR.
RT at bedside adjusted HFNC settings as needed. CHG bath and purewick replaced. VAT contacted for AM labs due to missed sticks by multiple nurses. call alicea in reach, at bedside, updated on plan of care.
[2025-02-11 06:58] LABS: Venous Blood Gas B.E. 18.2 mmol/L (-4 to +4); Venous Blood Gas HCO3 44.5 mmol/L (22-27); Venous Blood Gas pCO2 57 mmHg (35-48); Venous Blood Gas pO2 207 mmHg (30-50)
[2025-02-11 07:28] LABS: Procalcitonin < 0.05 ng/ml (0.0-0.25)
[2025-02-11 07:31] LABS: Troponin I 0.068 ng/ml
[2025-02-11] MEDS: PULMICORT 0.5 MG INH ×2 (07:39→20:29)
--- NOTE | 2025-02-11 09:55 | CON.PUL ---
Consultation
Consultation Request
Date/Time Consultation Requested: 02/11/2025550
Date/Time Consultation Performed: 02/11/2025949
Requesting Provider: Dr. Chou
Performing Provider: Dr. Ronquillo
Reason for Consultation: SOB/Hypoxia
Medical History
-
Chief Complaint: SOB
History of Present Illness:
84-year-old female with a past medical history of interstitial lung disease, chronic hypoxic + hypercapnic respiratory failure, chronic supplemental oxygen use at 4 L/min ATC, history of elevated NOE titer previously on prednisone which was weaned
off due to osteoporosis with history of thoracic/lumbar compression fractures, traction bronchiectasis, chronic HFpEF, right ventricular dysfunction, pulmonary hypertension, moderate to severe TR, history of uterine polyps and macular degeneration
who presents with worsening SOB. 911 called and patient was saturating 86% on her home dose of 4 L/min O2. Nonrebreather placed with saturations increasing to 100%. In the ER, pulse rate 82, respiratory rate 30�37, BP 126/50 and saturating 88% on
room air - due to her tachypnea she was transitioned to high flow nasal cannula which improved saturations and respiratory rate. Labs showed WBC 4.5, Hb 12.1, blood gas pH 7.47, [id number], serum bicarbonate level 40, troponin 0.059, proBNP 13,800,
procalcitonin <0.05 and COVID-19 antigen negative. CXR showed severe prominence of the interstitial markings with concern for pulmonary edema. She was given 40 mg IV Lasix and admitted to the IMU for further care. Pulmonary service now consulted
for additional management/recommendations.
When I saw the patient, she was resting in bed, occasionally tachypneic during exertion, on high flow nasal cannula at 65% FiO2, 50 L/min. Her , Vineet, present at bedside and all questions were answered. Patient currently says she feels
'okay.' Has a mild cough that is not bothersome. Current heart rate 93, BP 96/73 and saturating 94%. She currently denies BENNETT, chest pain, nausea, fevers or chills.
Patient follows with [facility] office with Dr. Ramirez, last visit 07/10/2024. She previously was started on budesonide BID on 07/10/2024. Also continued on levalbuterol TID. Previously on chronic prednisone in the setting of her ILD with Raynaud's
phenomenon and elevated NOE titer of 1:1280 with a nuclear/dense fine speckled pattern. PFT from 02/2023 showed a severe restrictive and severe gas exchange capacity defect. No evidence of obstructive lung disease. Most recent PFT on 07/10/2024
showed severe restriction with FVC: 40% predicted. Patient unable to perform lung volumes or diffusing capacity due to hypoxia with saturations dropping to 79% on room air.
PMHx: ILD, chronic hypoxic + hypercapnic respiratory failure, chronic supplemental O2 use at 4 L/min ATC, vitamin D deficiency, osteoporosis with history of thoracic/lumbar compression fractures, history of bronchiectasis/traction bronchiectasis,
chronic HFpEF with RV dysfunction and severe pulmonary hypertension with moderate to severe TR, history of uterine polyps s/p D&C, macular degeneration, history of Raynaud's phenomenon, history of pneumonia
PSHx: D&C
Past Medical History
Past Medical History: Other (Above as per HPI)
Past Surgical History: Other (Above as per HPI)
Social History
Tobacco: Non-smoker
Alcohol: None
Drug: None
Personal:
Living: With Family (=Vineet)
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
Environmental Exposures: No known exposure to asbestos or beryllium
Family History
Family History: CAD (Father + mother) and Other (Paternal Grandmother: glaucoma)
Allergies / Home Medications
Allergies
Allergy/AdvReac Type Severity Reaction Status Date / Time
adhesive Allergy Unknown Verified 11/11/24 11:08
house dust Allergy NASAL Verified 11/11/24 11:08
SYMPTOMS
Sulfa (Sulfonamide Allergy Unknown Verified 11/11/24 11:08
Antibiotics)
Home Medications
�Medication �Instructions �Recorded �Confirmed �Last Taken �Type
ascorbic acid (vitamin C) 500 mg 500 mg PO QPM Supplement 07/10/23 02/11/25 07/09/23 History
tablet (Vitamin C)
cholecalciferol (vitamin D3) 25 25 mcg PO DAILY Supplement 07/10/23 02/11/25 07/09/23 History
mcg (1,000 unit) tablet
coenzyme Q10 100 mg capsule 100 mg PO QPM Supplement 07/10/23 02/11/25 07/09/23 History
(CoQ-10)
vitamin E 268 mg (400 unit) capsule 268 mg PO DAILY Supplement 07/10/23 02/11/25 1 Week Ago History
~07/03/23
sodium chloride 0.65 % nasal spray 1 spray intranasal QIDPRN PRN dry 09/14/24 02/11/25 Unknown Rx
aerosol (Saline Nasal) nose #44 mL
guaifenesin 600 mg tablet, 600 mg PO HS Secretions 11/11/24 02/11/25 Unknown History
extended release 12 hr
levalbuterol HCl 1.25 mg/3 mL 1.25 mg inhalation R BID 11/11/24 02/11/25 11/11/24 History
solution for nebulization Lung/Breathing Issues
levalbuterol HCl 1.25 mg/3 mL 1.25 mg (3 mL) inhalation R Q6HPRN 11/18/24 02/11/25 Unknown Rx
solution for nebulization PRN sob or wheezing #0 mL
budesonide 0.5 mg/2 mL suspension 0.5 mg (2 mL) inhalation R BID #0 11/19/24 02/11/25 Unknown Rx
for nebulization mL
furosemide 20 mg tablet 60 mg (3 x 20 mg) PO BID AT 11/19/24 02/11/25 Unknown Rx
0800,1600 #0 tabs
Review of Systems
-
History Source: Patient
All other systems: Negative unless noted
Vitals / Labs / Diagnostic Testing
Vital Signs
Temp Pulse Resp BP Pulse Ox
97.6 F 75 39 96/73 100
02/11/25 08:05 02/11/25 08:00 02/11/25 08:00 02/11/25 08:00 02/11/25 08:18
Lab Data
02/10/25 23:56
02/11/25 09:12
Laboratory Results
02/10/25
23:09
pH 7.47 H
pCO2 63 H
pO2 66 L
HCO3 45.9 H*
O2 Delivery Level %oxygen/room air 86
Diagnostic Testing:
Physical Exam
-
HEENT: Normocephalic and Anicteric
Cardiovascular: S1/S2 and Peripheral Edema (Trace lower extremity edema bilaterally)
Respiratory: Wheeze (negative), Rales (Bilateral), Rhonchi (negative) and Accessory Resp Muscle Use (mild during exertion)
GI: Soft, Non Distended, Non Tender and Normal Bowel Sounds
Neurology: Awake, Alert and Tremors (negative)
Skin: Warm and Dry
General: Respiratory Distress (mild during exertion), Fever (negative), Chills (negative) and Other (Elderly female, appears chronically ill/frail)
Assessment
-
Assessment: 84-year-old female with a past medical history of interstitial lung disease, chronic hypoxic + hypercapnic respiratory failure, chronic supplemental oxygen use at 4 L/min ATC, history of elevated NOE titer previously on prednisone which
was weaned off due to osteoporosis with history of thoracic/lumbar compression fractures, traction bronchiectasis, chronic HFpEF, right ventricular dysfunction, pulmonary hypertension, moderate to severe TR, history of uterine polyps and macular
degeneration who presents with worsening SOB. 911 called and patient was saturating 86% on her home dose of 4 L/min O2. Nonrebreather placed with saturations increasing to 100%. In the ER, pulse rate 82, respiratory rate 30�37, BP 126/50 and
saturating 88% on room air - due to her tachypnea she was transitioned to high flow nasal cannula which improved saturations and respiratory rate. Labs showed WBC 4.5, Hb 12.1, blood gas pH 7.47, [id number], serum bicarbonate level 40, troponin 0.059,
proBNP 13,800, procalcitonin <0.05 and COVID-19 antigen negative. CXR showed severe prominence of the interstitial markings with concern for pulmonary edema. She was given 40 mg IV Lasix and admitted to the IMU for further care. Pulmonary service
now consulted for additional management/recommendations.
Chronic conditions MANAGER GENERATION: ILD, chronic hypoxic + hypercapnic respiratory failure, chronic supplemental O2 use at 4 L/min ATC, vitamin D deficiency, osteoporosis with history of thoracic/lumbar compression fractures, history of bronchiectasis/traction
bronchiectasis, chronic HFpEF with RV dysfunction and severe pulmonary hypertension with moderate to severe TR, history of uterine polyps s/p D&C, macular degeneration, history of Raynaud's phenomenon, history of pneumonia
Impression:
#Acute on chronic hypoxic respiratory failure likely combination of acute pulmonary edema in the setting of ILD with suspected flare
#Chronic hypercapnic respiratory failure now with acute respiratory alkalosis
#Metabolic alkalosis due to compensation from chronic respiratory failure with hypercapnia
#Elevated troponin
#Elevated proBNP concerning for volume overload
#Leukopenia (patient has a history of leukopenia with WBC as low as 3.8 in September 2024 and was 4.4 as recent as 11/17/2024)
#Elevated NOE (1:1280 with nuclear/dense fine speckled pattern in August 2023 w/ elevated ESR + CRP and mildly elevated rheumatoid factor + ANCA titers) - previously Rx prednisone --> now off
#Compression fractures/osteoporosis
#Traction bronchiectasis
#Chronic HFpEF
#Right ventricular dysfunction with severe pulmonary hypertension (PASP 75-80 mmHg on TTE from 11/12/2024) with a severely dilated RA and moderate to severe TR
#History of small�moderate pericardial effusion without evidence of hemodynamic compromise (per TTE from 11/12/2024)
#Severe restrictive lung disease (T% with FVC: 61% via PFTs from 02/16/2023)
#Very severe gas exchange capacity defect with DLco: 16% predicted with DLco/VA: 42% predicted via PFTs from 02/16/2023
Plan:
- Patient is requiring high FiO2 due to volume overload with acute alveolar/interstitial edema in the setting of known ILD with a suspected flare
- Prior CT chest on 11/16/2024 did show subpleural reticular opacities with areas of honeycombing and bronchiectasis concerning for underlying interstitial fibrosis; these changes are chronic, seen on prior CT chest from 10/12/2022
- Continue with IV diuresis with Lasix 80 mg BID and maintain net negative fluid balance as tolerated
- Patient does follow with us in the [facility] office with Dr. Ramirez. Previously was on 20 mg prednisone daily due to increased inflammatory markers from 08/2023 with ESR: 104, RF: 41 (negative CCP) and CRP: 36.8; NOE titer was highly elevated at 1:1280
with a nuclear/speckled pattern; ANCA screen showed 1:80 P-ANCA titer and 1:20 C-ANCA titer, proBNP at the time was 1626; other CTD blood work was negative including Milagros 1, scleroderma panel, Sjogren's antibodies, and double-stranded antibody; HP
panel also was negative
- Patient previously referred to rheumatology and was maintained on prednisone 20 mg daily (started August [address] Lay) --> patient started to be tapered off prednisone in October 2023 because of pathological fractures and patient felt
jittery and was not interested in aggressive workup or starting alternative immunosuppressive medications (i.e. CellCept)
- Patient was recently hospitalized here 11/11 - 11/19/2024, and discharged home on prednisone taper.
- I will resume steroids now with Solu-Medrol with plans to taper to prednisone in next 1-2 days once hypoxia improves.
- Before steroids are started, check inflammatory markers with ESR, CRP, NOE, HP panel, anti-Milagros, CCP, RF, scleroderma panel and Sjogren's antibodies
- Patient has a complex cardiac history including right ventricular dysfunction with significant pulmonary hypertension and a pericardial effusion. Pericardial effusions can happen as a complication of pulmonary hypertension. Unclear if her PA
pressures have worsened which I would not be surprised of considering her significant acute on chronic hypoxia.
- I will recheck an echo now to reassess PA pressures, size of pericardial effusion, RV size/function and reassess LVEF
- Patient has an elevated troponin which is likely due to demand ischemia. Continue trending until troponin peaks
- Cardiology consulted and recommendations appreciated
- If PASP significantly worsened and patient does not improve with steroids or diuresis, ideally would obtain right heart catheterization and consider starting pulmonary vasodilators
- Maintain SpO2 >90-94% with high flow nasal cannula, first weaning down FiO2 as tolerated and then wean down flow rate
- Continue aspiration precautions
- Would not encourage patient to get up out of bed as she is currently tachypneic in bed and has risk of syncope vs arrhythmia if she overexerts herself
- prn nebulized bronchodilators - not currently bronchospastic
- She was previously prescribed budesonide + levalbuterol by Dr. Ramirez, and she should continue with this for now - we do not have xopenex here; will order prn DuoNebs for now
- She does have a history of bronchiectasis but currently has a mild cough which is not bothersome. Prior sputum culture normal with negative AFB
- Patient's blood gas shows acute respiratory alkalosis in the setting of chronic metabolic alkalosis from chronic respiratory acidosis. Continue to trend serial blood gas to assure pH + pCO2 remained stable and I will give a dose of Diamox now to
help reduce alkalemia
- No need for antibiotics as she is afebrile and procalcitonin is negative
- Continue to trend WBC and monitor temperature curve; if patient spikes a fever then would consider lemus culturing and starting empiric antibiotics at that time
- Maintain MAP>65
- Replete electrolytes with K>4, Mg>2
- Maintain euglycemia with goal BG 140-180
- Trend H/H and transfuse if needed to keep Hb>7g/dL; keep plt>20k, unless there is concern for bleeding then keep plt>50k
- DVT ppx: LMWH
Code status: DNI; ok for CPR - recommend full DNR/DNI given her age, frailty, and co-morbidities. This will be an ongoing discussion.
Following discharge, patient should continue following with us in the [facility] office with Dr. Ramirez as last visit was on 07/10/2024.
Critical care statement: A total of 37 minutes of critical care time was provided for this patient today. This includes management of unstable vital signs, evaluation of the patient at bedside, reviewing the patient's pertinent medical records
including radiographs, microbiology, laboratory evaluations, and discussion with primary team, consultants, pharmacy, nutrition, physical therapy, case management, charge nurse, critical care nursing, and respiratory therapy.
Data:
CXR 02/10/2025:
Severe findings suggesting pulmonary edema. New. Clinical and laboratory correlation recommended.
Mild underlying interstitial lung disease. Stable
Severe cardiomegaly. Progressed. Pericardial effusion not excluded.
CT chest without contrast 11/16/2024:
Chronic interstitial lung disease. Overall, interval improvement compared to prior CT examination on 09/10/2024. No definite superimposed acute consolidation/pneumonia. No pneumothorax. Stable chronic pleural thickening versus trace pleural effusions.
No significant change in moderate pericardial effusion. Stable cardiomegaly.
[2025-02-11 10:11] LABS: Blood Urea Nitrogen 33 mg/dl (7-17); Calcium 8.9 mg/dl (8.4-10.2); Chloride 97 mmol/L (98-107); Estimated Creatinine Clearance 29 ml/min; Glucose 99 mg/dl (70-99); Magnesium 2.2 mg/dl (1.6-2.3); Potassium 4.4 mmol/L (3.5-5.1); Sodium 140 mmol/L (135-145); eGFR > 60.00
[2025-02-11] MEDS: LASIX 80 MG IV ×2 (10:13→17:12)
[2025-02-11] MEDS: ZAROXOLYN 2.5 MG PO (10:14)
[2025-02-11 10:42] LABS: Carbon Dioxide 39 mmol/L (22-30)
--- NOTE | 2025-02-11 10:53 | W.PN.HOSP.TC ---
Today's Communication/Plan
-
Echocardiogram
IV diuresis
High flow oxygen
DNI
Assessment / Plan
Assessment / Plan
Impression:
Acute on chronic hypoxic respiratory failure
Acute CHF preserved EF
Acute pulmonary edema secondary to CHF
Non-CA troponin elevation.
Conditions prior to admission.
Interstitial lung disease baseline chronic hypoxic respiratory failure on home O2 at 4 L
Bronchiectasis
Pulmonary hypertension, severe
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
Plan:
Acute on chronic hypoxic respiratory failure secondary to CHF exacerbation
Currently on high flow oxygen at 50%. With increased work of breathing
Acute pulmonary edema secondary to above
Echo 11/26 LVEF 50-55%, severe pulmonary hypertension with PAP 75-80 mmHg
Chest x-ray with worsening bilateral pulmonary edema
Weight is up 39 kg upon presentation (dry weight likely close to 34 kg)
No clinical evidence for infection. Monitor closely off antibiotics
Not bronchospastic on exam
Repeat/update echocardiogram.
Continue IV diuresis with Lasix 80 mg twice daily. Continue Zaroxolyn.
Continue nebs.
Continue Pulmicort
Follow daily weights and renal function
Pulmonary/cardiology evaluation
Current status DNI
Continue goals of care discussion
Anticipated Discharge: > 48 hours
Subjective/Interval History
-
Date of Service: February 11, 2025
Objective Data
-
Labs:
Laboratory Results
02/10/25 02/10/25 02/11/25
23:09 23:56 06:45
WBC 4.5 L
Hgb 12.1
Hct 38.1
Plt Count 237
HCO3 45.9 H*
Sodium 138 Cancelled
Potassium Cancelled
Chloride 94 L Cancelled
Carbon Dioxide 40 H Cancelled
BUN 34 H Cancelled
Creatinine 0.7 Cancelled
Glucose 147 H Cancelled
Calcium 8.8 Cancelled
Total Bilirubin Cancelled
AST Cancelled
ALT Cancelled
Alkaline Phosphatase Cancelled
02/11/25
09:12
WBC
Hgb
Hct
Plt Count
HCO3
Sodium 140
Potassium 4.4
Chloride 97 L
Carbon Dioxide 39 H
BUN 33 H
Creatinine 0.8
Glucose 99
Calcium 8.9
Total Bilirubin
AST
ALT
Alkaline Phosphatase
Vital Signs:
Vital Signs
Temp Pulse Resp BP Pulse Ox
97.6 F 75 39 96/73 100
02/11/25 08:05 02/11/25 08:00 02/11/25 08:00 02/11/25 08:00 02/11/25 08:18
I&O
02/10/25 02/11/25 02/12/25
06:59 06:59 06:59
Intake Total 240 / 240
Output Total 150 / 150 0 / 0
Balance -150 / -150 240 / 240
Physical Exam
-
General: Respiratory Distress, Appears Chronically Ill and Cachectic
Respiratory: Rales and Rhonchi; Negative Wheezes
Cardiac: Regular Rhythm
GI: Soft
Neuro: Awake, Alert and Oriented
--- NOTE | 2025-02-11 11:04 | CON.CAR ---
Addendum entered and electronically signed by Ricardo Stahl MD 02/11/25 12:40:
84-year-old woman with shortness of breath. Admitted in November with longstanding hypoxemic respiratory failure relating to interstitial lung disease and bronchiectasis, on 4 L nasal cannula. [place] at that time to have acute on chronic HFpEF with
proBNP of 12,400.
PMH: Interstitial lung disease, on 4 L nasal cannula, macular degeneration, HFpEF, COPD
PSH: D&C
SH: Non-smoker no alcohol , lives with family
Current medications: Budesonide, Mucinex, enoxaparin 40-day, furosemide 80 mg IV twice daily, metolazone 2.5 mg daily
Outpatient diuretic regimen: Furosemide 60 mg p.o. twice daily, no metolazone
Rest of history per Amelie Wilson as below
96/73, pulse 75, afebrile, Weight is 37.1 kg, if accurate down 2.3 kg since admission weight at discharge was 34.5 kg in November, very frail and cachectic, temporal wasting, diffuse crackles, rales, no obvious murmurs, abdomen benign, no edema
Hemoglobin 12.1, platelets 237, pH 7.47, bicarb 46, pCO2 63, pO2 66
Troponin 0.068, BUN and creatinine are 34 and 0.7 CO2 is 40, proBNP is 13,800, had been 12,400 in November
ECG: Sinus rhythm, possible anterior ischemia, right bundle branch block, possible biatrial enlargement, right axis deviation
Chest x-ray massive cardiomegaly, bilateral infiltrates
Echo 11/12/2024 flattened septum, EF 50-55%, RV hypokinesis, no comment on RV size, normal LA, severely dilated RA, aortic sclerosis, pulmonary artery systolic pressure 75-80 mmHg, of small to moderate pericardial effusion
Impression:
See below as documented by Amelie Wilson. Reviewed in detail and agree, unless otherwise specified in Plan.
Plan:
She presents with recurrent acute on chronic HFpEF with severe pulmonary hypertension in the setting of interstitial lung disease. Is difficult to parse out how much of her distress is related to interstitial lung disease versus heart failure.
Presumably there is substantial portion of the latter, weight is up 3 or 4 kg since most recent discharge.
Defer to critical care whether steroids are indicated for interstitial lung disease.
She is cachectic. Prognosis is poor.
Agree with IV Lasix. Discussed the use of Diamox with Dr. Rush.
Goals of care should be reconsidered.
We will continue to follow for now.
Original Note:
Consultation
Consultation Request
Date/Time Consultation Requested: 02/11/2025 at 0551
Date/Time Consultation Performed: 02/11/25 at 1113
Requesting Provider: Dr. Mariscal
Performing Provider: Dr. KOFI Stahl
Reason for Consultation: Acute HF
Medical History
-
History of Present Illness:
Patient was brought to [facility] ER from home with increased SOB and was admitted with acute hypoxic respiratory failure and HFpEF with cardiology now being consulted. Patient was last admitted to [facility] from 11/11/2024 until 11/19/2024 with acute HFpEF
and weight on the day of discharge was 76 pounds. Patient was scheduled to follow-up in our office 2 weeks after admission, but canceled her appointment and has not been seen since. Patient reports compliance with Lasix 60 mg twice daily. Patient
says her LE edema is persistent and not necessarily worse. Patient denies any weight gain. Patient denies any dietary indiscretion. Patient denies any chest pain. Patient denies any recent orthopnea or PND. It sounds as though patient finished
dinner last night and then after finishing her breathing treatment and laying down to go to sleep she felt like she could not breathe and her called 911. When paramedics arrived she was wearing her typical oxygen at 4 L nasal cannula and
pulse ox was only 86%. Patient was started on NRB and is now on high flow.
PMH:
Chronic HFpEF
Chronic hypoxic respiratory insufficiency on chronic oxygen 4 L/min nasal cannula at home
h/o hemoptysis likely from epistaxis 11/16/24
Interstitial lung disease with severe pulmonary hypertension
COPD
bronchiectasis
Small pericardial effusion on echo September 2024
Tricuspid regurgitation
Osteoporosis
h/o elevated NOE with high titer 05/11/23
h/o elevated gamma chains on protein electrophoresis also with faint Lambda chains 03/06/23
h/o thoracic compression fracture
Past Medical History
Past Medical History: Other (See HPI)
Past Surgical History: Gynecological (D&C)
Social History
Tobacco: Non-Smoker
Alcohol: None
Drug: None
Personal:
Employment: Not Employed
Family History
Family History: CAD (Mother, father, sister)
Allergies / Home Medications
Allergy/AdvReac Type Severity Reaction Status Date / Time
adhesive Allergy Unknown Verified 11/11/24 11:08
house dust Allergy NASAL Verified 11/11/24 11:08
SYMPTOMS
Sulfa (Sulfonamide Allergy Unknown Verified 11/11/24 11:08
Antibiotics)
�Medication �Instructions �Recorded �Confirmed �Type
ascorbic acid (vitamin C) 500 mg 500 mg PO QPM Supplement 07/10/23 02/11/25 History
tablet (Vitamin C)
cholecalciferol (vitamin D3) 25 25 mcg PO DAILY Supplement 07/10/23 02/11/25 History
mcg (1,000 unit) tablet
coenzyme Q10 100 mg capsule 100 mg PO QPM Supplement 07/10/23 02/11/25 History
(CoQ-10)
vitamin E 268 mg (400 unit) capsule 268 mg PO DAILY Supplement 07/10/23 02/11/25 History
sodium chloride 0.65 % nasal spray 1 spray intranasal QIDPRN PRN dry 09/14/24 02/11/25 Rx
aerosol (Saline Nasal) nose #44 mL
guaifenesin 600 mg tablet, 600 mg PO HS Secretions 11/11/24 02/11/25 History
extended release 12 hr
levalbuterol HCl 1.25 mg/3 mL 1.25 mg inhalation R BID 11/11/24 02/11/25 History
solution for nebulization Lung/Breathing Issues
levalbuterol HCl 1.25 mg/3 mL 1.25 mg (3 mL) inhalation R Q6HPRN 11/18/24 02/11/25 Rx
solution for nebulization PRN sob or wheezing #0 mL
budesonide 0.5 mg/2 mL suspension 0.5 mg (2 mL) inhalation R BID #0 11/19/24 02/11/25 Rx
for nebulization mL
furosemide 20 mg tablet 60 mg (3 x 20 mg) PO BID AT 11/19/24 02/11/25 Rx
0800,1600 #0 tabs
Review of Systems
-
History Source: Patient
All other systems: Negative unless noted
Physical Exam
Vital Signs
Temp Pulse Resp BP Pulse Ox
97.6 F 75 39 96/73 100
02/11/25 08:05 02/11/25 08:00 02/11/25 08:00 02/11/25 08:00 02/11/25 08:18
GEN: NAD. AAOx3
HEENT: EOMI, MMM
LUNGS: High flow 50 L at 60%. Coarse BS anterolaterally
CV: SR on tele. Reg, S1/S2, 1/6 syst LSB
ABD: soft, BS+, NT, ND
EXT: +1 pitting B/L LE edema.
NEURO: Gross non-focal
SKIN: No rash
Lab Results
02/10/25 23:56
02/11/25 09:12
Troponin I 0.068 ng/ml H* 02/11/25 06:45
Bat-Q-Khitfrtnwnd Pept 05517 pg/ml 02/10/25 23:56
Impression / Plan
-
Family Physician: Birdie Araiza PA-C
Tray Filler: Dr. Herzog
Impression:
Admitted with hypoxic respiratory failure and CHF 02/10/25
Recent admission for acute HF 11/11/24 until 11/19/24
Acute on chronic HFpEF
Acute on chronic hypoxic respiratory insufficiency on chronic oxygen 4 L/min nasal cannula at home
Elevated troponin
h/o hemoptysis likely from epistaxis 11/16/24
Interstitial lung disease with severe pulmonary hypertension
COPD
bronchiectasis
Small pericardial effusion on echo September 2024
Tricuspid regurgitation
Osteoporosis
h/o elevated NOE with high titer 05/11/23
h/o elevated gamma chains on protein electrophoresis also with faint Lambda chains 03/06/23
h/o thoracic compression fracture
Echo 01/09/2024: EF 62%, mild to moderate TR, pulmonary hypertension with estimated PAP 58 mmHg.
Echo 09/09/2024: EF 50 to 55%, stage I diastolic dysfunction, flattened septum consistent with RV pressure overload, mild to moderate TR, PAP 88 mmHg, severely dilated and hypokinetic RV, small pericardial effusion without evidence of hemodynamic
compromise
Echo 11/12/24: EF 50 to 55%, flattened septum in systole and diastole consistent with RV pressure and volume overload, severely dilated RA, moderate to severe TR, PAP 75 to 80 mmHg, trace MO, small to moderate pericardial effusion with no evidence
for hemodynamic compromise, IVC dilated and does not collapse
Echo 02/11/25: Report pending
Right heart catheterization 09/13/2024: Hemodynamics (mmHg): RA (m) : 10; RV (s/d,m) : 76/9, 15; PA (s/d, m) : 70/30, 45; PCWP (m) : 12
Cardiac Output : 2.1 L/min and Cardiac Index : 1.6 L/min/m-2
Systemic vascular resistance: 35.2 Wood units or 2816 [id number](-5)
Pulmonary vascular resistance: 15.7 Wood units or 1257 [id number](-5)
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
Plan:
-Patient was brought to [facility] ER from home with increased SOB and was admitted with acute hypoxic respiratory failure and HFpEF with cardiology now being consulted. Patient was last admitted to [facility] from 11/11/2024 until 11/19/2024 with acute HFpEF
and weight on the day of discharge was 76 pounds. Patient was scheduled to follow-up in our office 2 weeks after admission, but canceled her appointment and has not been seen since. Patient reports compliance with Lasix 60 mg twice daily. Patient
says her LE edema is persistent and not necessarily worse. Patient denies any weight gain. Patient denies any dietary indiscretion. Patient denies any chest pain. Patient denies any recent orthopnea or PND. It sounds as though patient finished
dinner last night and then after finishing her breathing treatment and laying down to go to sleep she felt like she could not breathe and her called 911. When paramedics arrived she was wearing her typical oxygen at 4 L nasal cannula and
pulse ox was only 86%. Patient was started on NRB and is now on high flow.
-ECG reviewed by me is NSR without acute ischemic change.
-Patient is diuresing, but weight from admission was performed using stretcher scale in the ER and was 86 lbs and patient now weighs 81 lbs on 02/11/2025.
-Agree with Lasix 80 mg IV BID, but not sure that patient needs metolazone 2.5 mg daily. Patient was not using metolazone prior to admission. Patient was taking Lasix 60 mg PO BID prior to admission.
-Repeat echo is pending, but historically EF has been preserved
-Patient is not chronically on BB for unclear reasons, but possibly due to history of ILD. Could try adding Coreg 3.125 mg BID and following BP and respiratory status. I did not hear wheezing.
-Patient is not chronically on JAMES/ARB/ARNI/aldosterone antagonist for unclear reasons, but possibly due to hypotension. Patient is 4'7' and 81 lbs so her baseline blood pressure is likely lower. Pending response to diuresis we could try adding
losartan 25 mg daily.
-Initial troponin 0.059 and then up to 0.068 on the morning of 02/11/2025. Patient has had similar troponin elevation in the past that has been managed as a nonischemic myocardial injury troponin elevation due to acute HF
[2025-02-11] MEDS: COREG 3.125 MG PO (13:55)
[2025-02-11] MEDS: DIAMOX 250 MG PO (13:55)
--- NOTE | 2025-02-11 14:37 | PTCARENOTE ---
HFNC 50L 65%. Tachypneic. Lungs diminished with crackles bilaterally. Incontinent of urine. Purewick did not work d/t pt frequently repositioning self in bed.
--- NOTE | 2025-02-11 16:06 | CM ---
Initial assessment completed with patient and whose granddaughter lives with them in a 2 story home plus basement with B/B on 1st, 2 steps to enter. Shower is on 2nd floor. RD MANAGER patient required assistance with ADL's and ambulation. She
uses a RW and holds her hand and guides when not using the walker. Also has a W/CH and O2 concentrator, 4 O2 tanks and a small battery operated portable O2 device. At baseline she uses 4L O2 continuously at home.Able to feed self. No HC
POA. No service. RD MANAGER had HH services for RN, PT/OT. PA is Birdie SPARKS. [facility]acy is [facility] in [place]. Discharge POC: SNF vs resumption of HH. prefers HH. Patient was at [facility] in the past.
[2025-02-11 16:49] LABS: Troponin I 0.075 ng/ml
[2025-02-11 17:01] LABS: Creatine Phosphokinase 72 U/L (30-135)
[2025-02-11 17:05] LABS: Erythrocyte Sed Rate 3 mm/hour (0-20)
[2025-02-11] MEDS: SOLU-MEDROL PF 40 MG IV (17:12)
[2025-02-11] MEDS: LOVENOX 40 MG SC (17:12)
[2025-02-11] MEDS: VITAMIN C 500 MG PO (17:12)
[2025-02-11] MEDS: MORPHINE SULFATE 2 MG IV (17:33)
[2025-02-11] MEDS: MUCINEX 600 MG PO (21:37)
[2025-02-11] MEDS: COREG PO (21:37)
[2025-02-12] VITALS (11 sets, daily range): BP systolic 80–105; BP diastolic 66–90; BMI 19.1
[2025-02-12 04:27] LABS: % Immature Granulocytes 0.3 % (0-0.5); % Lymphocytes 10.6 % (20.5-51.1); % Monocytes 6.3 % (1.7-9.3); % Neutrophils 82.8 % (42.2-75.2); Absolute Lymphocytes 0.4 10^3/uL (1.2-3.4); Absolute Monocytes 0.2 10^3/uL (0.1-0.6); Absolute Neutrophils 2.9 10^3/uL (1.4-6.5); Hematocrit 38.9 % (37.0-47.0); Hemoglobin 11.8 g/dL (12.0-16.0); Mean Corp Hgb Conc. 30.3 g/dL (33.0-37.0); Mean Corpuscular Hgb 28.3 pg (27.0-31.0); Mean Corpuscular Volume 93.3 fL (81.0-99.0); Mean Platelet Volume 10.1 fL (7.4-10.4); Nucleated Red Blood Cells % 0 %; Platelet Count 226 10^3/uL (130-400); Red Blood Cell Count 4.17 10^6/uL (4.20-5.40); Red Cell Dist. Width 19.9 % (11.5-14.5); White Blood Cell Count 3.5 10^3/uL (4.8-10.8)
--- NOTE | 2025-02-12 04:27 | PTCARENOTE ---
pt reassessed. remains on HFNC, currently 50% 50L, O2 sat 100%. pt cleaned up for multiple incontinent episodes overnight. SR on monitor. denies pain. AM labs sent. call alicea in reach.
[2025-02-12 04:52] LABS: Blood Urea Nitrogen 40 mg/dl (7-17); Calcium 9.3 mg/dl (8.4-10.2); Chloride 94 mmol/L (98-107); Estimated Creatinine Clearance 17 ml/min; Glucose 127 mg/dl (70-99); Magnesium 2.4 mg/dl (1.6-2.3); Phosphorus 5.5 mg/dl (2.5-4.5); Potassium 5.6 mmol/L (3.5-5.1); Sodium 141 mmol/L (135-145); eGFR 37.56
[2025-02-12 04:59] LABS: NT-proBNP 25800 pg/ml
[2025-02-12 05:08] LABS: Carbon Dioxide 39 mmol/L (22-30)
[2025-02-12 05:27] LABS: B.E. 14.3 mmol/L; O2 Saturation % 97.2 % (94-98); PO2 81 mmHg (83-108); pH 7.38 (7.35-7.45)
[2025-02-12 05:28] LABS: O2 Therapy 50%
[2025-02-12 05:29] LABS: HCO3 42.6 mmol/L (21-28); PCO2 72 mmHg (32-35)
[2025-02-12] MEDS: PULMICORT 0.5 MG INH (08:01)
--- NOTE | 2025-02-12 08:27 | W.PN.PUL3 ---
Today's Communication / Plan
-
Continue with supplemental oxygen
Patient/family interested in transitioning to comfort care
Hospice consulted
Start comfort care orders treating for shortness of breath/dyspnea and anxiety/agitation
No additional recommendations at this time. Pulmonary service will now sign off. Please call back with any questions or concerns.
Assessment
-
Assessment: 84-year-old female with a past medical history of interstitial lung disease, chronic hypoxic + hypercapnic respiratory failure, chronic supplemental oxygen use at 4 L/min ATC, history of elevated NOE titer previously on prednisone which
was weaned off due to osteoporosis with history of thoracic/lumbar compression fractures, traction bronchiectasis, chronic HFpEF, right ventricular dysfunction, pulmonary hypertension, moderate to severe TR, history of uterine polyps and macular
degeneration who presents with worsening SOB. 911 called and patient was saturating 86% on her home dose of 4 L/min O2. Nonrebreather placed with saturations increasing to 100%. In the ER, pulse rate 82, respiratory rate 30�37, BP 126/50 and
saturating 88% on room air - due to her tachypnea she was transitioned to high flow nasal cannula which improved saturations and respiratory rate. Labs showed WBC 4.5, Hb 12.1, blood gas pH 7.47, WHT105, serum bicarbonate level 40, troponin 0.059,
proBNP 13,800, procalcitonin <0.05 and COVID-19 antigen negative. CXR showed severe prominence of the interstitial markings with concern for pulmonary edema. She was given 40 mg IV Lasix and admitted to the IMU for further care. Pulmonary service
now consulted for additional management/recommendations.
Chronic conditions [employer]: ILD, chronic hypoxic + hypercapnic respiratory failure, chronic supplemental O2 use at 4 L/min ATC, vitamin D deficiency, osteoporosis with history of thoracic/lumbar compression fractures, history of bronchiectasis/traction
bronchiectasis, chronic HFpEF with RV dysfunction and severe pulmonary hypertension with moderate to severe TR, history of uterine polyps s/p D&C, macular degeneration, history of Raynaud's phenomenon, history of pneumonia
Impression:
#Acute on chronic hypoxic respiratory failure likely combination of acute pulmonary edema; inflammatory markers are WNL, hence doubt ILD flare is at play here
#Chronic hypercapnic respiratory failure now with acute respiratory alkalosis
#Metabolic alkalosis due to compensation from chronic respiratory failure with hypercapnia
#Elevated troponin
#Elevated proBNP concerning for volume overload
#Leukopenia (patient has a history of leukopenia with WBC as low as 3.8 in September 2024 and was 4.4 as recent as 11/17/2024)
#Elevated NOE (1:1280 with nuclear/dense fine speckled pattern in August 2023 w/ elevated ESR + CRP and mildly elevated rheumatoid factor + ANCA titers) - previously Rx prednisone --> now off
#Compression fractures/osteoporosis
#Traction bronchiectasis
#Chronic HFpEF
#Right ventricular dysfunction with severe pulmonary hypertension (PASP 75-80 mmHg on TTE from 11/12/2024) with a severely dilated RA and moderate to severe TR
#History of small�moderate pericardial effusion without evidence of hemodynamic compromise (per TTE from 11/12/2024)
#Severe restrictive lung disease (T% with FVC: 61% via PFTs from 02/16/2023)
#Very severe gas exchange capacity defect with DLco: 16% predicted with DLco/VA: 42% predicted via PFTs from 02/16/2023
Plan:
-Discussion held this morning and the family/patient are strongly considering transitioning to comfort care
- Patient does not want to be stuck for labs or undergo any aggressive treatments
- She is also developing an SONALI with borderline hyperkalemia this morning and remains hypotensive
- Diuretics currently on hold
- Hospice consulted by primary hospitalist
- In the meantime, wean down supplemental O2, changed from high flow nasal cannula to midflow nasal cannula
- Maintain saturations >90%
- Start medications tailored for comfort with Dilaudid + Ativan; given her SONALI, would avoid morphine
- Oropharyngeal suctioning if needed
- Emotional support provided to the family
- All questions were answered
Given that the patient is likely being transitioned to comfort care with hospice consulted, no additional recommendations at this time. Pulmonary service will now sign off. Thank you for allowing us to be involved in the care of this patient.
Please call back with any questions or concerns.
Prior:
- Patient does follow with us in the [facility] office with Dr. Ramirez. Previously was on 20 mg prednisone daily due to increased inflammatory markers from 08/2023 with ESR: 104, RF: 41 (negative CCP) and CRP: 36.8; NOE titer was highly elevated at 1:1280
with a nuclear/speckled pattern; ANCA screen showed 1:80 P-ANCA titer and 1:20 C-ANCA titer, proBNP at the time was 1626; other CTD blood work was negative including Milagros 1, scleroderma panel, Sjogren's antibodies, and double-stranded antibody; HP
panel also was negative
- Patient previously referred to rheumatology and was maintained on prednisone 20 mg daily (started August [address] Lay) --> patient started to be tapered off prednisone in October 2023 because of pathological fractures and patient felt
jittery and was not interested in aggressive workup or starting alternative immunosuppressive medications (i.e. CellCept)
- Patient was recently hospitalized here 11/11 - 11/19/2024, and discharged home on prednisone taper.
- CTD panel checked yesterday including: ESR, CRP, NOE, HP panel, anti-Milagros, CCP, RF, scleroderma panel and Sjogren's antibodies
- Patient has a complex cardiac history including right ventricular dysfunction with significant pulmonary hypertension and a pericardial effusion. Pericardial effusions can happen as a complication of pulmonary hypertension. Unclear if her PA
pressures have worsened which I would not be surprised of considering her significant acute on chronic hypoxia.
- Echo checked yesterday showing volume and pressure overload with a D-shaped LV, moderate�severe TR with estimated PASP 70 mmHg. Compared to prior echo on 11/12/2024, her pericardial effusion has now increased from small�moderate to moderate size
with no evidence of tamponade physiology
- Due to her right ventricular dysfunction with severe pulmonary hypertension, she is preload dependent and this is also contributing to her critically ill state
- Patient has an elevated troponin which is likely due to demand ischemia. Continue trending until troponin peaks
- Cardiology consulted and recommendations appreciated
- Given that the patient's procalcitonin as well as inflammatory markers are WNL, her current acute hypoxic respiratory failure is predominantly being driven by acute decompensated heart failure in the setting of ILD and pulmonary hypertension with
right ventricular dysfunction
- Would not encourage patient to get up out of bed as she is currently tachypneic in bed and has risk of syncope vs arrhythmia if she overexerts herself
- prn nebulized bronchodilators - not currently bronchospastic
- She was previously prescribed budesonide + levalbuterol by Dr. Ramirez, and she should continue with this for now - we do not have xopenex here; continue prn DuoNebs
- She does have a history of bronchiectasis but currently has a mild cough which is not bothersome. Prior sputum culture normal with negative AFB
- Patient given Diamox yesterday and her pH has improved from 7.5 down to 7.3. If patient wants to continue full care, she would need to use BiPAP at night. According to the patient and the family, she would be unlikely to tolerate this. She also
is in the process of being transitioned to comfort care, hence no need to start BiPAP at this time or tonight.
- No need for antibiotics as she is afebrile and procalcitonin is negative
- Continue to trend WBC and monitor temperature curve; if patient spikes a fever then would consider lemus culturing and starting empiric antibiotics at that time
Code status: Changed from DNI to DNR/DNI today
As stated above, patient is being seen by hospice with transition to comfort care pending. Pulmonary service will now sign off. Please call back with any questions or concerns
Data:
CXR 02/10/2025:
Severe findings suggesting pulmonary edema. New. Clinical and laboratory correlation recommended.
Mild underlying interstitial lung disease. Stable
Severe cardiomegaly. Progressed. Pericardial effusion not excluded.
CT chest without contrast 11/16/2024:
Chronic interstitial lung disease. Overall, interval improvement compared to prior CT examination on 09/10/2024. No definite superimposed acute consolidation/pneumonia. No pneumothorax. Stable chronic pleural thickening versus trace pleural effusions.
No significant change in moderate pericardial effusion. Stable cardiomegaly.
Total time spent today was 58 minutes for this encounter. Time includes reviewing laboratory test/imaging results, reviewing pertinent medical records, obtaining and reviewing medical history, performing an appropriate exam, ordering medications,
tests and procedures. Time also includes documentation of this encounter, coordinating patient care and communicating with other healthcare professionals. Total time does not include separately billed tests performed on this date of service.
Subjective Data
-
Date of Service:
Date of Service: February 12, 2025
Chief Complaint: Pulmonary Follow Up
Subjective:
Patient seen and evaluated this morning. Remains on high flow nasal cannula. Patient wants to be left alone. Discussions with the family in regards to transitioning the patient to comfort care.
Review of Systems
General: Other (Negative unless mentioned above)
Objective Data
Data Reviewed
Vital Signs / I&O / Oxygen:
Vital Signs
Temp Pulse Resp BP Pulse Ox
97.5 F 69 22 80/66 94
02/12/25 07:42 02/12/25 08:46 02/12/25 08:06 02/12/25 08:46 02/12/25 08:06
Intake and Output
02/11/25 02/12/25 02/13/25
06:59 06:59 06:59
Intake Total 360 / 360
Output Total 150 / 150 0 / 0
Balance -150 / -150 360 / 360
SaO2 94
Nasal Cannula flow liters per 40
minute
Physical Exam
General: Respiratory Distress (mild), Chills (n) and Sweats (n)
HEENT: Normocephalic and Anicteric
Cardiovascular: S1-S2 and Peripheral Edema (n)
Respiratory: Wheeze (n), Crackles (Bilateral), Rhonchi (Bilateral) and Accessory Resp Muscle Use (mild with exertion)
GI: Soft, Non Distended, Non Tender and Normal Bowel Sounds
Neurology: Tremors (n) and Other (Drowsy but easily arousable and answering questions appropriately)
Skin: Warm, Dry, Cyanosis (n) and Jaundice (n)
Labs/Micro/Reports
Lab Data
02/12/25 04:11
02/12/25 04:11
Laboratory Results
02/12/25
05:19
pH 7.38
pCO2 72 H*
pO2 81 L
HCO3 42.6 H*
O2 Delivery Level 50%
[2025-02-12] MEDS: COREG PO (08:45)
[2025-02-12] MEDS: SOLU-MEDROL PF 40 MG IV (08:46)
[2025-02-12] MEDS: LASIX IV (08:46)
--- NOTE | 2025-02-12 08:48 | W.PN.CARDCBS ---
Today's Communication / Plan
-
She has at least moderate pericardial effusion measuring up to 2.7 cm in some views. No clear evidence of tamponade but worsening hypotension is concerning and with significant RV failure and hypokinesis and dysfunction of RV she has even less
reserved. Discussed potential for pericardiocentesis but she currently declines.
Hold IV Lasix this AM given worsening hypotension.
Patient was taking Lasix 60 mg PO BID prior to admission.
She is not on beta duke or ACEI with hypotension currently.
Cont medical therapy of nonMI troponin
Remains in sinus rhythm.
Cont pulm toilet, Hiflo O2 as per jacket changer.
Goals of care discussions ongoing. She is very cachectic and frail.
Her prognosis is extremely poor with RV failure and now pericardial effusion and significant interstitial lung disease.
Impression / Plan
-
.
Family Physician: Birdie Araiza PA-C
Knobber: Dr. Herzog
Impression:
Admitted with hypoxic respiratory failure and CHF 02/10/25
Recent admission for acute HF 11/11/24 until 11/19/24
Acute on chronic HFpEF
Acute on chronic hypoxic respiratory insufficiency on chronic oxygen 4 L/min nasal cannula at home
Elevated troponin
h/o hemoptysis likely from epistaxis 11/16/24
Interstitial lung disease with severe pulmonary hypertension
COPD
bronchiectasis
Small pericardial effusion on echo September 2024
Tricuspid regurgitation
Osteoporosis
h/o elevated NOE with high titer 05/11/23
h/o elevated gamma chains on protein electrophoresis also with faint Lambda chains 03/06/23
h/o thoracic compression fracture
Echo 01/09/2024: EF 62%, mild to moderate TR, pulmonary hypertension with estimated PAP 58 mmHg.
Echo 09/09/2024: EF 50 to 55%, stage I diastolic dysfunction, flattened septum consistent with RV pressure overload, mild to moderate TR, PAP 88 mmHg, severely dilated and hypokinetic RV, small pericardial effusion without evidence of hemodynamic
compromise
Echo 11/12/24: EF 50 to 55%, flattened septum in systole and diastole consistent with RV pressure and volume overload, severely dilated RA, moderate to severe TR, PAP 75 to 80 mmHg, trace NE, small to moderate pericardial effusion with no evidence
for hemodynamic compromise, IVC dilated and does not collapse
Echo 02/11/25:below
Right heart catheterization 09/13/2024: Hemodynamics (mmHg): RA (m) : 10; RV (s/d,m) : 76/9, 15; PA (s/d, m) : 70/30, 45; PCWP (m) : 12
Cardiac Output : 2.1 L/min and Cardiac Index : 1.6 L/min/m-2
Systemic vascular resistance: 35.2 Wood units or 2816 [id number](-5)
Pulmonary vascular resistance: 15.7 Wood units or 1257 [id number](-5)
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
Echo February 11 2025: Difficult to assess LV function due to RV volume overload and pericardial effusion. Likely normal systolic function. 'D-shaped' left ventricle in diastole and systole) consistent with RV volume and pressure overload. Tricuspid
valve opens normally. Moderate to severe tricuspid regurgitation. Estimated pulmonary artery pressure of 70 mmHg, assuming a right atrial pressure of 8 mmHg. Severely dilated RA. Severely enlarged right ventricular size. Reduced right ventricular
systolic function. Moderate pericardial effusion, measuring 2.7 cm on some views. There is no obvious evidence of tamponade but is difficult to evaluate due to severely dilated hypokinetic right ventricle. Since echocardiogram November 12, 2024
which was reviewed, pericardial effusion appears to be increased in size from small-moderate to moderate.
Plan:
She presented with recurrent acute on chronic HFpEF with severe pulmonary hypertension in the setting of interstitial lung disease. Her wt was up since last discharge.
She has at least moderate pericardial effusion measuring up to 2.7 cm in some views. No clear evidence of tamponade but worsening hypotension is concerning and with significant RV failure and hypokinesis and dysfunction of RV she has even less
reserved. Discussed potential for pericardiocentesis but she currently declines.
Hold IV Lasix this AM given worsening hypotension.
Patient was taking Lasix 60 mg PO BID prior to admission.
She is not on beta duke or ACEI with hypotension currently.
Cont medical therapy of nonMI troponin
Remains in sinus rhythm.
Cont pulm toilet, Hiflo O2 as per jacket changer.
Goals of care discussions ongoing. She is very cachectic and frail.
Her prognosis is extremely poor with RV failure and now pericardial effusion and significant interstitial lung disease.
Discussed with nursing.
CCT: 33 min
HPI: Patient was brought to [facility] ER from home with increased SOB and was admitted with acute hypoxic respiratory failure and HFpEF with cardiology now being consulted. Patient was last admitted to [facility] from 11/11/2024 until 11/19/2024 with acute
HFpEF and weight on the day of discharge was 76 pounds. Patient was scheduled to follow-up in our office 2 weeks after admission, but canceled her appointment and has not been seen since. Patient reports compliance with Lasix 60 mg twice daily.
Patient says her LE edema is persistent and not necessarily worse. Patient denies any weight gain. Patient denies any dietary indiscretion. Patient denies any chest pain. Patient denies any recent orthopnea or PND. It sounds as though patient
finished dinner last night and then after finishing her breathing treatment and laying down to go to sleep she felt like she could not breathe and her called 911. When paramedics arrived she was wearing her typical oxygen at 4 L nasal
cannula and pulse ox was only 86%. Patient was started on NRB and is now on high flow.
Progress Note - Knobber
Subjective
Date of Service: February 12, 2025
Pt seen and examined. No complaints. No chest pain..
Objective
Labs:
02/12/25 04:11
02/12/25 04:11
Labs
Hgb 11.8 g/dL (12.0-16.0) L 02/12/25 04:11
Hct 38.9 % (37.0-47.0) 02/12/25 04:11
Plt Count 226 10^3/uL (130-400) 02/12/25 04:11
Sodium 141 mmol/L (135-145) 02/12/25 04:11
Potassium 5.6 mmol/L (3.5-5.1) H D 02/12/25 04:11
BUN 40 mg/dl (7-17) H 02/12/25 04:11
Creatinine 1.4 mg/dL (0.6-1.0) H 02/12/25 04:11
Glucose 127 mg/dl (70-99) H 02/12/25 04:11
Troponins
02/10/25 02/11/25 02/11/25
23:56 06:45 16:08
Troponin I 0.059 H* 0.068 H* 0.075 H*
Vital Signs and I&O:
Vital Signs
Temp Pulse Resp BP Pulse Ox
97.5 F 69 22 80/66 94
02/12/25 07:42 02/12/25 08:46 02/12/25 08:06 02/12/25 08:46 02/12/25 08:06
Vital Signs
Temp Pulse Resp BP Pulse Ox
97.5 F 69 22 80/66 94
02/12/25 07:42 02/12/25 08:46 02/12/25 08:06 02/12/25 08:46 02/12/25 08:06
Intake & Output
02/10/25 02/11/25 02/12/25 02/13/25
06:59 06:59 06:59 06:59
Intake Total 360 / 360
Output Total 150 / 150 0 / 0
Balance -150 / -150 360 / 360
Physical Exam
Physical Exam
General: AAOX3, cachectic, ill appearing
Neck: Negative JVD
Heart: Regular, Negative S3 positive S1/S2, Negative S4, No murmur
Lungs: CTA b/l, negative wheezes/rales/rhonchi
Abd: Positive BS, NT/ND, neg rebound/rigidity/guarding
Ext: Negative cyanosis/clubbing/edema
Neuro: nonfocal
--- NOTE | 2025-02-12 09:06 | PN.CDI ---
CDI
- -
CDI:
Physician Documentation Request
Admit Date: 02/11/25 04:21
Dear Doctor Loida,
Patient admitted for heart failure.
02/11 Hospitalist PN: 'Non-[place] troponin elevation.'
Laboratory Tests
02/10/25 02/11/25 02/11/25
23:56 06:45 16:08
Troponin I 0.059 H* 0.068 H* 0.075 H*
Please clarify the following regarding the documented troponin elevation:
Nonischemic myocardial injury
Lab abnormality
Other
Use of terms such as suspected, likely, concern for, or probable (associated with a specific diagnosis that is being evaluated, monitored, or treated as if it exists) are acceptable and can be coded in the inpatient setting, when documented at the
time of discharge.
Thank you,
Ragini Etienne RN, BSN
CDI Specialist
Available via [place] text
Please use your independent medical judgment in providing your response.
--- NOTE | 2025-02-12 11:15 | W.PN.HOSP.TC ---
Today's Communication/Plan
-
See plan
Assessment / Plan
Assessment / Plan
Impression:
Acute on chronic hypoxic respiratory failure
Acute CHF preserved EF
Acute pulmonary edema secondary to CHF
Mild to moderate pericardial effusion
Non-[place] troponin elevation.
Acute kidney injury
Hyperkalemia
Conditions prior to admission.
Interstitial lung disease baseline chronic hypoxic respiratory failure on home O2 at 4 L
Bronchiectasis
Pulmonary hypertension, severe
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
Plan:
Acute on chronic hypoxic respiratory failure secondary to CHF exacerbation
Currently on high flow oxygen at 50%. With increased work of breathing
Acute pulmonary edema secondary to above
Echo 11/26 LVEF 50-55%, severe pulmonary hypertension with PAP 75-80 mmHg
Chest x-ray with worsening bilateral pulmonary edema
Weight is up 39 kg upon presentation (dry weight likely close to 34 kg)
No clinical evidence for infection. Monitor closely off antibiotics
Not bronchospastic on exam
Repeat/update echocardiogram with severe pulmonary hypertension and RV hypokinesis as well as worsening and now moderate pericardial effusion
Clinically responding to IV diuresis with improved oxygen requirements as well as decreased pulmonary edema on the follow-up chest x-ray.
Noted with persistent hypotension and acute kidney injury with hyperkalemia.
Patient is not interested for any aggressive procedures including pericardiocentesis.
Given persistent hypotension and SONALI plan is to hold diuretics.
Treat hyperkalemia with Lokelma and follow BMP.
Systemic corticosteroid as per pulmonary
Continue nebs.
Continue Pulmicort
Follow daily w
Ongoing goals of care discussion with patient's and patient's and [id number] at the bedside.
Given multiorgan failure including advanced CHF, advanced ILD, acute on chronic hypoxic respiratory failure and now evolving kidney injury with hyperkalemia, profound deconditioning with deteriorating performance status patient is appropriate for
comfort care and hospice transition. Further discussions with the rest of the family including patient's daughter.
CODE STATUS DNR
DVT prophylaxis Lovenox adjusted to renal function
Anticipated Discharge: > 48 hours
Subjective/Interval History
-
Date of Service: February 12, 2025
Objective Data
-
Labs:
Laboratory Results
02/12/25 02/12/25
04:11 05:19
WBC 3.5 L
Hgb 11.8 L
Hct 38.9
Plt Count 226
HCO3 42.6 H*
Sodium 141
Potassium 5.6 H D
Chloride 94 L
Carbon Dioxide 39 H
BUN 40 H
Creatinine 1.4 H
Glucose 127 H
Calcium 9.3
Vital Signs:
Vital Signs
Temp Pulse Resp BP Pulse Ox
97.6 F 94 36 87/76 96
02/12/25 11:05 02/12/25 10:46 02/12/25 10:46 02/12/25 10:46 02/12/25 10:46
I&O
02/11/25 02/12/25 02/13/25
06:59 06:59 06:59
Intake Total 360 / 360 60 / 60
Output Total 150 / 150 0 / 0
Balance -150 / -150 360 / 360 60 / 60
Physical Exam
-
General: Respiratory Distress, Appears Chronically Ill and Cachectic
Respiratory: Rales and Rhonchi; Negative Wheezes
Cardiac: Regular Rhythm
GI: Soft
Neuro: Awake, Alert and Oriented
--- NOTE | 2025-02-12 11:44 | PTCARENOTE ---
Critical care team in and out at bedside. Cardiology at bedside this am. Hospitalist team at bedside, dnr/dni status with case management consult/hospice follow up in process. Crate Repairer team/Pulmonology at bedside. Review assessment, concerns and
changes in system failure.Family wishing to pursue comfort only. Continue teaching, comfort measures and supportive cares for patient and family. Minimal po intake, with encouragement from staff and family. Patient c/c of fatigue, exhausted and
shortness of breath. Position for comfort. Follow up medications via [facility]. Assessment unchanged thru am.
--- NOTE | 2025-02-12 12:00 | W.PN.UPDATE ---
Update Note
Progress Note Update
Discussion held with the patient's , Vineet, patient's [id number], Mckenna, and patient's daughter (over the phone), Blessing Diego, and we discussed the patient's clinical status including her respiratory status and heart failure. Given the
patient's advanced heart failure with right ventricular dysfunction, pulmonary hypertension, failure to thrive, and underlying ILD, patient is certainly hospice appropriate aliyah now that she is hypotensive with an SONALI and developing hyperkalemia -
patient wants to avoid aggressive interventions, and wants to be comfortable. Hospice had already been discussed by the hospitalist, Dr. Mariscal, and the pt and family has agreed to DNR/DNI code status (previously she was only DNI). I discussed
hospice again with the family and they agree that this is appropriate. All questions were answered. Comfort care orders to be placed. Bedside RN made aware.
[2025-02-12] MEDS: ATIVAN 0.5 MG IV (12:38)
[2025-02-12] MEDS: MORPHINE SULFATE 2 MG IV (12:39)
--- NOTE | 2025-02-12 12:45 | CM ---
Hospice consult ordered and referral made to hospice.
--- NOTE | 2025-02-12 12:46 | PTCARENOTE ---
showroom manager at bedside with family. Hospice team at bedside with family. Patient pre-assessment, sob/bedoya states can't get comfortable or catch her breath. Update with cylinder machine operator pulp drier team. Medicated and follow up with pharmacy/emar ongoing. ,
sister and daughter on phone at bedside. Comfort measures and supportive cares ongoing.
--- NOTE | 2025-02-12 13:20 | HOSPNOTE ---
Patient will be admitted inpatient hospice family in agreement. Patient has been given a dose of morphine for shortness of breath. Admissions was called and will enter the hospice chart. Patient will be seen daily.
--- NOTE | 2025-02-12 14:06 | PTCARENOTE ---
With family at bedside. Report called to orth team post transition to hospice. Upon arrival of daughter patient became agonal, apneic and bradycardic. Patient shortly there after. Notified gift of life, fence supervisor, biology specimen technician and
hospitalist team. Follow up with Hospice team and case management. Continue with emotional support and supportive cares for famil. Reaching out to pastoral cares. Will follow post mortem cares.
--- NOTE | 2025-02-12 14:18 | W.PN.DEATH ---
Pronouncement of
-
Called to see patient to pronounce.
No spontaneous heart tones or respirations noted.
Patient not responsive to verbal stimuli.
Patient is pronounced .
Time of : 13:45
Date of : 02/12/25
Cause of : Acute respiratory failure secondary to decompensated CHF and an advanced ILD
Family Notified: Yes
--- NOTE | 2025-02-12 14:59 | CHAP ---
Emotional and spiritual support offered. Family was grateful but said they had no need for further support.
--- NOTE | 2025-02-12 15:21 | CM ---
Patient at 1:45PM on this date, 02/12/25.
[2025-02-13 13:43] LABS: Rheumatoid Agglutinin Less Than 10 IU (<10 IU)
[2025-02-14 10:31] LABS: Centromere Antibody 0 AU/mL (0-40); Jo-1 Antibodies 1 AU/mL (0-40); SSA 52 (Ro)(ENA) Ab, IgG 11 AU/mL (0-40); SSA 60 (Ro)(ENA) Ab, IgG 0 AU/mL (0-40); SSB (La)(ENA) Ab, IgG 0 AU/mL (0-40); Scleroderma Antibody (Scl-70) 3 AU/mL (0-40)
[2025-02-14 13:51] LABS: ANA, IgG Reflex to HEp-2 Detected (None Detected)
[2025-02-14 15:19] LABS: CCP Antibody IgG/IgA 3 Units (0-19)
== END 2025-02-12 13:45 | disposition expired | DRG 291 ==
LOC: ICU 04:21
PROVIDERS: ADMITTING PHYSICIAN Internal Medicine; ATTENDING PHYSICIAN Internal Medicine; CONSULT PHYSICIAN Internal Medicine Critical Care Medicine; EMERGENCY PHYSICIAN Emergency Medicine; FAMILY PHYSICIAN Physician Assistant; OTHER PHYSICIAN Internal Medicine Cardiovascular Disease
PROC: 5A0945A Assistance with Respiratory Ventilation, 24-96 Consecutive Hours, High Flow/Velocity Cannula (ICD-10-PCS; 2025-02-11)
DX: I50.33 Acute on chronic diastolic (congestive) heart failure (principal); J96.21 Acute and chronic respiratory failure with hypoxia; J96.22 Acute and chronic respiratory failure with hypercapnia; E87.4 Mixed disorder of acid-base balance; R64 Cachexia; I31.39 Other pericardial effusion (noninflammatory); N17.9 Acute kidney failure, unspecified; Z68.1 Body mass index [BMI] 19.9 or less, adult; I24.89 Other forms of acute ischemic heart disease; Z51.5 Encounter for palliative care; J44.9 Chronic obstructive pulmonary disease, unspecified; J47.9 Bronchiectasis, uncomplicated; J84.10 Pulmonary fibrosis, unspecified; I27.29 Other secondary pulmonary hypertension; H35.30 Unspecified macular degeneration; I07.1 Rheumatic tricuspid insufficiency; M81.0 Age-related osteoporosis without current pathological fracture; E55.9 Vitamin D deficiency, unspecified; J30.89 Other allergic rhinitis; I73.00 Raynaud's syndrome without gangrene; D72.819 Decreased white blood cell count, unspecified; R54 Age-related physical debility; M62.58 Muscle wasting and atrophy, not elsewhere classified, other site; I50.82 Biventricular heart failure; E87.5 Hyperkalemia; J98.4 Other disorders of lung; R70.0 Elevated erythrocyte sedimentation rate; Z66 Do not resuscitate; Z91.048 Other nonmedicinal substance allergy status; Z82.49 Family history of ischemic heart disease and other diseases of the circulatory system; Z88.2 Allergy status to sulfonamides; Z99.81 Dependence on supplemental oxygen; Z11.52 Encounter for screening for COVID-19; Z87.01 Personal history of pneumonia (recurrent); Z87.310 Personal history of (healed) osteoporosis fracture; Z79.51 Long term (current) use of inhaled steroids
CPT/HCPCS: 93308; 36600; 71045; 71046; 80048; 80053; 82550; 82805; 83516; 83735; 83880; 84100; 84145; 84484; 85025; 85652; 86038; 86140; 86200; 86235; 86331; 86430; 86606; 87811; 93005; 93321; 93325; 94640; 99285